=== PATIENT | male | born 1950 | race Caucasian/White ===

== ENCOUNTER → 2018-11-26 10:03 | Outpatient (CLI) | payer MEDICARE, SELFPAY ==
[2018-11-26 11:07] LABS: PSA,Total - Annual Screen 0.32 ng/mL (0.00-4.00)
== END ==
PROVIDERS: Family Provider Family Medicine; PCP Family Medicine; Referring Provider Nurse Practitioner Adult Health; Visit Provider Nurse Practitioner Adult Health
DX: Z12.5 Encounter for screening for malignant neoplasm of prostate (principal)
CPT/HCPCS: 36415; 84153; G0103

== ENCOUNTER → 2019-03-25 16:52 | Outpatient (CLI) | payer MEDICARE, SELFPAY ==
[2019-03-25 17:01] LABS: Bacteria 0 SEEN /hpf (None Seen); Mucous, Urine 0 SEEN /hpf (<or=2+); Red Blood Cells-Urine 0 SEEN /hpf (0-5); Squamous Epithelial Cells - UA 0 SEEN /hpf (0-5); White Blood Cells 0 SEEN /hpf (0-5)
[2019-03-25 17:16] LABS: Color, Urine Yellow (Yellow); Glucose, Dipstick Normal (Normal); Ketone-Dipstick Negative (Negative); Leukocyte Esterase-Dipstick Negative /ul (Negative); Nitrite-Dipstick Negative (Negative); Occult Blood-Urine 10 /ul (Negative); Protein-Dipstick Negative (Negative); Urine Bilirubin Dipstick Negative (Negative); Urine Clarity Clear (Clear); Urine Urobilinogen Normal (Normal)
== END ==
PROVIDERS: Family Provider Family Medicine; PCP Family Medicine; Referring Provider Urology; Visit Provider Urology
DX: R31.29 Other microscopic hematuria (principal)
CPT/HCPCS: 81001

== ENCOUNTER 2019-04-10 11:35 | Emergency (ER) | payer MEDICARE, OTHER, SELFPAY ==
[2019-04-10 11:36] VITALS: BP 147/67; PULSE 48; RESP 16; TEMP 36.7; O2SAT 93; BMI 31.4
[2019-04-10] MEDS: Ondansetron 4 MG/2 ML Vial IV (12:09)
[2019-04-10] MEDS: Morphine 4 MG/ML Syringe IM (12:09)
--- NOTE | 2019-04-10 12:11 | RAD_ITS ---
STUDY: X-RAY - LEFT HAND, ATTENTION FIRST FINGER REASON FOR EXAM: Male, 69 years old. Laceration with saw TECHNIQUE: 3 view(s) of the finger were obtained. COMPARISON: None. FINDINGS: Severe soft tissue injury of the distal left thumb with osseous involvement and what appears to be near amputation. Remainder is within normal limits RAD/Finger(s) Min 2 Views IMPRESSION: As above Electronically Signed: Arpan Sanchez DO at 12:43 EDT Tel , Service support ,
[2019-04-10] MEDS: Diphth,Pertuss(Acell),Tet Vac 0.5 ML Vial IM (12:13)
[2019-04-10] MEDS: Cefazolin 1 GM/50 ML BAG IV (12:36)
--- NOTE | 2019-04-10 12:36 | ED.DCSUM_ITS ---
History of Present Illness Chief Complaint: Laceration Detail of Chief Complaint: Partial amputation left thumb Informant: Patient Occurred: Today Mechanism/Context: Incised - Using commercial planar Current Severity: 5/10 Maximum Severity: 10/10 Worsened by: Any type of movement Relieved by: Better if left alone Associated Symptoms: Parasthesia, Weakness, Loss of Funtion Narrative: Patient is a 69-year-old [id number] male who presents with laceration to the left thumb not right as document by triage. This occurred less than 30 minutes prior to presentation. He has not had anything to eat or drink other than a sip water between 8 AM and 9 AM. He has history of hypertension and hypercholesterolemia. Immunization unknown. Patient has no other complaints. Tetanus Immunization: >10 years Prior similar symptoms: No Recent Illness/Hospitalization: No Past Medical History - Allergies and Home Meds Allergies/Adverse Reactions: Allergies codeine Adverse Reaction (Verified 04/10/19 11:36) Nausea/Vom/Diarrhea Primary Care Physician: Dunia Barnes MD [Primary Care Provider] - Prior records reviewed: Yes Lives: Spouse/ Significant Other Smoking Status: Never smoker Drugs: None Review of Systems General: Denies: Chills, Fever Cardiovascular: Denies: Chest pain Gastrointestinal: Denies: Nausea, Vomiting Musculoskeletal: Reports: Extremity Pain. Denies: Myalgias, Arthralgias, Neck pain, Back pain, Swelling Skin: Reports: Wounds - Left thumb ulnar side. Denies: Rash, Abrasions Neurological: Reports: Parasthesia, Numbness Hematologic: Denies: Easy bruising, Easy bleeding Allergy: Denies: Uticaria, Swelling of the mouth Physical Exam Vital Signs/Narrative: Vital Signs Temp Pulse Resp BP Pulse Ox 04/10/19 11:36 98.1 F 48 L 16 147/67 H 93 Left Humerus: Negative for: Abrasion, Contusion, Deformity, Edema, Hematoma, Limited ROM, - Left Elbow: Negative for: Abrasion, Contusion, Deformity, Edema, Hematoma, Limited ROM, - Left Forearm: Negative for: Abrasion, Contusion, Deformity, Edema, Hematoma, Limited ROM, - Left Wrist: Negative for: Abrasion, Contusion, Deformity, Edema, Hematoma, Limited ROM, - Left Hand: Negative for: Abrasion, Contusion, Deformity, Edema, Hematoma, Limited ROM, - Left Finger: Deformity, Limited ROM, - - With complex laceration deformity of the left thumb. The IP joint is dislocated. He has no sensation on the radial side and only touch with absent two-point discrimination on the ulnar side. He is unable to extend or flex at the IP joint. There is significant tissue loss noted. There is discoloration of the distal portion of the thumb on the radial side.. Negative for: Abrasion General: Well nourished, Well developed Head: Normocephalic, Atraumatic Eyes: Perrl, EOMI. Negative for: Pale conjunctiva, Scleral icterus, - ENT: No Trauma, Moist Mucous Membranes Neck: Nontender, Full ROM Cardiovascular: Regular rate, Regular rhythm, No murmurs, Normal S1, Normal S2 Respiratory: No distress, CTA bilaterally, Chest nontender Rectal: Deferred Skin: Normal color, No rash, Trauma - Described under hand portion of the chart Neurological: Alert, Oriented x3, Cranial nerves II-XII grossly intact, Normal Strength. Negative for: Normal Sensation Psychological: Normal affect Diagnostic/Tx/Re-eval Chest X-Ray - ED: Read by ED Physician 3 view x-ray of the left thumb was obtained. 50% of the articular surface of the distal phalanx on the radial side is absent. The condyles have been removed. - Medical Decision Making Patient was made n.p.o. Tetanus was updated. Patient received 1 g of Ancef. X-rays were obtained. Case discussed with Dr. Tamiko Eid, on-call for orthopedics. She recommended hand surgical referral. Page was placed to the physician litigation legal assistant for [place] [facility]. Case was discussed with Dr. Dyer at [facility]. She is accepted patient. Transfer will be ER to ER. Transfer line has been paged. ED Disposition - Plan for ED Patient: Disposition: [facility] Diagnosis: Laceration of thumb, left, complicated, Fracture of unspecified phalanx of left thumb, initial encounter for open fracture Referrals: Dunia Barnes MD [Primary Care Provider] -
[2019-04-10 12:54] VITALS: BP 218/80; PULSE 50; O2SAT 99
[2019-04-10 12:55] VITALS: BP 218/80; PULSE 52; RESP 16; O2SAT 99
--- NOTE | 2019-04-10 13:06 | ED.RN ---
called report to stevie anne in [facility].
[2019-04-10 13:07] VITALS: BP 205/102; PULSE 48; O2SAT 100
[2019-04-10] MEDS: Morphine 4 MG/ML Syringe IV (13:24)
== END 2019-04-10 13:28 | disposition short-term general hospital (02) ==
PROVIDERS: Emergency Provider Emergency Medicine; Family Provider Family Medicine; PCP Family Medicine
DX: S62.522B Displaced fracture of distal phalanx of left thumb, initial encounter for open fracture (principal); I10 Essential (primary) hypertension; Z23 Encounter for immunization; E78.00 Pure hypercholesterolemia, unspecified; Z79.899 Other long term (current) drug therapy; W26.8XXA Contact with other sharp object(s), not elsewhere classified, initial encounter; Y93.89 Activity, other specified; Y92.008 Other place in unspecified non-institutional (private) residence as the place of occurrence of the external cause; Y99.8 Other external cause status
CPT/HCPCS: 73140; 90715; 96365; 96372; 96375; 99284; A4216; J2405

== ENCOUNTER → 2019-05-07 | Outpatient (CLI) | payer MEDICARE, OTHER, SELFPAY ==
[2019-04-10 11:36] VITALS: BMI 31.4
[2019-05-07 15:56] LABS: Anion Gap 6 (5-15); BUN 17 mg/dL (7-18); BUN/Creat Ratio 15.2 RATIO (10-20); Calcium,Total 9.1 mg/dL (8.5-10.1); Chloride 107 mmol/L (98-107); Creatinine, Serum 1.12 mg/dL (0.70-1.30); EST Glomerular Filtration Rate 69 mL/min (>60); Est Glom Filt Rate - Afr Amer 84 mL/min (>60); Glucose 104 mg/dL (74-106); Potassium 4.1 mmol/L (3.5-5.1); Sodium Level 139 mmol/L (136-145)
== END | disposition home or self-care (01) ==
LOC: MFPLAB 13:52
PROVIDERS: Family Provider Family Medicine; PCP Family Medicine; Referring Provider Family Medicine; Visit Provider Family Medicine
DX: I10 Essential (primary) hypertension (principal)
CPT/HCPCS: 36415; 80048

== ENCOUNTER → 2019-06-11 | Outpatient (CLI) | payer MEDICARE, OTHER, SELFPAY ==
[2019-06-11 17:37] LABS: Anion Gap 5 (5-15); BUN 19 mg/dL (7-18); BUN/Creat Ratio 14.2 RATIO (10-20); Chloride 107 mmol/L (98-107); Creatinine, Serum 1.34 mg/dL (0.70-1.30); EST Glomerular Filtration Rate 56 mL/min (>60); Est Glom Filt Rate - Afr Amer 68 mL/min (>60); Glucose 100 mg/dL (74-106); Potassium 4.1 mmol/L (3.5-5.1); Sodium Level 139 mmol/L (136-145)
== END | disposition home or self-care (01) ==
LOC: MFPLAB 15:03
PROVIDERS: Family Provider Family Medicine; PCP Family Medicine; Referring Provider Family Medicine; Visit Provider Family Medicine
DX: I10 Essential (primary) hypertension (principal)
CPT/HCPCS: 36415; 80048

== ENCOUNTER → 2019-12-13 10:21 | Outpatient (CLI) | payer MEDICARE, OTHER, SELFPAY ==
[2019-12-13 12:45] LABS: AST(SGOT) 14 U/L (15-37); Alanine Aminotransfer ALT/SGPT 26 U/L (16-61); Anion Gap 4 (5-15); BUN 16 mg/dL (7-18); BUN/Creat Ratio 13.7 RATIO (10-20); Calcium,Total 9.1 mg/dL (8.5-10.1); Chloride 110 mmol/L (98-107); Cholesterol 187 mg/dL (200); Creatinine, Serum 1.17 mg/dL (0.70-1.30); EST Glomerular Filtration Rate 66 mL/min (>60); Est Glom Filt Rate - Afr Amer 80 mL/min (>60); Glucose 78 mg/dL (74-106); High Density Lipoprotein 69 mg/dL; Potassium 3.9 mmol/L (3.5-5.1); Sodium Level 140 mmol/L (136-145); Triglycerides 118 mg/dL; Very Low Density Lipoprotein 24 mg/dL (5-40)
== END ==
PROVIDERS: PCP Family Medicine; Referring Provider Family Medicine; Visit Provider Family Medicine
DX: I10 Essential (primary) hypertension (principal); E78.5 Hyperlipidemia, unspecified
CPT/HCPCS: 36415; 80048; 80061; 84450; 84460

== ENCOUNTER → 2020-06-07 10:35 | Outpatient (CLI) | payer MEDICARE, OTHER, SELFPAY ==
[2020-06-07 13:16] LABS: Anion Gap 3 (5-15); BUN 17 mg/dL (7-18); BUN/Creat Ratio 14.3 RATIO (10-20); Calcium,Total 8.7 mg/dL (8.5-10.1); Chloride 108 mmol/L (98-107); Creatinine, Serum 1.19 mg/dL (0.70-1.30); EST Glomerular Filtration Rate 64 mL/min (>60); Est Glom Filt Rate - Afr Amer 78 mL/min (>60); Glucose 88 mg/dL (74-106); PSA,Total - Annual Screen 1.21 ng/mL (0.00-4.00); Potassium 4.7 mmol/L (3.5-5.1); Sodium Level 140 mmol/L (136-145)
== END ==
PROVIDERS: PCP Family Medicine; Referring Provider Family Medicine; Visit Provider Family Medicine
DX: Z00.00 Encounter for general adult medical examination without abnormal findings (principal); I10 Essential (primary) hypertension; Z12.5 Encounter for screening for malignant neoplasm of prostate
CPT/HCPCS: 36415; 80048; 84153; G0103

== ENCOUNTER 2020-06-29 10:00 | Outpatient (RCR) | payer MEDICARE, OTHER, SELFPAY ==
--- NOTE | 2020-05-17 07:52 | HP.PTEVAL ---
Patient's Visit Information TESHA NULL is a 70 year old M referred to Physical Therapy by Dr. Sharad Vila MD with a diagnosis of R knee medial meniscal repair. Date of Evaluation: 05/17/20 Physical Therapist: Feroz Martinez PT, ATC - Visit Plan Frequency: 2x /Week Duration: 6 Weeks Plan: R LE strengthening, balance and proprioreception, core strengthening, bike, and HEP - Subjective DOS: 04/27/2020. Pt had arthroscopic surgery of R knee to repair torn medial meniscus. Pt reports pain is a litlle better at this time. Pt reports he is still having a very difficult time with ascending and descending stairs. Pt reports he has been performing HEP while waiting to get into for his eval. No tingling or numbness in R LE at this time. Pt reports sleep difficulty secondary to pain at this time. No PMHx of R knee surgeries prior to this eepisode. Pt is retired at this time. Pt reports he likes to golf and perform wood working activities at this time, but is unable to secondary to his surgery. Pt has stairs at home, but has to negotiate them one at a time. 5/10 pain at rest, 7/10 pain at worst (prolonged standing, walking, stair negotiation). - Pain R knee arthroscopy Pain Intensity (Out of 10): 5 Pain Intensity Range: 7 - Objective Neuro: B LE sensation is WNL to light touch. B achilles reflex= 2/3. Girth at joint line: R knee 38 cm, L knee 37 cm. Palpation: Incision still healing on lateral compartment. Mild swelling noted. No pitting edema present this date. No signs of infection present. ROM: L knee 0-123 degrees; R knee 0-107 degrees. MMT: L knee flex 5/5, ext 4-/5; R knee flex= 5/5, ext= 3+/5. Flexibility: Pt has a mild limitation with R HS muscle group - Goals Goal 1:: Decrease R knee pain x 50% to aid with sleep Goal Time Frame: 4-6 Weeks Goal 2:: Increase R knee ROM x 15 degrees to aid with restoring a more normalized gait pattern Goal Time Frame: 4-6 Weeks Goal 3:: Increase R knee strength x 1 grade to aid with stair negotiation Goal Time Frame: 4-6 Weeks Goal 4:: I with HEP Goal Time Frame: 4-6 Weeks - Rehabilitation Potential Physical Therapy Diagnosis: Pt has R knee pain, weakness, and limited ROM secondary to R medial meniscus repair Rehabilitation Potential: Good - Anticipated Interventions Patient/Client Instruction: Educate patient on: Condition, Plan of Care For the Purpose of:: To improve self management Therapeutic Exercise to Include: Strength training, Endurance training, Balance training, Flexibilty training, Active ROM, Dynamic Lumbar Stabilization For the Purpose of:: To decrease pain, To increase ROM, To improve muscle performance and motor function Cryotherapy (ice pack, ice massage): Yes For the Purpose of:: To decrease pain Thank you for the opportunity to evaluate your patient. For Medicare and Medicare HMO plans, please review the plan of care and approve it. It will need to be FAXED BACK to us at [phone] for Medicare purposes. For Medicare only, by signing this I certify the plan of care. Please let me know if there are questions or concerns regarding this plan of care. Physician Signature: Date:
--- NOTE | 2020-06-20 10:15 | HP.PTREVAL ---
Dr. Sharad Vila MD, It has been my pleasure to treat TESHA NULL over the last 10 visits for R knee medial meniscal repair. Please see the progress note below for an update on the physical therapy plan of care! Subjective: Pt reports that he is getting better. He still has pain when standing for a few hours. He has a little bit of pain on the stairs.... is getting better. More pain going down the stairs then up. He still has to hold onto the rail going down. When he gets down on the floor to get over onto his knees he is still sensitive. There are times that he still wakes up (2-3X/week) with pain and takes Tylenol. Objective/Function: Decreased eccenric control descending stairs on the right. Observed weakness ascending the stairs on the R as well. R knee AROM: 0-125 degrees. R knee flex 4+/5 and ext 4/5 and and R hip abd 4/5 and hip ext 4-/5. Pt struggled with strength and confidence with 8 step ups to balance. Plan Plan: Continue X 3 weeks for R eccentric strength, R LE strengthening, balance and proprioreception, core strengthening, bike, and HEP Goals Goal 1:: Decrease R knee pain x 50% to aid with sleep Goal Time Frame: 4-6 Weeks Goal Progress: Progressing Goal 2:: Increase R knee ROM x 15 degrees to aid with restoring a more normalized gait pattern Goal Time Frame: 4-6 Weeks Goal Progress: Progressing Goal 3:: Increase R knee strength x 1 grade to aid with stair negotiation Goal Time Frame: 4-6 Weeks Goal Progress: Progressing Goal 4:: I with HEP Goal Time Frame: 4-6 Weeks Goal Progress: Progressing Anticipated Interventions Patient/Client Instruction: Educate patient on: Condition, Plan of Care For the Purpose of:: To improve self management Therapeutic Exercise to Include: Strength training, Endurance training, Balance training, Flexibilty training, Active ROM, Dynamic Lumbar Stabilization For the Purpose of:: To decrease pain, To increase ROM, To improve muscle performance and motor function Cryotherapy (ice pack, ice massage): Yes For the Purpose of:: To decrease pain Please do not hesitate to contact me at [phone] by phone or if you have questions or concerns regarding this new plan of care! Sincerely, July Brooks, MPT
--- NOTE | 2020-06-29 10:22 | HP.PTDCSUM_ITS ---
It has been my pleasure to treat TESHA NULL referred by Dr. Sharad Vila MD, with the diagnosis of R knee medial meniscal repair for a total of 13 visit(s). Discharge Date: Please see the following information for a summary of their discharge status. Subjective: Patient reports that he is still challenged with standing for long periods of time, stairs or walking long distances. Feels that he can perform all the exercises at home without difficulty. Worst: 4/10 mostly at night when he is trying to get comfortable. Most of the time he is painfree. He has no difficulty with ADL's- about an hour or hour and half is when he starts to have discomfort in on the medial side of the joint. R knee arthroscopy Pain Intensity (Out of 10): 0 % Improvement: 90 Objective/Function: Posture: good throughout Gait: slightly antalgic with decreased heel strike, Stairs: Decreased eccenric control descending stairs on the right. SLS: 30 sec without LOB Tandem walking: x5 steps no LOB Palpation: tender along medial joint line. Strength: Ankle: 5/5, Knee: 5/5, Hip : 4+/5 throughout Core: fair plus Goal 1:: Decrease R knee pain x 50% to aid with sleep Goal Progress: Goal Met Goal 2:: Increase R knee ROM x 15 degrees to aid with restoring a more normalized gait pattern Goal Progress: Goal Met Goal 3:: Increase R knee strength x 1 grade to aid with stair negotiation Goal Progress: Goal Met Goal 4:: I with HEP Goal Progress: Goal Met Plan: Discharge to I HEP- gave pt Health and Wellness form for particpation after PT If there are questions or concerns regarding this patient's physical therapy, please feel free to call me at [phone]. Thank you for the referral of this patient. Sincerely, CAROLIN PinedaT
== END 2020-06-29 10:51 | disposition home or self-care (01) ==
LOC: PT 10:00
PROVIDERS: PCP Family Medicine; Referring Provider Orthopaedic Surgery; Visit Provider Orthopaedic Surgery
DX: S83.241D Other tear of medial meniscus, current injury, right knee, subsequent encounter (principal); Z98.890 Other specified postprocedural states
CPT/HCPCS: 97110; 97161; 97164; 97530

== ENCOUNTER → 2020-08-01 11:26 | Outpatient (CLI) | payer MEDICARE, OTHER, SELFPAY ==
--- NOTE | 2020-08-01 11:30 | RAD_ITS ---
HISTORY: low back pain, mainly left sided ADDITIONAL HISTORY: None provided. EXAMINATION/TECHNIQUE: XR Spine Lumbar Min 4 Views Number of images including paperwork: 5 COMPARISON: None FINDINGS: VERTEBRAE: No acute fracture. VERTEBRAL ALIGNMENT: No traumatic subluxation. DISKS AND JOINTS: Minimal discogenic degenerative changes with small osteophytes. Facet arthropathy, most pronounced at the lumbosacral junction. SOFT TISSUES: Vascular calcifications. RAD/L/S Spine Min 4 Views IMPRESSION: No acute findings. Degenerative changes. at 0624 Reported and signed by: Ora Crane MD Electronically Signed: Ora Crane MD at 6:24 EDT Tel , Service support ,
== END ==
PROVIDERS: PCP Family Medicine; Referring Provider Nurse Practitioner Adult Health; Visit Provider Nurse Practitioner Adult Health
DX: M54.9 Dorsalgia, unspecified (principal)
CPT/HCPCS: 72110

== ENCOUNTER 2021-04-08 08:21 | Emergency (ER) | payer MEDICARE, OTHER, SELFPAY ==
[2021-04-08 08:22] VITALS: BP 152/91; PULSE 52; RESP 14; TEMP 35.8; O2SAT 97; BMI 28.9
--- NOTE | 2021-04-08 08:44 | RAD_ITS ---
STUDY: X-RAY - LEFT KNEE REASON FOR EXAM: Male, 71 years old. effusion TECHNIQUE: 4 view(s) of the knee. COMPARISON: None. FINDINGS: Normal visualized distal femur. Normal visualized proximal tibia and fibula. Normal proximal tibiofibular articulation. Status post medial compartment arthroplasty. The prosthesis appears intact. No ostial lysis to suggest loosening. Normal lateral femorotibial compartment. Normal patellofemoral articulation. There is a moderate volume joint effusion. The soft tissue structures are unremarkable. RAD/Knee 4 or More Views IMPRESSION: Effusion, as described above. Electronically Signed: Wilbert Carreno MD at 9:20 EDT Tel , Service support ,
--- NOTE | 2021-04-08 08:55 | EDS_ITS ---
HPI History of Present Illness Chief Complaint: Lower Extremity Injury Informant: patient Narrative Narrative: Patient states that he has had a partial knee replacement by Dr. Peña of the left knee. Recently he has had episodes where it has been catching/locking up and was been painful. He did some extra work on Friday of this week and states his symptoms have gotten worse. He did call for an appointment at the first part of April with orthopedics. He states that now it is catching more in the knee is more swollen than normal. He notes that the left leg has been chronically more swollen than the right. That has been since his surgery. [facility] Medical History (Updated 04/08/21 @ 09:[address] Dave Diaz, DO) GERD (gastroesophageal reflux disease) Hyperlipidemia Hypertension Home Medications atenolol 25 mg PO DAILY 11/10/14 [History Last Taken Unknown] atorvastatin 20 mg PO QHS 11/10/14 [History Last Taken Unknown] esomeprazole magnesium [Nexium] 40 mg PO DAILY 11/10/14 [History Last Taken Unknown] naproxen 500 mg PO BID #20 tab 04/08/21 [Rx Last Taken Unknown] Allergy/AdvReac Type Severity Reaction Status Date / Time codeine AdvReac Nausea/Vom/ Verified 04/08/21 08:22 Diarrhea Surgical History (Updated 04/08/21 @ 09:01 by Maggi Baker) H/O lateral meniscus repair of left knee H/O lateral meniscus repair of right knee Social History Smoking Status: Never smoker ROS ROS ED Constitutional Constitutional ED: Denies chills or weight loss Eyes Eyes: Denies change in vision or diplopia ENT ENT ED: Denies ear pain, rhinorrhea or sore throat Cardiovascular Cardiovascular: Denies chest pain, orthopnea, palpitations or racing heartbeat Respiratory/Chest Respiratory/Chest: Denies cough, dyspnea or orthopnea Gastrointestinal Gastrointestinal: Denies abdominal pain, diarrhea, nausea or vomiting Genitourinary Genitourinary ED: Denies dysuria, hematuria or urinary frequency Musculoskeletal Musculoskeletal: Reports other Details: Left knee pain and swelling ; Denies arthralgias or myalgias Integumentary Denies abscess or rash Neurologic Neurologic: Denies headache(s) or weakness Psychiatric Psychiatric: Denies anxiety, depression, suicidal ideation or suicidal thoughts Endocrine Endocrinology: Denies polydipsia, polyphagia or polyuria Allergic/Immunologic Allergic/Immunologic ED: Denies mouth swelling, tongue swelling or urticaria EXAM Physical Exam Const Vital Signs: 04/08/21 08:22 Temperature 96.4 F L Temperature Source Temporal Pulse Rate 52 L Respiratory Rate 14 Blood Pressure 152/91 H Blood Pressure Mean 111 Pulse Ox 97 Oxygen Delivery Method Room Air Positive well nourished and well developed General Appearance ED: well developed HEENT Reports normocephalic, head/scalp atraumatic and moist mucous membranes Eyes PERRL and EOMs intact bilaterally Neck no lymphadenopathy, supple and no JVD Resp normal respiratory effort and clear to auscultation bilaterally Cardio regular rate, regular rhythm and no murmurs GI normal to inspection, nondistended, normoactive bowel sounds and non-tender Palpation: soft Back/Spine no CVA tenderness and normal ROM Extremity Extremity Narrative: Left knee shows well-healed surgical incision. There is a palpable joint effusion. Ligaments appear stable. The skin is not red or warm. General Extremety ED: Negative for edema General Extremity: Negative for edema Neuro oriented x3 and CN's II-XII intact bilaterally Sensorium / Orientation: alert Motor Exam: strength 5/5 throughout Psych mental status grossly normal Mood & Affect: Negative for depressed or tearful Skin no rashes or lesions noted and no wounds MDM MDM MDM Narrative Medical decision making narrative: My interpretation of the plain films of the left knee is status post partial knee replacement. There are degenerative changes noted. Joint effusion present. I suspect the patient has meniscal injury. Patient will use crutches to help offload the weight. Dylan wrap and ice. I have asked him to limit how much time he is spending on the knee and avoidance of bending. I also advised him to limit golf because of the torquing on the knee. He is to follow-up with orthopedics. I Radiography Diagnostic Testing: Radiology Impression Knee X-Ray 04/08/21 08:44 IMPRESSION: Effusion, as described above. Electronically Signed: Wilbert Carreno MD at 9:20 EDT Tel , Service support , Discharge Plan Triage Chief Complaint: Lower Extremity Injury ED Provider: Dave Diaz Dx/Rx/DC Orders Clinical Impression: Effusion of knee joint, left, Acute pain of left knee Instructions: ED Meniscal Injury Knee Poss, ED Knee Effusion Prescriptions: New naproxen 500 MG tablet 500 mg PO BID Qty: 20 RF: 0 No Action atorvastatin 20 MG tablet 20 mg PO QHS RF: 0 atenolol 25 MG tablet 25 mg PO DAILY RF: 0 esomeprazole magnesium [Nexium] 40 MG capsule 40 mg PO DAILY RF: 0 Primary Care Provider: Dunia Barnes Referrals: Dunia Barnes MD [Primary Care Provider] - Júnior Peña DO [STAFF PHYSICIAN] - [facility] appointment Disposition Disposition: Home, self care Discharge Date/Time: 04/08/21 09:39
== END 2021-04-08 09:39 | disposition home or self-care (01) ==
LOC: ED 09:25
PROVIDERS: Emergency Provider Emergency Medicine; PCP Family Medicine
DX: M25.462 Effusion, left knee (principal); I10 Essential (primary) hypertension; E78.5 Hyperlipidemia, unspecified; K21.9 Gastro-esophageal reflux disease without esophagitis; Z79.899 Other long term (current) drug therapy
CPT/HCPCS: 73564; 99282

== ENCOUNTER → 2021-04-17 10:49 | Outpatient (CLI) | payer MEDICARE, OTHER, SELFPAY ==
[2021-04-08 08:22] VITALS: BMI 28.9
--- NOTE | 2021-04-17 10:56 | NM_ITS ---
CLINICAL: 71-year-old male with reported history of painful left knee hemiarthroplasty. LIMITED 99m Tc MDP THREE PHASE BONE SCINTIGRAPHY COMPARISON: Plain film radiograph report 04/08/2021 FINDINGS: Following the intravenous administration of 24.3 mCi of 99m Tc MDP, three-phase bone acquisitions of the knee articulations reveal: 1. The flow and immediate static blood pool acquisitions demonstrate arterial and venous phase hyperemia manifest in the region of the lateral component of the left knee arthroplasty. Increased blood pool activity is defined in the medial component. Mild increased venous distribution of the radiotracer is noted in the medial compartment of the right knee. 2. Delayed images depict increased visualized in the tibial and lateral components of the left knee hemiarthroplasty correlating with the flow and blood pool changes. 3. Facilitated uptake is identified in the medial tibial compartment of the right knee which corresponds to the blood pool changes. 4. An increase in radiotracer distribution is noted in the patellofemoral compartment of the right knee on late projections only. 5. The remaining limited skeletal structures are scintigraphically unremarkable. NM/Bone Scan Three Phase IMPRESSION: 1. The increase in tracer uptake noted in both the medial and lateral components of the left knee hemiarthroplasty may represent the presence of loosening. The specificity of this finding is facilitated in the setting of operative intervention > 2 years prior to the current presentation. If an infectious etiology is a diagnostic consideration, correlation with labeled leukocyte imaging is recommended. 2. Degenerative arthritis appears expressed in the patellofemoral and medial tibial compartments of the right knee. A component of synovial inflammation involving the medial tibial compartment is a diagnostic consideration secondary to the blood pool changes. Electronically Signed: Wilbert Quinones DO at 21:53 EDT Tel , Service support ,
== END ==
PROVIDERS: PCP Family Medicine
DX: M25.562 Pain in left knee (principal); Z96.652 Presence of left artificial knee joint
CPT/HCPCS: 78315; A9503

== ENCOUNTER → 2021-07-31 10:22 | Outpatient (CLI) | payer MEDICARE, OTHER, SELFPAY ==
[2021-07-31 12:29] LABS: AST(SGOT) 14 U/L (15-37); Alanine Aminotransfer ALT/SGPT 24 U/L (16-61); Anion Gap 2 (5-15); BUN 15 mg/dL (7-18); BUN/Creat Ratio 15.2 RATIO (10-20); Calcium,Total 9.1 mg/dL (8.5-10.1); Chloride 107 mmol/L (98-107); Cholesterol 169 mg/dL (200); Creatinine, Serum 0.99 mg/dL (0.70-1.30); EST Glomerular Filtration Rate 79 mL/min (>60); Est Glom Filt Rate - Afr Amer 96 mL/min (>60); Glucose 96 mg/dL (74-106); High Density Lipoprotein 55 mg/dL; PSA,Total - Annual Screen 1.14 ng/mL (0.00-4.00); Potassium 4.4 mmol/L (3.5-5.1); Sodium Level 140 mmol/L (136-145); Triglycerides 115 mg/dL; Very Low Density Lipoprotein 23 mg/dL (5-40)
== END ==
PROVIDERS: PCP Family Medicine; Referring Provider Family Medicine; Visit Provider Family Medicine
DX: Z00.00 Encounter for general adult medical examination without abnormal findings (principal); E78.5 Hyperlipidemia, unspecified; I10 Essential (primary) hypertension; Z12.5 Encounter for screening for malignant neoplasm of prostate
CPT/HCPCS: 36415; 80048; 80061; 84153; 84450; 84460; G0103

== ENCOUNTER 2021-08-02 10:30 | Outpatient (RCR) | payer MEDICARE, OTHER, SELFPAY ==
--- NOTE | 2021-07-06 13:00 | HP.PTEVAL_ITS ---
Patient's Visit Information TESHA NULL is a 71 year old M referred to Physical Therapy by ALEX SOLORZANO with a diagnosis of S/P ATHROSCOPY OF LEFT KNEE. Date of Evaluation: 07/06/21 Physical Therapist: Collin Shabazz, PT, Cert MDT, OCS - Visit Plan Frequency: 2x /Week Duration: 6 Weeks Plan: PT INTERVTIONS AROM ,flexibility hamstring/calf ,PRE'S quads/hams/hip and functional strengthening,CP - Subjective This 71 y/o male presents to physical therapy s/p arthroscopic of left knee on 06/06/21 at [facility] outpatient done Dr Vila . Patient d/c DOS no crutches. Patient had meniscus lateral knee . Patient has h/o partial left knee ~ 10 years ago. Patient has minor swelling and pain. Symptoms are worse walking ~ 1mile ,stiffness with sitting and soreness with squatting and stairs. Denies paresthesia/tingling. Patient has some difficulty with sleeping. Patient goal is return to golf and wood working. Patient condition affects QOL and function and and return to hobbies. SOCIAL: - Pain Left Knee Pain Intensity (Out of 10): 3 Pain Intensity Range: 10 - Objective POSTURE: mild forward posture. GAIT: reciprocal pattern. STAIRS: alternating with rails more difficulty descending. EDEMA: joint line 40 cm2. AROM: supine knee flexion 0-130 degrees. FLEXABLITY: hams mild tight. MMT: quads/hams 4/5 , hip flexion, hip abduction 4-/5 ,ankl4 5/5. - Goals Goal 1:: I with HEP Goal Time Frame: 4-6 Weeks Goal 2:: Improve strength 5/5 hip knee to return to normal activity and golfing Goal 3:: Patient to have 75 % or> improvement with function and ADLS' Goal Time Frame: 4-6 Weeks Goal 4:: Patient to improve LFES score by 5 points or > to improve function and turn to golf Goal Time Frame: 4-6 Weeks - Rehabilitation Potential Physical Therapy Diagnosis: This 71 y/o male underwent arthroscopy left knee with decrease ROM ,strength and function and return to golfing thus benefit from skilled PT Rehabilitation Potential: Good - Anticipated Interventions Patient/Client Instruction: Educate patient on: Condition, Plan of Care For the Purpose of:: To decrease pain, To increase ROM, To improve muscle performance and motor function, To improve ability to perform ADL's, To increase tolerance to activity/condition/position, To improve performance and independence with ADL's, To improve ability of physical actions for home/community/work/leisure, To improve gait and locomotor functions, To improve health of tissue, To decrease soft tissue restriction, To increase flexibility/ROM, To reduce risk of recurrence, To improve ability to perform tasks related to life management Therapeutic Exercise to Include: Strength training, Power training, Balance training, Flexibilty training, Active ROM Comment: BLE For the Purpose of:: To decrease pain, To increase ROM, To improve nutrient delivery to tissue, To improve ability of physical actions for home/community/work/leisure, To increase flexibility/ROM, To improve endurance, To improve balance, To reduce risk of recurrence, To improve ability to perform tasks related to life management Thank you for the opportunity to evaluate your patient. For Medicare and Medicare HMO plans, please review the plan of care and approve it. It will need to be FAXED BACK to us at [phone] for Medicare purposes. For Medicare only, by signing this I certify the plan of care. Please let me know if there are questions or concerns regarding this plan of care. Physician Signature: Date:
--- NOTE | 2021-08-02 10:58 | HP.PTDCSUM ---
It has been my pleasure to treat TESHA NULL referred by ALEX SOLORZANO, with the diagnosis of S/P ATHROSCOPY OF LEFT KNEE for a total of 8 visit(s). Discharge Date: 08/02/21 Please see the following information for a summary of their discharge status. Subjective: Doing well doing great Left Knee Pain Intensity (Out of 10): 0 Objective/Function: GAIT: RECIPROCAL PATTERN. AROM: 0-130 SUPINE KNEE FLEXION. MMT: QUADS/HAMS 4/5,HIP FLEXION 4/5. STAIRS: ALTERNATING WITH NO RAILS Goal 1:: I with HEP Goal 2:: Improve strength 5/5 hip knee to return to normal activity and golfing Goal 3:: Patient to have 75 % or> improvement with function and ADLS' Goal 4:: Patient to improve LFES score by 5 points or > to improve function and turn to golf Plan: d/c Discharge Comments: HEP If there are questions or concerns regarding this patient's physical therapy, please feel free to call me at [phone]. Thank you for the referral of this patient. Sincerely, Collin Shabazz, PT, Cert MDT, OCS Balance/Gait/Functional tests - Balance/Special Test Scores Lower Extremity Functional Score: 66
== END 2021-08-02 19:00 | disposition home or self-care (01) ==
LOC: PT 10:30
PROVIDERS: PCP Family Medicine
DX: Z47.89 Encounter for other orthopedic aftercare (principal)
CPT/HCPCS: 97110; 97162

== ENCOUNTER → 2022-09-02 | Outpatient (CLI) | payer MEDICARE, OTHER, SELFPAY ==
[2022-09-02 13:23] LABS: PSA,Total- Diagnostic 1.25 ng/mL (0.0-4.0)
== END | disposition home or self-care (01) ==
LOC: MFPLAB 11:00
PROVIDERS: PCP Family Medicine; Visit Provider Urology
DX: Z12.5 Encounter for screening for malignant neoplasm of prostate (principal)
CPT/HCPCS: 36415; 84153

== ENCOUNTER → 2022-09-30 | Outpatient (CLI) | payer MEDICARE, OTHER, SELFPAY ==
--- NOTE | 2022-09-30 08:10 | MRI_ITS ---
STUDY: MRI LEFT KNEE REASON FOR EXAM: Male, 72 years old. History of partial knee replacement and meniscal repair. Knee pain. TECHNIQUE: Standardized fat and water weighted pulse sequences were obtained in all 3 orthogonal planes. Substantial artifact of the medial compartment from the medial femorotibial hemiarthroplasty. COMPARISON: X-rays of the left knee dated April 08, 2021 showing metallic medial hemiarthroplasty. FINDINGS: Medial hemiarthroplasty with no diagnostic information concerning the medial compartment. No evaluation of the medial collateral ligament or distal semimembranosus and semitendinosus tendons due to metallic artifact. Blunting of the body of the lateral meniscus with a complex tear of the posterior horn (sagittal series 3 images 31-37, coronal series 4 images 10-15). Moderate thinning of the articular cartilage of the lateral femorotibial compartment with osteophyte formation (coronal series 4 images 8-19). Normal proximal tibiofibular articulation. Normal lateral collateral (fibular) ligament. Normal popliteus tendon. Normal biceps femoris tendon. Normal anterior cruciate ligament (ACL). Normal posterior cruciate ligament (PCL). Mild thinning of the articular cartilage of the patellofemoral compartment (axial series 2 images 7-15). Normal medial and lateral patellar retinaculum. Normal quadriceps tendon. Normal patellar tendon. Normal Hoffa''s fat pad. Moderate-sized joint effusion (axial series 2 images 6-15). The soft tissues are unremarkable. The otherwise visualized osseous structures are unremarkable. MRI/Lower Ext Joint Only (Routine) IMPRESSION: Significant artifact from medial hemiarthroplasty with no diagnostic information concerning the medial femorotibial compartment or adjacent soft tissue structures. Blunting of the lateral meniscus with a complex tear of the posterior horn. Moderate thinning of the articular cartilage of the medial femorotibial compartment with osteophyte formation. Mild thinning of the articular cartilage of the patellofemoral compartment. Moderate-sized joint effusion. Electronically Signed: Fredrick Holden, at 9:35 EST ,
== END | disposition home or self-care (01) ==
LOC: MRI 07:51
PROVIDERS: PCP Family Medicine; Referring Provider Orthopaedic Surgery; Visit Provider Orthopaedic Surgery
DX: M17.12 Unilateral primary osteoarthritis, left knee (principal)
CPT/HCPCS: 73721

== ENCOUNTER → 2023-01-31 | Outpatient (CLI) | payer MEDICARE, OTHER, SELFPAY ==
[2023-01-31 12:21] LABS: Hematocrit 47.4 % (40-54); Hemoglobin 15.5 g/dL (13.0-16.5); Mean Corp Hgb Conc 32.7 g/dL (32-36); Mean Corpuscular Hgb 30.3 pg (27.0-32.0); Mean Corpuscular Volume 92.6 fL (80-94); Mean Platelet Vol. 9.9 fl (6.2-12.0); Platelet Count 224 K/mm3 (150-450); RBC Distribution Width CV 13.6 % (11.6-14.6); RBC Distribution Width SD 46.4 fl (35.1-43.9); Red Blood Count 5.12 M/mm3 (4.6-6.2); White Blood Count 7.6 K/mm3 (4.4-11.0)
[2023-01-31 12:48] LABS: AST(SGOT) 12 U/L (15-37); Alanine Aminotransfer ALT/SGPT 20 U/L (16-61); Albumin, Serum 3.4 g/dL (3.2-5.0); Alkaline Phosphatase 57 U/L (45-117); Anion Gap 5 (5-15); BUN 18 mg/dL (7-18); Calcium,Total 9.1 mg/dL (8.5-10.1); Chloride 111 mmol/L (98-107); Creatinine, Serum 1.06 mg/dL (0.70-1.30); EST Glomerular Filtration Rate 73 mL/min (>60); Est Glom Filt Rate - Afr Amer 88 mL/min (>60); Globulin 3.3 g/dL (2.2-4.2); Glucose 69 mg/dL (74-106); Potassium 4.2 mmol/L (3.5-5.1); Protein, Total 6.7 g/dL (6.4-8.2); Sodium Level 142 mmol/L (136-145)
[2023-01-31 12:49] LABS: Hemoglobin A1c 5.4 % (3.8-5.6)
[2023-01-31 12:50] LABS: Microalbumin,Random Urine 7.1 mg/L (NO RANGE EST.)
== END | disposition home or self-care (01) ==
LOC: MFPLAB 10:34
PROVIDERS: PCP Family Medicine; Visit Provider Nurse Practitioner Family
DX: I10 Essential (primary) hypertension (principal); R35.0 Frequency of micturition
CPT/HCPCS: 36415; 80053; 82043; 83036; 85027

== ENCOUNTER 2023-08-06 10:14 | Day surgery (SDC) | payer MEDICARE, OTHER, SELFPAY ==
[2023-08-06] VITALS (7 sets, daily range): BP systolic 105–176; BP diastolic 52–80; PULSE 47–55; RESP 16–18; TEMP 36.1–36.6; O2SAT 95–100; BMI 27.3
--- NOTE | 2023-08-06 10:31 | PCM.HP.BLA ---
History and Physical Date of Admission: 08/06/23 Intake Vital Signs 07/11/2313:35 07/22/2308:17 Height 5 ft 9.5 in 5 ft 9 in Weight: 187 lb 5 oz 187 lb 2 oz BMI 27.2 27.6 BP 173/84 H 189/99 H Blood Pressure Location Lt brachial Rt brachial Position Sitting Sitting Respiration 14 16 Pulse 64 56 L Pulse Source Monitor Monitor Temp 97.4 F L 96.8 F L Temp Source Temporal Tympanic Pulse Oximetry (%) 96 Oxygen Delivery Method room air Intake Visit Reasons: CONSULT FOR POSS EXCISION OF LEG ABSCESS Chief Complaint: leg abscess consult Allergies codeine Adverse Reaction (Verified 07/22/23 08:18) Nausea/Vom/Diarrhea Medications atenolol 25 mg tablet 25 mg PO DAILY 11/10/14 [History Confirmed 07/22/23] atorvastatin 20 mg tablet 20 mg PO QHS 11/10/14 [History Confirmed 07/22/23] esomeprazole magnesium 40 mg capsule,delayed release (Nexium) 40 mg PO DAILY 11/10/14 [History Confirmed 07/22/23] naproxen 500 mg tablet 500 mg PO BID #20 tabs 04/08/21 [Rx Confirmed 07/22/23] PFSH Medical History GERD (gastroesophageal reflux disease) Hyperlipidemia Hypertension Surgical History H/O lateral meniscus repair of left knee H/O lateral meniscus repair of right knee Social History (Updated 07/22/23 @ 08:17 by Renetta Teresa) Smoking Status: Never smoker how long ago did patient quit smokin years HPI HPI HPI: Patient is a 73-year-old male here with an infection of his posterior leg. Patient has an area of his left posterior thigh which she reports has been there for several months. He says that it has been red and he has had it drained and he has been on antibiotics and has been improving over the last week. He denies fevers or chills. ROS General General: No weight change, appetite, fatigue, colon cancer, breast cancer or weakness HEENT HEENT: Yes eye surgery; No difficulty swallowing, eye injury, swollen glands or hoarseness Endo Endocrine: No thyroid disease, diabetes mellitus, thyroid cancer, Hair loss, heat intolerance or cold intolerance Skin Skin: No rash or changing moles Breast Breast: No left breast lump, right breast lump, nipple discharge, breast pain, abnormal mammogram, abnormal US or breast enlargement Musc Musculoskeletal: Yes arthritis; No back problems, rheumatoid arthritis, gout or joint pain Cardio Cardiovascular: Yes high blood pressure; No murmur, pacemaker, heart disease, atrial fibrillation, heart attack, heart stent, palpitations, shortness of breat with exertion or chest pain Psych Psychiatric: No depression, anxiety or hearing voices Resp Respiratory: No shortness of breath, No sleep apnea, No cough, No COPD, No asthma, No emphysema and No wheezing Gastro Gastrointestinal: No abdominal pain, No nausea or vomiting, No diarrhea, No constipation, No blood in stool, Yes acid reflux, Yes hemorrhoids, No ulcers, No gallbladder problem and No black,tarry stools Francisco Hematologic: No blood thinners, No blood disorders, No bleeding, No anemia and No blood clots Neuro Neurologic: No system reviewed and no additional complaints, except as documented, No as per HPI, No abnormal gait, No abnormal hearing, No abnormal movements, No abnormal speech, No behavioral changes, No burning sensations, No confusion, No convulsions, No disequilibrium, No dizziness, No localized weakness, No frequent falls, No headache(s), No lack of coordination, No loss of vision, No memory loss, No numbness, No other visual disturbances, No radicular pain, No restless legs, No sensory deficit, No syncope, No tingling, No tremor(s), No weakness and No other Exam Const General: cooperative Orientation: alert and oriented x3 [facility] Head: normal to inspection Neck Neck: normal visual inspection and full ROM Chest Chest palpation & inspection: normal inspection of the chest Resp Effort & Inspection: normal respiratory effort Auscultation: clear to auscultation bilaterally Cardio Rate: regular rate Rhythm: regular rhythm GI Inspection: non-distended Palpation: soft and nontender Skin Other: There are 2 small bumps on the posterior thigh that have some surrounding erythema and they are firm. Neuro General: patient alert and patient oriented x3 Extrem General: full ROM Psych Appearance: grossly normal Mental Status: mental status grossly normal Assessment and Plan Assessment and Plan (1) Abscess of left thigh: Status: Acute Plan: There is an infected area of the posterior left thigh. It appears to be 2 sebaceous cysts that are infected. I discussed taking him to the operating room and incising this area and removing the 2 cyst. I discussed the risks of bleeding and infection and nerve injury. Patient understands the risks and will proceed. I will likely perform an ultrasound in the operating room to ensure that there is no vascular structure near the area. Jose Jacobo MD Pager: [facility] [address] [place] [address], [address] [place] [address] Office: I have examined the patient and the H&P has been reviewed. There are no clinical changes since date of exam.
[2023-08-06] MEDS: Lactated Ringers 1,000 ML 15 ML IV (10:57)
--- NOTE | 2023-08-06 11:55 | LES_PTH ---
PATIENT: TESHA NULL LOC: [facility] U#:[id number] AGE/SX: 73/M ROOM: RE08/06/[address]: Dr. Jose Jacobo MD : 1950 BED: DIS: 08/06/2023 SPEC #: [id number] RECD: 08/06/23 13:14 STATUS: VERO GANNON #: [id number] JEANETH: 08/06/23 11:[address]: Jose Jacobo DEPT: SURGICAL PATHOLOGY RECD BY: Hill Soria ENTERED: 08/07/23 08:02 SP TYPE: Lesion OTHR DR: Dr. Dunia Barnes MD Tissues: Skin of leg, NOS Procedures: Surgery Specimen Level IV HEADER OPERATION: Excision sebaceous cyst, leg x2 PRE-OP DIAGNOSIS: Abscess of left thigh TISSUE SUBMITTED: Left leg lesion MICROSCOPIC DIAGNOSIS Left leg lesion, excision: Invasive well-differentiated squamous cell carcinoma, keratoacanthomatous type. See comment. SJ:rg 08/08/2023 COMMENT The tumor is noted in the larger piece of skin ellipse and focally present at one lateral resection margin. Perineural invasion is not seen. Chronic inflammation and foreign body giant cell reaction are also noted adjacent to the tumor. The second piece of tissue predominantly shows chronic inflammation and foreign body giant cell reaction. Clinical correlation and appropriate follow up are necessary. Case has been reviewed in consultation with Dr. Briscoe who concurs with the above diagnosis. IDC:AM MICROSCOPIC DESCRIPTION Slides are reviewed. GROSS DESCRIPTION Received in fixative is one container labeled with the patient's name and designated left leg lesion. The specimen consists of an ellipse of light rodney excised skin measuring 2.3 x 0.9 cm and depth of excision measuring 0.8 cm. Also present free in the container are two irregular fragments of rodney-yellow soft tissue measuring in aggregate 1.0 x 0.5 x 0.5 cm. The ellipse is inked, serially sectioned and totally submitted along with the smaller fragments in two cassettes as follows: 1 - ellipse, 2 - fragments free in container. / AM:jian 08/07/2023 TC:0 CPT: 13510
[2023-08-06] MEDS: Cefazolin 2 GM in 0.9% Normal Saline (100mL Bag) 100 ML IV (12:11)
[2023-08-06] MEDS: Bupivacaine Mpf 0.5% 30 ML VIAL (12:23)
[2023-08-06] MEDS: Lidocaine 1% (30 ml sdv) 30 ML Vial (12:23)
--- NOTE | 2023-08-06 12:50 | PCM.OPRPT ---
Report of Operation Date of Procedure: 08/06/23 Pre-Operative Diagnosis: Infected sebaceous cyst of the left posterior thigh Post-Operative Diagnosis: Same Surgery/Procedure Performed:: Excision of sebaceous cyst of the left posterior thigh Type of Anesthesia: Local MAC Specimen's removed: Left thigh sebaceous cyst Estimated Blood Loss (mL): 5 Description of Procedure: Was brought back to the operating room and MAC anesthesia was induced. The left posterior thigh was prepped and draped in usual sterile fashion. An incision was marked around the sebaceous cyst and it was injected with local anesthetic. An elliptical incision was made around the sebaceous cyst and it was excised. The cavity was irrigated and hemostasis was obtained using electrocautery. Next the skin was closed with interrupted 3-0 nylon sutures. Bandage was placed. Patient tolerated the procedure well.
--- NOTE | 2023-08-06 12:57 | DCINST_ITS ---
Discharge Instructions Diet Discharge Diet: No restrictions Activity Discharge Activity: Return to Normal Activity (Tomorrow) Weight Bearing Status: Weight bearing as tolerated Dressing / Incision Call your doctor if your incision/area has: Continuous Slow Oozing, Sudden Increased Bleeding, Increased Pain/ Swelling, Increased Redness, Foul Smelling Discharge and Swelling at the incision site Call your doctor if you observe: Fever of 101 or Higher Change Dressing in: As needed Cleanse incision/area with: Soap & Water Follow Up Care Please Follow Up With: Jose Jacobo MD When: Please call to schedule 10-day follow up appointment. [phone] Test Results: Test results from this visit will be discussed in further detail at your follow- up appointment, if applicable. Discharge Plan Admission Attending Provider: Jose Jacobo Primary Care Provider: Dunia Barnes Instructions Additional Instructions / Restrictions: I Profen and Tylenol for pain. Discharge Orders/Prescriptions Prescriptions: No Action atorvastatin 20 MG tablet 20 mg PO QHS atenolol 25 MG tablet 25 mg PO DAILY esomeprazole magnesium [Nexium] 40 MG capsule 40 mg PO DAILY finasteride 5 mg tablet 5 mg PO QHS Patient Comments: take 1 tablet by mouth once daily lisinopril 10 mg tablet 20 mg PO QHS Patient Comments: take 1 tablet by mouth once daily iVizia (PF) 0.5 % drops 2 drp ophthalmic (eye) PRN Referrals / Follow Up: Dunia Barnes MD [Primary Care Provider] - Disposition Disposition (needs filled in before D/C Order can be placed): Home, Self Care
== END 2023-08-06 13:35 | disposition home or self-care (01) ==
LOC: SDC 10:14 → AC 10:17
PROVIDERS: PCP Family Medicine; Referring Provider Surgery; Visit Provider Surgery
PROC: (CPT 11403; principal; 2023-08-06 11:45)
DX: L02.416 Cutaneous abscess of left lower limb (principal); L72.3 Sebaceous cyst; E78.5 Hyperlipidemia, unspecified; I10 Essential (primary) hypertension; K21.9 Gastro-esophageal reflux disease without esophagitis; N32.9 Bladder disorder, unspecified; Z79.899 Other long term (current) drug therapy; Z87.891 Personal history of nicotine dependence
CPT/HCPCS: 11403; 00300; 88305; J7120; J2405

== ENCOUNTER → 2023-09-02 | Outpatient (CLI) | payer MEDICARE, OTHER, SELFPAY ==
[2023-09-02 15:32] LABS: PSA,Total - Annual Screen 0.74 ng/mL (0.00-4.00)
== END | disposition home or self-care (01) ==
LOC: LAB 14:39
PROVIDERS: PCP Family Medicine; Visit Provider Urology
DX: Z12.5 Encounter for screening for malignant neoplasm of prostate (principal)
CPT/HCPCS: 36415; 84153; G0103

== ENCOUNTER 2023-09-09 05:47 | Day surgery (SDC) | payer MEDICARE, OTHER, SELFPAY ==
[2023-09-09 06:14] VITALS: BP 156/83; PULSE 59; RESP 16; TEMP 36.8; O2SAT 97; BMI 27.6
[2023-09-09] MEDS: Lactated Ringers 1,000 ML 15 ML IV (06:16)
--- NOTE | 2023-09-09 06:52 | HP.PCM.SX_ITS ---
HPI - General HPI Narrative TESHA NULL, is a 73 M who presents for reexcision of margins of his cancer. The patient had a small mass on the back of the left lower extremity. This was thought to be a sebaceous cyst and it was removed but it came back as a basal cell carcinoma. There was a positive margin. He is here today for r eexcision of margins. He has had no issues since his last surgery. [facility] Medical History Abscess of left thigh Alcohol use Arthritis Back pain Bladder disease Former smoker Gastric reflux GERD (gastroesophageal reflux disease) History of edema History of pain when walking History of stress test History of ulceration Hyperlipidemia Hypertension Low iron Shortness of breath on exertion Testicular swelling Wears glasses Wears hearing aid Home Medications atenolol 25 mg tablet 25 mg PO QHS 11/10/14 [History Last Taken 08/06/23] atorvastatin 20 mg tablet 20 mg PO QHS 11/10/14 [History Last Taken Unknown] esomeprazole magnesium 40 mg capsule,delayed release (Nexium) 40 mg PO DAILY 11/10/14 [History Last Taken 09/09/23] finasteride 5 mg tablet 5 mg PO QHS 07/30/23 [History Last Taken Unknown] lisinopril 10 mg tablet 20 mg PO DAILY 07/30/23 [History Last Taken 09/09/23] povidone (PF) 0.5 % eye drops (iVizia (PF)) 2 drp ophthalmic (eye) PRN 07/30/23 [History Last Taken Unknown] Allergy/AdvReac Type Severity Reaction Status Date / Time codeine AdvReac Nausea/Vom/ Verified 09/09/23 06:14 Diarrhea Surgical History H/O lateral meniscus repair of left knee H/O lateral meniscus repair of right knee History of esophagogastroduodenoscopy (EGD) History of excision of mass Hx of colonoscopy Hx of inguinal hernia repair Hx of left cataract extraction Hx of lithotripsy Hx of right cataract extraction Hx of thumb surgery Hx of total knee arthroplasty Social History (Updated 07/22/23 @ 08:17 by Renetta Teresa) Smoking Status: Former smoker how long ago did patient quit smokin years Vital Signs Vital Signs Vital Signs: 09/09/23 06:14 10/24/23 06:14 Temperature 98.3 F Temperature Source Temporal Pulse Rate 59 L Respiratory Rate 16 Respiratory Pattern Normal Blood Pressure 156/83 H Blood Pressure Mean 107 Blood Pressure Source Monitor Blood Pressure Position Semi-Fowlers Blood Pressure Location Left Arm Pulse Ox 97 Oxygen Delivery Method Room Air Weight Weight: 187 lb 2.759 oz Body Mass Index (BMI) 27.6 Physical Exam Const oriented x3 and no apparent distress Resp normal respiratory effort Cardio regular rate and regular rhythm GI normal to inspection, nondistended, normoactive bowel sounds Assessment & Plan Assessment/Plan (1) 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in: PLAN: Patient is a squamous cell carcinoma on the back of his left lower extremity. This was excised with a margin was positive. He is back for reexcision of margins today. I discussed the risks such as bleeding and infection and need for wound revision. Patient understands and is willing to proceed. Jose Jacobo MD Pager: [facility] [address] [place] [address], [address] [place] [address] Office:
[2023-09-09] MEDS: Cefazolin 2 GM in 0.9% Normal Saline (100mL Bag) 100 ML IV (07:23)
[2023-09-09] MEDS: Bupivacaine Mpf 0.5% 30 ML VIAL (07:27)
[2023-09-09 07:45] VITALS: BP 156/83; BP 94/57; PULSE 57; RESP 18; TEMP 36.2; O2SAT 92
[2023-09-09 07:50] VITALS: BP 108/72; BP 156/83; PULSE 60; RESP 18; O2SAT 95
[2023-09-09 07:55] VITALS: BP 106/73; BP 156/83; PULSE 50; RESP 16; O2SAT 96
[2023-09-09 08:00] VITALS: BP 150/68; BP 156/83; PULSE 54; RESP 16; TEMP 36.1; O2SAT 95
--- NOTE | 2023-09-09 08:09 | PCM.OPRPT ---
Report of Operation Date of Procedure: 09/09/23 Pre-Operative Diagnosis: Basal cell carcinoma of the left lower extremity with positive margins Post-Operative Diagnosis: Same Surgery/Procedure Performed:: Reexcision of margins of left lower extremity basal cell carcinoma Type of Anesthesia: Local MAC Specimen's removed: Left lower extremity skin Estimated Blood Loss (mL): 5 Description of Procedure: Patient was brought back to the operating room and MAC anesthesia was induced. The left posterior thigh was prepped and draped in usual sterile fashion. An elliptical incision was marked around the previous incision and then it was injected with local anesthetic. Incision was made with a scalpel and the skin was excised sharply. 1 cm margin was taken circumferentially. The incision measured 3.6 cm in length with margins. The area was irrigated and suctioned dry and then hemostasis was obtained using electrocautery. The dermis was closed with interrupted 3-0 Vicryl sutures and the skin was closed with a running 4-0 Monocryl suture. Steri-Strips and bandage were applied. Patient tolerated the procedure well and was brought to PACU in stable condition. Admit VTE Documentation VTE Mechan Device Prophylaxis: SCD's
--- NOTE | 2023-09-09 08:10 | EX.PCM.DISCH ---
Discharge Instructions Diet Discharge Diet: No restrictions Activity Discharge Activity: Return to Normal Activity Lifting Restrictions: 20 pounds for 1 week Dressing / Incision Call your doctor if your incision/area has: Continuous Slow Oozing, Sudden Increased Bleeding, Increased Pain/ Swelling, Increased Redness, Foul Smelling Discharge and Swelling at the incision site Call your doctor if you observe: Fever of 101 or Higher Cleanse incision/area with: Soap & Water Follow Up Care Please Follow Up With: Jose Jacobo MD When: Please call to schedule 2 week follow up appointment. [phone] Test Results: Test results from this visit will be discussed in further detail at your follow-up appointment, if applicable. Discharge Plan Admission Attending Provider: Jose Jacobo Primary Care Provider: Dunia Barnes Discharge Orders/Prescriptions Prescriptions: New oxycodone 5 mg tablet 5 - 10 mg PO Q6H PRN (Reason: pain) 5 Days Qty: 10 0RF No Action atorvastatin 20 MG tablet 20 mg PO QHS atenolol 25 MG tablet 25 mg PO QHS esomeprazole magnesium [Nexium] 40 MG capsule 40 mg PO DAILY finasteride 5 mg tablet 5 mg PO QHS Patient Comments: take 1 tablet by mouth once daily lisinopril 10 mg tablet 20 mg PO DAILY Patient Comments: take 1 tablet by mouth once daily iVizia (PF) 0.5 % drops 2 drp ophthalmic (eye) PRN Referrals / Follow Up: Dunia Barnes MD [Primary Care Provider] - Disposition Disposition (needs filled in before D/C Order can be placed): Home, Self Care
[2023-09-09 08:30] VITALS: BP 156/83
--- NOTE | 2023-09-09 11:27 | LES_PTH ---
PATIENT: TESHA NULL [place] [facility] [place][id number] AGE/SX: 73/M ROOM: RE09/09/[address]: Dr. Jose Jacobo MD : 1950 BED: DIS: 09/09/2023 SPEC #: [id number] RECD: 09/09/23 13:11 STATUS: VERO REQ #: [id number] JEANETH: 09/09/23 11:[address]: Jose Jacobo DEPT: SURGICAL PATHOLOGY RECD BY: Arvind Jay ENTERED: 09/09/23 13:12 SP TYPE: Lesion OTHR DR: Dr. Dunia Barnes MD Tissues: Skin of leg, NOS Procedures: Surgery Specimen Level IV HEADER OPERATION: Re-excision left thigh skin cancer PRE-OP DIAGNOSIS: Squamous cell carcinoma TISSUE SUBMITTED: Basal cell carcinoma left posterior thigh tag long - lateral, short - superior MICROSCOPIC DIAGNOSIS Left posterior thigh lesion, re-excision: Negative for residual carcinoma. Focal ulceration and associated inflammation and foreign body giant cell reaction, previous biopsy site. TARIQ:jian 09/10/2023 COMMENT Please make reference to previous specimen ([id number]) left leg lesion, excision with diagnosis of invasive well-differentiated squamous cell carcinoma, keratoacanthomatous type. MICROSCOPIC DESCRIPTION Slides are reviewed. GROSS DESCRIPTION Received in fixative is one container labeled with the patient's name and designated basal cell carcinoma left posterior thigh. The specimen consists of a piece of rodney-white skin ellipse measuring 3.5 x 1.5 cm and up to 1.2 cm in thickness. The specimen is oriented as follows: long - lateral, short - superior. The specimen is inked as follows: superior margin - blue, inferior margin - black, lateral margin - yellow, lateral tip - yellow and medial tip - black. The skin surface shows brownish ulcerated area measuring 1.5 x 0.5 cm. The specimen is serially sectioned and submitted entirely in four cassettes. Cassette 1 contains the medial and lateral tip. / TARIQ:jian 09/09/2023 TC:5 CPT: 35885
== END 2023-09-09 09:06 | disposition home or self-care (01) ==
LOC: SDC 05:47 → AC 05:49
PROVIDERS: PCP Family Medicine; Referring Provider Surgery; Visit Provider Surgery
PROC: (CPT 11604; principal; 2023-09-09 07:20)
DX: C44.719 Basal cell carcinoma of skin of left lower limb, including hip (principal); I10 Essential (primary) hypertension; E78.5 Hyperlipidemia, unspecified; N32.9 Bladder disorder, unspecified; K21.9 Gastro-esophageal reflux disease without esophagitis; Z87.891 Personal history of nicotine dependence; Z79.899 Other long term (current) drug therapy
CPT/HCPCS: 11604; 00300; 88305; J7120

== ENCOUNTER → 2023-10-03 | Outpatient (CLI) | payer MEDICARE, OTHER, SELFPAY ==
[2023-10-03 16:02] LABS: Bacteria 0 SEEN /hpf (None Seen); Mucous, Urine 0 SEEN /hpf (<or=2+); Red Blood Cells-Urine 0 SEEN /hpf (0-5); Squamous Epithelial Cells - UA 0 SEEN /hpf (0-5); White Blood Cells 0 SEEN /hpf (0-5)
[2023-10-03 18:42] LABS: Absolute Lymphocyte Count 3.02 X10^3/uL (0.83-4.51); Absolute Neutrophil Count 5.1 X10^3/uL (2.0-7.7); Basophil# 0.08 X10^3/uL; Basophil% 0.9 % (0-1); Eosinophil# 0.07 X10^3/uL; Eosinophils% 0.8 % (0-5); Hematocrit 47.8 % (40-54); Lymphocyte # 3.02 X10^3/ul (0.83-4.51); Mean Corp Hgb Conc 31.4 g/dL (32-36); Mean Corpuscular Hgb 29.5 pg (27.0-32.0); Mean Corpuscular Volume 94.1 fL (80-94); Monocyte% 6.8 % (0-10); NRBC Flagged by Analyzer 0 % (0-5); Neutrophil # 5.06 X10^3/uL (2.7-7.7); Platelet Count 278 K/mm3 (150-450); RBC Distribution Width CV 13.3 % (11.6-14.6); RBC Distribution Width SD 46.3 fl (35.1-43.9); Red Blood Count 5.08 M/mm3 (4.6-6.2); White Blood Count 8.9 K/mm3 (4.4-11.0)
[2023-10-03 19:08] LABS: Color, Urine Yellow (Yellow); Glucose, Dipstick Normal (Normal); Ketone-Dipstick 5 mg/dl (Negative); Leukocyte Esterase-Dipstick Negative /ul (Negative); Nitrite-Dipstick Negative (Negative); Occult Blood-Urine Negative /ul (Negative); Protein-Dipstick Negative (Negative); Urine Bilirubin Dipstick Negative (Negative); Urine Clarity Clear (Clear); Urine Urobilinogen Normal (Normal)
[2023-10-03 19:11] LABS: AST(SGOT) 12 U/L (15-37); Alanine Aminotransfer ALT/SGPT 25 U/L (16-61); Albumin, Serum 3.6 g/dL (3.2-5.0); Alkaline Phosphatase 63 U/L (45-117); Anion Gap 8 (5-15); BUN 29 mg/dL (7-18); BUN/Creat Ratio 17.5 RATIO (10-20); Calcium,Total 8.7 mg/dL (8.5-10.1); Chloride 105 mmol/L (98-107); Cholesterol 190 mg/dL (200); Creatinine, Serum 1.66 mg/dL (0.70-1.30); EST Glomerular Filtration Rate 43 mL/min (>60); Est Glom Filt Rate - Afr Amer 53 mL/min (>60); Globulin 3.7 g/dL (2.2-4.2); Glucose 81 mg/dL (74-106); High Density Lipoprotein 47 mg/dL; Potassium 4.2 mmol/L (3.5-5.1); Protein, Total 7.3 g/dL (6.4-8.2); Sodium Level 137 mmol/L (136-145); Thyroid Stim Hormone (TSH) 1.08 uIU/mL (0.358-3.74); Triglycerides 276 mg/dL; Very Low Density Lipoprotein 55 mg/dL (5-40)
[2023-10-03 19:33] LABS: Hyaline Cast 5-10 SEEN /lpf (0-5)
== END | disposition home or self-care (01) ==
LOC: MFPLAB 15:54
PROVIDERS: PCP Family Medicine; Visit Provider Family Medicine
DX: I10 Essential (primary) hypertension (principal)
CPT/HCPCS: 36415; 80053; 80061; 81001; 84443; 85025

== ENCOUNTER → 2023-10-20 | Outpatient (CLI) | payer MEDICARE, OTHER, SELFPAY ==
--- NOTE | 2023-10-20 14:50 | CT_ITS ---
STUDY: LOW DOSE CT LUNG CANCER SCREENING REASON FOR EXAM: Male, 73 years old. 1 1/2 pack per day smoker x18 years, has quit for 15 years RADIATION DOSAGE (If Supplied By Facility): CTDIvol = ( 2.39 ) mGy, DLP = ( 80.41 ) mGycm TECHNIQUE: No contrast was administered. Low dose technique was utilized (average mAS-38 and kVp 120). 1.25 mm axial source images with a slice interval of 1.25-mm were reconstructed in lung windows. 2.5 mm axial source images with a slice interval of 2.5-mm were reconstructed in lung windows. 5.0 mm axial source images with a slice interval of 5.0-mm were reconstructed in soft tissue windows. COMPARISON: None. FINDINGS: Lung windows show normal expansion of the lungs. There is no organized infiltrate, effusion or suspicious noncalcified mass or nodule. Limited soft tissue windows show a normal-appearing thyroid gland. No suspicious axillary or mediastinal, or perihilar adenopathy. There are calcified coronary vessels. Limited cuts through the upper abdomen show multiple gallstones Bony structures show degenerative change CT/Low Dose CT Lung Screening IMPRESSION: Lung-RADS category 1 - Continue annual screening with LDCT in 12 months. IMPORTANT NOTES FOR USE: ACR Lung-RADS Version 1.1 Assessment Categories Release Date: 2018 Category: Coded 0-4 bases on nodule(s) with highest degree of suspicion. Negative screen is defined as categories 1 and 2; a positive screen is defined as categories 3 and 4. Category 3 and 4A nodules that are unchanged on interval CT should be coded as category 2, and individuals returned to screening in 12 months. Category 4X: Category 3 or 4 nodules with additional imaging findings that increase the suspicion of lung cancer, such as spiculation, GGN that doubles in size in 1 year, enlarged lymph notes, etc. Category Modifiers: S (significant finding unrelated to lung cancer) Electronically Signed: Kalen Montague MD at 15:24 EST ,
== END | disposition home or self-care (01) ==
LOC: CT 14:45
PROVIDERS: PCP Family Medicine; Referring Provider Family Medicine; Visit Provider Family Medicine
DX: Z12.2 Encounter for screening for malignant neoplasm of respiratory organs (principal); Z87.891 Personal history of nicotine dependence
CPT/HCPCS: 71271

== ENCOUNTER → 2023-10-23 | Outpatient (CLI) | payer MEDICARE, OTHER, SELFPAY ==
[2023-10-23 16:39] LABS: Anion Gap 4 (5-15); BUN 21 mg/dL (7-18); Calcium,Total 8.7 mg/dL (8.5-10.1); Chloride 105 mmol/L (98-107); Creatinine, Serum 1.31 mg/dL (0.70-1.30); EST Glomerular Filtration Rate 57 mL/min (>60); Est Glom Filt Rate - Afr Amer 69 mL/min (>60); Glucose 65 mg/dL (74-106); Potassium 4.5 mmol/L (3.5-5.1); Sodium Level 138 mmol/L (136-145); T4 Free Direct 1.17 ng/dL (0.76-1.46)
[2023-10-23 16:47] LABS: Vitamin B12 260 pg/mL (211-911)
== END | disposition home or self-care (01) ==
LOC: MFPLAB 12:15
PROVIDERS: Family Medicine; PCP Family Medicine; Visit Provider Family Medicine
DX: R53.83 Other fatigue (principal)
CPT/HCPCS: 36415; 80048; 82306; 82607; 84439

== ENCOUNTER 2023-11-27 10:00 | Outpatient (RCR) | payer MEDICARE, OTHER, SELFPAY ==
--- NOTE | 2023-11-21 09:47 | HP.PTEVAL_ITS ---
Patient's Visit Information Visit Information Visit Information: TESHA NULL is a 73 year old M referred to Physical Therapy by Dr. Lane Lowery MD with a diagnosis of BPPV. Date of Evaluation: 11/21/23 Physical Therapist: Jurgen Valladares, DPT, OCS, CSCS Visit Plan Frequency: 1x/Week Duration: 4-6 Weeks Plan: weekly as needed for 2-4 weeks for monitor of psoitional ex and treatments and vestibular system. No positive tests today but gave BD ex for subjective. Pt to call if dizzyness changes, MSQ if needed. Subjective Subjective: Got vertigo. last couple weeks bad. it started gently in the summer though. got dizzy every time he bent over. Now it lasts longer, bending and standing can cause it. Sometimes with rolling in bed. Symptoms is dizzyness and something is off more than spinning. it lasts 15 seconds and then goes away if he is still. In between episodes feels mostly Ok, sometimes a little nauseated and dizzy. This slows him down adn has to rest if he gets dizzy. Avoids working out in garage for as long. Reitred. sleeps well, normal for him. Hobbies include wood working, gol and grandchildren, limited when dizzy. Blood pressure is typically OK , on meds and changed recently 6 weeks Objective Objective: Walks into PT slow but steady. Trasnfers I, steps with rail reciprocally and I. Cervical AROM and UE AROM WFL and 4/5 strength without myotomal abnormalities. romberg easy without sway eo and ec. - B hallpike silvia - roll test, no dizzyness today but patient said was very dizzy when doctor did the same thing. Oculomotor: unremarkable, no nystagmus with gaze or head shake. - skew eye deviation - head thrust - ocular tilt normal pursuit and saccades without symptoms. VOR without symptoms. Bnding did not make dizzy today. No SOB today and normal unlabored breathing. Balance/Special Test Scores Functional Gait Assessment Score: 27 % Disability: 10.0000 Dizziness Score: 24 Goals Goal 1:: pt feel dizzyness gone for 4 days Goal Time Frame: 4-6 Weeks Goal 2:: Pt feel back to normal woodworking without nausea or difficulty Goal Time Frame: 4-6 Weeks Goal 3:: DHI score 4 or less Goal Time Frame: 4-6 Weeks Goal 4:: Pt feel 99% back to normal Goal Time Frame: 4-6 Weeks Rehabilitation Potential Physical Therapy Diagnosis: dizzyness subjectively BPPV limiting function Rehabilitation Potential: Questionable Anticipated Interventions Patient/Client Instruction: Educate patient on: Condition and Plan of Care For the Purpose of:: To increase tolerance to activity/condition/position and To improve ability of physical actions for home/community/work/leisure Comment: positional and vestibular as needed For the Purpose of:: To increase tolerance to activity/condition/position Text: Thank you for the opportunity to evaluate your patient. For Medicare and Medicare HMO plans, please review the plan of care and approve it. It will need to be FAXED BACK to us at [phone] for Medicare purposes. For Medicare only, by signing this I certify the plan of care. Please let me know if there are questions or concerns regarding this plan of care. Physician Si gnature: Date:
--- NOTE | 2023-11-27 10:23 | HP.PTDCSUM ---
Discharge Summary D/C summary: It has been my pleasure to treat TESHA NULL referred by Dr. Lane Lowery MD, with the diagnosis of BPPV for a total of 2 visit(s). Discharge Date: 11/27/23 Please see the following information for a summary of their discharge status. Subjective Subjective: Not having a lot of issues. Sometimes if working on floor and stands back up. Also gets it sitting up from recliner, Getting up from bed waits 1-2 seconds. Did exercises 8 reps daily and never any dizzyness except intermittently sitting up. This feeling lasts 5-10 seconds and he just stops. activities are normal but just has to be careful. Is on blood pressure meds and changed lately as blood pressure was high and put on different blood pill/water pill about a month ago. Objective Objective/Function: MSQ is no dizzyness, some lightheadedness recovering from gravity specific for 2 seconds consistently but no other spinning or dizzyness. - B Hallpike silvia - roll test Walking well with good balance today but consistently lightheaded 2 seconds arising from bending. Goals Goal 1:: pt feel dizzyness gone for 4 days Goal Progress: Progressing Goal 2:: Pt feel back to normal woodworking without nausea or difficulty Goal Progress: Goal Met Goal 3:: DHI score 4 or less Goal Progress: Not Progressing Goal 4:: Pt feel 99% back to normal Goal Progress: Progressing, ? orthostati Plan Plan: weekly as needed for 2-4 weeks for monitor of psoitional ex and treatments and vestibular system. No positive tests today but gave BD ex for subjective. Pt to call if dizzyness changes, MSQ if needed. D/C Information Discharge Comments: Pt only having orthostatic symptoms now and will consult doctor and take care with arising. d/c sentence: If there are questions or concerns regarding this patient's physical therapy, please feel free to call me at [phone]. Thank you for the referral of this patient. Sincerely, Jurgen Valladares, DPT, OCS, CSCS Balance/Gait/Functional tests Balance/Special Test Scores Functional Gait Assessment Score: 27 % Disability: 10.0000 Dizziness Score: 24
== END 2023-11-27 10:32 | disposition home or self-care (01) ==
LOC: PT 10:00
PROVIDERS: PCP Family Medicine; Referring Provider Family Medicine; Visit Provider Family Medicine
DX: H81.10 Benign paroxysmal vertigo, unspecified ear (principal)
CPT/HCPCS: 97161; 97530

== ENCOUNTER → 2024-01-12 | Outpatient (CLI) | payer MEDICARE, OTHER, SELFPAY ==
--- NOTE | 2024-01-12 08:27 | CT_ITS ---
CT RIGHT LOWER EXTREMITY WITH 3-D IMAGING CLINICAL INDICATION: PRE OP WASC TECHNIQUE: Axial CT images of the right lower extremity (including right hip, right knee, and right ankle) was performed without IV contrast material. Coronal and sagittal reformats were provided. RADIATION DOSAGE (If Supplied By Facility): CTDIvol = ( 18.76 ) mGy, DLP = ( 1324.29 ) mGycm COMPARISON: No relevant prior comparison study available. FINDINGS: Bones: Intact right hip joint. There is moderate to severe degenerative arthrosis of the medial femorotibial compartment of the right knee with joint space narrowing, small marginal osteophyte formation, and subchondral sclerosis. There is mild degenerative arthrosis of the patellofemoral and lateral femorotibial compartments of the right knee. Intact right ankle. Osseous structures are normal without evidence of fracture or dislocation. No lytic or blastic osseous masses. Soft Tissues: There is a small right knee joint effusion. The deep soft tissue structures are unremarkable. The superficial soft tissues are unremarkable without evidence of edema, hematoma, or foreign body. 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 Small right knee joint effusion. Electronically Signed: Malachi Cheung MD at 10:38 EST Reading Location ID and State: [facility] / [place] , Service support ,
--- OUTSIDE RECORDS SUMMARY | 2024-01-12 08:41 | XMS RPT_ITS | CCD ---
Author Name Unknown Address [address] [place] [address] Organization [facility] Care Team Providers Care Administrative Services Specialist Name Role Phone Dunia Barnes Primary Care Provider SATYA BRANNON Referring Unavailable DUNIA BARNESER Primary Care Unavailable DUNIA BARNES SARI Primary Care Unavailable DUNIA BARNES SARI Primary Care Unavailable DUNIA BARNES SARI Primary Care Unavailable Allergies Allergy Classification Reported Allergen(s) Allergy Type Date of Onset Reaction(s) Facility (6 sources) Codeine; Translations: [CODEINE] Drug Allergy 12-15-2011 Rash, GI Upset [facility] Work Phone: Medications Current Medications Medication Drug Class(es) Dates Sig (Normalized) Sig (Original) predniSONE 10 mg oral tablet (1 source) Start: 07-05-2022 End: 07-14-2022 predniSONE (DELTASONE) 10 mg tablet Indications: Rhus dermatitis Take 4 tabs daily for 3 days, then 2 tabs daily for 3 days, then 1 tab daily for 3 days with food. 21 tablet 0 07/05/2022 07/14/2022 Active Completed/Discontinued Medications Medication Drug Class(es) Dates Sig (Normalized) Sig (Original) 24 hr alfuzosin hydrochloride 10 mg extended release oral tablet (4 sources) alpha-Adrenergic Aminta Start: 06-25-2012 take 1 tablet by mouth once daily alfuzosin SR (UROXATRAL) 10 mg 24 hr tablet Take 1 tablet by mouth once daily. 0 06/25/2012 Active Problems Active Problems Problem Classification Problem Date Documented Da te Episodic/Chronic Other connective tissue disease (1 source) Pain in left lower limb; Translations: [Pain in left leg] Episodic Other connective tissue disease (1 source) Swollen calf; Translations: [Other specified soft tissue disorders] Episodic Other connective tissue disease (1 source) Pain in left leg; Translations: [Pain of left lower extremity] Onset: 09-04-2022 Episodic Other connective tissue disease (1 source) Other specified soft tissue disorders; Translations: [Other specified soft tissue disorders] Onset: 09-04-2022 Episodic Other upper respiratory disease (4 sources) Chronic rhinitis; Translations: [Chronic rhinitis] Onset: 09-12-2014 09-12-2014 Chronic Past or Other Problems Problem Classification Problem Date Documented Da te Episodic/Chronic Allergic reactions (5 sources) Contact dermatitis due to Genus Toxicodendron; Translations: [Unspecified contact dermatitis due to plants, except food] Onset: 09-12-2014 Episodic Results Test Name Value Interpretation Reference Range Facil ity Vital Signs Date Time Vital Sign Value Performing Clinician Bushra huitron 09-04-2022 09:06-0400 Body temperature 97.59 [degF] Satya Brannon APRN.CNP Work Phone: [facility] 09-04-2022 09:06-0400 Body weight 86.91 kg Satya Brannon APRN.PLANT QUALITY MANAGER Work Phone: [facility] 09-04-2022 09:06-0400 Diastolic blood pressure 84 mm[Hg] Satya Brannon APRN.PLANT QUALITY MANAGER Work Phone: [facility] 09-04-2022 09:06-0400 Heart rate 68 /min Satya Brannon APRN.CNP Work Phone: [facility] 09-04-2022 09:06-0400 Respiratory rate 16 /min Satya Brannon APRN.PLANT QUALITY MANAGER Work Phone: [facility] 09-04-2022 09:06-0400 SaO2% (BldA) [Mass fraction] 98 % Satya Brannon APRN.PLANT QUALITY MANAGER Work Phone: [facility] 09-04-2022 09:06-0400 Systolic blood pressure 142 mm[Hg] Satya Brannon APRN.CNP Work Phone: [facility] 07-05-2022 10:19-0400 Body temperature 96.21 [degF] Júnior Marshall APRN.PLANT QUALITY MANAGER Work Phone: [facility] 07-05-2022 10:19-0400 Body weight 86.64 kg Júnior Marshall LASER SYSTEMS ENGINEER.PLANT QUALITY MANAGER Work Phone: [facility] 07-05-2022 10:19-0400 Diastolic blood pressure 90 mm[Hg] Júnior Marshall LASER SYSTEMS ENGINEER.PLANT QUALITY MANAGER Work Phone: [facility] 07-05-2022 10:19-0400 Heart rate 55 /min Júnior Marshall LASER SYSTEMS ENGINEER.PLANT QUALITY MANAGER Work Phone: [facility] 07-05-2022 10:19-0400 Respiratory rate 21 /min Júnior Marshall LASER SYSTEMS ENGINEER.PLANT QUALITY MANAGER Work Phone: [facility] 07-05-2022 10:19-0400 SaO2% (BldA) [Mass fraction] 98 % Júnior Marshall LASER SYSTEMS ENGINEER.PLANT QUALITY MANAGER Work Phone: [facility] 07-05-2022 10:19-0400 Systolic blood pressure 182 mm[Hg] Júnior Marshall LASER SYSTEMS ENGINEER.PLANT QUALITY MANAGER Work Phone: [facility] Encounters Encounter Date Encounter Type Care Provider Facility Start: 09-04-2022 Telephone encounter Satya castañeda LASER SYSTEMS ENGINEER.PLANT QUALITY MANAGER Work Phone: [facility] Procedures Date Procedure Procedure Detail Performing Clinician Start: 09-04-2022 Dup-scan xtr veins unilateral/limited study Satya Brannon LASER SYSTEMS ENGINEER.PLANT QUALITY MANAGER Work Phone: Plan of Treatment Date Care Activity Detail Author Start: 07-18-2022 Influenza vaccination INFLUENZA (#1) [facility] Start: 11-17-2021 ADVANCE DIRECTIVE DISCUSSION ADVANCE DIRECTIVE DISCUSSION [facility] Start: 11-17-2021 DEPRESSION ASSESSMENT DEPRESSION ASSESSMENT [facility] Start: 02-12-2016 PNEUMOCOCCAL: 65+ (1 - PCV) PNEUMOCOCCAL: 65+ (1 - PCV) [facility] Start: 2001 SHINGRIX VACCINE (1 of 2) SHINGRIX VACCINE (1 of 2) [facility] Start: 02-12-1996 COLOGUARD (FIT-DNA) COLOGUARD (FIT-DNA) [facility] Start: 02-12-1996 Colonoscopy COLONOSCOPY [facility] Start: 02-12-1996 COLORECTAL CANCER SCREENING COLORECTAL CANCER SCREENING [facility] Start: 02-12-[address] COLONOGRAPHY [facility] Start: 02-12-1996 DIABETES SCREEN DIABETES SCREEN [facility] Start: 02-12-1996 FECAL OCCULT BLOOD FECAL OCCULT BLOOD [facility] Start: 02-12-1996 SIGMOIDOSCOPY SIGMOIDOSCOPY [facility] Start: 1986 LIPID SCREEN LIPID SCREEN [facility] Start: 1970 Urine microalbumin profile DTAP,TDAP,TD (1 - Tdap) [facility] Start: 1969 HEPATITIS C SCREENING HEPATITIS C SCREENING [facility] Start: 1963 Adult depression screening assessment DEPRESSION SCREENING [facility] Start: 1950 ABDOMINAL AORTIC ANEURYSM SCREENING ABDOMINAL AORTIC ANEURYSM SCREENING [facility] End: 09-04-2023 US LEG VEIN DVT [facility] US LEG VEIN DVT [facility] Vascular Lab STAT Calf swelling 1 Occurrences starting 09/04/2022 until 09/04/2023 [facility] Work Phone: Payers Date Payer Category Payer Private Health Insurance [facility] AARP SUPPLEMENT [id number] 2021-Present [phone] [address] [place] [address] Indemnity [id number] 2021 Unknown [id number] 2016 Medicare MEDICARE MEDICAR E A AND B [id number] 2016-Present [phone] [place] [address] Medicare [id number] 2016 Medicare [id number] Social History Date Type Detail Facility Start: [facility]05-2022 [facility] History of tobacco use Current smoker [facility] History of tobacco use Cigarette Smoker [facility] History of tobacco use Passive smoker [facility] Start: 07-05-2022 Tobacco use and exposure Smoke less tobacco non-user [facility] Start: 07-05-2022 End: 09-04-2022 Alcohol intake Not Asked [facility] Start: 07-05-2022 Tobacco Comment Smoked for 17 years, quit for 18, then smoked for about 7 years. 1 PPD. [facility] Start: 1950 Sex Assigned At Not on file [facility] Start: 06-25-2022 End: 09-04-2022 Exposure to SARS-CoV-2 (event) Not sure [facility] Clinical Notes 07-05-2022 to 09-05-2022 Telephone Encounter - Carolee Henao LPN - 09/05/2022 8:34 AM EDTTelephone Encounter - Adrian Jones MD - 09/05/2022 7:42 AM EDTTelephone Encounter - Satya Chan RN - 09/04/2022 4:53 PM EDT Note Date & Type Note Facility 09-05-2022 Miscellaneous Notes Formattin g of this note might be different from the original. Phone call placed patient advised (see prior provider encounter) Patient verbalized understanding, agreed with plan of care reported follow up scheduled with Mike Alvarez 09/12/22. Carolee Henao LPN US showed no blood clots. Pt called in for the results of his US. Let Pt know that the results were still in process. Let Pt know that we would call him once the results were in. documented in this encounter [facility] 09-04-2022 Note HNO ID: [id number] Author: Asiya Gonzalez RT(R) Service: ? Author Type: Technologist Type: Progress Notes Filed: 09/04/2022 1:43 PM Note Text: Radiology Service Progress Note PATIENT NAME: Hayden Sun DATE OF SERVICE: September 04, 2022 TIME: 1:43 PM PATIENT IDENTITY VERIFICATION COMPLETED USING TWO (2) IDENTIFIERS: Name and Date of confirmed by patient verbally. FALL SCREENING: Has the patient had 2 falls in the last year or 1 fall with injury or currently using an Ambulatory Assistive Device (Walker, Cane, Wheelchair, Crutches, etc.)? No PATIENT GENDER DATA: Male PATIENT RELEVANT IMPLANT DATA REVIEWED: Not Applicable RADIOLOGY DEPARTMENT: Ultrasound PERIPHERAL IV DATA: Not applicable SIGNED BY: RT Opal(R) September 04, 2022 1:43 PM [facility] 09-04-2022 History of Presen t illness Narrative Radiology Service Progress Note PATIENT NAME: Hayden Sun DATE OF SERVICE: September 04, 2022 TIME: 1:43 PM PATIENT IDENTITY VERIFICATION COMPLETED USING TWO (2) IDENTIFIERS: Name and Date of confirmed by patient verbally. FALL SCREENING: Has the patient had 2 falls in the last year or 1 fall with injury or currently using an Ambulatory Assistive Device (Walker, Cane, Wheelchair, Crutches, etc.)? No PATIENT GENDER DATA: Male PATIENT RELEVANT IMPLANT DATA REVIEWED: Not Applicable RADIOLOGY DEPARTMENT: Ultrasound PERIPHERAL IV DATA: Not applicable SIGNED BY: RT Opal(R) September 04, 2022 1:43 PM documented in this encounter [facility] 09-04-2022 Note HNO ID: [id number] Author: RT Awilda(Kuhshboo) Service: Nuclear Medicine Author Type: Technologist Type: Progress Notes Filed: 09/04/2022 9:48 AM Note Text: Radiology Service Progress Note PATIENT NAME: Hayden Sun DATE OF SERVICE: September 04, 2022 TIME: 9:37 AM PATIENT IDENTITY VERIFICATION COMPLETED USING TWO (2) IDENTIFIERS: Name and Date of confirmed by patient verbally. FALL SCREENING: Has the patient had 2 falls in the last year or 1 fall with injury or currently using an Ambulatory Assistive Device (Walker, Cane, Wheelchair, Crutches, etc.)? No PATIENT GENDER DATA: Male PATIENT RELEVANT IMPLANT DATA REVIEWED: Not Applicable RADIOLOGY DEPARTMENT: General X-ray: Exam(s) Completed: Lower Extremity X-Ray(s): Knee, AP / Lat / Tunne / Merchant Left and Wt. Bearing PERIPHERAL IV DATA: Not applicable SIGNED BY: RT Awilda(R) September 04, 2022 9:37 AM [facility] 09-04-2022 Note HNO ID: [id number] Author: Satya Brannon APRN.PLANT QUALITY MANAGER Service: ? Author Type: Nurse Practitioner Type: Progress Notes Filed: 09/04/2022 8:05 PM Note Text: SUBJECTIVE: Hayden Sun is a 72 year old male. Who presents today with Left knee pain for 1 month. It has been getting worse over the last week. He has a partial knee replacement for arthritis. He denies any injury or trauma. He states there is swelling to the knee and he is having difficulty bending it. He denies any redness or heat to the knee. He denies any cp and sob. He has taken tylenol for the pain. He has an appointment with ortho for the end of August. They directed him here for an xray. HPI PAST MEDICAL HISTORY Diagnosis Date GERD (gastroesophageal reflux disease) Hypercholesteremia Hypertension No family history on file. Social History Tobacco Use Smoking status: Former Types: Cigarettes Passive exposure: Past Smokeless tobacco: Never Tobacco comments: Smoked for 17 years, quit for 18, then smoked for about 7 years. 1 PPD. ALLERGIES Allergen Reactions Codeine Rash, GI Upset Current Outpatient Medications Medication Sig Dispense Refill atenolol (TENORMIN) 25 mg tablet Take 25 mg by mouth once daily. atorvastatin (LIPITOR) 20 mg tablet Take 1 tablet by mouth daily at bedtime. For cholesterol. 0 esomeprazole (NEXIUM) 40 mg capsule Take 1 capsule by mouth daily before breakfast. 1/2 hr before meal. montelukast (SINGULAIR) 10 mg tablet Take 10 mg by mouth daily at bedtime. (Patient not taking: Reported on 07/05/2022) Levocetirizine 5 mg tablet Take 5 mg by mouth. (Patient not taking: Reported on 07/05/2022) Benzonatate (TESSALON) 200 mg capsule Take 200 mg by mouth twice daily as needed for Cough. 20 capsule 0 Cetirizine 10 mg cap Take by mouth. COMPOUNDED PRESCRIPTION Please check CBC with diff and platelets, LFTs, Bun, Creatinine, lytes, ESR, TSH and latex RAST (Latex IgE) Dx: chronic urticaria, toxic effect latex. (Patient not taking: Reported on 07/05/2022) 1 Units 0 fluticasone (FLONASE) 50 mcg/actuation nasal spray Use 2 Sprays in each nostril once daily. 1 Bottle 11 raNITIdine (ZANTAC) 150 mg tablet Take 150 mg by mouth daily at bedtime. (Patient not taking: Reported on 07/05/2022) alfuzosin SR (UROXATRAL) 10 mg 24 hr tablet Take 1 tablet by mouth once daily. (Patient not taking: Reported on 07/05/2022) 0 No current facility-administered medications for this visit. OBJECTIVE: BP 142/84 Pulse 68 Temp 36.4 ?C (97.6 ?F) (Tympanic) Resp 16 Wt 86.9 kg (191 lb 9.6 oz) SpO2 98% BMI 28.29 kg/m? ROS all other systems reviewed and are negative Physical Exam Constitutional: Well developed, well nourished, NAD, AANDO X3. ENT: Head is atraumatic, airway patent, mucosal membranes moist. Eyes: EOMI, PERRL, no drainage, vision unchanged Neck: supple with no palpable lymph nodes Cardiac: Heart tone normal rate and rhythm Respiratory: Breath sounds clear : no CVA tenderness MS: no swelling, tenderness or deformity in upper or lower extremities, no midline tenderness in cervical, thoracic or lumbar spine. L knee swollen no redness or warmth noted. A sm fluid wave no ballotment neg Daniel and drawer he is most tender to palpation on the medial aspect of the knee. + swelling is noted to the calf. No palp cord noted. No swelling to the R calf. Pulses +3 cap refill brisk decreased ROM of the knee due to pain and guarding full ROM of the ankle and foot. Antalgic gait Neuro: strength sensation and coordination intact. CN II-XII grossly intact, Skin: warm and dry with out rash, lesion or ecchymosis on exposed skin Psych: alert appropriate, speech clear It was a pleasure to take care of Hayden R Hostettler today. An xray will be ordered of the knee. Due to swelling of the calf an ultra sound rule out dvt has been ordered. Xray results are negative. He is scheduled for an US of the leg at [facility]. He again is denying any cp or sob. He will be called with the results Patient will follow up with family physician. They may return to the Urgent Care or go to the ER for worsening symptoms or concerns. Patient verbalized understanding of plan of care and is in agreement. ASSESSMENT/PLAN: 1. Pain of left lower extremity - ICD9: 729.5, ICD10: M79.605 (primary diagnosis) - XR KNEE GENERAL 4V AP BOTH/PA BOTH/LAT/MERC LEFT 2. Calf swelling - ICD9: 729.81, ICD10: M79.89 - US DVT LOWER LT Satya Brannon APRN.PLANT QUALITY MANAGER [facility] 09-04-2022 History of Presen t illness Narrative SUBJECTIVE: Hayden Sun is a 72 year old male. Who presents today with Left knee pain for 1 month. It has been getting worse over the last week. He has a partial knee replacement for arthritis. He denies any injury or trauma. He states there is swelling to the knee and he is having difficulty bending it. He denies any redness or heat to the knee. He denies any cp and sob. He has taken tylenol for the pain. He has an appointment with ortho for the end of August. They directed him here for an xray. HPI PAST MEDICAL HISTORY Diagnosis Date GERD (gastroesophageal reflux disease) Hypercholesteremia Hypertension No family history on file. Social History Tobacco Use Smoking status: Former Types: Cigarettes Passive exposure: Past Smokeless tobacco: Never Tobacco comments: Smoked for 17 years, quit for 18, then smoked for about 7 years. 1 PPD. ALLERGIES Allergen Reactions Codeine Rash, GI Upset Current Outpatient Medications Medication Sig Dispense Refill atenolol (TENORMIN) 25 mg tablet Take 25 mg by mouth once daily. atorvastatin (LIPITOR) 20 mg tablet Take 1 tablet by mouth daily at bedtime. For cholesterol. 0 esomeprazole (NEXIUM) 40 mg capsule Take 1 capsule by mouth daily before breakfast. 1/2 hr before meal. montelukast (SINGULAIR) 10 mg tablet Take 10 mg by mouth daily at bedtime. (Patient not taking: Reported on 07/05/2022) Levocetirizine 5 mg tablet Take 5 mg by mouth. (Patient not taking: Reported on 07/05/2022) Benzonatate (TESSALON) 200 mg capsule Take 200 mg by mouth twice daily as needed for Cough. 20 capsule 0 Cetirizine 10 mg cap Take by mouth. COMPOUNDED PRESCRIPTION Please check CBC with diff and platelets, LFTs, Bun, Creatinine, lytes, ESR, TSH and latex RAST (Latex IgE) Dx: chronic urticaria, toxic effect latex. (Patient not taking: Reported on 07/05/2022) 1 Units 0 fluticasone (FLONASE) 50 mcg/actuation nasal spray Use 2 Sprays in each nostril once daily. 1 Bottle 11 raNITIdine (ZANTAC) 150 mg tablet Take 150 mg by mouth daily at bedtime. (Patient not taking: Reported on 07/05/2022) alfuzosin SR (UROXATRAL) 10 mg 24 hr tablet Take 1 tablet by mouth once daily. (Patient not taking: Reported on 07/05/2022) 0 No current facility-administered medications for this visit. OBJECTIVE: BP 142/84 Pulse 68 Temp 36.4 C (97.6 F) (Tympanic) Resp 16 Wt 86.9 kg (191 lb 9.6 oz) SpO2 98% BMI 28.29 kg/m ROS all other systems reviewed and are negative Physical Exam Constitutional: Well developed, well nourished, NAD, A&O X3. ENT: Head is atraumatic, airway patent, mucosal membranes moist. Eyes: EOMI, PERRL, no drainage, vision unchanged Neck: supple with no palpable lymph nodes Cardiac: Heart tone normal rate and rhythm Respiratory: Breath sounds clear : no CVA tenderness MS: no swelling, tenderness or deformity in upper or lower extremities, no midline tenderness in cervical, thoracic or lumbar spine. L knee swollen no redness or warmth noted. A sm fluid wave no ballotment neg Daniel and drawer he is most tender to palpation on the medial aspect of the knee. + swelling is noted to the calf. No palp cord noted. No swelling to the R calf. Pulses +3 cap refill brisk decreased ROM of the knee due to pain and guarding full ROM of the ankle and foot. Antalgic gait Neuro: strength sensation and coordination intact. CN II-XII grossly intact, Skin: warm and dry with out rash, lesion or ecchymosis on exposed skin Psych: alert appropriate, speech clear It was a pleasure to take care of Hayden Sun today. An xray will be ordered of the knee. Due to swelling of the calf an ultra sound rule out dvt has been ordered. Xray results are negative. He is scheduled for an US of the leg at [facility]. He again is denying any cp or sob. He will be called with the results Patient will follow up with family physician. They may return to the Urgent Care or go to the ER for worsening symptoms or concerns. Patient verbalized understanding of plan of care and is in agreement. ASSESSMENT/PLAN: 1. Pain of left lower extremity - ICD9: 729.5, ICD10: M79.605 (primary diagnosis) - XR KNEE GENERAL 4V AP BOTH/PA BOTH/LAT/MERC LEFT 2. Calf swelling - ICD9: 729.81, ICD10: M79.89 - US DVT LOWER LT Satya Brannon APRN.PLANT QUALITY MANAGER documented in this encounter [facility] 07-05-2022 Note HNO ID: [id number] Author: Júnior Marshall APRN.PLANT QUALITY MANAGER Service: ? Author Type: Nurse Practitioner Type: Progress Notes Filed: 07/05/2022 10:42 AM Note Text: Subjective HPI HPI Hayden Sun is a 72 year old male who presents today for CC of itchy rash. This started 2 weeks ago. Has tried otc medication without relief. Symptoms are worsened by nothing. Risk factors hx of PI rash, has been working with [employer]. .Patient presents with: Rash: Poison greg on hands, ankles, and private area x 2 weeks PAST MEDICAL HISTORY Diagnosis Date GERD (gastroesophageal reflux disease) Hypercholesteremia Hypertension PAST SURGICAL HISTORY Procedure Laterality Date HERNIA REPAIR HX 3 years old PAST SURGICAL HISTORY OF 2008 left knee partial replacement PAST SURGICAL HISTORY OF wisdom teeth removal TONSILLECTOMY HX ALLERGIES Codeine MEDICATIONS Cetirizine 10 mg cap Take by mouth. atenolol (TENORMIN) 25 mg tablet Take 25 mg by mouth once daily. atorvastatin (LIPITOR) 20 mg tablet Take 1 tablet by mouth daily at bedtime. For cholesterol. esomeprazole (NEXIUM) 40 mg capsule Take 1 capsule by mouth daily before breakfast. 1/2 hr before meal. predniSONE (DELTASONE) 10 mg tablet Take 4 tabs daily for 3 days, then 2 tabs daily for 3 days, then 1 tab daily for 3 days with food. triamcinolone acetonide (KENALOG) 0.1 % cream Apply 1 application to affected area three times daily for 10 days. Apply sparingly to area for rash/itching. montelukast (SINGULAIR) 10 mg tablet Take 10 mg by mouth daily at bedtime. (Patient not taking: Reported on 07/05/2022) Levocetirizine 5 mg tablet Take 5 mg by mouth. (Patient not taking: Reported on 07/05/2022) Benzonatate (TESSALON) 200 mg capsule Take 200 mg by mouth twice daily as needed for Cough. COMPOUNDED PRESCRIPTION Please check CBC with diff and platelets, LFTs, Bun, Creatinine, lytes, ESR, TSH and latex RAST (Latex IgE) Dx: chronic urticaria, toxic effect latex. (Patient not taking: Reported on 07/05/2022) fluticasone (FLONASE) 50 mcg/actuation nasal spray Use 2 Sprays in each nostril once daily. raNITIdine (ZANTAC) 150 mg tablet Take 150 mg by mouth daily at bedtime. (Patient not taking: Reported on 07/05/2022) alfuzosin SR (UROXATRAL) 10 mg 24 hr tablet Take 1 tablet by mouth once daily. (Patient not taking: Reported on 07/05/2022) No family history on file. Social History Tobacco Use Smoking status: Former Types: Cigarettes Passive exposure: Past Smokeless tobacco: Never Tobacco comments: Smoked for 17 years, quit for 18, then smoked for about 7 years. 1 PPD. ROS Objective Blood pressure 182/90, pulse (!) 55, temperature (!) 35.7 ?C (96.2 ?F), resp. rate 21, weight 86.6 kg (191 lb), SpO2 98 %. Bp rechecked manual by provider 136/80. Physical Exam Constitutional: General: He is not in acute distress. Appearance: He is not toxic-appearing or diaphoretic. HENT: Head: Normocephalic and atraumatic. Skin: General: Skin is warm and dry. Findings: Rash present. Rash is vesicular (distribution linear ). Neurological: Mental Status: He is alert and oriented to person, place, and time. ASSESSMENT/PLAN: 1. Rhus dermatitis - ICD9: 692.6, ICD10: L25.5 - Oral Steriod tx -Prednisone taper - Topical steriod tx with Rx for steriod cream/ointment- see orders - discussed skin care of rash - follow up if symptoms persist or worsen. - PREDNISONE 10 MG TABLET - TRIAMCINOLONE ACETONIDE 0.1 % TOPICAL CREAM Agrees to plan Júnior Marshall APRN.[facility] 07-05-2022 History of Presen t illness Narrative Images from the original note were not included. Subjective HPI HPI Hayden Sun is a 72 year old male who presents today for CC of itchy rash. This started 2 weeks ago. Has tried otc medication without relief. Symptoms are worsened by nothing. Risk factors hx of PI rash, has been working with [employer]. .Patient presents with: Rash: Poison greg on hands, ankles, and private area x 2 weeks PAST MEDICAL HISTORY Diagnosis Date GERD (gastroesophageal reflux disease) Hypercholesteremia Hypertension PAST SURGICAL HISTORY Procedure Laterality Date HERNIA REPAIR HX 3 years old PAST SURGICAL HISTORY OF 2007 left knee partial replacement PAST SURGICAL HISTORY OF wisdom teeth removal TONSILLECTOMY HX ALLERGIES Codeine MEDICATIONS Cetirizine 10 mg cap Take by mouth. atenolol (TENORMIN) 25 mg tablet Take 25 mg by mouth once daily. atorvastatin (LIPITOR) 20 mg tablet Take 1 tablet by mouth daily at bedtime. For cholesterol. esomeprazole (NEXIUM) 40 mg capsule Take 1 capsule by mouth daily before breakfast. 1/2 hr before meal. predniSONE (DELTASONE) 10 mg tablet Take 4 tabs daily for 3 days, then 2 tabs daily for 3 days, then 1 tab daily for 3 days with food. triamcinolone acetonide (KENALOG) 0.1 % cream Apply 1 application to affected area three times daily for 10 days. Apply sparingly to area for rash/itching. montelukast (SINGULAIR) 10 mg tablet Take 10 mg by mouth daily at bedtime. (Patient not taking: Reported on 07/05/2022) Levocetirizine 5 mg tablet Take 5 mg by mouth. (Patient not taking: Reported on 07/05/2022) Benzonatate (TESSALON) 200 mg capsule Take 200 mg by mouth twice daily as needed for Cough. COMPOUNDED PRESCRIPTION Please check CBC with diff and platelets, LFTs, Bun, Creatinine, lytes, ESR, TSH and latex RAST (Latex IgE) Dx: chronic urticaria, toxic effect latex. (Patient not taking: Reported on 07/05/2022) fluticasone (FLONASE) 50 mcg/actuation nasal spray Use 2 Sprays in each nostril once daily. raNITIdine (ZANTAC) 150 mg tablet Take 150 mg by mouth daily at bedtime. (Patient not taking: Reported on 07/05/2022) alfuzosin SR (UROXATRAL) 10 mg 24 hr tablet Take 1 tablet by mouth once daily. (Patient not taking: Reported on 07/05/2022) No family history on file. Social History Tobacco Use Smoking status: Former Types: Cigarettes Passive exposure: Past Smokeless tobacco: Never Tobacco comments: Smoked for 17 years, quit for 18, then smoked for about 7 years. 1 PPD. ROS Objective Blood pressure 182/90, pulse (!) 55, temperature (!) 35.7 C (96.2 F), resp. rate 21, weight 86.6 kg (191 lb), SpO2 98 %. Bp rechecked manual by provider 136/80. Physical Exam Constitutional: General: He is not in acute distress. Appearance: He is not toxic-appearing or diaphoretic. HENT: Head: Normocephalic and atraumatic. Skin: General: Skin is warm and dry. Findings: Rash present. Rash is vesicular (distribution linear ). Neurological: Mental Status: He is alert and oriented to person, place, and time. ASSESSMENT/PLAN: 1. Rhus dermatitis - ICD9: 692.6, ICD10: L25.5 - Oral Steriod tx -Prednisone taper - Topical steriod tx with Rx for steriod cream/ointment- see orders - discussed skin care of rash - follow up if symptoms persist or worsen. - PREDNISONE 10 MG TABLET - TRIAMCINOLONE ACETONIDE 0.1 % TOPICAL CREAM Agrees to plan Júnior Marshall APRN.PLANT QUALITY MANAGER documented in [facility] encounter [facility] Pain of left lower extremity- Primary Calf swelling Swelling of limb documented in this encounter [facility] for referral (narrative)* Diagnostic Procedure Only (Urgent) - Closed Specialty Diagnoses / Procedures Referred By Contac t Referred To Contact US IMAGING Diagnoses Calf swelling Procedures US DVT LOWER LT DUP-SCAN XTR VEINS UNILATERAL/LIMITED STUDY Satya Brannon APRN.PLANT QUALITY MANAGER [address] [place] [address] Us Imaging Referral ID Status Reason Start Date Expiration Date V isits Requested Visits Authorized [id number] Closed Auto-Generate d Referral 09/04/2022 11/16/2022 1 1 * Outpatient Procedure (Urgent) - Authorized Specialty Diagnoses / Procedures Referred By Contac t Referred [facility] Diagnoses Calf swelling Procedures US LEG VEIN DVT UNL VAS LAB DUP-SCAN XTR VEINS UNILATERAL/LIMITED STUDY Satya Brannon APRN.PLANT QUALITY MANAGER [address] [place] [address] [facility] [address] [place] [address] Referral ID Status Reason Start Date Expiration Date Visits Requested Visits Authorized [id number] Authorized Auto-Generat ed Referral 09/04/2023 1 1 * Diagnostic Procedure Only (Urgent) - Closed Specialty Diagnoses / Procedures Referred By Contac t Referred To Contact XR IMAGING Diagnoses Pain of left lower extremity Procedures XR KNEE GENERAL 4V AP BOTH/PA BOTH/LAT/MERC LEFT RADIOLOGIC EXAM KNEE COMPLETE 4/MORE VIEWS Satya Brannon APRN.PLANT QUALITY MANAGER [address] [place] [address] Xr Imaging Referral ID Status Reason Start Date Expiration Date V isits Requested Visits Authorized [id number] Closed Auto-Generate d Referral 09/04/2022 10/04/2023 1 1 [facility] for visit Narrative* Diagnostic Procedure Only (Urgent) - Closed Specialty Diagnoses / Procedures Referred By Contac t Referred To Contact US IMAGING Diagnoses Calf swelling Procedures US DVT LOWER LT DUP-SCAN XTR VEINS UNILATERAL/LIMITED STUDY Satya Brannon, MELIZA.PLANT QUALITY MANAGER [address] [place] [address] Us Imaging Referral ID Status Reason Start Date Expiration Date V isits Requested Visits Authorized [id number] Closed Auto-Generate d Referral 09/04/2022 11/16/2022 1 1 [facility] Summary Purpose Family History No Family History Records FoundNo Family History Records FoundNo Family History Records Found Advance Directives No Advanced Directives Records FoundNo Advanced Directives Records FoundNo Advanced Directives Records Found Additional Source Comments (unrecognized sect ion and content) No Status Records FoundNo Status Records FoundNo Status Records Found INFORMATION SOURCE (unrecogn ized section and content) DATE CREATED AUTHOR AUTHOR'S ORGANIZ ATION 09/09/2022 [facility] DATE CREATED AUTHOR AUTHOR'S ORGANIZ ATION 09/09/2022 [facility] Source Comments (unrecognize d section and content) In the event this informatio n is protected by the Federal Confidentiality of Alcohol and Drug Abuse Patient Records regulations: The Federal rules restrict any use of the information to criminally investigate or prosecute any alcohol or drug abuse patient.[facility] the event this information is protected by the Federal Confidentiality of Alcohol and Drug Abuse Patient Records regulations: The Federal rules restrict any use of the information to criminally investigate or prosecute any alcohol or drug abuse patient.[facility] the event this information is protected by the Federal Confidentiality of Alcohol and Drug Abuse Patient Records regulations: The Federal rules restrict any use of the information to criminally investigate or prosecute any alcohol or drug abuse patient.[facility] the event this information is protected by the Federal Confidentiality of Alcohol and Drug Abuse Patient Records regulations: The Federal rules restrict any use of the information to criminally investigate or prosecute any alcohol or drug abuse patient.[facility] Reason for Visit (unrecogniz ed section and content) Reason Comments Left Knee Pain X 1 month-cannot rec all an injury but has had some work done on knees in the past Reason Comments Results Care Teams (unrecognized sec tion and content) Administrative Services Specialist Relationship Specialty Start Date End Date Dunia Barnes [address] [facility] [address] [place] [address] PCP - General Family Medicine 07/05/22 Administrative Services Specialist Relationship Specialty Start Date End Date Dunia Barnes [address] [place] [address] PCP - General Family Medicine 07/05/22 Administrative Services Specialist Relationship Specialty Start Date End Date Dunia Barnes [address] [place], [place] [address] PCP - General Family Medicine 07/05/22 FOR RECORDS PERTAINING TO PATIENTS WHO ARE OR HAVE BEEN ENROLLED IN A CHEMICAL DEPENDENCY/SUBSTANCEABUSE PROGRAM, SOME INFORMATION MAY BE OMITTED. This clinical summary was aggregated from multiple sources. Caution should be exercised in using it in the provision of clinical care. This summary normalizes information from multiple sources, and as a consequence, information in this document may materially change the coding, format and clinical context of patient data. In addition, data may be omitted in some cases. CLINICAL DECISIONS SHOULD BE BASED ON THE PRIMARY CLINICAL RECORDS. [facility] [employer] [facility]. provides no warranty or guarantee of the accuracy or completeness of information in this document.
== END | disposition home or self-care (01) ==
LOC: CT 08:18
PROVIDERS: PCP Family Medicine; Referring Provider Specialist; Visit Provider Specialist
DX: Z01.810 Encounter for preprocedural cardiovascular examination (principal); M17.11 Unilateral primary osteoarthritis, right knee; M21.161 Varus deformity, not elsewhere classified, right knee
CPT/HCPCS: 73700; 93005

== ENCOUNTER → 2024-01-22 | Outpatient (CLI) | payer MEDICARE, OTHER, SELFPAY ==
[2024-01-22 14:36] LABS: Bacteria 0 SEEN /hpf (None Seen); Red Blood Cells-Urine 0 SEEN /hpf (0-5); Squamous Epithelial Cells - UA 0 SEEN /hpf (0-5); White Blood Cells 0 SEEN /hpf (0-5)
[2024-01-22 17:48] LABS: Absolute Lymphocyte Count 2.13 X10^3/uL (0.83-4.51); Absolute Neutrophil Count 5.1 X10^3/uL (2.0-7.7); Basophil# 0.07 X10^3/uL; Basophil% 0.9 % (0-1); Eosinophils% 1.2 % (0-5); Hematocrit 44.4 % (40-54); Hemoglobin 14.4 g/dL (13.0-16.5); Lymphocyte # 2.13 X10^3/ul (0.83-4.51); Lymphocyte % 26.2 % (19-41); Mean Corp Hgb Conc 32.4 g/dL (32-36); Mean Corpuscular Hgb 30.9 pg (27.0-32.0); Mean Corpuscular Volume 95.3 fL (80-94); Monocyte# 0.69 X10^3/uL; Monocyte% 8.5 % (0-10); NRBC Flagged by Analyzer 0 % (0-5); Neutrophil # 5.11 X10^3/uL (2.7-7.7); Neutrophil % 62.8 % (47-70); Platelet Count 275 K/mm3 (150-450); RBC Distribution Width CV 12.8 % (11.6-14.6); RBC Distribution Width SD 45.3 fl (35.1-43.9); Red Blood Count 4.66 M/mm3 (4.6-6.2); White Blood Count 8.1 K/mm3 (4.4-11.0)
[2024-01-22 18:04] LABS: Color, Urine Yellow (Yellow); Glucose, Dipstick Normal (Normal); Ketone-Dipstick Negative (Negative); Leukocyte Esterase-Dipstick Negative /ul (Negative); Nitrite-Dipstick Negative (Negative); Occult Blood-Urine Negative /ul (Negative); Protein-Dipstick Negative (Negative); Specific Gravity, Urine 1.015 (1.002-1.030); Urine Bilirubin Dipstick Negative (Negative); Urine Clarity Clear (Clear); Urine Urobilinogen Normal (Normal)
[2024-01-22 18:15] LABS: Mucous, Urine 1+ /hpf (<or=2+)
[2024-01-22 18:28] LABS: ALB/GLOB Ratio 1.1 RATIO (0.9-2.4); AST(SGOT) 17 U/L (15-37); Alanine Aminotransfer ALT/SGPT 25 U/L (16-61); Albumin, Serum 3.7 g/dL (3.2-5.0); Alkaline Phosphatase 63 U/L (45-117); Anion Gap 8 (5-15); BUN 27 mg/dL (7-18); BUN/Creat Ratio 13.8 RATIO (10-20); Calcium,Total 9.2 mg/dL (8.5-10.1); Chloride 102 mmol/L (98-107); Cholesterol 175 mg/dL (200); Creatinine, Serum 1.96 mg/dL (0.70-1.30); EST Glomerular Filtration Rate 36 mL/min (>60); Est Glom Filt Rate - Afr Amer 43 mL/min (>60); Globulin 3.5 g/dL (2.2-4.2); Glucose 76 mg/dL (74-106); High Density Lipoprotein 52 mg/dL; Magnesium 2.1 mg/dL (1.6-2.6); Potassium 4.2 mmol/L (3.5-5.1); Protein, Total 7.2 g/dL (6.4-8.2); Sodium Level 138 mmol/L (136-145); Thyroid Stim Hormone (TSH) 1.45 uIU/mL (0.358-3.74); Triglycerides 190 mg/dL; Very Low Density Lipoprotein 38 mg/dL (5-40)
== END | disposition home or self-care (01) ==
LOC: MFPLAB 14:35
PROVIDERS: Family Medicine; PCP Family Medicine; Visit Provider Family Medicine
DX: I10 Essential (primary) hypertension (principal)
CPT/HCPCS: 36415; 80053; 80061; 81001; 83735; 84443; 85025

== ENCOUNTER → 2024-01-29 | Outpatient (CLI) | payer MEDICARE, OTHER, SELFPAY ==
--- OUTSIDE RECORDS SUMMARY | 2024-01-29 07:55 | XMS RPT_ITS | CCD ---
Author Name Unknown Address [address] [place] [address] Organization [facility] Care Team Providers Care House Manager Name Role Phone Dunia Barnes Primary Care Provider SATYA BRANNON Referring Unavailable DUNIA BARNESER Primary Care Unavailable DUNIA BARNES SARI Primary Care Unavailable DUNIA BARNES SARI Primary Care Unavailable DUNIA BARNES SARI Primary Care Unavailable Allergies Allergy Classification Reported Allergen(s) Allergy Type Date of Onset Reaction(s) Facility (6 sources) Codeine; Translations: [CODEINE] Drug Allergy 12-15-2011 Rash, GI Upset [facility] Work Phone: Medications Current Medications Medication [...] 97.59 [degF] Satya Brannon APRN.CNP Work Phone: [facility] 09-04-2022 09:06-0400 Body weight 86.91 kg Satya Brannon APRN.DRAWING CHECKER Work Phone: [facility] 09-04-2022 09:06-0400 Diastolic blood pressure 84 mm[Hg] Satya Brannon APRN.DRAWING CHECKER Work Phone: [facility] 09-04-2022 09:06-0400 Heart rate 68 /min Satya Brannon APRN.CNP Work Phone: [facility] 09-04-2022 09:06-0400 Respiratory rate 16 /min Satya Brannon APRN.DRAWING CHECKER Work Phone: [facility] 09-04-2022 09:06-0400 SaO2% (BldA) [Mass fraction] 98 % Satya Brannon APRN.DRAWING CHECKER Work Phone: [facility] 09-04-2022 09:06-0400 Systolic blood pressure 142 mm[Hg] Satya Brannon APRN.CNP Work Phone: [facility] 07-05-2022 10:19-0400 Body temperature 96.21 [degF] Júnior Marshall APRN.DRAWING CHECKER Work Phone: [facility] 07-05-2022 10:19-0400 Body weight 86.64 kg Júnior Marshall USER INTERFACE DEVELOPER.DRAWING CHECKER Work Phone: [facility] 07-05-2022 10:19-0400 Diastolic blood pressure 90 mm[Hg] Júnior Marshall USER INTERFACE DEVELOPER.DRAWING CHECKER Work Phone: [facility] 07-05-2022 10:19-0400 Heart rate 55 /min Júnior Marshall USER INTERFACE DEVELOPER.DRAWING CHECKER Work Phone: [facility] 07-05-2022 10:19-0400 Respiratory rate 21 /min Júnior Marshall USER INTERFACE DEVELOPER.DRAWING CHECKER Work Phone: [facility] 07-05-2022 10:19-0400 SaO2% (BldA) [Mass fraction] 98 % Júnior Marshall USER INTERFACE DEVELOPER.DRAWING CHECKER Work Phone: [facility] 07-05-2022 10:19-0400 Systolic blood pressure 182 mm[Hg] Júnior Marshall USER INTERFACE DEVELOPER.DRAWING CHECKER Work Phone: [facility] Encounters Encounter Date Encounter Type Care Provider Facility Start: 09-04-2022 Telephone encounter Satya castañeda USER INTERFACE DEVELOPER.DRAWING CHECKER Work Phone: [facility] Procedures Date Procedure Procedure Detail Performing Clinician Start: 09-04-2022 Dup-scan xtr veins unilateral/limited study Satya Brannon USER INTERFACE DEVELOPER.DRAWING CHECKER Work Phone: Plan of Treatment Date Care Activity Detail Author Start: 07-18-2022 Influenza vaccination INFLUENZA (#1) [facility] Start: 11-17-2021 ADVANCE DIRECTIVE DISCUSSION ADVANCE DIRECTIVE DISCUSSION [facility] Start: 11-17-2021 DEPRESSION ASSESSMENT DEPRESSION ASSESSMENT [facility] Start: 02-12-2016 PNEUMOCOCCAL: 65+ (1 - PCV) PNEUMOCOCCAL: 65+ (1 - PCV) [facility] Start: 2001 SHINGRIX VACCINE (1 of 2) SHINGRIX VACCINE (1 of 2) [facility] Start: 02-12-1996 COLOGUARD (FIT-DNA) COLOGUARD (FIT-DNA) [facility] Start: 02-12-1996 Colonoscopy COLONOSCOPY [facility] Start: 02-12-1996 COLORECTAL CANCER SCREENING COLORECTAL CANCER SCREENING [facility] Start: 02-12-[address] COLONOGRAPHY [facility] Start: 02-12-1996 DIABETES SCREEN DIABETES SCREEN [facility] Start: 02-12-1996 FECAL OCCULT BLOOD FECAL OCCULT BLOOD [facility] Start: 02-12-1996 SIGMOIDOSCOPY SIGMOIDOSCOPY [facility] Start: 1986 LIPID SCREEN LIPID SCREEN [facility] Start: 1970 Urine microalbumin profile DTAP,TDAP,TD (1 - Tdap) [facility] Start: 1969 HEPATITIS C SCREENING HEPATITIS C SCREENING [facility] Start: 1963 Adult depression screening assessment DEPRESSION SCREENING [facility] Start: 1950 ABDOMINAL AORTIC ANEURYSM SCREENING ABDOMINAL AORTIC ANEURYSM SCREENING [facility] End: 09-04-2023 US LEG VEIN DVT UNL VAS LAB US LEG VEIN DVT UNL VAS LAB Vascular Lab STAT Calf swelling 1 Occurrences starting 09/04/2022 until 09/04/2023 [facility] Work Phone: Payers Date Payer Category Payer Private Health Insurance [facility] AARP SUPPLEMENT [id number] 2021-Present [phone] [address] [place] [address] Indemnity [id number] 2021 Unknown [id number] 2016 Medicare MEDICARE MEDICAR E A AND B [id number] 2016-Present [phone] [place] [address] Medicare [id number] 2016 Medicare [id number] Social History Date Type Detail Facility Start: [facility]-05-2022 [facility] History of tobacco use Current smoker [facility] History of tobacco use Cigarette Smoker [facility] History of tobacco use Passive smoker [facility] Start: 07-05-2022 Tobacco use and exposure Smoke less tobacco non-user [facility] Start: 07-05-2022 End: 09-04-2022 Alcohol intake Not Asked [facility] Start: 07-05-2022 Tobacco Comment Smoked for 17 years, quit for 18, then smoked for about 7 years. 1 PPD. [facility] Start: 1950 Sex Assigned At Not on file C [facility] Start: 06-25-2022 End: 09-04-2022 Exposure to SARS-CoV-2 (event) Not sure [facility] Clinical Notes 07-05-2022 to 09-05-2022 Telephone Encounter - Carloee Henao LPN - 09/05/2022 8:34 AM EDTTelephone [...] results were in. documented in this encounter [facility] 09-04-2022 Note HNO ID: [id number] Author: Asiya Gonzalez RT(R) Service: ? Author [...] RT Opal(R) September 04, 2022 1:43 PM [facility] 09-04-2022 History of Presen t illness [...] 2022 1:43 PM documented in this encounter [facility] 09-04-2022 Note HNO ID: [id number] Author: RT Awilda(Khushboo) Service: Nuclear Medicine Author Type: Technologist Type: [...] RT Awilda(R) September 04, 2022 9:[address] [facility] 09-04-2022 Note HNO ID: [id number] Author: Satya Brannon APRN.DRAWING CHECKER Service: ? Author Type: Nurse Practitioner Type: [...] [place]. He again is denying any cp or [...] - US DVT LOWER LT Satya Brannon APRN.DRAWING CHECKER [facility] 09-04-2022 History of Presen t illness Narrative [...] for an US of the leg at [place]. He again is denying any cp or [...] - US DVT LOWER LT Satya Brannon APRN.DRAWING CHECKER documented in this encounter [facility] 07-05-2022 Note HNO ID: [id number] Author: Júnior Marshall APRN.DRAWING CHECKER Service: ? Author Type: Nurse Practitioner Type: [...] TOPICAL CREAM Agrees to plan Júnior Marshall APRN.[facility] 07-05-2022 History of Presen t illness Narrative Images from the original note were not included. Subjective HPI HPI Hayden Sun is a 72 year old male who presents today for CC of itchy rash. This started 2 weeks ago. Has tried otc medication without relief. Symptoms are worsened by nothing. Risk factors hx of PI rash, has been working with TE[employer]. .Patient presents with: Rash: Poison greg on [...] TOPICAL CREAM Agrees to plan Júnior Marshall APRN.DRAWING CHECKER documented in this encounter [facility] Diagnosis Pain of left lower extremity- Primary Calf swelling Swelling of limb documented in this encounter [facility] for referral (narrative)* Diagnostic Procedure Only (Urgent) - Closed Specialty Diagnoses / Procedures Referred By Contac t Referred To Contact US IMAGING Diagnoses Calf swelling Procedures US DVT LOWER LT DUP-SCAN XTR VEINS UNILATERAL/LIMITED STUDY Satya Brannon APRN.DRAWING CHECKER [address] [place] [address] Us Imaging Referral ID Status Reason Start Date Expiration Date V isits Requested Visits Authorized [id number] Closed Auto-Generate d Referral 09/04/2022 11/16/2022 1 1 * Outpatient Procedure (Urgent) - Authorized Specialty Diagnoses / Procedures Referred By Contac t Referred To Contact [facility] Diagnoses Calf swelling Procedures US LEG VEIN DVT UNL VAS LAB DUP-SCAN XTR VEINS UNILATERAL/LIMITED STUDY Satya Brannon APRN.DRAWING CHECKER [address] [place] [address] [facility] [place] [place] [address] [place] [address] Referral ID Status Reason Start Date Expiration Date Visits Requested Visits Authorized [id number] Authorized Auto-Generat ed Referral 09/04/2023 1 1 * Diagnostic Procedure Only (Urgent) - Closed Specialty Diagnoses / Procedures Referred By Contac t Referred To Contact XR IMAGING Diagnoses Pain of left lower extremity Procedures XR KNEE GENERAL 4V AP BOTH/PA BOTH/LAT/MERC LEFT RADIOLOGIC EXAM KNEE COMPLETE 4/MORE VIEWS Satya Brannon APRN.DRAWING CHECKER [address] [place] [address] Xr Imaging Referral ID Status Reason Start Date Expiration Date V isits Requested Visits Authorized [id number] Closed Auto-Generate d Referral 09/04/2022 10/04/2023 1 1 [facility] for visit Narrative* Diagnostic Procedure Only (Urgent) - Closed Specialty Diagnoses / Procedures Referred By Contac t Referred To Contact US IMAGING Diagnoses Calf swelling Procedures US DVT LOWER LT DUP-SCAN XTR VEINS UNILATERAL/LIMITED STUDY Satya Brannon, MELIZA.DRAWING CHECKER [address] [place] [address] Us Imaging Referral ID Status Reason Start Date Expiration Date V isits Requested Visits Authorized [id number] Closed Auto-Generate d Referral 09/04/2022 11/16/2022 1 1 [facility] Summary Purpose Family History No Family [...] DATE CREATED AUTHOR AUTHOR'S ORGANIZ ATION 09/09/[address] [facility] DATE CREATED AUTHOR AUTHOR'S ORGANIZ ATION 09/09/2022 [facility] Source Comments (unrecognize d section and content) In the event this informatio n is protected by the Federal Confidentiality of Alcohol and Drug Abuse Patient Records regulations: The Federal rules restrict any use of the information to criminally investigate or prosecute any alcohol or drug abuse patient.[facility] the event this information is protected by the Federal Confidentiality of Alcohol and Drug Abuse Patient Records regulations: The Federal rules restrict any use of the information to criminally investigate or prosecute any alcohol or drug abuse patient.[facility] the event this information is protected by the Federal Confidentiality of Alcohol and Drug Abuse Patient Records regulations: The Federal rules restrict any use of the information to criminally investigate or prosecute any alcohol or drug abuse patient.[facility] the event this information is protected by the Federal Confidentiality of Alcohol and Drug Abuse Patient Records regulations: The Federal rules restrict any use of the information to criminally investigate or prosecute any alcohol or drug abuse patient.[facility] Reason for Visit (unrecogniz ed section and content) Reason Comments Left Knee Pain X 1 month-cannot rec all an injury but has had some work done on knees in the past Reason Comments Results Care Teams (unrecognized sec tion and content) House Manager Relationship Specialty Start Date End Date Dunia Barnes [address] [facility] [address] [place] [address] PCP - General Family Medicine 07/05/22 House Manager Relationship Specialty Start Date End Date Dunia Barnes [address] [place] [address] PCP - General Family Medicine 07/05/22 House Manager Relationship Specialty Start Date End Date Dunia Barnes [address] [place], [place] [address] PCP - General Family Medicine 07/05/22 FOR [...] BE BASED ON THE PRIMARY CLINICAL RECORDS. [facility] [employer] [facility]. provides no warranty or guarantee of the accuracy or completeness of information in this document.
[2024-01-29 11:35] LABS: Anion Gap 6 (5-15); BUN 16 mg/dL (7-18); BUN/Creat Ratio 11.6 RATIO (10-20); Calcium,Total 9.5 mg/dL (8.5-10.1); Chloride 106 mmol/L (98-107); Creatinine, Serum 1.38 mg/dL (0.70-1.30); EST Glomerular Filtration Rate 54 mL/min (>60); Est Glom Filt Rate - Afr Amer 65 mL/min (>60); Glucose 89 mg/dL (74-106); Potassium 4.2 mmol/L (3.5-5.1); Sodium Level 140 mmol/L (136-145)
== END | disposition home or self-care (01) ==
LOC: MTLAB 07:48
PROVIDERS: PCP Family Medicine; Referring Provider Family Medicine; Visit Provider Family Medicine
DX: N18.30 Chronic kidney disease, stage 3 unspecified (principal)
CPT/HCPCS: 36415; 80048

== ENCOUNTER → 2024-04-27 | Outpatient (CLI) | payer MEDICARE, OTHER, SELFPAY ==
[2024-04-27 11:23] LABS: Bacteria 0 SEEN /hpf (None Seen); Mucous, Urine 0 SEEN /hpf (<or=2+); Red Blood Cells-Urine 0 SEEN /hpf (0-5); Squamous Epithelial Cells - UA 0 SEEN /hpf (0-5); White Blood Cells 0 SEEN /hpf (0-5)
[2024-04-27 15:57] LABS: Color, Urine Yellow (Yellow); Glucose, Dipstick Normal (Normal); Ketone-Dipstick Negative (Negative); Leukocyte Esterase-Dipstick Negative /ul (Negative); Nitrite-Dipstick Negative (Negative); Occult Blood-Urine 25 /ul (Negative); Protein-Dipstick Negative (Negative); Urine Bilirubin Dipstick Negative (Negative); Urine Clarity Clear (Clear); Urine Urobilinogen Normal (Normal)
[2024-04-27 15:57] LABS: Absolute Neutrophil Count 3.7 X10^3/uL (2.0-7.7); Basophil# 0.06 X10^3/uL; Basophil% 0.8 % (0-1); Eosinophil# 0.08 X10^3/uL; Eosinophils% 1.1 % (0-5); Hematocrit 44.7 % (40-54); Hemoglobin 14.3 g/dL (13.0-16.5); Lymphocyte % 39.6 % (19-41); Mean Corpuscular Hgb 29.2 pg (27.0-32.0); Mean Corpuscular Volume 91.2 fL (80-94); Monocyte# 0.56 X10^3/uL; Monocyte% 7.7 % (0-10); NRBC Flagged by Analyzer 0 % (0-5); Neutrophil % 50.5 % (47-70); Platelet Count 263 K/mm3 (150-450); RBC Distribution Width CV 13.3 % (11.6-14.6); RBC Distribution Width SD 45.1 fl (35.1-43.9); White Blood Count 7.3 K/mm3 (4.4-11.0)
[2024-04-27 16:09] LABS: Vitamin D,25 Hydroxy 37.4 ng/mL
[2024-04-27 16:11] LABS: PTHIN 54.1 pg/mL (18.4-80.1)
[2024-04-27 16:25] LABS: ALB/GLOB Ratio 1.1 RATIO (0.9-2.4); AST(SGOT) 26 U/L (15-37); Alanine Aminotransfer ALT/SGPT 39 U/L (16-61); Albumin, Serum 3.9 g/dL (3.2-5.0); Alkaline Phosphatase 56 U/L (45-117); Anion Gap 7 (5-15); BUN 18 mg/dL (7-18); BUN/Creat Ratio 13.4 RATIO (10-20); Calcium,Total 9.8 mg/dL (8.5-10.1); Chloride 104 mmol/L (98-107); Cholesterol 184 mg/dL (200); Creatinine, Serum 1.34 mg/dL (0.70-1.30); EST Glomerular Filtration Rate 56 mL/min (>60); Est Glom Filt Rate - Afr Amer 67 mL/min (>60); Globulin 3.6 g/dL (2.2-4.2); Glucose 81 mg/dL (74-106); High Density Lipoprotein 52 mg/dL; Phosphorus 2.9 mg/dL (2.5-4.9); Potassium 3.7 mmol/L (3.5-5.1); Protein, Total 7.5 g/dL (6.4-8.2); Sodium Level 137 mmol/L (136-145); Thyroid Stim Hormone (TSH) 1.21 uIU/mL (0.358-3.74); Triglycerides 158 mg/dL; Very Low Density Lipoprotein 32 mg/dL (5-40)
[2024-04-27 16:39] LABS: Protein, Urine (Random) 7.4 mg/dL (<11.9); Protein:Creat Ratio 84 mg/g CRE (0-200)
== END | disposition home or self-care (01) ==
LOC: MTLAB 11:20
PROVIDERS: PCP Family Medicine; Referring Provider Family Medicine; Visit Provider Family Medicine
DX: I12.9 Hypertensive chronic kidney disease with stage 1 through stage 4 chronic kidney disease, or unspecified chronic kidney disease (principal); N18.30 Chronic kidney disease, stage 3 unspecified
CPT/HCPCS: 36415; 80053; 80061; 81001; 82306; 82570; 83970; 84100; 84156; 84443; 85025

== ENCOUNTER → 2024-08-24 | Outpatient (CLI) | payer MEDICARE, OTHER, SELFPAY ==
[2024-08-24 11:27] LABS: Bacteria 0 SEEN /hpf (None Seen); Mucous, Urine 0 SEEN /hpf (<or=2+); White Blood Cells 0 SEEN /hpf (0-5)
[2024-08-24 12:25] LABS: Absolute Lymphocyte Count 2.29 X10^3/uL (0.83-4.51); Basophil# 0.05 X10^3/uL; Basophil% 0.9 % (0-1); Eosinophil# 0.07 X10^3/uL; Eosinophils% 1.2 % (0-5); Hematocrit 43.6 % (40-54); Lymphocyte # 2.29 X10^3/ul (0.83-4.51); Mean Corp Hgb Conc 32.1 g/dL (32-36); Mean Corpuscular Hgb 29.5 pg (27.0-32.0); Mean Corpuscular Volume 91.8 fL (80-94); Mean Platelet Vol. 10.1 fl (6.2-12.0); Monocyte# 0.41 X10^3/uL; NRBC Flagged by Analyzer 0 % (0-5); Neutrophil # 3.03 X10^3/uL (2.7-7.7); Neutrophil % 51.6 % (47-70); Platelet Count 215 K/mm3 (150-450); RBC Distribution Width CV 13.3 % (11.6-14.6); RBC Distribution Width SD 45.1 fl (35.1-43.9); Red Blood Count 4.75 M/mm3 (4.6-6.2); White Blood Count 5.9 K/mm3 (4.4-11.0)
[2024-08-24 12:55] LABS: PTHIN 54.9 pg/mL (18.4-80.1)
[2024-08-24 13:16] LABS: Color, Urine Yellow (Yellow); Glucose, Dipstick Normal (Normal); Ketone-Dipstick Negative (Negative); Leukocyte Esterase-Dipstick Negative /ul (Negative); Nitrite-Dipstick Negative (Negative); Occult Blood-Urine 10 /ul (Negative); Protein-Dipstick Negative (Negative); Specific Gravity, Urine 1.005 (1.002-1.030); Urine Bilirubin Dipstick Negative (Negative); Urine Clarity Clear (Clear); Urine Urobilinogen Normal (Normal); Urine pH 6.5 (5.0 - 8.0)
[2024-08-24 13:28] LABS: Squamous Epithelial Cells - UA 0-5 SEEN /hpf (0-5)
[2024-08-24 13:29] LABS: Red Blood Cells-Urine 0-5 SEEN /hpf (0-5)
[2024-08-24 13:39] LABS: Protein, Urine (Random) 6.8 mg/dL (<11.9); Protein:Creat Ratio 146 mg/g CRE (0-200)
[2024-08-24 15:49] LABS: ALB/GLOB Ratio 1.1 RATIO (0.9-2.4); AST(SGOT) 16 U/L (15-37); Alanine Aminotransfer ALT/SGPT 20 U/L (16-61); Albumin, Serum 3.7 g/dL (3.2-5.0); Alkaline Phosphatase 54 U/L (45-117); Anion Gap 6 (5-15); BUN 17 mg/dL (7-18); BUN/Creat Ratio 12.1 RATIO (10-20); Calcium,Total 9.5 mg/dL (8.5-10.1); Chloride 105 mmol/L (98-107); Cholesterol 168 mg/dL (200); Creatinine, Serum 1.41 mg/dL (0.70-1.30); EST Glomerular Filtration Rate 52 mL/min (>60); Est Glom Filt Rate - Afr Amer 63 mL/min (>60); Globulin 3.3 g/dL (2.2-4.2); Glucose 85 mg/dL (74-106); High Density Lipoprotein 58 mg/dL; Magnesium 2.3 mg/dL (1.6-2.6); Phosphorus 2.9 mg/dL (2.5-4.9); Potassium 4.3 mmol/L (3.5-5.1); Sodium Level 138 mmol/L (136-145); Triglycerides 126 mg/dL; Very Low Density Lipoprotein 25 mg/dL (5-40)
== END | disposition home or self-care (01) ==
LOC: MFPLAB 11:23
PROVIDERS: PCP Family Medicine; Visit Provider Family Medicine
DX: I12.9 Hypertensive chronic kidney disease with stage 1 through stage 4 chronic kidney disease, or unspecified chronic kidney disease (principal); N18.30 Chronic kidney disease, stage 3 unspecified; E78.5 Hyperlipidemia, unspecified
CPT/HCPCS: 80053; 80061; 81001; 82306; 82570; 83735; 83970; 84100; 84156; 85025

== ENCOUNTER → 2024-09-14 | Outpatient (CLI) | payer MEDICARE, OTHER, SELFPAY ==
[2024-09-14 11:45] LABS: PSA,Total - Annual Screen 0.75 ng/mL (0.00-4.00)
== END | disposition home or self-care (01) ==
LOC: LAB 10:56
PROVIDERS: PCP Family Medicine; Referring Provider Urology; Visit Provider Urology
DX: Z12.5 Encounter for screening for malignant neoplasm of prostate (principal)
CPT/HCPCS: 36415; 84153; G0103

== ENCOUNTER → 2024-12-28 | Outpatient (CLI) | payer MEDICARE, OTHER, SELFPAY ==
[2024-12-28 16:40] LABS: AST(SGOT) 16 U/L (15-37); Alanine Aminotransfer ALT/SGPT 18 U/L (16-61); Albumin, Serum 3.6 g/dL (3.2-5.0); Alkaline Phosphatase 58 U/L (45-117); Anion Gap 7 (5-15); BUN 21 mg/dL (7-18); BUN/Creat Ratio 14.2 RATIO (10-20); Calcium,Total 9.6 mg/dL (8.5-10.1); Chloride 105 mmol/L (98-107); Creatinine, Serum 1.48 mg/dL (0.70-1.30); EST Glomerular Filtration Rate 49 mL/min (>60); Est Glom Filt Rate - Afr Amer 60 mL/min (>60); Globulin 3.6 g/dL (2.2-4.2); Glucose 57 mg/dL (74-106); Potassium 4.2 mmol/L (3.5-5.1); Protein, Total 7.2 g/dL (6.4-8.2); Sodium Level 139 mmol/L (136-145)
== END | disposition home or self-care (01) ==
LOC: MFPLAB 10:59
PROVIDERS: PCP Family Medicine; Referring Provider Family Medicine; Visit Provider Family Medicine
DX: N18.30 Chronic kidney disease, stage 3 unspecified (principal)
CPT/HCPCS: 36415; 80053

== ENCOUNTER → 2025-01-05 | Outpatient (CLI) | payer MEDICARE, OTHER, SELFPAY ==
[2025-01-05 16:06] LABS: Anion Gap 6 (5-15); BUN 16 mg/dL (7-18); BUN/Creat Ratio 11.3 RATIO (10-20); Calcium,Total 9.2 mg/dL (8.5-10.1); Chloride 104 mmol/L (98-107); Creatinine, Serum 1.42 mg/dL (0.70-1.30); EST Glomerular Filtration Rate 52 mL/min (>60); Est Glom Filt Rate - Afr Amer 63 mL/min (>60); Glucose 89 mg/dL (74-106); Sodium Level 138 mmol/L (136-145)
== END | disposition home or self-care (01) ==
LOC: MFPLAB 09:29
PROVIDERS: PCP Family Medicine; Referring Provider Family Medicine; Visit Provider Family Medicine
DX: N18.30 Chronic kidney disease, stage 3 unspecified (principal)
CPT/HCPCS: 36415; 80048

== ENCOUNTER → 2025-04-26 | Outpatient (CLI) | payer MEDICARE, OTHER, SELFPAY ==
[2025-04-26 12:27] LABS: Absolute Lymphocyte Count 2.45 X10^3/uL (0.83-4.51); Absolute Neutrophil Count 2.6 X10^3/uL (2.0-7.7); Basophil# 0.05 X10^3/uL; Basophil% 0.9 % (0-1); Eosinophil# 0.11 X10^3/uL; Eosinophils% 1.9 % (0-5); Hematocrit 44.9 % (40-54); Hemoglobin 14.8 g/dL (13.0-16.5); Lymphocyte # 2.45 X10^3/ul (0.83-4.51); Lymphocyte % 43.4 % (19-41); Mean Corpuscular Volume 90.9 fL (80-94); Mean Platelet Vol. 10.1 fl (6.2-12.0); Monocyte# 0.42 X10^3/uL; Monocyte% 7.4 % (0-10); NRBC Flagged by Analyzer 0 % (0-5); Neutrophil # 2.61 X10^3/uL (2.7-7.7); Neutrophil % 46.2 % (47-70); Platelet Count 217 K/mm3 (150-450); RBC Distribution Width CV 13.6 % (11.6-14.6); RBC Distribution Width SD 45.4 fl (35.1-43.9); Red Blood Count 4.94 M/mm3 (4.6-6.2); White Blood Count 5.7 K/mm3 (4.4-11.0)
[2025-04-26 12:43] LABS: PTHIN 18 pg/mL (11-61)
[2025-04-26 13:05] LABS: ALB/GLOB Ratio 1.4 RATIO (0.9-2.4); AST(SGOT) 24 U/L (<=37); Alanine Aminotransfer ALT/SGPT 17 U/L (<=46); Albumin, Serum 4.2 g/dL (3.4-4.8); Alkaline Phosphatase 57 U/L (40-129); Anion Gap 10 (5-15); BUN 18 mg/dL (4-19); BUN/Creat Ratio 12.7 RATIO (10-20); Calcium,Total 9.7 mg/dL (7.6-11.0); Carbon Dioxide 23.6 mmol/L (21.0-32.0); Chloride 106 mmol/L (98-108); Cholesterol 174 mg/dL (<=200); Creatinine, Serum 1.42 mg/dL (0.70-1.20); EST Glomerular Filtration Rate 52 (>60); Glucose 105 mg/dL (70-99); High Density Lipoprotein 47 mg/dL; Low Density Lipoprotein Calc. 97 mg/dL; Potassium 4.2 mmol/L (3.3-5.1); Protein, Total 7.2 g/dL (5.9-8.4); Sodium Level 140 mmol/L (133-145); Total Bilirubin 0.91 mg/dL (0.00-1.30); Triglycerides 151 mg/dL; Very Low Density Lipoprotein 30 mg/dL (5-40); Vitamin D,25 Hydroxy 39.2 ng/mL (30-100); cholesterol:hdl ratio screen 3.71
== END | disposition home or self-care (01) ==
LOC: MFPLAB 10:39
PROVIDERS: PCP Family Medicine; Referring Provider Family Medicine; Visit Provider Family Medicine
DX: N18.30 Chronic kidney disease, stage 3 unspecified (principal); E78.5 Hyperlipidemia, unspecified
CPT/HCPCS: 36415; 80053; 80061; 82306; 83970; 85025

== ENCOUNTER → 2025-05-12 | Outpatient (CLI) | payer MEDICARE, OTHER, SELFPAY ==
--- OUTSIDE RECORDS SUMMARY | 2025-05-12 20:35 | XMS RPT_ITS | CCD ---
Author Organization [facility] Care Team Providers Care Head Mechanic Name Role Phone Dunia Barnes Primary Care Provider MACHELLE BRANNON Referring Unavailable DUNIA BARNES Primary Care Unavailable DUNIA BARNES Primary Care Unavailable DUNIA BARNES Primary Care Unavailable DUNIA BARNES Primary Care Unavailable Dr. Dunia Barnes Primary Care Provider Dr. Dunia Barnes Referring Provider [phone] LINDA Farrar Attending Provider Dr. Jose Jacobo Attending Provider Dr. Jose Jacobo Referring Provider Dr. Jose Jacobo Other Provider LINDA Farrar Attending Provider LINDA Louis Attending Provider KIERSTEN Mcbride Attending Provider Dr. Dunia Barnes Primary Care Provider Dr. Dunia Barnes Referring Provider [phone] LINDA Farrar Attending Provider Dr. Jose Jacobo Attending Provider [phone] Dr. Jose Jacobo Referring Provider Dr. Jose Jacoob Other Provider LINDA Louis Attending Provider KIERSTEN Mcbride Attending Provider Dr. Dunia Barnes Primary Care Provider Dr. Jose Jacobo Attending Provider Dr. Dunia Barnes Referring Provider Dr. Dunia Barnes Primary Care Provider Dr. Dunia Barnes Referring Provider Dr. Jose Jacobo Attending Provider Dr. Dunia Barnes Primary Care Provider Dr. Kim Montano Attending Provider Dr. Saqib Aguero Referring Provider Dunia Barnes Primary Care Provider Dr. Lane Lowery MD Primary Care Provider Beverley CARRERA, Dr. Lane Boswell Attending Provider Dr. Lane Lowery MD Referring Provider Lane Lowery Primary Care Unavailable Lane Lowery Attending Unavailable Lane Lowery Referring Unavailable Lane Lowery Primary Care Unavailable Lane Lowery Attending Unavailable Lane Lowery Referring Unavailable Lane Lowery Primary Care Unavailable Lane Lowery Attending Unavailable Lane Lowery Referring Unavailable Lane Lowery Primary Care Unavailable Lane Lowery Attending Unavailable Lane Lowery Primary Care Unavailable Lane Lowery Attending Unavailable Lane Lowery Referring Unavailable Lane Lowery Primary Care Unavailable Clark Stewart Attending Unavailable Clark Stewart Referring Unavailable Allergies Allergy Classification Reported Allergen(s) Allergy Type Date of Onset Reaction(s) Facility (20 sources) Codeine; Translations: [CODEINE] Drug Allergy 2 Rash, GI Upset [facility] Work Phone: (1 source) Codeine Drug Allergy 3 [facility] Repository Medications Current Medications Medication Drug Class(es) Dates Sig (Normalized) Sig (Original) 24 hr alfuzosin hydrochloride 10 mg extended release oral tablet (5 sources) alpha-Adrenergic Aminta Start: 06-25-2012 take 1 tablet by mouth once daily alfuzosin SR (UROXATRAL) 10 mg 24 hr tablet Take 1 tablet by mouth once daily. 0 06/25/2012 Active Comment on above: Take 1 tablet by bowen th once daily. atenolol 25 mg oral tablet (19 sources) beta-Adrenergic Aminta Start: 06-25-2012 take 1 tablet by mouth at bedtime Atenolol 25 MG tablet Active 25 mg PO AT BEDTIME November 10, 2014 1:00am Comment on above: Take 25 mg by mouth once daily. atorvastatin 20 mg oral tablet (19 sources) HMG-CoA Reductase Inhibitor Start: 06-25-2012 take 1 tablet by mouth at bedtime Atorvastatin 20 MG tablet Active 20 mg PO AT BEDTIME November 10, 2014 1:00am Comment on above: Take 1 tablet by bowen th daily at bedtime. For cholesterol. benzonatate 200 mg oral capsule (5 sources) Non-narcotic Antitussive Start: 12-13-2014 take 1 capsule by mouth every twelve hours as needed Benzonatate (TESSALON) 200 mg capsule Take 200 mg by mouth twice daily as needed for Cough. 20 capsule 0 12/13/2014 Active Comment on above: Take 200 mg by mouth twice daily as needed for Cough. cetirizine hydrochloride 10 mg oral capsule (5 sources) Histamine-1 Receptor Antagonist Cetirizine 10 mg cap Take by mouth. Active Comment on above: Take by mouth. COMPOUNDED PRESCRIPTION (5 sources) Start: 08-24-2014 COMPOUNDED PRESCRIPTION Please check CBC with diff and platelets, LFTs, Bun, Creatinine, lytes, ESR, TSH and latex RAST (Latex IgE) Dx: chronic urticaria, toxic effect latex. 1 Units 0 08/24/2014 Active Comment on above: Please check CBC wit h diff and platelets, LFTs, Bun, Creatinine, lytes, ESR, TSH and latex RAST (Latex IgE) Dx: chronic urticaria, toxic effect latex. esomeprazole 40 mg delayed release oral capsule (19 sources) Proton Pump Inhibitor Start: 06-25-2012 take 1 capsule by mouth once daily Esomeprazole Magnesium (Nexium) 40 MG capsule Active 40 mg PO DAILY November 10, 2014 1:00am Comment on above: Take 1 capsule by mo uth daily before breakfast. 1/2 hr before meal. finasteride 5 mg oral tablet (11 sources) 5-alpha Reductase Inhibitor Start: 07-30-2023 take 1 tablet by mouth at bedtime Finasteride 5 mg tablet Active 5 mg PO AT BEDTIME July 30, 2023 12:00am fluticasone propionate 0.05 mg/actuat metered dose nasal spray (5 sources) Corticosteroid Start: 08-24-2014 take 2 spray(s) nasal route once daily fluticasone (FLONASE) 50 mcg/actuation nasal spray Use 2 Sprays in each nostril once daily. 1 Bottle 11 08/24/2014 Active Comment on above: Use 2 Sprays in each nostril once daily. levocetirizine dihydrochloride 5 mg oral tablet (5 sources) Histamine-1 Receptor Antagonist Levocetirizine 5 mg tablet Take 5 mg by mouth. Active Comment on above: Take 5 mg by mouth. lisinopril 10 mg oral tablet (11 sources) Angiotensin Converting Enzyme Inhibitor Start: 07-30-2023 take 2 tablets by mouth once daily Lisinopril 10 mg tablet Active 20 mg PO DAILY July 30, 2023 12:00am Start: 07-30-2023 take 20 mg by mouth once daily Lisinopril Active 20 MG PO DAILY July 30, 2023 12:00am montelukast 10 mg oral tablet (5 sources) Leukotriene Receptor Antagonist take 1 tablet by mouth once daily at bedtime montelukast (SINGULAIR) 10 mg tablet Take 10 mg by mouth daily at bedtime. Active Comment on above: Take 10 mg by mouth daily at bedtime. naproxen 500 mg oral tablet (3 sources) Nonsteroidal Anti-inflammatory Drug Start: 04-08-20 take 500 mg by mouth twice daily Naproxen Active 500 MG PO TWICE A DAY April 08, 2021 12:00am oxyCODONE hydrochloride 5 mg oral tablet (9 sources) Opioid Agonist Start: 09-09-20 take 5-10 mg by mouth every six hours as needed for pain Oxycodone 5 mg tablet Active 5 - 10 mg PO EVERY 6 HOURS as needed for pain 08 21September 09, 2023 Povidone (Pf) (Ivizia (Pf)) 0.5 % drops (11 sources) Start: 09-13-20 23 Povidone (Pf) (Ivizia (Pf)) 0.5 % drops Active 2 NMA OPHTHALMIC NEEDED July 30, 2023 12:00am Start: 07-30-2023 Povidone (Pf) (Ivizia (Pf)) 0.5 % drops Active 2 DRP OPHTHALMIC NEEDED July 29, 2023 11:00pm Start: 07-30-2023 Povidone (Pf) (Ivizia (Pf)) 0.5 % drops Active 2 DRP OPHTHALMIC NEEDED July 30, 2023 12:00am predniSONE 10 mg oral tablet (1 source) Start: 07-05-2022 End: 07-14-2022 predniSONE (DELTASONE) 10 mg tablet Indications: Rhus dermatitis Take 4 tabs daily for 3 days, then 2 tabs daily for 3 days, then 1 tab daily for 3 days with food. 21 tablet 0 07/05/2022 07/14/2022 Active Comment on above: Take 4 tabs daily fo r 3 days, then 2 tabs daily for 3 days, then 1 tab daily for 3 days with food. raNITIdine 150 mg oral tablet (5 sources) Histamine-2 Receptor Antagonist take 1 tablet by mouth once daily at bedtime raNITIdine (ZANTAC) 150 mg tablet Take 150 mg by mouth daily at bedtime. Active Comment on above: Take 150 mg by mouth daily at bedtime. triamcinolone acetonide 1 mg/ml topical cream (1 source) Corticosteroid Start: 07-05-2022 End: 07-15-2022 triamcinolone acetonide (KENALOG) 0.1 % cream Indications: Rhus dermatitis Apply 1 application to affected area three times daily for 10 days. Apply sparingly to area for rash/itching. 80 g 0 07/05/2022 07/15/2022 Active Comment on above: Apply 1 application to affected area three times daily for 10 days. Apply sparingly to area for rash/itching. Completed/Discontinued Medications Medication Drug Class(es) Dates Sig (Normalized) Sig (Original) doxycycline hyclate 100 mg oral capsule (11 sources) Tetracycline-cla ss Drug Start: 07-11-2023 End: 07-21-2023 take 1 capsule by mouth twice daily Doxycycline Hyclate 100 mg capsule Discontinued 100 mg PO TWICE A DAY 05 09July 11, 2023 12:00am July 20, 2023 12:00am July 21, 2023 12:04am Problems Active Problems Problem Classification Problem Date Documented Da te Episodic/Chronic Chronic kidney disease (1 source) Chronic kidney disease; Translations: [Chronic kidney disease, stage 3 unspecified] Onset: 05-02-2025 Fracture of upper limb (20 sources) Open fracture of phalanx of thumb; Translations: [Fracture of unspecified phalanx of left thumb, initial encounter for open fracture] 04-11-2019 Episodic Hypertension with complications and secondary hypertension (1 source) Hypertensive chronic kidney disease with stage 1 through stage 4 chronic kidney disease, or unspecified chronic kidney disease; Translations: [Hypertensive chronic kidney disease with stage 1 through stage 4 chronic kidney disease, or unspecified chronic kidney disease] Onset: 09-17-2024 Chronic Open wounds of extremities (20 sources) Laceration of index finger; Translations: [Laceration without foreign body of other finger without damage to nail, initial encounter] 10-14-2015 Episodic Other connective tissue disease (2 sources) Pain in left lower limb; Translations: [Pain [...] soft tissue disorders] Onset: 09-04-2022 Episodic Other lower respiratory disease (1 source) Shortness of breath; Translations: [Shortness of breath] Onset: 05-04-2025 Episodic Other male genital disorders (10 sources) Swelling of testicle; Translations: [Other specified disorders of the male genital organs] 08-11-2023 Episodic Other male genital disorders (6 sources) Other specified disorders of the male genital organs; Translations: [Edema of male genital organs] 08-11-2023 Episodic Other non-epithelial cancer of skin (20 sources) Squamous cell carcinoma of skin; Translations: [Squamous cell carcinoma of skin, unspecified] 08-13-2023 Episodic Other non-traumatic joint disorders (14 sources) Effusion of joint of left knee; Translations: [Effusion, left knee] 04-08-2021 Episodic Other non-traumatic joint disorders (14 sources) Pain in left knee; Translations: [Acute pain of left knee] 04-08-2021 Episodic Other upper respiratory disease (5 sources) Chronic rhinitis; Translations: [Chronic rhinitis] Onset: 09-12-2014 09-12-2014 Chronic Skin and subcutaneous tissue infections (13 sources) Abscess of left thigh; Translations: [Cutaneous abscess of left lower limb] 07-11-2023 Episodic Past or Other Problems Problem Classification Problem Date Documented Da te Episodic/Chronic Allergic reactions (6 sources) Contact dermatitis due to Genus Toxicodendron; Translations: [Unspecified contact dermatitis due to plants, except food] Onset: 09-12-2014 Episodic Other screening for suspected conditions (not mental disorders or infectious disease) (1 source) Encounter for screening for malignant neoplasm of prostate; Translations: [Encounter for screening for malignant neoplasm of prostate] Onset: 10-02-2024 Episodic Results Test Name Value Interpretation Reference Range Facility Absolute lymphocyte countOrd ered By: Lane Lowery on 04-26-2025 Lymphocytes Auto (Unsp spec) [#/Vol] 2.45 10*3/uL 0.83-4.51 [facility] Absolute neutrophil countOrd ered By: Lane Lowery on 04-26-2025 Neutrophils (Bld) [#/Vol] 2.6 10*3/uL 2.0-7.7 [facility] Anion gap in Serum or Plasma Ordered By: Lane Lowery on 04-26-2025 Anion gap [Moles/Vol] 10 mmol/L 5-15 [facility] Automated lymphocyte count a s percentage of total leukocytesOrdered By: Lane Lowery on 04-26-2025 Lymphocytes/100 WBC Auto (Unsp spec) 43.4 % High 19-41 [facility] BUN/creatinine ratioOrdered By: Lane oLwery on 04-26-2025 Urea nitrogen/Creatinine [Mass ratio] 12.7 mg/mg 10-20 [facility] Basophil percentageOrdered B y: Lane Lowery on 04-26-2025 Basophils/100 WBC (Bld) 0.9 % 0-1 [facility] Bilirubin, totalOrdered By: Lane Lowery on 04-26-2025 Bilirubin [Mass/Vol] 0.91 mg/dL 0.00-1.30 [facility] CBC W/Diff, Automatedon 06-1 0-5 Absolute Lymph 2.45 X10 3/uL Normal 0.83-4.51 [facility] Comment on above: Order Comment: CLEAN CATCH Performed By: #### [id number], [id number] #### [facility] [address] [place], [address] Absolute Neut 2.6 X10 3/uL Normal 2.0-7.7 [facility] Comment on above: Order Comment: CLEAN CATCH Performed By: #### [id number], [id number] #### [facility] [address] [place], [address] Basophils/100 WBC (Bld) 0.9 % Normal 0-1 [facility] Comment on above: Order Comment: CLEAN CATCH Performed By: #### [id number], [id number] #### [facility] [address] [place], [address] Eosinophils/100 WBC (Bld) 1.9 % Normal 0-5 [facility] Comment on above: Order Comment: CLEAN CATCH Performed By: #### [id number], [id number] #### [facility] [address] [place], [address] Erythrocyte distribution width (RBC) [Ratio] 13.6 % Normal 11.6-14.6 [facility] Comment on above: Order Comment: CLEAN CATCH Performed By: #### [id number], [id number] #### [facility] [address] [place], [address] Hematocrit (Bld) [Volume fraction] 44.9 % Normal 40-54 [facility] Comment on above: Order Comment: CLEAN CATCH Performed By: #### [id number], [id number] #### [facility] [address] [place], [address] Hemoglobin (Bld) [Mass/Vol] 14.8 g/dL Normal 13.0-16.5 [facility] Comment on above: Order Comment: CLEAN CATCH Performed By: #### [id number], [id number] #### [facility] [address] [place], [address] IG% 0.200 Normal 0.0-0.9 [facility] Comment on above: Order Comment: CLEAN CATCH Result Comment: IG% - Immature Granulocytes (promyelocytes, myelocytes and metamyelocytes) > 1% indicates that a LEFT SHIFT is Present. Performed By: #### [id number], [id number] #### [facility] [address] [place], [address] Lymphocytes/100 WBC (Bld) 43.4 % High 19-41 [facility] Comment on above: Order Comment: CLEAN CATCH Performed By: #### [id number], [id number] #### [facility] [address] [place], [address] MCH (RBC) [Entitic mass] 30.0 pg Normal 27.0-32.0 [facility] Comment on above: Order Comment: CLEAN CATCH Performed By: #### [id number], [id number] #### [facility] [address] [place], [address] MCHC (RBC) [Mass/Vol] 33.0 g/dL Normal 32-36 [facility] Comment on above: Order Comment: CLEAN CATCH Performed By: #### [id number], [id number] #### [facility] [address] [place], [address] MCV (RBC) [Entitic vol] 90.9 fL Normal 80-94 [facility] Comment on above: Order Comment: CLEAN CATCH Performed By: #### [id number], [id number] #### [facility] [address] [place], [address] Monocytes/100 WBC (Bld) 7.4 % Normal 0-10 [facility] Comment on above: Order Comment: CLEAN CATCH Performed By: #### L [id number], [id number] #### [facility] [address] [place], [address] Neutrophils/100 WBC (Bld) 46.2 % Low 47-70 [facility] Comment on above: Order Comment: CLEAN CATCH Performed By: #### [id number], [id number] #### [facility] [address] [place], [address] Nucleated RBC (Bld) [#/Vol] 0 10*3/uL Normal 0-5 [facility] Comment on above: Order Comment: CLEAN CATCH Performed By: #### [id number], [id number] #### [facility] [address] [place], [address] Platelet mean volume (Bld) [Entitic vol] 10.1 fL Normal 6.2-12.0 [facility] Comment on above: Order Comment: CLEAN CATCH Performed By: #### [id number], [id number] #### [facility] [address] [place], [address] Platelets (Bld) [#/Vol] 217 10*3/uL Normal 150-450 [facility] Comment on above: Order Comment: CLEAN CATCH Performed By: #### [id number], [id number] #### [facility] [address] [place], [address] RBC (Bld) [#/Vol] 4.94 10*6/uL Normal 4.6-6.2 [facility] Comment on above: Order Comment: CLEAN CATCH Performed By: #### L [id number], [id number] #### [facility] [address] [place], [address] RDW SD 45.4 fl High 35.1-43.9 [facility] Comment on above: Order Comment: CLEAN CATCH Performed By: #### L [id number], [id number] #### [facility] [address] [place], [address] WBC (Bld) [#/Vol] 5.7 10*3/uL Normal 4.4-11.0 [facility] Comment on above: Order Comment: CLEAN CATCH Performed By: #### L [id number], [id number] #### [facility] [address] [place], [address] Calculated very low density lipoprotein (VLDL) cholesterol measurementOrdered By: Lane Lowery on 04-26-2025 Calculated very low density lipoprotein (VLDL) cholesterol measurement 30 mg/dL 5-40 [facility] Carbon dioxide, total [Moles /volume] in Central venous bloodOrdered By: Lane Lowery on 04-26-2025 CO2 [Moles/Vol] 23.6 mmol/L 21.0-32.0 [facility] Chloride assayOrdered By: Claudia Lowery on 04-26-2025 Chloride [Moles/Vol] 106 mmol/L 98-108 [facility] Comprehensive Metabolic Prof ilon 04-26-2025 Albumin [Mass/Vol] 4.2 g/dL Normal 3.4-4.8 [facility] Comment on above: Order Comment: CLEAN CATCH Performed By: #### [id number], [id number] #### [facility] [address] [place], [address] Albumin/Globulin [Mass ratio] 1.4 {ratio} Normal 0.9-2.4 [facility] Comment on above: Order Comment: CLEAN CATCH Performed By: #### L [id number], [id number] #### [facility] [address] [place], [address] ALK PHOS 57 U/L Normal 40-129 [facility] Comment on above: Order Comment: CLEAN CATCH Performed By: #### L [id number], [id number] #### [facility] [address] [place], [address] ALT [Catalytic activity/Vol] 17 U/L Normal <=46 [facility] Comment on above: Order Comment: CLEAN CATCH Performed By: #### L [id number], [id number] #### [facility] [address] [place], [address] AST [Catalytic activity/Vol] 24 U/L Normal <=37 [facility] Comment on above: Order Comment: CLEAN CATCH Performed By: #### L [id number], [id number] #### [facility] [address] [place], [address] Bilirubin [Mass/Vol] 0.91 mg/dL Normal 0.00-1.30 [facility] Comment on above: Order Comment: CLEAN CATCH Performed By: #### L [id number], [id number] #### [facility] [address] [place], [address] BUN/CRE 12.7 RATIO Normal 10-20 [facility] Comment on above: Order Comment: CLEAN CATCH Performed By: #### L [id number], [id number] #### [facility] [address] [place], [address] Calcium [Mass/Vol] 9.7 mg/dL Normal 7.6-11.0 [facility] Comment on above: Order Comment: CLEAN CATCH Performed By: #### L [id number], [id number] #### [facility] [address] [place], [address] Chloride [Moles/Vol] 106 mmol/L Normal 98-108 [facility] Comment on above: Order Comment: CLEAN CATCH Performed By: #### L [id number], [id number] #### [facility] [address] [place], [address] CO2 [Moles/Vol] 23.6 mmol/L Normal 21.0-32.0 [facility] Comment on above: Order Comment: CLEAN CATCH Performed By: #### L [id number], [id number] #### [facility] [address] [place], [address] Creatinine [Mass/Vol] 1.42 mg/dL High 0.70-1.20 [facility] Comment on above: Order Comment: CLEAN CATCH Performed By: #### L [id number], [id number] #### [facility] [address] [place], [address] GAP 10 Normal 5-15 [facility] Comment on above: Order Comment: CLEAN CATCH Performed By: #### [id number], [id number] #### [facility] [address] [place], [address] GFR/1.73 sq M.predicted among non-blacks MDRD (S/P/Bld) [Vol rate/Area] 52 mL/min/{1.73_m2} Low >60 [facility] Comment on above: Order Comment: CLEAN CATCH Result Comment: mL/m in/1.73m2 CKD-EPI Creatinine Equation (2020) Performed By: #### L [id number], [id number] #### [facility] [address] [place], [address] Globulin (S) [Mass/Vol] 3.0 g/dL Normal 2.2-4.2 [facility] Comment on above: Order Comment: CLEAN CATCH Performed By: #### [id number], [id number] #### [facility] [address] [place], [address] Glucose [Mass/Vol] 105 mg/dL High 70-99 [facility] Comment on above: Order Comment: CLEAN CATCH Performed By: #### L [id number], [id number] #### [facility] [address] [place], [address] Potassium [Moles/Vol] 4.2 mmol/L Normal 3.3-5.1 [facility] Comment on above: Order Comment: CLEAN CATCH Performed By: #### L [id number], [id number] #### [facility] [address] [place], [address] Sodium [Moles/Vol] 140 mmol/L Normal 133-145 [facility] Comment on above: Order Comment: CLEAN CATCH Performed By: #### L [id number], [id number] #### [facility] [address] [place], [address] T PROT 7.2 g/dL Normal 5.9-8.4 [facility] Comment on above: Order Comment: CLEAN CATCH Performed By: #### L [id number], [id number] #### [facility] [address] [place], [address] Urea nitrogen [Mass/Vol] 18 mg/dL Normal 4-19 [facility] Comment on above: Order Comment: CLEAN CATCH Performed By: #### L [id number], [id number] #### [facility] [address] [place], [address] Eosinophil percentageOrdered By: Lane Lowery on 04-26-2025 Eosinophils/100 WBC (Bld) 1.9 % 0-5 [facility] Erythrocyte distribution wid th ratioOrdered By: Lane Lowery on 04-26-2025 Erythrocyte distribution width (RBC) [Ratio] 13.6 % 11.6-14.6 [facility] Erythrocyte distribution wid th standard deviationOrdered By: Lane Lowery on 04-26-2025 Erythrocyte distribution width (RBC) [Ratio] 45.4 fl High 35.1-43.9 [facility] Glomerular filtration rate ( GFR) estimation/1.73 sq m using serum, plasma, or whole bOrdered By: Lane Lowery on 04-26-2025 GFR/1.73 sq M.predicted among non-blacks MDRD (S/P/Bld) [Vol rate/Area] 52 mL/min/{1.73_m2} Low >60 [facility] Comment on above: mL/min/1.73m2 CKD-EP I Creatinine Equation (2020) Hematocrit Auto (Bld) [Volum e fraction]Ordered By: Lane Lowery on 04-26-2025 Hematocrit (Bld) [Volume fraction] 44.9 % 40-54 [facility] Hemoglobin measurementOrdere d By: Lane Lowery on 04-26-2025 Hemoglobin (Bld) [Mass/Vol] 14.8 g/dL 13.0-16.5 [facility] Immature granulocytes/100 WB C Auto (Bld)Ordered By: Lane Lowery on 04-26-2025 Immature granulocytes/100 WBC (Bld) 0.200 % 0.0-0.9 [facility] Comment on above: IG% - Immature Granu locytes (promyelocytes, myelocytes and metamyelocytes) > 1% indicates that a LEFT SHIFT is Present. LDL calc ser/plasOrdered By: Lane Lowery on 04-26-2025 Cholesterol in LDL [Mass/Vol] 97 mg/dL [facility] Comment on above: Vkwpfoiziw=[id number] m g/dL & Higher Asvt=222 mg/dL or greater Laboratory - Chemistry and C hemistry - challengeOrdered By: Lane Lowery on 04-26-2025 AST [Catalytic activity/Vol] 24 U/L <38 [facility] Lipid Profileon 04-26-2025 CHOL:HDL 3.71 Normal [facility] Comment on above: Order Comment: CLEAN CATCH Performed By: #### [id number], [id number] #### [facility] [address] [place], [address] Cholesterol [Mass/Vol] 174 mg/dL Normal <=200 [facility] Comment on above: Order Comment: CLEAN CATCH Result Comment: Chol esterol level, Desirable <200 mg/dL Borderline high cholesterol 200-239 mg/dL High cholesterol >=240 mg/dL Recommendations of the NCEP Adult Treatment Panel for the following risk-cutoff thresholds for the [place] population. Performed By: #### L 501.0900, [id number] #### [facility] [address] [place], [address] Cholesterol in HDL [Mass/Vol] 47 mg/dL Normal [facility] Comment on above: Order Comment: CLEAN CATCH Result Comment: Maria C onal Cholesterol Education Program (NCEP) guidelines: <40 mg/dL: Low HDL-cholesterol (major risk factor for CHD) >= 60 mg/dL: High HDL-cholesterol (negative risk factor for CHD) HDL-cholesterol is affected by a number of factors, e.g. smoking, exercise, hormones, sex and age. Performed By: #### L 501.0900, [id number] #### [facility] [address] [place], [address] Cholesterol in LDL [Mass/Vol] 97 mg/dL Normal [facility] Comment on above: Order Comment: CLEAN CATCH Result Comment: Bord gyocec=595-431 mg/dL Higher Eueu=164 mg/dL or greater Performed By: #### L 501.0900, [id number] #### [facility] [address] [place], [address] Cholesterol in VLDL [Mass/Vol] 30 mg/dL Normal 5-40 [facility] Comment on above: Order Comment: CLEAN CATCH Performed By: #### L [id number], [id number] #### [facility] [address] [place], [address] Triglyceride [Mass/Vol] 151 mg/dL Normal [facility] Comment on above: Order Comment: CLEAN CATCH Result Comment: The drugs N-Acetylcysteine and Metamizole may falsely depress this assay. Normal range: <150 mg/dL Borderline High: 150-199 mg/dL High: 200-499 mg/dL Very High: >500 mg/dL Performed By: #### L [id number], [id number] #### [facility] [address] [place], [address] MCV (mean corpuscular volume ) determinationOrdered By: Lane Lowery on 04-26-2025 MCV (RBC) [Entitic vol] 90.9 fL 80-94 [facility] Mean corpuscular hemoglobin (MCH) determinationOrdered By: Lane Lowery on 04-26-2025 MCH (RBC) [Entitic mass] 30.0 pg 27.0-32.0 [facility] Mean corpuscular hemoglobin concentration (MCHC) determinationOrdered By: Lane Lowery on 04-26-2025 MCHC (RBC) [Mass/Vol] 33.0 g/dL 32-36 [facility] Mean platelet volume determi nationOrdered By: Lane Lowery on 04-26-2025 Platelet mean volume (Bld) [Entitic vol] 10.1 fL 6.2-12.0 [facility] Monocyte percentageOrdered B y: Lane Lowery on 04-26-2025 Monocytes/100 WBC (Bld) 7.4 % 0-10 [facility] Neutrophil percentageOrdered By: Lane Lowery on 04-26-2025 Neutrophils/100 WBC (Bld) 46.2 % Low 47-70 [facility] Nucleated red blood cell per centageOrdered By: Lane Lowery on 04-26-2025 Nucleated RBC/100 WBC (Bld) [Ratio] 0 % 0-5 [facility] PTHINon 04-26-2025 PTH 18 pg/mL Normal 11-61 [facility] Comment on above: Order Comment: CLEAN CATCH Performed By: #### L [id number], [id number] #### [facility] [address] [place] [address]. [place], [address] Platelet countOrdered By: Claudia Lowery on 04-26-2025 Platelets (Bld) [#/Vol] 217 10*3/uL 150-450 [facility] Potassium measurement (mass/ volume)Ordered By: Lane Lowery on 04-26-2025 Potassium (Unsp spec) [Mass/Vol] 4.2 mmol/L 3.3-5.1 [facility] RBC Auto (Bld) [#/Vol]Ordere d By: Lane Lowery on 04-26-2025 RBC (Bld) [#/Vol] 4.94 10*6/uL 4.6-6.2 [facility] Screening total cholesterol/ high density lipoprotein (HDL) cholesterol ratioOrdered By: Lane Lowery on 04-26-2025 Cholesterol.total/Choles terol in HDL [Mass ratio] 3.71 {ratio} [facility] Serum creatinine measurement (mass/volume)Ordered By: Lane Lowery on 04-26-2025 Creatinine [Mass/Vol] 1.42 mg/dL High 0.70-1.20 [facility] Serum globulin measurementOr dered By: Lane Lowery on 04-26-2025 Globulin (S) [Mass/Vol] 3.0 g/dL 2.2-4.2 [facility] Serum glucose measurement (m ass/volume)Ordered By: Lane Lowery on 04-26-2025 Glucose [Mass/Vol] 105 mg/dL High 70-99 [facility] Serum or plasma alanine mi otransferase (ALT) measurementOrdered By: Lane Lowery on 04-26-2025 ALT [Catalytic activity/Vol] 17 U/L <47 [facility] Serum or plasma albumin deepa urement (mass/volume)Ordered By: Lane Lowery on 04-26-2025 Albumin [Mass/Vol] 4.2 g/dL 3.4-4.8 [facility] Serum or plasma albumin/glob ulin mass ratioOrdered By: Lane Lowery on 04-26-2025 Albumin/Globulin [Mass ratio] 1.4 {ratio} 0.9-2.4 [facility] Serum or plasma alkaline kip sphatase measurementOrdered By: Lane Lowery on 04-26-2025 ALP [Catalytic activity/Vol] 57 U/L 40-129 [facility] Serum or plasma calcium deepa urement (mass/volume)Ordered By: Lane Lowery on 04-26-2025 Calcium [Mass/Vol] 9.7 mg/dL 7.6-11.0 [facility] Serum or plasma cholesterol in HDL measurement (mass/volume)Ordered By: Lane Lowery on 04-26-2025 Cholesterol in HDL [Mass/Vol] 47 mg/dL >40 [facility] Comment on above: National Cholesterol Education Program (NCEP) guidelines:<40 mg/dL: Low HDL-cholesterol (major risk factor for CHD)>= 60 mg/dL: High HDL-cholesterol (negative risk factor for CHD)HDL-cholesterol is affected by a number of factors, e.g. smoking, exercise, hormones, sex and age. Serum or plasma cholesterol measurement (mass/volume)Ordered By: Lane Lowery on 04-26-2025 Cholesterol [Mass/Vol] 174 mg/dL <201 [facility] Comment on above: Cholesterol level, D esirable <200 mg/dLBorderline high cholesterol 200-239 mg/dLHigh cholesterol >=240 mg/dLRecommendations of the NCEP Adult Treatment Panel for the following risk-cutoff thresholds for the [place] population. Serum or plasma urea nitroge n measurement (mass/volume)Ordered By: Lane Lowery on 04-26-2025 Urea nitrogen [Mass/Vol] 18 mg/dL 4-19 [facility] Sodium levelOrdered By: Lane Lowery on 04-26-2025 Sodium [Moles/Vol] 140 mmol/L 133-145 [facility] Total proteinOrdered By: Alexx Lowery on 04-26-2025 Protein [Mass/Vol] 7.2 g/dL 5.9-8.4 [facility] Triglycerides measurementOrd ered By: Lane Lowery on 04-26-2025 Triglyceride [Mass/Vol] 151 mg/dL <199 [facility] Comment on above: The drugs N-Acetylcy steine and Metamizole may falsely depress this assay. Normal range: <150 mg/dLBorderline High: 150-199 mg/dLHigh: 200-499 mg/dLVery High: >500 mg/dL Vitamin D,25 Hydroxyon 04-26 Vitamin D 25-OH 39.2 ng/mL Normal 30-100 [facility] Comment on above: Order Comment: Order Date: 04/26/25 Order Info: [id number] - CMP Order Info: [id number] - LIPID Result Comment: Linda min D Status Deficiency: <20 ng/mL (50nmol/L) Insufficiency: 20-30 ng/mL (50-75 nmol/L) Sufficiency: 30-100 ng/mL (75-250 nmol/L) Toxicity: >100 ng/mL (>250 nmol/L) Performed By: #### L 506.1001 #### [facility] [address] [place], [address] White blood cell (WBC) count Ordered By: Lane Lowery on 04-26-2025 WBC (Bld) [#/Vol] 5.7 10*3/uL 4.4-11.0 [facility] Basic Metabolic Profile (BMP )on 01-05-2025 BUN/CRE 11.3 RATIO Normal 10-20 [facility] Comment on above: Order Comment: CLEAN CATCH Performed By: #### L [id number], [id number] #### [facility] [address] [place], [address] CA,Total 9.2 mg/dL Normal 8.5-10.1 [facility] Comment on above: Order Comment: CLEAN CATCH Performed By: #### L [id number], [id number] #### [facility] [address] [place], [address] Chloride [Moles/Vol] 104 mmol/L Normal 98-107 [facility] Comment on above: Order Comment: CLEAN CATCH Performed By: #### L [id number], [id number] #### [facility] [address] [place], [address] CO2 [Moles/Vol] 28.0 mmol/L Normal 21.0-32.0 [facility] Comment on above: Order Comment: CLEAN CATCH Performed By: #### L 501.0900, [id number] #### [facility] [address] [place], [address] Creatinine [Mass/Vol] 1.42 mg/dL High 0.70-1.30 [facility] Comment on above: Order Comment: CLEAN CATCH Result Comment: The validity of the calculated GFR GFRAA in patients over 70 years has not been determined. Clinical correlation is essential. Performed By: #### L [id number], [id number] #### [facility] [address] [place], [address] EST GFR - AA 63 mL/min Normal >60 [facility] Comment on above: Order Comment: CLEAN CATCH Result Comment: Afri can [place] GFR Calc Performed By: #### L [id number], [id number] #### [facility] [address] [place], [address] GAP 6 Normal 5-15 [facility] Comment on above: Order Comment: CLEAN CATCH Performed By: #### L [id number], [id number] #### [facility] [address] [place], [address] GFR/1.73 sq M.predicted among non-blacks MDRD (S/P/Bld) [Vol rate/Area] 52 mL/min/{1.73_m2} Low >60 [facility] Comment on above: Order Comment: CLEAN CATCH Result Comment: Non- GFR Calc Performed By: #### L [id number], [id number] #### [facility] [address] [place], [address] Glucose [Mass/Vol] 89 mg/dL Normal 74-106 [facility] Comment on above: Order Comment: CLEAN CATCH Performed By: #### L [id number], [id number] #### [facility] [address] [place], [address] Potassium [Moles/Vol] 4.0 mmol/L Normal 3.5-5.1 [facility] Comment on above: Order Comment: CLEAN CATCH Performed By: #### L [id number], [id number] #### [facility] [address] [place], [address] Sodium [Moles/Vol] 138 mmol/L Normal 136-145 [facility] Comment on above: Order Comment: CLEAN CATCH Performed By: #### L [id number], [id number] #### [facility] [address] [place], [place], [address] Urea nitrogen [Mass/Vol] 16 mg/dL Normal 7-18 [facility] Comment on above: Order Comment: CLEAN CATCH Performed By: #### L [id number], [id number] #### [facility] [address] [place], [address] Blood urea nitrogen (BUN)/cr eatinine ratioOrdered By: Lane Lowery on 01-05-2025 Urea nitrogen/Creatinine [Mass ratio] 11.3 mg/mg 10-20 [facility] Carbon dioxide measurementOr dered By: Lane Lowery on 01-05-2025 CO2 [Moles/Vol] 28.0 mmol/L 21.0-32.0 [facility] Chloride measurementOrdered By: Lane Lowery on 01-05-2025 Chloride [Moles/Vol] 104 mmol/L 98-107 [facility] Glomerular filtration rate ( GFR) estimationOrdered By: Lane Lowery on 01-05-2025 GFR/1.73 sq M.predicted among non-blacks MDRD (S/P/Bld) [Vol rate/Area] 52 mL/min/{1.73_m2} Low >60 [facility] Comment on above: Non- GFR Calc Glucose measurementOrdered B y: Lane Lowery on 01-05-2025 Glucose [Mass/Vol] 89 mg/dL 74-106 [facility] Potassium measurementOrdered By: Lane Lowery on 01-05-2025 Potassium [Moles/Vol] 4.0 mmol/L 3.5-5.1 [facility] Serum anion gap measurementO rdered By: Lane Lowery on 01-05-2025 Anion gap [Moles/Vol] 6 mmol/L 5-15 [facility] Serum or plasma calcium deepa urement (mass/volume)Ordered By: Lane Lowery on 01-05-2025 Calcium [Mass/Vol] 9.2 mg/dL 8.5-10.1 [facility] Serum or plasma creatinine m easurement (mass/volume)Ordered By: Lane Lowery on 01-05-2025 Creatinine [Mass/Vol] 1.42 mg/dL High 0.70-1.30 [facility] Comment on above: The validity of the calculated GFR & GFRAA in patients over 70 years has not been determined. Clinical correlation is essential. Serum or plasma urea nitroge n measurement (mass/volume)Ordered By: Lane Lowery on 01-05-2025 Urea nitrogen [Mass/Vol] 16 mg/dL 7-18 [facility] Sodium levelOrdered By: Lane Lowery on 01-05-2025 Sodium [Moles/Vol] 138 mmol/L 136-145 [facility] Comprehensive Metabolic Prof ilon 12-28-2024 Albumin [Mass/Vol] 3.6 g/dL Normal 3.2-5.0 [facility] Comment on above: Order Comment: CLEAN CATCH Performed By: #### L [id number], [id number] #### [facility] [address] [place], [address] Albumin/Globulin [Mass ratio] 1.0 {ratio} Normal 0.9-2.4 [facility] Comment on above: Order Comment: CLEAN CATCH Performed By: #### L [id number], [id number] #### [facility] [address] [place], [address] ALK P 58 U/L Normal 45-117 [facility] Comment on above: Order Comment: CLEAN CATCH Performed By: #### L [id number], [id number] #### [facility] [address] [place], [address] ALT [Catalytic activity/Vol] 18 U/L Normal 16-61 [facility] Comment on above: Order Comment: CLEAN CATCH Performed By: #### L 501.0900, [id number] #### [facility] [address] [place], [address] AST [Catalytic activity/Vol] 16 U/L Normal 15-37 [facility] Comment on above: Order Comment: CLEAN CATCH Performed By: #### L 501.0900, [id number] #### [facility] [address] [place], [address] Bilirubin [Mass/Vol] 0.90 mg/dL Normal 0.20-1.00 [facility] Comment on above: Order Comment: CLEAN CATCH Result Comment: For patients on eltrombopag therapy, use of Dimension [place] TBIL is not recommended. Performed By: #### L 501.0900, [id number] #### [facility] [address] [place], [address] BUN/CRE 14.2 RATIO Normal 10-20 [facility] Comment on above: Order Comment: CLEAN CATCH Performed By: #### L 501.0900, [id number] #### [facility] [address] [place], [address] CA,Total 9.6 mg/dL Normal 8.5-10.1 [facility] Comment on above: Order Comment: CLEAN CATCH Performed By: #### L 501.0900, [id number] #### [facility] [address] [place], [address] Chloride [Moles/Vol] 105 mmol/L Normal 98-107 [facility] Comment on above: Order Comment: CLEAN CATCH Performed By: #### L 501.0900, [id number] #### [facility] [address] [place], [address] CO2 [Moles/Vol] 27.0 mmol/L Normal 21.0-32.0 [facility] Comment on above: Order Comment: CLEAN CATCH Performed By: #### L 501.0900, [id number] #### [facility] [address] [place], [address] Creatinine [Mass/Vol] 1.48 mg/dL High 0.70-1.30 [facility] Comment on above: Order Comment: CLEAN CATCH Result Comment: The validity of the calculated GFR GFRAA in patients over 70 years has not been determined. Clinical correlation is essential. Performed By: #### L 501.0900, [id number] #### [facility] [address] [place], [address] EST GFR - AA 60 mL/min Normal >60 [facility] Comment on above: Order Comment: CLEAN CATCH Result Comment: Afri can [place] GFR Calc Performed By: #### L [id number], [id number] #### [facility] [address] [place], [address] GAP 7 Normal 5-15 [facility] Comment on above: Order Comment: CLEAN CATCH Performed By: #### L 501.0900, [id number] #### [facility] [address] [place], [address] GFR/1.73 sq M.predicted among non-blacks MDRD (S/P/Bld) [Vol rate/Area] 49 mL/min/{1.73_m2} Low >60 [facility] Comment on above: Order Comment: CLEAN CATCH Result Comment: Non- GFR Calc Performed By: #### L 501.0900, [id number] #### [facility] [address] [place], [address] Globulin (S) [Mass/Vol] 3.6 g/dL Normal 2.2-4.2 [facility] Comment on above: Order Comment: CLEAN CATCH Performed By: #### L 501.0900, [id number] #### [facility] [address] [place], [address] Glucose [Mass/Vol] 57 mg/dL Low 74-106 [facility] Comment on above: Order Comment: CLEAN CATCH Performed By: #### L 501.0900, [id number] #### [facility] [address] [place], [address] Potassium [Moles/Vol] 4.2 mmol/L Normal 3.5-5.1 [facility] Comment on above: Order Comment: CLEAN CATCH Performed By: #### L 501.0900, [id number] #### [facility] [address] [place], [address] Sodium [Moles/Vol] 139 mmol/L Normal 136-145 [facility] Comment on above: Order Comment: CLEAN CATCH Performed By: #### L 501.0900, [id number] #### [facility] [address] [place], [address] T PROT 7.2 g/dL Normal 6.4-8.2 [facility] Comment on above: Order Comment: CLEAN CATCH Performed By: #### L 501.0900, [id number] #### [facility] [address] [place], [address] Urea nitrogen [Mass/Vol] 21 mg/dL High 7-18 [facility] Comment on above: Order Comment: CLEAN CATCH Performed By: #### L 501.0900, [id number] #### [facility] [address] [place], [address] PSA,Total - Annual Screenon 09-14-2024 PSA,TOT SCREEN 0.75 ng/mL Normal 0.00-4.00 [facility] Comment on above: Result Comment: This test was performed using the TPSA assay method for the [employer] chemistry system. Values obtained with different assay methods cannot be used interchangably. When changing PSA assays in the course of monitoring a patient, additional sequential testing should be carried out to confirm baseline values. Performed By: #### L 501.0900, [id number] #### [facility] [address] [place], [address] CBC W/Diff, Automatedon 10-0 Absolute Lymph 2.29 X10 3/uL Normal 0.83-4.51 [facility] Comment on above: Order Comment: Order Date: 08/24/24 Order Info: [id number] - CBCD Performed By: #### L 501.5200, L501.2300, L500.4100, L500.4050, L509.1000, L506.1000, L100.0100 #### [facility] [address] [place], [address] Absolute Neut 3.0 X10 3/uL Normal 2.0-7.7 [facility] Comment on above: Order Comment: Order Date: 08/24/24 Order Info: [id number] - CBCD Performed By: #### L 501.5200, L501.2300, L500.4100, L500.4050, L509.1000, L506.1000, L100.0100 #### [facility] [address] [place], [address] Basophils/100 WBC (Bld) 0.9 % Normal 0-1 [facility] Comment on above: Order Comment: Order Date: 08/24/24 Order Info: [id number] - CBCD Performed By: #### L 501.5200, L501.2300, L500.4100, L500.4050, L509.1000, L506.1000, L100.0100 #### [facility] [address] [place], [address] Eosinophils/100 WBC (Bld) 1.2 % Normal 0-5 [facility] Comment on above: Order Comment: Order Date: 08/24/24 Order Info: [id number] - CBCD Performed By: #### L 501.5200, L501.2300, L500.4100, L500.4050, L509.1000, L506.1000, L100.0100 #### [facility] [address] [place], [address] Erythrocyte distribution width (RBC) [Ratio] 13.3 % Normal 11.6-14.6 [facility] Comment on above: Order Comment: Order Date: 08/24/24 Order Info: [id number] - CBCD Performed By: #### L 501.5200, L501.2300, L500.4100, L500.4050, L509.1000, L506.1000, L100.0100 #### [facility] [address] [place], [address] Hematocrit (Bld) [Volume fraction] 43.6 % Normal 40-54 [facility] Comment on above: Order Comment: Order Date: 08/24/24 Order Info: [id number] - CBCD Performed By: #### L 501.5200, L501.2300, L500.4100, L500.4050, L509.1000, L506.1000, L100.0100 #### [facility] [address] [place], [address] Hemoglobin (Bld) [Mass/Vol] 14.0 g/dL Normal 13.0-16.5 [facility] Comment on above: Order Comment: Order Date: 08/24/24 Order Info: [id number] - CBCD Performed By: #### L 501.5200, L501.2300, L500.4100, L500.4050, L509.1000, L506.1000, L100.0100 #### [facility] [address] [place], [address] IG% 0.300 Normal 0.0-0.9 [facility] Comment on above: Order Comment: Order Date: 08/24/24 Order Info: [id number] - CBCD Result Comment: IG% - Immature Granulocytes (promyelocytes, myelocytes and metamyelocytes) > 1% indicates that a LEFT SHIFT is Present. Performed By: #### L 501.5200, L501.2300, L500.4100, L500.4050, L509.1000, L506.1000, L100.0100 #### [facility] [address] [place], [address] Lymphocytes/100 WBC (Bld) 39.0 % Normal 19-41 [facility] Comment on above: Order Comment: Order Date: 08/24/24 Order Info: [id number] - CBCD Performed By: #### L 501.5200, L501.2300, L500.4100, L500.4050, L509.1000, L506.1000, L100.0100 #### [facility] [address] [place], [address] MCH (RBC) [Entitic mass] 29.5 pg Normal 27.0-32.0 [facility] Comment on above: Order Comment: Order Date: 08/24/24 Order Info: [id number]- - CBCD Performed By: #### L 501.5200, L501.2300, L500.4100, L500.4050, L509.1000, L506.1000, L100.0100 #### [facility] [address] [place], [address] MCHC (RBC) [Mass/Vol] 32.1 g/dL Normal 32-36 [facility] Comment on above: Order Comment: Order Date: 08/24/24 Order Info: [id number]- - CBCD Performed By: #### L 501.5200, L501.2300, L500.4100, L500.4050, L509.1000, L506.1000, L100.0100 #### [facility] [address] [place], [address] MCV (RBC) [Entitic vol] 91.8 fL Normal 80-94 [facility] Comment on above: Order Comment: Order Date: 08/24/24 Order Info: [id number] - CBCD Performed By: #### L 501.5200, L501.2300, L500.4100, L500.4050, L509.1000, L506.1000, L100.0100 #### [facility] [address] [place], [address] Monocytes/100 WBC (Bld) 7.0 % Normal 0-10 [facility] Comment on above: Order Comment: Order Date: 08/24/24 Order Info: [id number] - CBCD Performed By: #### L 501.5200, L501.2300, L500.4100, L500.4050, L509.1000, L506.1000, L100.0100 #### [facility] [address] [place], [address] Neutrophils/100 WBC (Bld) 51.6 % Normal 47-70 [facility] Comment on above: Order Comment: Order Date: 08/24/24 Order Info: [id number]- - CBCD Performed By: #### L 501.5200, L501.2300, L500.4100, L500.4050, L509.1000, L506.1000, L100.0100 #### [facility] [address] [place], [place], [id number] (499) Nucleated RBC (Bld) [#/Vol] 0 10*3/uL Normal 0-5 [facility] Comment on above: Order Comment: Order Date: 08/24/24 Order Info: [id number]- - CBCD Performed By: #### L 501.5200, L501.2300, L500.4100, L500.4050, L509.1000, L506.1000, L100.0100 #### [facility] [address] [place], [address] Platelet mean volume (Bld) [Entitic vol] 10.1 fL Normal 6.2-12.0 [facility] Comment on above: Order Comment: Order Date: 08/24/24 Order Info: [id number] - CBCD Performed By: #### L 501.5200, L501.2300, L500.4100, L500.4050, L509.1000, L506.1000, L100.0100 #### [facility] [address] [place], [address] Platelets (Bld) [#/Vol] 215 10*3/uL Normal 150-450 [facility] Comment on above: Order Comment: Order Date: 08/24/24 Order Info: [id number] - CBCD Performed By: #### L 501.5200, L501.2300, L500.4100, L500.4050, L509.1000, L506.1000, L100.0100 #### [facility] [address] [place], [address] RBC (Bld) [#/Vol] 4.75 10*6/uL Normal 4.6-6.2 [facility] Comment on above: Order Comment: Order Date: 08/24/24 Order Info: [id number] - CBCD Performed By: #### L 501.5200, L501.2300, L500.4100, L500.4050, L509.1000, L506.1000, L100.0100 #### [facility] [address] [place], [place], [id number] (207) RDW SD 45.1 fl High 35.1-43.9 [facility] Comment on above: Order Comment: Order Date: 08/24/24 Order Info: [id number] - CBCD Performed By: #### L 501.5200, L501.2300, L500.4100, L500.4050, L509.1000, L506.1000, L100.0100 #### [facility] [address] [place], [address] WBC (Bld) [#/Vol] 5.9 10*3/uL Normal 4.4-11.0 [facility] Comment on above: Order Comment: Order Date: 08/24/24 Order Info: [id number] - CBCD Performed By: #### L 501.5200, L501.2300, L500.4100, L500.4050, L509.1000, L506.1000, L100.0100 #### [facility] [address] [place], [address] Comprehensive Metabolic Prof ilon 08-24-2024 Albumin [Mass/Vol] 3.7 g/dL Normal 3.2-5.0 [facility] Comment on above: Order Comment: Order Date: 08/24/24 Order Info: [id number] - CMP Order Info: [id number] - LIPID Order Info: [id number] - PHOS Order Info: [id number] - MG Performed By: #### L 501.5200, L501.2300, L500.4100, L500.4050, L509.1000, L506.1000, L100.0100 #### [facility] [address] [place], [address] Albumin/Globulin [Mass ratio] 1.1 {ratio} Normal 0.9-2.4 [facility] Comment on above: Order Comment: Order Date: 08/24/24 Order Info: 07-1 - CMP Order Info: [id number] - LIPID Order Info: [id number]- - PHOS Order Info: [id number] - MG Performed By: #### L 501.5200, L501.2300, L500.4100, L500.4050, L509.1000, L506.1000, L100.0100 #### [facility] [address] [place], [address] ALK P 54 U/L Normal 45-117 [facility] Comment on above: Order Comment: Order Date: 08/24/24 Order Info: [id number] - CMP Order Info: [id number] - LIPID Order Info: [id number] - PHOS Order Info: [id number] - MG Performed By: #### L 501.5200, L501.2300, L500.4100, L500.4050, L509.1000, L506.1000, L100.0100 #### [facility] [address] [place], [address] ALT [Catalytic activity/Vol] 20 U/L Normal 16-61 [facility] Comment on above: Order Comment: Order Date: 08/24/24 Order Info: 785-1 - CMP Order Info: [id number] - LIPID Order Info: [id number] - PHOS Order Info: [id number] - MG Performed By: #### L 501.5200, L501.2300, L500.4100, L500.4050, L509.1000, L506.1000, L100.0100 #### [facility] [address] [place], [place], [phone] (113) AST [Catalytic activity/Vol] 16 U/L Normal 15-37 [facility] Comment on above: Order Comment: Order Date: 08/24/24 Order Info: 785- - CMP Order Info: - LIPID Order Info: [id number]- - PHOS Order Info: [id number] - MG Performed By: #### L 501.5200, L501.2300, L500.4100, L500.4050, L509.1000, L506.1000, L100.0100 #### [facility] [address] [place], [place], [phone] (160) Bilirubin [Mass/Vol] 1.20 mg/dL High 0.20-1.00 [facility] Comment on above: Order Comment: Order Date: 08/24/24 Order Info: [id number] - CMP Order Info: [id number] - LIPID Order Info: [id number]- - PHOS Order Info: [id number] - MG Result Comment: For patients on eltrombopag therapy, use of Dimension [place] TBIL is not recommended. Performed By: #### L 501.5200, L501.2300, L500.4100, L500.4050, L509.1000, L506.1000, L100.0100 #### [facility] [address] [place], [place], [phone] (189) BUN/CRE 12.1 RATIO Normal 10-20 [facility] Comment on above: Order Comment: Order Date: 08/24/24 Order Info: [id number] - CMP Order Info: [id number] - LIPID Order Info: [id number] - PHOS Order Info: [id number] - MG Performed By: #### L 501.5200, L501.2300, L500.4100, L500.4050, L509.1000, L506.1000, L100.0100 #### [facility] [address] [place], [address] CA,Total 9.5 mg/dL Normal 8.5-10.1 [facility] Comment on above: Order Comment: Order Date: 08/24/24 Order Info: 785- - CMP Order Info: - LIPID Order Info: [id number] - PHOS Order Info: [id number] - MG Performed By: #### L 501.5200, L501.2300, L500.4100, L500.4050, L509.1000, L506.1000, L100.0100 #### [facility] [address] [place], [address] Chloride [Moles/Vol] 105 mmol/L Normal 98-107 [facility] Comment on above: Order Comment: Order Date: 08/24/24 Order Info: [id number] - CMP Order Info: - LIPID Order Info: [id number] - PHOS Order Info: [id number] - MG Performed By: #### L 501.5200, L501.2300, L500.4100, L500.4050, L509.1000, L506.1000, L100.0100 #### [facility] [address] [place], [address] CO2 [Moles/Vol] 27.0 mmol/L Normal 21.0-32.0 [facility] Comment on above: Order Comment: Order Date: 08/24/24 Order Info: 07 - CMP Order Info: [id number] - LIPID Order Info: [id number] - PHOS Order Info: [id number] - MG Performed By: #### L 501.5200, L501.2300, L500.4100, L500.4050, L509.1000, L506.1000, L100.0100 #### [facility] [address] [place], [address] Creatinine [Mass/Vol] 1.41 mg/dL High 0.70-1.30 [facility] Comment on above: Order Comment: Order Date: 08/24/24 Order Info: 86-1 - CMP Order Info: [id number] - LIPID Order Info: [id number]- - PHOS Order Info: [id number] - MG Result Comment: The validity of the calculated GFR GFRAA in patients over 70 years has not been determined. Clinical correlation is essential. Performed By: #### L 501.5200, L501.2300, L500.4100, L500.4050, L509.1000, L506.1000, L100.0100 #### [facility] [address] [place], [place], [id number] EST GFR - AA 63 mL/min Normal >60 [facility] Comment on above: Order Comment: Order Date: 08/24/24 Order Info: 785- - CMP Order Info: - LIPID Order Info: 277- - PHOS Order Info: [id number] - MG Result Comment: Afri can [place] GFR Calc Performed By: #### L 501.5200, L501.2300, L500.4100, L500.4050, L509.1000, L506.1000, L100.0100 #### [facility] [address] [place], [address] GAP 6 Normal 5-15 [facility] Comment on above: Order Comment: Order Date: 08/24/24 Order Info: 785- - CMP Order Info: [id number] - LIPID Order Info: [id number]- - PHOS Order Info: [id number] - MG Performed By: #### L 501.5200, L501.2300, L500.4100, L500.4050, L509.1000, L506.1000, L100.0100 #### [facility] [address] [place], [address] GFR/1.73 sq M.predicted among non-blacks MDRD (S/P/Bld) [Vol rate/Area] 52 mL/min/{1.73_m2} Low >60 [facility] Comment on above: Order Comment: Order Date: 08/24/24 Order Info: [id number] - CMP Order Info: [id number] - LIPID Order Info: [id number]- - PHOS Order Info: [id number] - MG Result Comment: Non- GFR Calc Performed By: #### L 501.5200, L501.2300, L500.4100, L500.4050, L509.1000, L506.1000, L100.0100 #### [facility] [address] [place], [address] Globulin (S) [Mass/Vol] 3.3 g/dL Normal 2.2-4.2 [facility] Comment on above: Order Comment: Order Date: 08/24/24 Order Info: 07 - CMP Order Info: [id number] - LIPID Order Info: 277- - PHOS Order Info: [id number] - MG Performed By: #### L 501.5200, L501.2300, L500.4100, L500.4050, L509.1000, L506.1000, L100.0100 #### [facility] [address] [place], [address] Glucose [Mass/Vol] 85 mg/dL Normal 74-106 [facility] Comment on above: Order Comment: Order Date: 08/24/24 Order Info: 07- - CMP Order Info: [id number] - LIPID Order Info: [id number]- - PHOS Order Info: [id number] - MG Performed By: #### L 501.5200, L501.2300, L500.4100, L500.4050, L509.1000, L506.1000, L100.0100 #### [facility] [address] [place], [address] Potassium [Moles/Vol] 4.3 mmol/L Normal 3.5-5.1 [facility] Comment on above: Order Comment: Order Date: 08/24/24 Order Info: 785-1 - CMP Order Info: [id number] - LIPID Order Info: 277- - PHOS Order Info: [id number] - MG Performed By: #### L 501.5200, L501.2300, L500.4100, L500.4050, L509.1000, L506.1000, L100.0100 #### [facility] [address] [place], [address] Sodium [Moles/Vol] 138 mmol/L Normal 136-145 [facility] Comment on above: Order Comment: Order Date: 08/24/24 Order Info: 785- - CMP Order Info: - LIPID Order Info: [id number] - PHOS Order Info: [id number] - MG Performed By: #### L 501.5200, L501.2300, L500.4100, L500.4050, L509.1000, L506.1000, L100.0100 #### [facility] [address] [place], [address] T PROT 7.0 g/dL Normal 6.4-8.2 [facility] Comment on above: Order Comment: Order Date: 08/24/24 Order Info: 785- - CMP Order Info: [id number] - LIPID Order Info: [id number] - PHOS Order Info: [id number] - MG Performed By: #### L 501.5200, L501.2300, L500.4100, L500.4050, L509.1000, L506.1000, L100.0100 #### [facility] [address] [place], [address] Urea nitrogen [Mass/Vol] 17 mg/dL Normal 7-18 [facility] Comment on above: Order Comment: Order Date: 08/24/24 Order Info: 07-1 - CMP Order Info: [id number] - LIPID Order Info: 7 - PHOS Order Info: [id number] - MG Performed By: #### L 501.5200, L501.2300, L500.4100, L500.4050, L509.1000, L506.1000, L100.0100 #### [facility] [address] [place], [address] Lipid Profileon 08-24-2024 Cholesterol [Mass/Vol] 168 mg/dL Normal 200 [facility] Comment on above: Order Comment: Order Date: 08/24/24 Order Info: [id number] - CMP Order Info: - LIPID Order Info: [id number] - PHOS Order Info: [id number] - MG Result Comment: <200 mg/dL Desirable 200-240 mg/dL Borderline >240 mg/dL High Risk Performed By: #### L 501.5200, L501.2300, L500.4100, L500.4050, L509.1000, L506.1000, L100.0100 #### [facility] [address] [place], [address] Cholesterol in HDL [Mass/Vol] 58 mg/dL Normal [facility] Comment on above: Order Comment: Order Date: 08/24/24 Order Info: 0786 - CMP Order Info: - LIPID Order Info: [id number] - PHOS Order Info: [id number] - MG Result Comment: The drugs N-Acetylcysteine and Metamizole may falsely depress this assay. Reference Range HDL <40 mg/dL Low HDL Cholesterol HDL >or= 60 mg/dL High HDL Cholesterol Performed By: #### L 501.5200, L501.2300, L500.4100, L500.4050, L509.1000, L506.1000, L100.0100 #### [facility] [address] [place], [address] Cholesterol in LDL [Mass/Vol] 85 mg/dL Normal 0-130 [facility] Comment on above: Order Comment: Order Date: 08/24/24 Order Info: [id number] - CMP Order Info: [id number] - LIPID Order Info: [id number] - PHOS Order Info: [id number] - MG Performed By: #### L 501.5200, L501.2300, L500.4100, L500.4050, L509.1000, L506.1000, L100.0100 #### [facility] [address] [place], [address] Cholesterol in VLDL [Mass/Vol] 25 mg/dL Normal 5-40 [facility] Comment on above: Order Comment: Order Date: 08/24/24 Order Info: 0786 - CMP Order Info: [id number] - LIPID Order Info: [id number] - PHOS Order Info: [id number] - MG Performed By: #### L 501.5200, L501.2300, L500.4100, L500.4050, L509.1000, L506.1000, L100.0100 #### [facility] [address] [place], [place], [phone] Triglyceride [Mass/Vol] 126 mg/dL Normal [facility] Comment on above: Order Comment: Order Date: 08/24/24 Order Info: 0786- - CMP Order Info: [id number] - LIPID Order Info: [id number] - PHOS Order Info: [id number] - MG Result Comment: The drugs N-Acetylcysteine and Metamizole may falsely depress this assay. Serum Triglycerides Reference Interval Normal <150 mg/dL Borderline high 150 - 199 mg/dL High 200 - 499 mg/dL Very High > or = 500 mg/dL Performed By: #### L 501.5200, L501.2300, L500.4100, L500.4050, L509.1000, L506.1000, L100.0100 #### [facility] [address] [place], [address] Magnesiumon 08-24-2024 Magnesium [Mass/Vol] 2.3 mg/dL Normal 1.6-2.6 [facility] Comment on above: Order Comment: Order Date: 08/24/24 Order Info: [id number] - CMP Order Info: [id number] - LIPID Order Info: 277- - PHOS Order Info: [id number] - MG Performed By: #### L 501.5200, L501.2300, L500.4100, L500.4050, L509.1000, L506.1000, L100.0100 #### [facility] [address] [place], [address] PTHINon 08-24-2024 PTH 54.9 pg/mL Normal 18.4-80.1 [facility] Comment on above: Order Comment: Order Date: 08/24/24 Order Info: [id number] - PTHIN Performed By: #### L 501.5200, L501.2300, L500.4100, L500.4050, L509.1000, L506.1000, L100.0100 #### [facility] [address] [place], [address] Phosphoruson 08-24-2024 Phosphate [Mass/Vol] 2.9 mg/dL Normal 2.5-4.9 [facility] Comment on above: Order Comment: Order Date: 08/24/24 Order Info: [id number] - CMP Order Info: [id number] - LIPID Order Info: 277-1 - PHOS Order Info: [id number] - MG Performed By: #### L 501.5200, L501.2300, L500.4100, L500.4050, L509.1000, L506.1000, L100.0100 #### [facility] [address] [place], [address] Protein+Creatinine Ratio,Uri neon 08-24-2024 PROT:CRE RATIO 146 mg/g CRE Normal 0-200 [facility] Comment on above: Performed By: #### L 501.0900, L400.0001 #### [facility] [address] [place], [address] Protein (U) [Mass/Vol] 6.8 mg/dL Normal <11.9 [facility] Comment on above: Performed By: #### L 501.0900, L400.0001 #### [facility] [address] [place], [address] UR CREAT 46.70 mg/dL Normal NO RANGE EST. [facility] Comment on above: Performed By: #### L 501.0900, L400.0001 #### [facility] [address] [place], [address] Urinalysis, Completeon 08-24 RBC 0-5 SEEN Normal 0-5 [facility] Comment on above: Order Comment: CLEAN CATCH Performed By: #### L 501.0900, L400.0001 #### [facility] [address] [place], [address] EPI,SQUAMOUS 0-5 SEEN Normal 0-5 [facility] Comment on above: Order Comment: CLEAN CATCH Performed By: #### L 501.0900, L400.0001 #### [facility] [address] [place], [address] BACTERIA 0 SEEN Normal None Seen [facility] Comment on above: Order Comment: CLEAN CATCH Performed By: #### L 501.0900, L400.0001 #### [facility] [address] [place], [address] Mucus Ql (Urine sed) 0 SEEN Normal [facility] Comment on above: Order Comment: CLEAN CATCH Performed By: #### L 501.0900, L400.0001 #### [facility] [address] [place], [address] WBC 0 SEEN Normal 0-5 [facility] Comment on above: Order Comment: CLEAN CATCH Performed By: #### L 501.0900, L400.0001 #### [facility] [address] [place], [address] Vitamin D,25 Hydroxyon 08-24 Vitamin D 25-OH 52.0 ng/mL Normal [facility] Comment on above: Order Comment: Order Date: 08/24/24 Order Info: [id number] - VITD25 Result Comment: Linda min D 25(OH) Status Range Deficiency <20 ng/mL (50nmol/L) Insufficiency 20 - 30 ng/mL (50 - 75 nmol/L) Sufficiency 30 - 100 ng/mL (75 - 250 nmol/L) Toxicity >100 ng/mL (>250 nmol/L) Performed By: #### L 501.5200, L501.2300, L500.4100, L500.4050, L509.1000, L506.1000, L100.0100 #### [facility] [address] [place], [address] Basophil percentageOrdered B y: Lane Lowery on 01-29-2024 Chloride [Moles/Vol] 106 mmol/L 98-107 [facility] Glucose [Mass/Vol] 89 mg/dL 74-106 [facility] Potassium [Moles/Vol] 4.2 mmol/L 3.5-5.1 [facility] Sodium [Moles/Vol] 140 mmol/L 136-145 [facility] - Chemistry and C hemistry - challengeOrdered By: Lane Lowery on 01-29-2024 CO2 [Moles/Vol] 28.0 mmol/L 21.0-32.0 [facility] Urea nitrogen/Creatinine [Mass ratio] 11.6 mg/mg 10- [facility] No Panel InformationOrdered By: Lane Lowery on 01-29-2024 Estimated GFR (MDRD) Amer 65 mL/min >60 [facility] Comment on above: GFR Calc Estimated GFR (MDRD) Non-Af Amer 54 mL/min >60 [facility] Comment on above: Non- GFR Calc Serum or plasma calcium deepa urement (mass/volume)Ordered By: Lane Lowery on 01-29-2024 Calcium [Mass/Vol] 9.5 mg/dL 8.5-10.1 [facility] Serum or plasma creatinine m easurement (mass/volume)Ordered By: Lane Lowery on 01-29-2024 Creatinine [Mass/Vol] 1.38 mg/dL 0.70-1.30 [facility] Comment on above: The validity of the calculated GFR & GFRAA in patients over 70 years has not been determined. Clinical correlation is essential. Serum or plasma urea nitroge n measurement (mass/volume)Ordered By: Lane Lowery on 01-29-2024 Urea nitrogen [Mass/Vol] 16 mg/dL 7-18 [facility] Thin prep Papanicolaou smear with manual screeningOrdered By: Laen Lowery on 01-29-2024 Thin prep Papanicolaou smear with manual screening 6 5-15 [facility] Absolute lymphocyte countOrd ered By: Lane Lowery on 01-22-2024 Lymphocytes Auto (Unsp spec) [#/Vol] 2.13 10*3/uL 0.83-4.51 [facility] Automated lymphocyte count a s percentage of total leukocytesOrdered By: Lane Lowery on 01-22-2024 Lymphocytes/100 WBC Auto (Unsp spec) 26.2 % 19-41 [facility] Basophil percentageOrdered B y: Lane Lowery on 01-22-2024 Basophil percentage 0 SEEN /hpf 0-5 [facility] Basophils/100 WBC (Bld) 0.9 % 0-1 [facility] Bilirubin [Mass/Vol] 0.70 mg/dL 0.20-1.00 [facility] Comment on above: For patients on eltr ombopag therapy, use of Dimension [place] TBIL is not recommended. Chloride [Moles/Vol] 102 mmol/L 98-107 [facility] Cholesterol [Mass/Vol] 175 mg/dL <200 [facility] Comment on above: <200 mg/dL Desirable 200-240 mg/dL Borderline >240 mg/dL High Risk Eosinophils/100 WBC (Bld) 1.2 % 0-5 [facility] Glucose [Mass/Vol] 76 mg/dL 74-106 [facility] Hemoglobin (Bld) [Mass/Vol] 14.4 g/dL 13.0-16.5 [facility] Monocytes/100 WBC (Bld) 8.5 % 0-10 [facility] Neutrophils (Bld) [#/Vol] 5.1 10*3/uL 2.0-7.7 [facility] Neutrophils/100 WBC (Bld) 62.8 % 47-70 [facility] Potassium [Moles/Vol] 4.2 mmol/L 3.5-5.1 [facility] Protein [Mass/Vol] 7.2 g/dL 6.4-8.2 [facility] Sodium [Moles/Vol] 138 mmol/L 136-145 [facility] Triglyceride [Mass/Vol] 190 mg/dL <199 [facility] Comment on above: The drugs N-Acetylcy steine and Metamizole may falsely depress this assay.Serum Triglycerides Reference Interval Normal <150 mg/dL Borderline high 150 - 199 mg/dL High 200 - 499 mg/dL Very High > or = 500 mg/dL WBC (Bld) [#/Vol] 8.1 10*3/uL 4.4-11.0 [facility] Bilirubin Test strip Ql (U)O rdered By: Lane Lowery on 01-22-2024 Bilirubin Ql (U) Negative Negative [facility] Determination of erythrocyte mean corpuscular volume (MCV)Ordered By: Lane Lowery on 01-22-2024 MCV (RBC) [Entitic vol] 95.3 fL 80-94 [facility] Erythrocyte distribution wid th ratioOrdered By: Lane Lowery on 01-22-2024 Erythrocyte distribution width (RBC) [Ratio] 12.8 % 11.6-14.6 [facility] Erythrocyte distribution wid th standard deviationOrdered By: Lane Lowery on 01-22-2024 Erythrocyte distribution width (RBC) [Entitic vol] 45.3 fL 35.1-43.9 [facility] Hematocrit Auto (Bld) [Volum e fraction]Ordered By: Lane Lowery on 01-22-2024 Hematocrit (Bld) [Volume fraction] 44.4 % 40-54 [facility] Immature granulocytes/100 WB C Auto (Bld)Ordered By: Lane Lowery on 01-22-2024 Immature granulocytes/100 WBC (Bld) 0.400 % 0.0-0.9 [facility] Comment on above: IG% - Immature Granu locytes (promyelocytes, myelocytes and metamyelocytes) > 1% indicates that a LEFT SHIFT is Present. Ketones Test strip Ql (U)Ord ered By: Lane Lowery on 01-22-2024 Ketones Ql (U) Negative Negative [facility] - Chemistry and C hemistry - challengeOrdered By: Lane Lowery on 01-22-2024 Albumin/Globulin [Mass ratio] 1.1 {ratio} 0.9-2.4 [facility] ALP [Catalytic activity/Vol] 63 U/L 45-117 [facility] ALT [Catalytic activity/Vol] 25 U/L 16-61 [facility] Cholesterol in HDL [Mass/Vol] 52 mg/dL >40 [facility] Comment on above: The drugs N-Acetylcy steine and Metamizole may falsely depress this assay. Reference Range HDL <40 mg/dL Low HDL Cholesterol HDL >or= 60 mg/dL High HDL Cholesterol Cholesterol in LDL [Mass/Vol] 85 mg/dL 0-130 [facility] CO2 [Moles/Vol] 28.0 mmol/L 21.0-32.0 [facility] Globulin (S) [Mass/Vol] 3.5 g/dL 2.2-4.2 [facility] Magnesium [Mass/Vol] 2.1 mg/dL 1.6-2.6 [facility] Urea nitrogen/Creatinine [Mass ratio] 13.8 mg/mg 10-20 [facility] - Hematology and Cell countsOrdered By: Lane Lowery on 01-22-2024 MCH (RBC) [Entitic mass] 30.9 pg 27.0-32.0 [facility] MCHC (RBC) [Mass/Vol] 32.4 g/dL 32-36 [facility] Nucleated RBC/100 WBC (Bld) [Ratio] 0 % 0-5 [facility] Platelet mean volume (Bld) [Entitic vol] 10.0 fL 6.2-12.0 [facility] Platelets (Bld) [#/Vol] 275 10*3/uL 150-450 [facility] Mucus LM Ql (Urine sed)Order ed By: Lane Lowery on 01-22-2024 Mucus Ql (Urine sed) 1+ /hpf [facility] Nitrite Test strip Ql (U)Ord ered By: Lane Lowery on 01-22-2024 Nitrite Ql (U) Negative Negative [facility] No Panel InformationOrdered By: Lane Lowery on 01-22-2024 Urine RBC 0 SEEN /hpf 0-5 [facility] Estimated GFR (MDRD) Amer 43 mL/min >60 [facility] Comment on above: GFR Calc Estimated GFR (MDRD) Non-Af Amer 36 mL/min >60 [facility] Comment on above: Non- GFR Calc VLDL Cholesterol 38 mg/dL 5-40 [facility] Protein Test strip Ql (U)Ord ered By: Lane Lowery on 01-22-2024 Protein Ql (U) Negative Negative [facility] RBC Auto (Bld) [#/Vol]Ordere d By: Lane Lowery on 01-22-2024 RBC (Bld) [#/Vol] 4.66 10*6/uL 4.6-6.2 [facility] Serum or plasma calcium deepa urement (mass/volume)Ordered By: Lane Lowery on 01-22-2024 Calcium [Mass/Vol] 9.2 mg/dL 8.5-10.1 [facility] Serum or plasma creatinine m easurement (mass/volume)Ordered By: Lane Lowery on 01-22-2024 Creatinine [Mass/Vol] 1.96 mg/dL 0.70-1.30 [facility] Comment on above: The validity of the calculated GFR & GFRAA in patients over 70 years has not been determined. Clinical correlation is essential. Serum or plasma thyroid stim ulating hormone (TSH) measurement (units/volume)Ordered By: Lane Lowery on 01-22-2024 TSH Qn 1.45 uIU/mL 0.358-3.74 [facility] Serum or plasma urea nitroge n measurement (mass/volume)Ordered By: Lane Lowery on 01-22-2024 Urea nitrogen [Mass/Vol] 27 mg/dL 7-18 [facility] Squamous epithelial cells de tection in urine sediment by light microscopyOrdered By: Lane Lowery on 01-22-2024 Epithelial cells.squamous LM Ql (Urine sed) 0 SEEN /hpf 0-5 [facility] Thin prep Papanicolaou smear with manual screeningOrdered By: Lane Lowery on 01-22-2024 Thin prep Papanicolaou smear with manual screening 3.7 g/dL 3.2-5.0 [facility] Thin prep Papanicolaou smear with manual screening 17 U/L 15-37 [facility] Thin prep Papanicolaou smear with manual screening 8 5-15 [facility] Urine blood detectionOrdered By: Lane Lowery on 01-22-2024 RBC Ql (U) Negative Negative [facility] Urine clarityOrdered By: Alexx Lowery on 01-22-2024 Clarity (U) Clear Clear [facility] Urine color determinationOrd ered By: Lane Lowery on 01-22-2024 Color (U) Yellow Yellow [facility] Urine glucose detectionOrder ed By: Lane Lowery on 01-22-2024 Glucose Ql (U) Normal mg/dl Normal [facility] Urine leukocyte esterase det ection by dipstickOrdered By: Lane Lowery on 01-22-2024 Leukocyte esterase Test strip Ql (U) Negative Negative [facility] Urine pHOrdered By: Lane grimm on 01-22-2024 pH (U) 6.0 [pH] 5.0 - 8.0 [facility] Urine sediment bacteria coun t by microscopy (number/high power field)Ordered By: Lane Lowery on 01-22-2024 Bacteria LM.HPF (Urine sed) [#/Area] 0 /[HPF] None Seen [facility] Urine specific gravity measu rementOrdered By: Lane Lowery on 01-22-2024 Specific gravity (U) [Rel density] 1.015 1.002-1.030 [facility] Urine urobilinogen measureme ntOrdered By: Lane Lowery on 01-22-2024 Urobilinogen Ql (U) Normal mg/dl Normal [facility] Basophil percentageOrdered B y: Lnae Lowery on 10-23-2023 Chloride [Moles/Vol] 105 mmol/L 98-107 [facility] Glucose [Mass/Vol] 65 mg/dL 74-106 [facility] Potassium [Moles/Vol] 4.5 mmol/L 3.5-5.1 [facility] Sodium [Moles/Vol] 138 mmol/L 136-145 [facility] - Chemistry and C hemistry - challengeOrdered By: Lane Lowery on 10-23-2023 CO2 [Moles/Vol] 29.0 mmol/L 21.0-32.0 [facility] Cobalamin (Vitamin B12) [Mass/Vol] 260 pg/mL 211-911 [facility] Free T4 [Mass/Vol] 1.17 ng/dL 0.76-1.46 [facility] Urea nitrogen/Creatinine [Mass ratio] 16.0 mg/mg 10-20 [facility] No Panel InformationOrdered By: Lane Lowery on 10-23-2023 Estimated GFR (MDRD) Amer 69 mL/min >60 [facility] Comment on above: GFR Calc Estimated GFR (MDRD) Non-Af Amer 57 mL/min >60 [facility] Comment on above: Non- GFR Calc Vitamin D 25-Hydroxy 36.0 ng/mL [facility] Comment on above: Vitamin D 25(OH) Sta tus Range Deficiency <20 ng/mL (50nmol/L) Insufficiency 20 - 30 ng/mL (50 - 75 nmol/L) Sufficiency 30 - 100 ng/mL (75 - 250 nmol/L) Toxicity >100 ng/mL (>250 nmol/L) Serum or plasma calcium deepa urement (mass/volume)Ordered By: Lane Lowery on 10-23-2023 Calcium [Mass/Vol] 8.7 mg/dL 8.5-10.1 [facility] Serum or plasma creatinine m easurement (mass/volume)Ordered By: Lane Lowery on 10-23-2023 Creatinine [Mass/Vol] 1.31 mg/dL 0.70-1.30 [facility] Comment on above: The validity of the calculated GFR & GFRAA in patients over 70 years has not been determined. Clinical correlation is essential. Serum or plasma urea nitroge n measurement (mass/volume)Ordered By: Lane Lowery on 10-23-2023 Urea nitrogen [Mass/Vol] 21 mg/dL 7-18 [facility] Thin prep Papanicolaou smear with manual screeningOrdered By: Lane Arzolaalfa on 10-23-2023 Thin prep Papanicolaou smear with manual screening 4 5-15 [facility] Absolute lymphocyte countOrd ered By: Lane Condonmilla on 10-03-2023 Lymphocytes Auto (Unsp spec) [#/Vol] 3.02 10*3/uL 0.83-4.51 [facility] Basophil percentageOrdered B y: Lane Lowery on 10-03-2023 Basophil percentage 0 SEEN /hpf 0-5 [facility] Basophils/100 WBC (Bld) 0.9 % 0-1 [facility] Bilirubin [Mass/Vol] 0.90 mg/dL 0.20-1.00 [facility] Comment on above: For patients on eltr ombopag therapy, use of Dimension [place] TBIL is not recommended. Chloride [Moles/Vol] 105 mmol/L 98-107 [facility] Cholesterol [Mass/Vol] 190 mg/dL <200 [facility] Comment on above: <200 mg/dL Desirable 200-240 mg/dL Borderline >240 mg/dL High Risk Eosinophils/100 WBC (Bld) 0.8 % 0-5 [facility] Glucose [Mass/Vol] 81 mg/dL 74-106 [facility] Neutrophils (Bld) [#/Vol] 5.1 10*3/uL 2.0-7.7 [facility] Neutrophils/100 WBC (Bld) 57.0 % 47-70 [facility] Potassium [Moles/Vol] 4.2 mmol/L 3.5-5.1 [facility] Protein [Mass/Vol] 7.3 g/dL 6.4-8.2 [facility] Sodium [Moles/Vol] 137 mmol/L 136-145 [facility] Triglyceride [Mass/Vol] 276 mg/dL <199 [facility] Comment on above: The drugs N-Acetylcy steine and Metamizole may falsely depress this assay.Serum Triglycerides Reference Interval Normal <150 mg/dL Borderline high 150 - 199 mg/dL High 200 - 499 mg/dL Very High > or = 500 mg/dL WBC (Bld) [#/Vol] 8.9 10*3/uL 4.4-11.0 [facility] Bilirubin Test strip Ql (U)O rdered By: Lane Lowery on 10-03-2023 Bilirubin Ql (U) Negative Negative [facility] Blood erythrocytes count (nu mber/volume)Ordered By: Lane Lowery on 10-03-2023 RBC (Bld) [#/Vol] 5.08 10*6/uL 4.6-6.2 [facility] Blood hemoglobin measurement (mass/volume)Ordered By: Lane Lowery on 10-03-2023 Hemoglobin (Bld) [Mass/Vol] 15.0 g/dL 13.0-16.5 [facility] Blood lymphocytes/100 leukoc ytesOrdered By: Lane Lowery on 10-03-2023 Lymphocytes/100 WBC (Bld) 34.0 % 19-41 [facility] Blood monocytes/100 leukocyt esOrdered By: Lane Lowery on 10-03-2023 Monocytes/100 WBC (Bld) 6.8 % 0-10 [facility] Blood platelet mean volumeOr dered By: Lane Lowery on 10-03-2023 Platelet mean volume (Bld) [Entitic vol] 10.0 fL 6.2-12.0 [facility] Determination of erythrocyte mean corpuscular volume (MCV)Ordered By: Lane Lowery on 10-03-2023 MCV (RBC) [Entitic vol] 94.1 fL 80-94 [facility] Hematocrit Auto (Bld) [Volum e fraction]Ordered By: Lane Lowery on 10-03-2023 Hematocrit (Bld) [Volume fraction] 47.8 % 40-54 [facility] Hyaline casts LM.LPF (Urine sed) [#/Area]Ordered By: Lane Lowery on 10-03-2023 Hyaline casts (Urine sed) [#/Area] 5 /[LPF] 0-5 [facility] Ketones Test strip Ql (U)Ord ered By: Lane Lowery on 10-03-2023 Ketones Ql (U) 5 mg/dl Negative [facility] Laboratory - Chemistry and C hemistry - challengeOrdered By: Lane Lowery on 10-03-2023 ALP [Catalytic activity/Vol] 63 U/L 45-117 [facility] ALT [Catalytic activity/Vol] 25 U/L 16-61 [facility] CO2 [Moles/Vol] 24.0 mmol/L 21.0-32.0 [facility] Globulin (S) [Mass/Vol] 3.7 g/dL 2.2-4.2 [facility] Urea nitrogen/Creatinine [Mass ratio] 17.5 mg/mg 10-20 [facility] Laboratory - Hematology and Cell countsOrdered By: Lane Lowery on 10-03-2023 Erythrocyte distribution width (RBC) [Entitic vol] 46.3 fL 35.1-43.9 [facility] Erythrocyte distribution width (RBC) [Ratio] 13.3 % 11.6-14.6 [facility] Immature granulocytes/100 WBC (Bld) 0.500 % 0.0-0.9 [facility] Comment on above: IG% - Immature Granu locytes (promyelocytes, myelocytes and metamyelocytes) > 1% indicates that a LEFT SHIFT is Present. MCH (RBC) [Entitic mass] 29.5 pg 27.0-32.0 [facility] Nucleated RBC/100 WBC (Bld) [Ratio] 0 % 0-5 [facility] MCHC Auto (RBC) [Mass/Vol]Or dered By: Lane Lowery on 10-03-2023 MCHC (RBC) [Mass/Vol] 31.4 g/dL 32-36 [facility] Mucus LM Ql (Urine sed)Order ed By: Lane Lowery on 10-03-2023 Mucus Ql (Urine sed) 0 SEEN /hpf [facility] Nitrite Test strip Ql (U)Ord ered By: Lane Lowery on 10-03-2023 Nitrite Ql (U) Negative Negative [facility] No Panel InformationOrdered By: Lane Lowery on 10-03-2023 Estimated GFR (MDRD) Amer 53 mL/min >60 [facility] Comment on above: GFR Calc Estimated GFR (MDRD) Non-Af Amer 43 mL/min >60 [facility] Comment on above: Non- GFR Calc Thyroid Stimulating Hormone (TSH) 1.08 uIU/mL 0.358-3.74 [facility] Platelets bldOrdered By: Alexx Lowery on 10-03-2023 Platelets (Bld) [#/Vol] 278 10*3/uL 150-450 [facility] Protein Test strip Ql (U)Ord ered By: Lane Lowery on 10-03-2023 Protein Ql (U) Negative Negative [facility] Serum or plasma albumin deepa urement (mass/volume)Ordered By: Lane Lowery on 10-03-2023 Albumin [Mass/Vol] 3.6 g/dL 3.2-5.0 [facility] Serum or plasma albumin/glob ulin mass ratioOrdered By: Lane Lowery on 10-03-2023 Albumin/Globulin [Mass ratio] 1.0 {ratio} 0.9-2.4 [facility] Serum or plasma calcium deepa urement (mass/volume)Ordered By: Lane Lowery on 10-03-2023 Calcium [Mass/Vol] 8.7 mg/dL 8.5-10.1 [facility] Serum or plasma cholesterol in HDL measurement (mass/volume)Ordered By: Lane Lowery on 10-03-2023 Cholesterol in HDL [Mass/Vol] 47 mg/dL >40 [facility] Comment on above: The drugs N-Acetylcy steine and Metamizole may falsely depress this assay. Reference Range HDL <40 mg/dL Low HDL Cholesterol HDL >or= 60 mg/dL High HDL Cholesterol Serum or plasma cholesterol in VLDL measurement (mass/volume)Ordered By: Lane Lowery on 10-03-2023 Cholesterol in VLDL [Mass/Vol] 55 mg/dL 5-40 [facility] Serum or plasma creatinine m easurement (mass/volume)Ordered By: Lane Lowery on 10-03-2023 Creatinine [Mass/Vol] 1.66 mg/dL 0.70-1.30 [facility] Comment on above: The validity of the calculated GFR & GFRAA in patients over 70 years has not been determined. Clinical correlation is essential. Serum or plasma low density lipoprotein (LDL) cholesterol measurement (mass/volume)Ordered By: Lane Lowery on 10-03-2023 Cholesterol in LDL [Mass/Vol] 88 mg/dL 0-130 [facility] Serum or plasma urea nitroge n measurement (mass/volume)Ordered By: Lane Lowery on 10-03-2023 Urea nitrogen [Mass/Vol] 29 mg/dL 7-18 [facility] Squamous epithelial cells de tection in urine sediment by light microscopyOrdered By: Lane Lowery on 10-03-2023 Epithelial cells.squamous LM Ql (Urine sed) 0 SEEN /hpf 0-5 [facility] Thin prep Papanicolaou smear with manual screeningOrdered By: Lane Lowery on 10-03-2023 Thin prep Papanicolaou smear with manual screening 12 U/L 15-37 [facility] Thin prep Papanicolaou smear with manual screening 8 5-15 [facility] Urine blood detectionOrdered By: Lane Lowery on 10-03-2023 RBC Ql (U) Negative Negative [facility] RBC Ql (U) 0 SEEN /hpf 0-5 [facility] Urine clarityOrdered By: Alexx Lowery on 10-03-2023 Clarity (U) Clear Clear [facility] Urine color determinationOrd ered By: Lane Lowery on 10-03-2023 Color (U) Yellow Yellow [facility] Urine glucose detectionOrder ed By: Lane Lowery on 10-03-2023 Glucose Ql (U) Normal mg/dl Normal [facility] Urine leukocyte esterase det ection by dipstickOrdered By: Lane Lowery on 10-03-2023 Leukocyte esterase Test strip Ql (U) Negative Negative [facility] Urine pHOrdered By: Lane grimm on 10-03-2023 pH (U) 5.0 [pH] 5.0 - 8.0 [facility] Urine sediment bacteria coun t by microscopy (number/high power field)Ordered By: Lane Lowery on 10-03-2023 Bacteria LM.HPF (Urine sed) [#/Area] 0 /[HPF] None Seen [facility] Urine specific gravity measu rementOrdered By: Lane Lowery on 10-03-2023 Specific gravity (U) [Rel density] 1.020 1.002-1.030 [facility] Urobilinogen Auto test strip Ql (U)Ordered By: Lane Lowery on 10-03-2023 Urobilinogen Ql (U) Normal mg/dl Normal [facility] No Panel InformationOrdered By: Clark Stewart on 09-02-2023 Prostate Specific Antigen Screen 0.74 ng/mL 0.00-4.00 [facility] Comment on above: This test was perfor med using the TPSA assay method for the[employer] chemistry system. Values obtained with differentassay methods cannot be used interchangably.When changing PSA assays in the course of monitoring apatient, additional sequential testing should be carriedout to confirm baseline values. Basophil percentageOrdered B y: Lynsey Monroy on 01-31-2023 Bilirubin [Mass/Vol] 0.70 mg/dL 0.20-1.00 [facility] Comment on above: For patients on eltr ombopag therapy, use of Dimension [place] TBIL is not recommended. Chloride [Moles/Vol] 111 mmol/L 98-107 [facility] Glucose [Mass/Vol] 69 mg/dL 74-106 [facility] Potassium [Moles/Vol] 4.2 mmol/L 3.5-5.1 [facility] Protein [Mass/Vol] 6.7 g/dL 6.4-8.2 [facility] Sodium [Moles/Vol] 142 mmol/L 136-145 [facility] WBC (Bld) [#/Vol] 7.6 10*3/uL 4.4-11.0 [facility] Blood erythrocytes count (nu mber/volume)Ordered By: Lynsey Monroy on 01-31-2023 RBC (Bld) [#/Vol] 5.12 10*6/uL 4.6-6.2 [facility] Blood hemoglobin measurement (mass/volume)Ordered By: Lynsey Monroy on 01-31-2023 Hemoglobin (Bld) [Mass/Vol] 15.5 g/dL 13.0-16.5 [facility] Blood platelet mean volumeOr dered By: Lynsey [facility] on 01-31-2023 Platelet mean volume (Bld) [Entitic vol] 9.9 fL 6.2-12.0 [facility] Determination of erythrocyte mean corpuscular volume (MCV)Ordered By: Lynsey Monroy on 01-31-2023 MCV (RBC) [Entitic vol] 92.6 fL 80-94 [facility] Hematocrit Auto (Bld) [Volum e fraction]Ordered By: Lynsey Monroy on 01-31-2023 Hematocrit (Bld) [Volume fraction] 47.4 % 40-54 [facility] Laboratory - Chemistry and C hemistry - challengeOrdered By: Lynsey Monroy on 01-31-2023 ALP [Catalytic activity/Vol] 57 U/L 45-117 [facility] ALT [Catalytic activity/Vol] 20 U/L 16-61 [facility] CO2 [Moles/Vol] 26.0 mmol/L 21.0-32.0 [facility] Globulin (S) [Mass/Vol] 3.3 g/dL 2.2-4.2 [facility] Urea nitrogen/Creatinine [Mass ratio] 17.0 mg/mg 10-20 [facility] Laboratory - Hematology and Cell countsOrdered By: Lynsey Monroy on 01-31-2023 Erythrocyte distribution width (RBC) [Entitic vol] 46.4 fL 35.1-43.9 [facility] Erythrocyte distribution width (RBC) [Ratio] 13.6 % 11.6-14.6 [facility] MCH (RBC) [Entitic mass] 30.3 pg 27.0-32.0 [facility] MCHC Auto (RBC) [Mass/Vol]Or dered By: Lynsey Monroy on 01-31-2023 MCHC (RBC) [Mass/Vol] 32.7 g/dL 32-36 [facility] No Panel InformationOrdered By: Lynsey Monroy on 01-31-2023 Estimated GFR (MDRD) Amer 88 mL/min >60 [facility] Comment on above: GFR Calc Estimated GFR (MDRD) Non-Af Amer 73 mL/min >60 [facility] Comment on above: Non- GFR Calc Platelets bldOrdered By: Emanuel Monroy on 01-31-2023 Platelets (Bld) [#/Vol] 224 10*3/uL 150-450 [facility] Serum or plasma albumin deepa urement (mass/volume)Ordered By: Lynsey Monroy on 01-31-2023 Albumin [Mass/Vol] 3.4 g/dL 3.2-5.0 [facility] Serum or plasma albumin/glob ulin mass ratioOrdered By: Lynsey Monroy on 01-31-2023 Albumin/Globulin [Mass ratio] 1.0 {ratio} 0.9-2.4 [facility] Serum or plasma calcium deepa urement (mass/volume)Ordered By: Lynsey Monroy on 01-31-2023 Calcium [Mass/Vol] 9.1 mg/dL 8.5-10.1 [facility] Serum or plasma creatinine m easurement (mass/volume)Ordered By: [facility] Eliana on 01-31-2023 Creatinine [Mass/Vol] 1.06 mg/dL 0.70-1.30 [facility] Comment on above: The validity of the calculated GFR & GFRAA in patients over 70 years has not been determined. Clinical correlation is essential. Serum or plasma urea nitroge n measurement (mass/volume)Ordered By: Lynsey Eliana on 01-31-2023 Urea nitrogen [Mass/Vol] 18 mg/dL 7-18 [facility] Thin prep Papanicolaou smear with manual screeningOrdered By: [facility] 01-31[facility]2023 Thin prep Papanicolaou smear with manual screening 12 U/L 15-37 [facility] Thin prep Papanicolaou smear with manual screening 5 5-15 [facility] Thin prep Papanicolaou smear with manual screening 7.1 mg/L NO RANGE EST. [facility] Whole blood hemoglobin A1c/t otal hemoglobin ratio (mass fraction)Ordered By: Lynsey Monroy on 01-31-2023 HbA1c (Bld) [Mass fraction] 5.4 % 3.8-5.6 [facility] Comment on above: Normal < 5.7 % Predi abetic 5.7 - 6.4 % Diabetic >or= 6.5 % Please note range changes. JOAQUINAOVon 09-04-2022 CNOV Office Visit ([facility]) EMI SUN ([id number]) 1950 M Date Time Provider Department 09/04/22 9:00 AM MACHELLE BRANNON [facility] During your visit today, we recorded the following information about you: Temperature Pulse Respiration Blood pressure 97.6 degrees 68/minute 16/minute 142/84 Weight 86.9 kg Machelle Brannon APRN.CNP 09/04/2022 8:05 PM Signed SUBJECTIVE: Emi Sun is a 72 year old male. [...] taking: Reported on 07/05/2022) 0 No current facility-administere d medications for this visit. OBJECTIVE: BP 142/84 [...] was a pleasure to take care of Emi R Hostettler today. An xray will be ordered of the knee. Due to swelling of the calf an ultra sound rule out dvt has been ordered. Xray results are negative. He is scheduled for an US of the leg at [facility]. He again is denying any cp or [...] ICD10: M79.89 - US DVT LOWER LT Machelle Brannon APRN.SAS PROGRAMMER Referring Provider: SELF [[id number]] Allergies As of Date: 09/04/2022 Noted Allergy Reaction CODEINE 12/15/2011 2 - Rash 8 - GI Upset Date Reviewed: 09/04/2022 Reviewed by: Deann Lui (more content not included)... Normal [facility] ([id number]) 1950 M Date Time Provider Department 09/04/22 MACHELLE BRANNON [facility] During your visit today, we recorded the following information about you: Machelle Chan RN 09/04/2022 4:55 PM Signed Pt called in for the results of his US. Let Pt know that the results were still in process. Let Pt know that we would call him once the results were in. Adrian Jones MD 09/05/2022 7:47 AM Signed US showed no blood clots. Lavern Henao LPN 09/05/2022 8:39 AM Signed Phone call placed patient advised (see prior provider encounter) Patient verbalized understanding, agreed with plan of care reported follow up scheduled with Mike Alvarez 09/12/22. Lavern Henao LPN Allergies As of Date: 09/04/2022 Noted Allergy Reaction CODEINE 12/15/2011 2 - Rash 8 - GI Upset Date Reviewed: 09/04/2022 Reviewed by: Deann Lui LPN - Fully Assessed Reason for Visit: Results [95] Prescriptions as of 09/05/2022 - montelukast (SINGULAIR) 10 mg tablet Take 10 mg by mouth daily at bedtime. - Levocetirizine 5 mg tablet Take 5 mg by mouth. - Benzonatate (TESSALON) 200 mg capsule Take 200 mg by mouth twice daily as needed for Cough. - Cetirizine 10 mg cap Take by mouth. - COMPOUNDED PRESCRIPTION Please check CBC with diff and platelets, LFTs, Bun, Creatinine, lytes, ESR, TSH and latex RAST (Latex IgE) Dx: chronic urticaria, toxic effect latex. - fluticasone (FLONASE) 50 mcg/actuation nasal spray Use 2 Sprays in each nostril once daily. - atenolol (TENORMIN) 25 mg tablet Take 25 mg by mouth once daily. - raNITIdine (ZANTAC) 150 mg tablet Take 150 mg by mouth daily at bedtime. - atorvastatin (LIPITOR) 20 mg tablet Take 1 tablet by mouth daily at bedtime. For cholesterol. - alfuzosin SR (UROXATRAL) 10 mg 24 hr tablet Take 1 tablet by mouth once daily. - esomeprazole (NEXIUM) 40 mg capsule Take 1 capsule by mouth daily before breakfast. 1/2 hr before meal. Problem List As Of Date 09/04/2022 Noted Resolved Chronic urticaria [L50.8] 09/12/2014 Chronic rhinitis [J31.0] 09/12/2014 Encounter Status:Closed by LAVERN HENAO LPN on 09/05/22 Normal [facility] No Panel Informationon 09-04 [facility] US DVT LOWER LTon 09-04-2022 US DVT LOWER LT * * *Final Report* * * DATE OF EXAM: Sep 04 2022 1:40PM LDU 1006 - US DVT LOWER LT / PROCEDURE REASON: Calf swelling * * * * Physician Interpretation * * * * EXAMINATION: LEFT LOWER EXTREMITY DEEP VENOUS ULTRASOUND WITH DOPPLER IMAGING CLINICAL HISTORY: Left lower extremity soft tissue swelling, exclude DVT. TECHNIQUE: Grayscale with compression maneuvers, color Doppler and spectral Doppler imaging of the left proximal deep veins was performed. Grayscale with compression maneuvers of the peroneal and posterior tibial veins was performed. The left great and small saphenous veins were evaluated at their insertion to the deep system. The contralateral common femoral vein was imaged for comparison. Images were obtained and stored in a permanent archive. MQ: [id number] COMPARISON: None RESULT: LEFT LOWER EXTREMITY PROXIMAL DEEP VEINS Distal External Iliac, Common Femoral and proximal Profunda Veins: Compression: Normal Doppler: Normal, spontaneous respirophasic flow. Normal response to augmentation. Femoral vein: Compression: Normal Doppler: Normal, spontaneous flow. Normal response to augmentation. Popliteal vein: Compression: Normal Doppler: Normal, spontaneous flow. Normal response to augmentation. CALF DEEP VEINS Peroneal veins: Normal compression. Posterior tibial veins: Normal compression. Gastrocnemius and Soleal veins: Not imaged. SUPERFICIAL VEINS Great saphenous: Patent and compressible at insertion into common femoral vein; not otherwise assessed. Small Saphenous: Patent and compressible in the proximal calf, not otherwise assessed. RIGHT LOWER EXTREMITY (FOR COMPARISON) Common Femoral Vein: Compression: Normal Doppler: Normal, spontaneous respirophasic flow. Normal response to augmentation. IMPRESSION: Negative study for proximal DVT in the left lower extremity. Negative study for calf DVT in the left lower extremity. Negative study for superficial thrombophlebitis in the imaged segments of the left lower extremity. Base Filler Operator: CELESTINE Transcribe Date/Time: Sep 04 2022 9:11P Dictated by : MELANIA MERCADO MD This examination was interpreted and the report reviewed and electronically signed by: MELANIA MERCADO MD on Sep 04 2022 9:13PM EST [id number] CN Normal [facility] XR KNEE 4V AP/PA BOTH+LAT/ME R LTon 09-04-2022 XR KNEE 4V AP/PA BOTH+LAT/ABNER LT * * *Final Report* * * DATE OF EXAM: Sep 04 2022 9:48AM WOX 5202 - XR KNEE 4V AP/PA BOTH+LAT/ABNER LT / PROCEDURE REASON: Pain of left lower extremity * * * * Physician Interpretation * * * * EXAM TITLE: XR KNEE 4V AP/PA BOTH+LAT/ABNER LT EXAM DATE/TIME: 09/04/2022 9:48 AM COMPARISON: None. CLINICAL INDICATION/HISTORY: Knee pain TECHNIQUE: AP/PA, lateral and sunrise views of the left knee are presented. FINDINGS: Status post left knee hemiarthroplasty. The surgical hardware appears intact. Lateral and patellofemoral compartmental osteophyte formation is present. The joint spaces are grossly preserved. There is no evidence of joint effusion. The mineralization of the bones is normal. There is no significant soft tissue swelling. IMPRESSION: Status post left knee hemiarthroplasty. Degenerative changes as described above. Base Filler Operator: [facility] Transcribe Date/Time: Sep 04 2022 9:57A Dictated by : ALIREZA FLORES MD This examination was interpreted and the report reviewed and electronically signed by: ALIREZA FLORES MD on Sep 04 2022 10:00AM EST [id number] CN Normal [facility] XR KNEE GENERAL 4V AP BOTH/P A BOTH/LAT/MERC LEFTon 09-04-2022 [facility] XR Knee - left 4 Viewson IMPRESSION: Status post left knee hemiarthroplasty. Degenerative changes as described above. Base Filler Operator: [facility] Transcribe Date/Time: Sep 04 2022 9:57A Dictated by : ALIREZA FLORES MD This examination was interpreted and the report reviewed and electronically signed by: ALIREZA FLORES MD on Sep 04 2022 10:00AM EST DIVISION OF RADIOLOGY * * *Final Report* * * DATE OF EXAM: Sep 04 2022 9:48AM WOX 5202 - XR KNEE 4V AP/PA BOTH+LAT/ABNER LT / PROCEDURE REASON: Pain of left lower extremity * * * * Physician Interpretation * * * * EXAM TITLE: XR KNEE 4V AP/PA BOTH+LAT/ABNER LT EXAM DATE/TIME: 09/04/2022 9:48 AM COMPARISON: None. CLINICAL INDICATION/HISTORY: Knee pain TECHNIQUE: AP/PA, lateral and sunrise views of the left knee are presented. FINDINGS: Status post left knee hemiarthroplasty. The surgical hardware appears intact. Lateral and patellofemoral compartmental osteophyte formation is present. The joint spaces are grossly preserved. There is no evidence of joint effusion. The mineralization of the bones is normal. There is no significant soft tissue swelling. DIVISION OF RADIOLOGY Provider, [facility] [place] - 09/04/2022 * * *Final Report* * * DATE OF EXAM: Sep 04 2022 9:48AM WOX 5202 - XR KNEE 4V AP/PA BOTH+LAT/ABNER LT / PROCEDURE REASON: Pain of left lower extremity * * * * Physician Interpretation * * * * EXAM TITLE: XR KNEE 4V AP/PA BOTH+LAT/ABNER LT EXAM DATE/TIME: 09/04/2022 9:48 AM COMPARISON: None. CLINICAL INDICATION/HISTORY: Knee pain TECHNIQUE: AP/PA, lateral and sunrise views of the left knee are presented. FINDINGS: Status post left knee hemiarthroplasty. The surgical hardware appears intact. Lateral and patellofemoral compartmental osteophyte formation is present. The joint spaces are grossly preserved. There is no evidence of joint effusion. The mineralization of the bones is normal. There is no significant soft tissue swelling. IMPRESSION IMPRESSION: Status post left knee hemiarthroplasty. Degenerative changes as described above. Base Filler Operator: [facility] Transcribe Date/Time: Sep 04 2022 9:57A Dictated by : ALIREZA FLORES MD This examination was interpreted and the report reviewed and electronically signed by: ALIREZA FLORES MD on Sep 04 2022 10:00AM EST [facility] Radiology Study observation (narrative) [facility] XR Knee - left 4 ViewsOrdere d By: [facility] Provider on 09-04-2022 [facility] No Panel Informationon 09-02 Prostate Specific Antigen Total 1.25 ng/mL 0.0-4.0 [facility] Work Phone: Comment on above: This test was perfor med using the TPSA assay method for the[employer] chemistry system. Values obtained with differentassay methods cannot be used interchangably.When changing PSA assays in the course of monitoring apatient, additional sequential testing should be carriedout to confirm baseline values. CNOVon 07-05-2022 CNOV Office Visit ([facility]) EMI SUN ([id number]) 1950 M Date Time Provider Department 07/05/22 10:30 AM CHLOE MARSHALL During your visit today, we recorded the following information about you: Temperature Pulse Respiration Blood pressure 96.2 degrees 55/minute 21/minute 182/90 Weight 86.6 kg Chloe Marshall APRN.CNP 07/05/2022 10:42 AM Signed Subjective HPI HPI Emi Sun is a 72 year old male who presents today for CC of itchy rash. This started 2 weeks ago. Has tried otc medication without relief. Symptoms are worsened by nothing. Risk factors hx of PI rash, has been working with [facility]. .Patient presents with: Rash: Poison greg on [...] 0.1 % TOPICAL CREAM Agrees to plan Chloe Marshall APRN.SAS PROGRAMMER Referring Provider: SELF [200] Allergies As of Date: 07/05/2022 Noted Allergy Reaction CODEINE 12/15/2011 2 - Rash 8 - GI Upset Date Reviewed: 07/05/2022 Reviewed by: Chloe Marshall APRN.SAS PROGRAMMER - Fully Assessed Reason for Visit: Rash [1087] Cmt: Poison greg on hands, ankles, and private area x 2 weeks Primary Visit Diagnosis:Rhus dermatitis [L25.5] Order(s):predniSONE (DELTASONE) 10 mg tabletTake 4 tabs daily for 3 days, then 2 tabs daily for 3 days, then 1 tab daily for 3 days with food.Disp: 21 tabletRfl: 0 triamcinolone acetonide (KENALOG) 0.1 % creamApply 1 application to affected area three times daily for 10 days. Apply sparingly to area for rash/itching.Disp: 80 gRfl: 0 Prescriptions as of 07/05/2022 - predniSONE (DELTASONE) 10 mg tablet Take 4 tabs daily for 3 days, then 2 tabs daily for 3 days, then 1 tab daily for 3 days with food. - triamcinolone acetonide (KENALOG) 0.1 % cream Apply 1 application to affected area three times daily for 10 days. Apply sparingly to area for rash/itching. - montelukast (SINGULAIR) 10 mg tablet Take 10 mg by mouth daily at bedtime. - Lev (more content not included)... Normal [facility] CR Hand Complete 3+ Views fton 04-10-2019 CR Hand Complete 3+ Views Left Patient Name: TESHA SUN Diagnostic Radiology Exam Date/Time 04/10/2019 17:14:07 EDT Exam CR Hand Complete 3+ Views Left Ordering Physician [id number] ZULY BRYANT Accession Number [id number] CPT4 Codes 67617 () Reason For Exam fracture Report LEFT HAND, 3 VIEWS: INDICATION: Trauma to left thumb. Left hand pain. COMPARISON: No previous studies are available for comparison. PA, lateral and oblique views the left hand. There is distortion of the soft tissues of the thumb. Acute appearing bony defects involving the proximal aspect of the distal phalanx and the distal aspect of the proximal phalanx. Alignment of the osseous structures appears anatomical. IMPRESSION: Soft tissue distortion and lacerations of the thumb. Bony defects/trauma to the proximal and distal phalanges of the thumb. Report Dictated on Final Dictated: 04/10/2019 6:44 pm Dictating Physician: MD CUNNINGHAM LAURA Signed Date and Time: 04/10/2019 6:47 pm Signed by: MD CUNNINGHAM LAURA Transcribed Date and Time: 04/10/2019 6:44 Normal [facility] Vital Signs Date Time Vital Sign Value Performing Clinician Facility 09-09-2023 08:00-0400 Body temperature 97 [degF] Dr. Dunia Barnes Work Phone: 5(435)109-300708 [place] [address] 09-09-2023 08:00-0400 Diastolic blood pressure 68 mm[Hg] Dr. Dunia Barnes Work Phone: 7(022)371-056335 [place] [address] 09-09-2023 08:00-0400 Heart rate 54 /min Dr. Dunia Barnes Work Phone: 6(858)209-911535 [place] [address] 09-09-2023 08:00-0400 Respiratory rate 16 /min Dr. Dunia Barnes Work Phone: 9(600)489-741535 [place] [address] 09-09-2023 08:00-0400 SaO2% (BldA) [Mass fraction] 95 % Dr. Dunia Barnes Work Phone: 1(545)506-079235 [place] [address] 09-09-2023 08:00-0400 Systolic blood pressure 150 mm[Hg] Dr. Dunia Barnes Work Phone: 1(776)942-361635 [place] [address] 09-09-2023 06:14-0400 Body height 175.[address] Dunia Barnes Work Phone: 3(371)174-001135 [place] [address] 09-09-2023 06:14-0400 Body mass index (BMI) [Ratio] 27.6 kg/m2 Dr. Dunia Barnes Work Phone: 5(828)244-025435 [place] [address] 09-09-2023 06:14-0400 Body weight 84.[address] Dunia Barnes Work Phone: 3(380)129-956835 [place] [address] 08-13-2023 08:54-0400 Body temperature 97.3 [degF] Dr. Dunia Barnes Work Phone: [facility] 08-13-2023 08:54-0400 Diastolic blood pressure 85 mm[Hg] Dr. Dunia Barnes Work Phone: [facility] 08-13-2023 08:54-0400 Heart rate 58 /min Dr. Dunia Barnes Work Phone: [facility] 08-13-2023 08:54-0400 Respiratory rate 17 /min Dr. Dunia Barnes Work Phone: [facility] 08-13-2023 08:54-0400 SaO2% (BldA) [Mass fraction] 97 % Dr. Dunia Barnes Work Phone: [facility] 08-13-2023 08:54-0400 Systolic blood pressure 209 mm[Hg] Dr. Dunia Barnes Work Phone: [facility] 08-11-2023 14:22-0400 Body temperature 98 [degF] Dr. Dunia Barnes Work Phone: [facility] 08-11-2023 14:22-0400 Diastolic blood pressure 76 mm[Hg] Dr. Dunia Barnes Work Phone: [facility] 08-11-2023 14:22-0400 Heart rate 60 /min Dr. Dunia Barnes Work Phone: [facility] 08-11-2023 14:22-0400 Respiratory rate 17 /min Dr. Dunia Barnes Work Phone: [facility] 08-11-2023 14:22-0400 SaO2% (BldA) [Mass fraction] 97 % Dr. Dunia Barnes Work Phone: [facility] 08-11-2023 14:22-0400 Systolic blood pressure 187 mm[Hg] Dr. Dunia Barnes Work Phone: [facility] 08-06-2023 13:00-0400 Body temperature 97.5 [degF] Dr. Dunia Barnes Work Phone: [facility] 08-06-2023 13:00-0400 Diastolic blood pressure 80 mm[Hg] Dr. Dunia Barnes Work Phone: [facility] 08-06-2023 13:00-0400 Heart rate 47 /min Dr. Dunia Barnes Work Phone: 7(848)415-943308 [place] [address] 08-06-2023 13:00-0400 Respiratory rate 18 /min Dr. Dunia Barnes Work Phone: 7(641)010-395401 [address] 08-06-2023 13:00-0400 SaO2% (BldA) [Mass fraction] 100 % Dr. Dunia Barnes Work Phone: 2(735)813-853735 [place] [address] 08-06-2023 13:00-0400 Systolic blood pressure 172 mm[Hg] Dr. Dunia Barnes Work Phone: 8(436)616-506901 [address] 08-06-2023 10:47-0400 Body height 175.[address] Dunia Barnes Work Phone: 2(864)013-051801 [address] 08-06-2023 10:47-0400 Body mass index (BMI) [Ratio] 27.3 kg/m2 Dr. Dunia Barnes Work Phone: 4(821)435-982735 [place] [address] 08-06-2023 10:47-0400 Body weight [address] Dunia Barnes Work Phone: 5(439)037-913835 [place] [address] 07-22-2023 08:17-0400 Body mass index (BMI) [Ratio] 27.6 kg/m2 Dr. Dunia Barnes Work Phone: 4(443)525-763901 [address] 07-22-2023 08:17-0400 Body temperature 96.8 [degF] Dr. Dunia Barnes Work Phone: 1(963)339-102335 [place] [address] 07-22-2023 08:17-0400 Body weight 84.[address] Dunia Barnes Work Phone: 3(247)158-660108 [place] [address] 07-22-2023 08:17-0400 Diastolic blood pressure 99 mm[Hg] Dr. Dunia Barnes Work Phone: 5(587)989-947701 [address] 07-22-2023 08:17-0400 Heart rate 56 /min Dr. Dunia Barnes Work Phone: [facility] 07-22-2023 08:17-0400 Respiratory rate 16 /min Dr. Dunia Barnes Work Phone: [facility] 07-22-2023 08:17-0400 Systolic blood pressure 189 mm[Hg] Dr. Dunia Barnes Work Phone: [facility] 07-11-2023 13:35-0400 Body mass index (BMI) [Ratio] 27.2 kg/m2 Dr. Dunia Barnes Work Phone: [facility] 07-11-2023 13:35-0400 Body temperature 97.4 [degF] Dr. Dunia Barnes Work Phone: [facility] 07-11-2023 13:35-0400 Body weight 84.[address] Dunia Barnes Work Phone: [facility] 07-11-2023 13:35-0400 Diastolic blood pressure 84 mm[Hg] Dr. Dunia Barnes Work Phone: [facility] 07-11-2023 13:35-0400 Heart rate 64 /min Dr. Dunia Barnes Work Phone: [facility] 07-11-2023 13:35-0400 Respiratory rate 14 /min Dr. Dunia Barnes Work Phone: [facility] 07-11-2023 13:35-0400 SaO2% (BldA) [Mass fraction] 96 % Dr. Dunia Barnes Work Phone: [facility] 07-11-2023 13:35-0400 Systolic blood pressure 173 mm[Hg] Dr. Dunia Barnes Work Phone: [facility] 09-04-2022 09:06-0400 Body temperature 97.59 [degF] Machelle Brannon APRN.CNP Work Phone: [facility] 09-04-2022 09:06-0400 Body weight 86.91 kg Machelle Brannon AGRONOMIST.SAS PROGRAMMER Work Phone: [facility] 09-04-2022 09:06-0400 Diastolic blood pressure 84 mm[Hg] Machelle Brannon AGRONOMIST.SAS PROGRAMMER Work Phone: [facility] 09-04-2022 09:06-0400 Heart rate 68 /min Machelle Brannon AGRONOMIST.SAS PROGRAMMER Work Phone: [facility] 09-04-2022 09:06-0400 Respiratory rate 16 /min Machelle Brannon AGRONOMIST.SAS PROGRAMMER Work Phone: [facility] 09-04-2022 09:06-0400 SaO2% (BldA) [Mass fraction] 98 % Machelle Brannon AGRONOMIST.SAS PROGRAMMER Work Phone: [facility] 09-04-2022 09:06-0400 Systolic blood pressure 142 mm[Hg] Machelle Brannon AGRONOMIST.SAS PROGRAMMER Work Phone: [facility] 07-05-2022 10:19-0400 Body temperature 96.21 [degF] Chloe Rolando AGRONOMIST.SAS PROGRAMMER Work Phone: [facility] 07-05-2022 10:19-0400 Body weight 86.64 kg Chloe Rolando AGRONOMIST.SAS PROGRAMMER Work Phone: [facility] 07-05-2022 10:19-0400 Diastolic blood pressure 90 mm[Hg] Chloe Rolando AGRONOMIST.SAS PROGRAMMER Work Phone: [facility] 07-05-2022 10:19-0400 Heart rate 55 /min Chloe Rolando AGRONOMIST.SAS PROGRAMMER Work Phone: [facility] 07-05-2022 10:19-0400 Respiratory rate 21 /min Chloe Rolando AGRONOMIST.SAS PROGRAMMER Work Phone: [facility] 07-05-2022 10:19-0400 SaO2% (BldA) [Mass fraction] 98 % Chloe Rolando AGRONOMIST.SAS PROGRAMMER Work Phone: [facility] 07-05-2022 10:19-0400 Systolic blood pressure 182 mm[Hg] Chloe Marshall KHOA Work Phone: [facility] Encounters Encounter Date Encounter Type Care Provider Facility Start: 05-12-[address] Lowery Facilit y:[facility] Start: 04-26-2025 End: 04-26-[address] Lowery MD Work Phone: [facility] Work Phone: Start: 04-26-2025 End: 04-26-[address] Lowery MD -Laboratory [facility] Start: 04-26-2025 End: 04-26-[address] Lowery Facility:[facility] Start: 01-05-2025 End: 01-05-[address] Lowery MD -Laboratory [facility] Start: 01-05-2025 End: 01-05-[address] Lowery Facility:[facility] Start: 12-28-2024 End: 12-28-[address] Lowery Facility:[facility] Start: 09-14-2024 End: 09-14-[address] Lowery Facility:[facility] Start: 08-24-2024 End: 08-24-[address] Lowery Facility:[facility] Start: 01-29-2024 End: 01-29-[address] Dunia Barnes Work Phone: [facility] Work Phone: Start: 01-29-2024 End: 01-29-[address] Dunia Barnes Work Phone: [facility] Work Phone: Start: 01-22-2024 End: 01-22-[address] Dunia Barnes Work Phone: [facility] Work Phone: Start: 01-22-2024 End: 01-22-[address] Dunia Barnes Work Phone: [facility] Start: 01-12-2024 End: 01-12-2024 Non-patient / Non-visit Dr. Dunia Barnes Work Phone: [facility] Work Phone: Start: 01-12-2024 End: 01-12-[address] Dunia Barnes Work Phone: [facility] Work Phone: Start: 01-12-2024 End: 01-12-[address] Dunia Barnes Work Phone: [facility] Work Phone: Start: 11-27-2023 End: 11-27-[address] Dunia Barnes Work Phone: [facility] Work Phone: Start: 11-27-2023 End: 11-27-[address] Dunia Barnes Work Phone: [facility] Work Phone: Start: 10-23-2023 End: 10-23-[address] Dunia Barnes Work Phone: [facility] Work Phone: Start: 10-23-2023 End: 10-23-[address] Dunia Barnes Work Phone: [facility] Start: 10-20-2023 End: 10-20-[address] Dunia Barnes Work Phone: [facility] Work Phone: Start: 10-20-2023 End: 10-20-[address] Dunia Barnes Work Phone: [facility] Work Phone: Start: 10-03-2023 End: 10-03-[address] Dunia Barnes Work Phone: [facility] Work Phone: Start: 10-03-2023 End: 10-03-[address] Dunia Barnes Work Phone: [facility]-Laboratory, [facility] Start: 09-23-2023 End: 09-23-[address] Dunia Barnes Work Phone: [facility] Work Phone: Start: 09-09-2023 Non-patient / Non-visit Dr. Yvan Barnes Work Phone: [facility] Start: 09-09-2023 End: 09-09-2023 Admission to same day surgery center Dr. Dunia Barnes Work Phone: [facility] Start: 09-09-2023 End: 09-09-[address] Dunia Barnes Work Phone: [facility] Work Phone: Start: 09-02-2023 End: 09-02-[address] Dunia Barnes Work Phone: [facility] Work Phone: Start: 09-02-2023 End: 09-02-[address] Dunia Barnes Work Phone: [facility] Work Phone: Start: 08-13-2023 End: 08-13-[address] Dunia Barnes Work Phone: [facility] Work Phone: Start: 08-11-2023 End: 08-11-[address] Dunia Barnes Work Phone: [facility] Work Phone: Start: 08-06-2023 Non-patient / Non-visit Dr. Yvan Barnes Work Phone: [facility] Start: 08-06-2023 End: 08-06-2023 Admission to same day surgery center Dr. Dunia Barnes Work Phone: [facility] Start: 08-06-2023 End: 08-06-[address] Dunia Barnes Work Phone: [facility] Work Phone: Start: 07-22-2023 End: 07-22-[address] Dunia Barnes Work Phone: [facility] Work Phone: Start: 07-11-2023 End: 07-11-[address] Dunia Barnes Work Phone: [facility] Work Phone: Start: 01-31-2023 End: 01-31-2023 ambulatory [facility] Work Phone: Start: 01-31-2023 End: 01-31-2023 Patient encounter procedure [facility] Start: 09-30-2022 End: 09-30-2022 ambulatory [facility] Work Phone: Start: 09-30-2022 End: 09-30-2022 Patient encounter procedure [facility] Start: 09-04-2022 Telephone encounter Machelle Ramirez maddy HAIDER.SAS PROGRAMMER Work Phone: [facility] Comment on above: Results Start: 09-04-2022 End: 09-04-2022 ambulatory DUNIA BARNES Facility:[facility] Start: 09-04-2022 End: 09-04-2022 Subsequent hospital visit by physician [facility] Comment on above: Calf swelling [M79.8 9] Pain of left lower e xtremity [M79.605] Start: 09-04-2022 End: 09-04-2022 Patient encounter procedure Machelle Brannon APRN.SAS PROGRAMMER Work Phone: [facility] Comment on above: Pain of left lower e xtremity (Primary Dx); Calf swelling Start: 09-02-2022 End: 09-02-2022 ambulatory [facility] Work Phone: Start: 09-02-2022 End: 09-02-2022 Patient encounter procedure [facility] Start: 07-05-2022 End: 07-05-2022 ambulatory DUNIA BARNES Facility:[facility] Start: 07-05-2022 End: 07-05-2022 Patient encounter procedure Chloe Marshall MELIZA.SAS PROGRAMMER Work Phone: [facility] Comment on above: Rhus dermatitis (Latrice aury Dx) Procedures Date Procedure Procedure Detail Performing Clinician Start: 04-26-[address] Lane Lowery MD Work Phone: Start: 04-26-2025 Vitamin D, 25-hydrox y measurement Dr. Lane Lowery MD Work Phone: Comment on above: Vitamin D StatusDefi ciency: <20 ng/mL (50nmol/L)Insufficiency: 20-30 ng/mL (50-75 nmol/L)Sufficiency: 30-100 ng/mL (75-250 nmol/L)Toxicity: >100 ng/mL (>250 nmol/L) Start: 01-05-2025 Measurement of renal function Dr. Lane Lowery MD Work Phone: Comment on above: GFR Calc Start: 01-12-2024 MRI of lower extremity Dr. Dunia Barnes Work Phone: Start: 10-20-[address] Dunia stevens Work Phone: Start: 09-09-[address] Dunia stevens Work Phone: Start: 08-06-[address] Yvan Barnes Work Phone: Start: 09-30-2022 MRI of joint of lowe r extremity Start: 09-04-2022 Dup-scan xtr veins unilateral/limited study Machelle Brannon APRN.CNP Work Phone: Start: 09-04-2022 Radiologic exam knee complete 4/more views Machelle Brannon APRN.CNP Work Phone: H/O: surgery History of excis ion of mass Dr. Dunia Barnes Work Phone: H/O: surgery S/P excision of skin lesion, follow-up exam Dr. Dunia Barnes Work Phone: Plan of Treatment Date Care Activity Detail Author Start: 04-10-2029 Urine microalbumin profile DTaP,Tdap,Td Vaccine (2 - Td or Tdap) [facility] Start: 2026 RSV Vaccine (1 - 1-d ose 75+ series) RSV Vaccine (1 - 1-dose 75+ series) [facility] Start: 07-18-2024 Covid-19 Vaccine ( season) Covid-19 Vaccine ( season) [facility] Start: 07-18-2024 Influenza vaccination Influenza Vacc ine (#1) [facility] Start: 11-17-2023 Advance Directive Discussion Advance Directive Discussion [facility] Start: 09-09-2023 Anes integ musc & nr v head neck&posterior trunk ANESTH HEAD/NECK/PTRUNK [facility] Start: 09-09-2023 Excision mal lesion trunk/arm/leg 3.1-4.0 cm EXC TR-EXT MAL+JOSH 3.1-4 CM [facility] Start: 09-09-2023 Patient discharge [facility] Start: 08-06-2023 Anes integ musc & nr v head neck&posterior trunk ANESTH HEAD/NECK/PTRUNK [facility] Start: 08-06-2023 Exc b9 lesion mrgn x cp sk tg t/a/l 2.1-3.0 cm EXC TR-EXT B9+JOSH 2.1-3CM [facility] Start: 08-06-2023 Patient discharge [facility] Start: 07-18-2022 Influenza vaccination INFLUENZA (#1) [facility] Start: 11-17-2021 ADVANCE DIRECTIVE DISCUSSION ADVANCE DIRECTIVE DISCUSSION [facility] Start: 11-17-2021 DEPRESSION ASSESSMENT DEPRESSION ASS ESSMENT [facility] Start: 02-12-2016 PNEUMOCOCCAL: 65+ (1 - PCV) PNEUMOCOCCAL: 65+ (1 - PCV) [facility] Start: 2001 SHINGRIX VACCINE (1 of 2) SHINGRIX VACCINE (1 of 2) [facility] Start: 02-12-1996 COLOGUARD (FIT-DNA) COLOGUARD (FIT-D NA) [facility] Start: 02-12-1996 Colonoscopy COLONOSCOPY [facility] Start: 02-12-1996 COLORECTAL CANCER SCREENING COLORECTAL CANCER SCREENING [facility] Start: 02-12-[address] COLONOGRAPHY [facility] Start: 02-12-1996 DIABETES SCREEN DIABETES SCREEN [facility] Start: 02-12-1996 Diabetes Screening Diabetes Screenin g [facility] Start: 02-12-1996 FECAL OCCULT BLOOD FECAL OCCULT BLOO D [facility] Start: 02-12-1996 Screening for malign ant neoplasm of colon [facility] Start: 02-12-1996 SIGMOIDOSCOPY SIGMOIDOSCOPY [facility] Start: 1986 Lipid panel Lipid Screening [facility] Start: 1986 LIPID SCREEN LIPID SCREEN [facility] Start: 1970 Urine microalbumin profile DTAP,TDAP,TD (1 - Tdap) [facility] Start: 1969 Anxiety Screening Anxiety Screening [facility] Start: 1969 Depression Screening Depression Scre ening [facility] Start: 1969 HEPATITIS C SCREENING HEPATITIS C [facility] Start: 1969 Hepatitis C screening Hepatitis C [facility] Start: 1963 Adult depression screening assessment DEPRESSION SCREENING [facility] Start: 1950 ABDOMINAL AORTIC ANEURYSM SCREENING ABDOMINAL AORTIC ANEURYSM SCREENING [facility] Start: 1950 Abdominal aortic aneurysm screening Abdominal Aortic Aneurysm Screening [facility] Anion gap measurement [facility] BUN/Creatinine ratio [facility] Calcium [Mass/volume ] in Serum or Plasma [facility] Carbon dioxide, tota l [Moles/volume] in Serum or Plasma [facility] Chloride [Moles/volu me] in Serum or Plasma [facility] Creatinine [Moles/volume] in Serum or Plasma [facility] Glucose [Mass/volume ] in Serum or Plasma [facility] Measurement of renal function [facility] Patient referral [facility] Work Phone: Potassium [Moles/vol ume] in Serum or Plasma [facility] Sodium [Moles/volume ] in Serum or Plasma [facility] T4 free measurement [facility] Urea nitrogen [Mass/volume] in Serum or Plasma [facility] End: 09-04-2023 US LEG VEIN DVT [facility] US LEG VEIN DVT [facility] STAT Calf swelling 1 Occurrences starting 09/04/2022 until 09/04/2023 [facility] Work Phone: Comment on above: 1 Occurrences starti ng 09/04/2022 until 09/04/2023 Vitamin B12 measurement [facility] Vitamin D, 25-hydrox y measurement [facility] Immunizations Immunization Date Immunization Notes Care Provider Cece weinstein 08-09-2020 influenza virus vaccine, unspecified formulation [facility] [place] Work Phone: [facility] 04-10-2019 tetanus toxoid, redu chaz diphtheria toxoid, and acellular pertussis vaccine, adsorbed [facility] Payers Date Payer Category Payer Self-pay [id number] 2021 Private Health Insurance [facility] AARP SUPPLEMENT [id number] 2021-Present [phone] [address] [place] [address] Indemnity [id number] 2021 Unknown [id number] 2016 Medicare MEDICARE MEDICAR E A AND B [id number] 2016-Present [phone] [place] [address] Medicare [id number] 2016 Medicare [id number] 2015 Private Health Insurance [place] [id number] Unknown [id number] Unknown [id number] Unknown [id number] Unknown [id number] Unknown [id number] Unknown [id number] Social History Date Type Detail Facility Start: 07-05-2022 End: 08-27-2023 Tobacco smoking status NHIS Ex-smoker [facility] History of tobacco use Current smoker [facility] History of tobacco use Cigarette Smoker [facility] History of tobacco use Passive smoker [facility] Start: 07-05-2022 Tobacco use and exposure Smokeless tobacco non-user [facility] Start: 07-05-2022 End: 09-04-2022 Alcohol intake Not Asked [facility] Start: 07-05-2022 Tobacco Comment Smoked for 17 years, quit for 18, then smoked for about 7 years. 1 PPD. [facility] Start: 1950 Sex Assigned At Not on file C [facility] Start: 06-25-2022 End: 09-04-2022 Exposure to SARS-CoV-2 (event) Not sure [facility] Start: 04-08-2021 End: 08-27-2023 Tobacco smoking status SCIS Unknown if ever smoked [facility] Start: 04-10-2019 None [facility] Start: 04-10-2019 Spouse/ Signif icant Other [facility] Start: 04-08-2021 Non-smoker [facility] Start: 1950 Sex Assigned At Male [facility] Start: 09-04-2022 History of Social function [facility] Start: 09-04-2022 Tobacco use panel [facility] Goals Date Patient Goal Desired Activity /State Mental Status Date Assessment Result Facility 09-09-2023 Cognitive function Voice/Name [facility] Work Phone: 08-06-2023 Cognitive function Voice/Name [facility] Work Phone: Clinical Notes 07-05-2022 to 11-27-2023 Note Date & Type Note Facility 11-27-2023 Discharge summary Note Date/Time November 27, 2023 10:23am [facility] [address] [place] [address] / REHABILITATION SERVICES DISCHARGE SUMMARY MR#: [id number] Acct: [id number] Name: TESHA SUN Rep #: [id number] : 1950 73 From: Jurgen Valladares DPT, OCS, CSCS Referring Dr.: Dr. Lane Lowery MD Status: REG RCR Insurance: MEDICARE PART A B [facility] Discharge Summary D/C summary: It has been my pleasure to treat TESHA SUN referred by Dr. Lane Lowery MD, with the diagnosis of BPPV for a total of 2 visit(s). Discharge Date: 11/27/23 Please see the following information for a summary of their discharge status. Subjective Subjective: Not having a lot of issues. Sometimes if working on floor and stands back up. Also gets it sitting up from recliner, Getting up from bed waits 1-2seconds. Did exercises 8 reps daily and never any dizzyness except intermittently sitting up. This feeling lasts 5-10 seconds and he just stops. activities are normal but just has to be careful. Is on blood pressure meds and changed lately as blood pressure was high and puton different blood pill/water pill about a month ago. Objective Objective/Function: MSQ is no dizzyness, some lightheadedness recovering from gravity specific for 2 seconds consistently but no other spinning or dizzyness. - B Hallpike silvia - roll test Walking well with good balance today but consistently lightheaded 2 seconds arising from bending. Goals Goal 1:: pt feel dizzyness gone for 4 days Goal Progress: Progressing Goal 2:: Pt feel back to normal woodworking without nausea or difficulty Goal Progress: Goal Met Goal 3:: DHI score 4 or less Goal Progress: Not Progressing Goal 4:: Pt feel 99% back to normal Goal Progress: Progressing, ? orthostati Plan Plan: weekly as needed for 2-4 weeks for monitor of psoitional ex and treatmentsand vestibular system. No positive tests today but gave BD ex for subjective. Ptto call if dizzyness changes, MSQ if needed. D/C Information Discharge Comments: Pt only having orthostatic symptoms now and will consult doctor and take care with arising. d/c sentence: If there are questions or concerns regarding this patient's physical therapy, please feel free to call me at [phone]. Thank you for the referral of thispatient. Sincerely, Jurgen Valladares, DPT, OCS, CSCS Balance/Gait/Functional tests Balance/Special Test Scores Functional Gait Assessment Score: 27 % Disability: 10.0000 Dizziness Score: 24 <Electronically signed by Jurgen Valladares DPT, OCS, CSCS> 11/27/23 1023 CC: Dr. Dunia Barnes MD; Dr. Lane Lowery MD ~ EBG Signed [facility] Work Phone: 1([phone] 193-894910-24-2023 History and physical note Author Jose Jacobo [facility] September 09, 2023 6:54am Note Date/Time September 09, 2023 6 :53am [facility] Medical Records Department [address] [place] [address] H&P Exam - Surgical 09/09/23 0652 MR#: [id number] Acct: [id number] Name: TESHA SUN Rep #:[id number] : 1950 73 From: Jose hernandez MD PCP: Dr. Dunia Barnes MD Status:[facility] Location: [facility]02-1 HPI - General HPI Narrative TESHA HOSTETTLER, is a 73 M who presents for reexcision of margins of his cancer. The patient had a small mass on the back of the left lower extremity. 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 There was a positive margin. He is here today for reexcision of margins. He has had no issues since his last surgery. PENDING SALE TO [facility] Medical History Abscess of left thigh Alcohol use Arthritis Back pain Bladder disease Former smoker Gastric reflux GERD (gastroesophageal reflux disease) History of edema History of pain when walking History of stress test History of ulceration Hyperlipidemia Hypertension Low iron Shortness of breath on exertion Testicular swelling Wears glasses Wears hearing aid Home Medications atenolol 25 mg tablet 25 mg PO QHS 11/10/14 [History Last Taken 08/06/23] atorvastatin 20 mg tablet 20 mg PO QHS 11/10/14 [History Last Taken Unknown] esomeprazole magnesium 40 mg capsule,delayed release (Nexium) 40 mg PO DAILY 11/10/14 [History Last Taken 09/09/23] finasteride 5 mg tablet 5 mg PO QHS 07/30/23 [History Last Taken Unknown] lisinopril 10 mg tablet 20 mg PO DAILY 07/30/23 [History Last Taken 09/09/23] povidone (PF) 0.5 % eye drops (iVizia (PF)) 2 drp ophthalmic (eye) PRN 07/30/23 [History Last Taken Unknown] Allergy/AdvReac Type Severity Reaction Status Date / Time codeine AdvReac Nausea/Vom/ Verified 09/09/23 06:14 Diarrhea Surgical History H/O lateral meniscus repair of left knee H/O lateral meniscus repair of right knee History of esophagogastroduodenoscopy (EGD) History of excision of mass Hx of colonoscopy Hx of inguinal hernia repair Hx of left cataract extraction Hx of lithotripsy Hx of right cataract extraction Hx of thumb surgery Hx of total knee arthroplasty Social History (Updated 07/22/23 @ 08:17 by Renetta Teresa) Smoking Status: Former smoker how long ago did patient quit smokin years Vital Signs Vital Signs Vital Signs: 09/09/23 06:14 09/09/23 06:14 Temperature 98.3 F Temperature Source Temporal Pulse Rate 59 L Respiratory Rate 16 Respiratory Pattern Normal Blood Pressure 156/83 H Blood Pressure Mean 107 Blood Pressure Source Monitor Blood Pressure Position Semi-Fowlers Blood Pressure Location Left Arm Pulse Ox 97 Oxygen Delivery Method Room Air Weight Weight: 187 lb 2.759 oz Body Mass Index (BMI) 27.6 Physical Exam Const oriented x3 and no apparent distress Resp normal respiratory effort Cardio regular rate and regular rhythm GI normal to inspection, nondistended, normoactive bowel sounds Assessment & Plan Assessment/Plan (1) 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in: PLAN: Patient is a squamous cell carcinoma on the back of his left lower extremity. This was excised with a margin was positive. He is back for reexcision of margins today. I discussed the risks such as bleeding and infection and need for wound revision. Patient understands and is willing to proceed. Jose Jacobo MD Pager: [facility] [address] [place] [address], [address] [place] [address] Office: 09/09/23 0654 <Electronically signed by Jose Jacobo MD> Cosigner Signature (if applicable): CC: Dr. Dunia Barnes MD; Dr. Jose Jacobo MD~ Signed [facility] Work Phone: 1([phone]) 940-208510-24-2023 Procedure [facility] 08-06-2023 Procedure [facility]09-20-2023 History and physical note Author Jose Jacobo [facility] August 06, 2023 10:31am Note Date/Time August 06, 2023 10:31am [facility] Medical Records Department [address] [place] [id number] History & Physical Exam 08/06/23 1031 MR#: [id number] Acct: [id number] Name: TESHA SUN Rep #:[id number] : 1950 73 From: Jose hernandez MD PCP: Dr. Dunia Barnes MD Status:[facility] Location: [place] [address]- History and Physical Date of Admission: 08/06/23 Intake Vital Signs 07/11/2313:35 07/22/2308:17 Height 5 ft 9.5 in 5 ft 9 in Weight: 187 lb 5 oz 187 lb 2 oz BMI 27.2 27.6 BP 173/84 H 189/99 H Blood Pressure Location Lt brachial Rt brachial Position Sitting Sitting Respiration 14 16 Pulse 64 56 L Pulse Source Monitor Monitor Temp 97.4 F L 96.8 F L Temp Source Temporal Tympanic Pulse Oximetry (%) 96 Oxygen Delivery Method room air Intake Visit Reasons: CONSULT FOR POSS EXCISION OF LEG ABSCESS Chief Complaint: leg abscess consult Allergies codeine Adverse Reaction (Verified 07/22/23 08:18) Nausea/Vom/Diarrhea Medications atenolol 25 mg tablet 25 mg PO DAILY 11/10/14 [History Confirmed 07/22/23] atorvastatin 20 mg tablet 20 mg PO QHS 11/10/14 [History Confirmed 07/22/23] esomeprazole magnesium 40 mg capsule,delayed release (Nexium) 40 mg PO DAILY 11/10/14 [History Confirmed 07/22/23] naproxen 500 mg tablet 500 mg PO BID #20 tabs 04/08/21 [Rx Confirmed 07/22/23] PFSH Medical History GERD (gastroesophageal reflux disease) Hyperlipidemia Hypertension Surgical History H/O lateral meniscus repair of left knee H/O lateral meniscus repair of right knee Social History (Updated 07/22/23 @ 08:17 by Renetta Teresa) Smoking Status: Never smoker how long ago did patient quit smokin years HPI HPI HPI: Patient is a 73-year-old male here with an infection of his posterior leg. Patient has an area of his left posterior thigh which she reports has been therefor several months. He says that it has been red and he has had it drained and he has been on antibiotics and has been improving over the last week. He deniesfevers or chills. ROS General General: No weight change, appetite, fatigue, colon cancer, breast cancer or weakness HEENT HEENT: Yes eye surgery; No difficulty swallowing, eye injury, swollen glands or hoarseness Endo Endocrine: No thyroid disease, diabetes mellitus, thyroid cancer, Hair loss, heat intolerance or cold intolerance Skin Skin: No rash or changing moles Breast Breast: No left breast lump, right breast lump, nipple discharge, breast pain, abnormal mammogram, abnormal US or breast enlargement Musc Musculoskeletal: Yes arthritis; No back problems, rheumatoid arthritis, gout or joint pain Cardio Cardiovascular: Yes high blood pressure; No murmur, pacemaker, heart disease, atrial fibrillation, heart attack, heart stent, palpitations, shortness of breat with exertion or chest pain Psych Psychiatric: No depression, anxiety or hearing voices Resp Respiratory: No shortness of breath, No sleep apnea, No cough, No COPD, No asthma, No emphysema and No wheezing Gastro Gastrointestinal: No abdominal pain, No nausea or vomiting, No diarrhea, No constipation, No blood in stool, Yes acid reflux, Yes hemorrhoids, No ulcers, Nogallbladder problem and No black,tarry stools Francisco Hematologic: No blood thinners, No blood disorders, No bleeding, No anemia and No blood clots Neuro Neurologic: No system reviewed and no additional complaints, except as documented, No as per HPI, No abnormal gait, No abnormal hearing, No abnormal movements, No abnormal speech, No behavioral changes, No burning sensations, No confusion, No convulsions, No disequilibrium, No dizziness, No localized weakness, No frequent falls, No headache(s), No lack of coordination, No loss ofvision, No memory loss, No numbness, No other visual disturbances, No radicular pain, No restless legs, No sensory deficit, No syncope, No tingling, No tremor(s), No weakness and No other Exam Const General: cooperative Orientation: alert and oriented x3 HENIL Head: normal to inspection Neck Neck: normal visual inspection and full ROM Chest Chest palpation & inspection: normal inspection of the chest Resp Effort & Inspection: normal respiratory effort Auscultation: clear to auscultation bilaterally Cardio Rate: regular rate Rhythm: regular rhythm GI Inspection: non-distended Palpation: soft and nontender Skin Other: There are 2 small bumps on the posterior thigh that have some surrounding erythema and they are firm. Neuro General: patient alert and patient oriented x3 Extrem General: full ROM Psych Appearance: grossly normal Mental Status: mental status grossly normal Assessment and Plan Assessment and Plan (1) Abscess of left thigh: Status: Acute Plan: There is an infected area of the posterior left thigh. It appears to be 2 sebaceous cysts that are infected. I discussed taking him to the operating roomand incising this area and removing the 2 cyst. I discussed the risks of bleeding and infection and nerve injury. Patient understands the risks and willproceed. I will likely perform an ultrasound in the operating room to ensure that there is no vascular structure near the area. Jose Jacobo MD Pager: [facility] [address] [place] [address], [address] [place] [address] Office: I have examined the patient and the H&P has been reviewed. There are no clinicalchanges since date of exam. 08/06/23 1031 <Electronically signed by Jose Jacobo MD> Cosigner Signature (if applicable): CC: Dr. Dunia Barnes MD; Dr. Jose Jacobo MD~ Signed [facility] Work Phone: 1(763) 939-918810-20-2022 Miscellaneous Notes* Telephone Encounter - Lavern Henao LPN - 09/05/2022 8:34 AM EDT Phone call placed patient advised (see prior provider encounter) Patient verbalized understanding, agreed with plan of care reported follow up scheduled with Mike Alvarez 09/12/22. Lavern Henao LPN * Telephone Encounter - Adrian Jones MD - 09/05/2022 7:42 AM EDT US showed no blood clots. * Telephone Encounter - Machelle Chan RN - 09/04/2022 4:53 PM EDT Pt called in for the results of his US. Let Pt know that the results were still in process. Let Pt know that we would call him once the results were in. [facility] NoteHNO ID: [id number] Author: LIDA Joseph) Service: ? Author Type: Technologist Type: Progress Notes Filed: 09/04/2022 1:43 PM Note Text: Radiology Service Progress Note PATIENT NAME: Emi Sun DATE OF SERVICE: September 04, 2022 [...] IV DATA: Not applicable SIGNED BY: RT Opal(Khushboo) September 04, 2022 1:43 [facility]10-19-2022 History of Present illness Narrative* LIDA Joseph) - 09/04/2022 1:00 PM EDT Radiology Service Progress Note PATIENT NAME: Emi Sun DATE OF SERVICE: September 04, 2022 TIME: 1:43 PM PATIENT IDENTITY VERIFICATION COMPLETED USING TWO (2) IDENTIFIERS: Name and Date of confirmedby patient verbally. FALL SCREENING: Has the patient had 2 falls in the last year or 1 fall with injury or currently using an Ambulatory Assistive Device (Walker, Cane, Wheelchair, Crutches, etc.)? No PATIENT GENDER DATA: Male PATIENT RELEVANT IMPLANT DATA REVIEWED: Not Applicable RADIOLOGY DEPARTMENT: Ultrasound PERIPHERAL IV DATA: Not applicable SIGNED BY: LIDA Joseph) September 04, 2022 1:43 PM documented in [facility]Pe[facility]10-[facility]-2022 NoteHNO ID: [id number] Author: LIDA Kaiser) Service: Nuclear Medicine Author Type: Technologist Type: Progress Notes Filed: 09/04/2022 9:48 AM Note Text: Radiology Service Progress Note PATIENT NAME: Emi Sun DATE OF SERVICE: September 04, 2022 [...] BY: RT Awilda(R) September 04, 2022 9:37 [facility]10-19-2022 NoteHNO ID: [id number] Author: Machelle Brannon APRN.SAS PROGRAMMER Service: ? Author Type: Nurse Practitioner Type: Progress Notes Filed: 09/04/2022 8:05 PM Note Text: SUBJECTIVE: Emi Sun is a 72 year old male. [...] was a pleasure to take care of Emi Sun today. An xray will be ordered of the knee. Due to swelling of the calf an ultra sound rule out dvt has been ordered. Xray results are negative. He is scheduled for an US of the leg at [facility]. He again is denying any cp or [...] ICD10: M79.89 - US DVT LOWER LT Machelle Brannon APRN.[facility]10-19-2022 History of Present illness Narrative* Laquita Fernandez RT(R) - 09/04/2022 9:30 AM EDT Radiology Service Progress Note PATIENT NAME: Emi Sun DATE OF SERVICE: September 04, 2022 TIME: 9:37 AM PATIENT IDENTITY VERIFICATION COMPLETED USING TWO (2) IDENTIFIERS: Name and Date of confirmedby patient verbally. FALL SCREENING: Has the patient had 2 falls in the last year or 1 fall with injury or currently using an Ambulatory Assistive Device (Walker, Cane, Wheelchair, Crutches, etc.)? No PATIENT GENDER DATA: Male PATIENT RELEVANT IMPLANT DATA REVIEWED: Not Applicable RADIOLOGY DEPARTMENT: General X-ray: Exam(s) Completed: Lower Extremity X- Ray(s): Knee, AP / Lat / Tunne / Merchant Left and Wt. Bearing PERIPHERAL IV DATA: Not applicable SIGNED BY: RT Awilda(R) September 04, 2022 9:37 AM documented in this encounterPeoples [facility]10-19-2022 History of Present illness Narrative* Machelle Brannon APRN.SAS PROGRAMMER - 09/04/2022 9:11 AM EDT SUBJECTIVE: Emi Sun is a 72 year old male. [...] tablet by mouth once daily. (Patient not taking:Reported on 07/05/2022) 0 No current facility-administered medications [...] was a pleasure to take care of Emi Taylorettler today. An xray will be ordered of the knee. Due to swelling of the calf an ultra sound rule out dvt has been ordered. Xray results are negative. He is scheduled for an US of the leg at [facility]. He again is denying any cp or sob. He will be called withthe results Patient will follow up with family [...] ICD10: M79.89 - US DVT LOWER LT Machelle Brannon APRN.SAS PROGRAMMER documented in this encounterPeoples Hospital08-19-2022 NoteHNO ID: [id number] Author: Chloe Marshall APRN.PETER Service: ? Author Type: Nurse Practitioner Type: Progress Notes Filed: 07/05/2022 10:42 AM Note Text: Subjective HPI HPI Emi Sun is a 72 year old male [...] 0.1 % TOPICAL CREAM Agrees to plan Chloe Marshall APRN.[facility]08-19-2022 History of Present illness Narrative* Chloe Marshall APRN.PETER - 07/05/2022 10:40 AM EDT Images from the original note were not included. Subjective HPI HPI Emi Sun is a 72 year old male who presents today for CC of itchy rash. This started 2 weeks ago. Has tried otc medication without relief. Symptoms are worsened by nothing. Risk factors hx of PI rash, has been working with [facility]. .Patient presents with: Rash: Poison greg on [...] tablet by mouth once daily. (Patient not taking:Reported on 07/05/2022) No family history on file. Social History Tobacco Use Smoking status: Former Types: Cigarettes Passive exposure: Past Smokeless tobacco: Never Tobacco comments: Smoked for 17 years, quit for 18, then smoked for about 7 years. 1 PPD. ROS Objective Blood pressure 182/90, pulse (!) 55, temperature (!) 35.7 C (96.2 F), resp. rate 21, weight 86.6 kg(191 lb), SpO2 98 %. Bp rechecked manual [...] 0.1 % TOPICAL CREAM Agrees to plan Chloe Marshall APRN.PETER documented in this encounterPe[facility] HospitalDis[facility] summary Author Jose Jacobo [facility] August 06, 2023 12:59pm Note Date/Time August 06, 2023 12:58pm [facility] Medical Records Department [address] [place] [address] Instructions for Home/Discharge Instructions 08/06/23 1257 MR#: [id number] Acct: [id number] Name: TESHA SUN Rep #:[id number] : 1950 73 From: Jose hernandez MD PCP: Dr. Dunia Barnes MD Status:REG [facility] Discharge Instructions Diet Discharge Diet: No restrictions Activity Discharge Activity: Return to Normal Activity (Tomorrow) Weight Bearing Status: Weight bearing as tolerated Dressing / Incision Call your doctor if your incision/area has: Continuous Slow Oozing, Sudden Increased Bleeding, Increased Pain/ Swelling, Increased Redness, Foul Smelling Discharge and Swelling at the incision site Call your doctor if you observe: Fever of 101 or Higher Change Dressing in: As needed Cleanse incision/area with: Soap & Water Follow Up Care Please Follow Up With: Jose Jacobo MD When: Please call to schedule 10-day follow up appointment. [phone] Test Results: Test results from this visit will be discussed in further detail at your follow- up appointment, if applicable. Discharge Plan Admission Attending Provider: Jose Jacobo Primary Care Provider: Dunia Barnes Instructions Additional Instructions / Restrictions: I Profen and Tylenol for pain. Discharge Orders/Prescriptions Prescriptions: No Action atorvastatin 20 MG tablet 20 mg PO QHS atenolol 25 MG tablet 25 mg PO DAILY esomeprazole magnesium [Nexium] 40 MG capsule 40 mg PO DAILY finasteride 5 mg tablet 5 mg PO QHS Patient Comments: take 1 tablet by mouth once daily lisinopril 10 mg tablet 20 mg PO QHS Patient Comments: take 1 tablet by mouth once daily iVizia (PF) 0.5 % drops 2 drp ophthalmic (eye) PRN Referrals / Follow Up: Dunia Barnes MD [Primary Care Provider] - Disposition Disposition (needs filled in before D/C Order can be placed): Home, Self Care 08/06/23 7023<Electronically signed by Jose Jacobo MD>Jose Jacobo MD CC: Dr. Dunia Barnes MD ~ Signed [facility] Work Phone: Discharge summary Author Jose Jacobo [facility] September 09, 2023 8:17am Note Date/Time September 09, 2023 8 :12am [facility] Medical Records Department [address] [place] [address] Instructions for Home/Discharge Instructions 09/09/23809 MR#: [id number] Acct: [id number] Name: TESHA SUN Rep #:[id number] : 1950 73 From: Jose hernandez MD PCP: Dr. Dunia Barnes MD Status:REG [facility] Discharge Instructions Diet Discharge Diet: No restrictions Activity Discharge Activity: Return to Normal Activity Lifting Restrictions: 20 pounds for 1 week Dressing / Incision Call your doctor if your incision/area has: Continuous Slow Oozing, Sudden Increased Bleeding, Increased Pain/ Swelling, Increased Redness, Foul Smelling Discharge and Swelling at the incision site Call your doctor if you observe: Fever of 101 or Higher Cleanse incision/area with: Soap & Water Follow Up Care Please Follow Up With: Jose Jacobo MD When: Please call to schedule 2 week follow up appointment. [phone] Test Results: Test results from this visit will be discussed in further detail at your follow- up appointment, if applicable. Discharge Plan Admission Attending Provider: Jose Jacobo Primary Care Provider: Dunia Barnes Discharge Orders/Prescriptions Prescriptions: New oxycodone 5 mg tablet 5 - 10 mg PO Q6H PRN (Reason: pain) 5 Days Qty: 10 0RF No Action atorvastatin 20 MG tablet 20 mg PO QHS atenolol 25 MG tablet 25 mg PO QHS esomeprazole magnesium [Nexium] 40 MG capsule 40 mg PO DAILY finasteride 5 mg tablet 5 mg PO QHS Patient Comments: take 1 tablet by mouth once daily lisinopril 10 mg tablet 20 mg PO DAILY Patient Comments: take 1 tablet by mouth once daily iVizia (PF) 0.5 % drops 2 drp ophthalmic (eye) PRN Referrals / Follow Up: Dunia Barnes MD [Primary Care Provider] - Disposition Disposition (needs filled in before D/C Order can be placed): Home, Self Care 10/24/23 0817<Electronically signed by Jose Jacobo MD>Jose Jacobo MD CC: Dr. Dunia Barnes MD ~ Signed [facility] Work Phone: Evaluation note* Diagnosis Rhus dermatitis- Primary Contact dermatitis and other eczema due to plants (except food) documented in this encounter [facility] note* Diagnosis Pain of left lower extremity- Primary Calf swelling Swelling of limb documented in this encounter [facility] noteNo assessment information availableWMadison Health Work Phone: Evaluation note* Diagnosis Onset Date Resolution Status Abscess of left thigh acute Abscess of left thigh acute [facility] Work Phone: Evaluation note* Diagnosis Onset Date Resolution Status Testicular swelling acute 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 [facility] Work Phone: Evaluation note* Diagnosis Onset Date Resolution Status Testicular swelling acute 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 [facility] Work Phone: Evaluation note* Diagnosis Onset Date Resolution Status Testicular swelling acute 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 [facility] Work Phone: Evaluation note* Diagnosis Onset Date Resolution Status 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 [facility] Work Phone: Evaluation note* Diagnosis Pain of left lower extremity documented in this encounter [facility] for referral (narrative)* Diagnostic Procedure Only (Urgent) - Closed Specialty Diagnoses / Procedures Referred By Contac t Referred To Contact US IMAGING Diagnoses Calf swelling Procedures US DVT LOWER LT DUP-SCAN XTR VEINS UNILATERAL/LIMITED STUDY Machelle Brannon APRN.CNP [id number] [place] [address] Us Imaging Referral ID Status Reason Start Date Expiration Date V isits Requested Visits Authorized [id number] Closed Auto-Generate d Referral 09/04/2022 11/16/2022 1 1 * Outpatient Procedure (Urgent) - Authorized Specialty Diagnoses / Procedures Referred By Contac t Referred To [facility] Diagnoses Calf swelling Procedures US LEG VEIN DVT UNL VAS LAB DUP-SCAN XTR VEINS UNILATERAL/LIMITED STUDY Machelle Brannon APRN.CNP [address] [place] [address] [facility] [address] [place] [address] Referral ID Status Reason Start Date Expiration Date Visits Requested Visits Authorized [id number] Authorized Auto-Generat ed Referral 09/04/2023 1 1 * Diagnostic Procedure Only (Urgent) - Closed Specialty Diagnoses / Procedures Referred By Contac t Referred To Contact XR IMAGING Diagnoses Pain of left lower extremity Procedures XR KNEE GENERAL 4V AP BOTH/PA BOTH/LAT/MERC LEFT RADIOLOGIC EXAM KNEE COMPLETE 4/MORE VIEWS Machelle Brannon APRN.SAS PROGRAMMER [address] [place] [address] Xr Imaging Referral ID Status Reason Start Date Expiration Date V isits Requested Visits Authorized [id number] Closed Auto-Generate d Referral 09/04/2022 10/04/2023 1 1 [facility] for referral (narrative)* Diagnostic Procedure Only (Urgent) - Closed Specialty Diagnoses / Procedures Referred By Contac t Referred To Contact XR IMAGING Diagnoses Pain of left lower extremity Procedures XR KNEE GENERAL 4V AP BOTH/PA BOTH/LAT/MERC LEFT RADIOLOGIC EXAM KNEE COMPLETE 4/MORE VIEWS Machelle Brannon APRN.SAS PROGRAMMER [address] [place] [address] [place] [id number] Referral ID Status Reason Start Date Expiration Date V isits Requested Visits Authorized [id number] Closed Auto-Generate d Referral 09/04/2022 10/04/2023 1 1 [facility] for referral (narrative)No reason for referral information [facility] N[facility]* Diagnostic Procedure Only (Urgent) - Closed Specialty Diagnoses / Procedures Referred By Contac t Referred To Contact US IMAGING Diagnoses Calf swelling Procedures US DVT LOWER LT DUP-SCAN XTR VEINS UNILATERAL/LIMITED STUDY Machelle Brannon APRN.SAS PROGRAMMER [address] [place] [address] Us Imaging Referral ID Status Reason Start Date Expiration Date V isits Requested Visits Authorized [id number] Closed Auto-Generate d Referral 09/04/2022 11/16/2022 1 1 [facility] for visit Narrative* Diagnostic Procedure Only (Urgent) - Closed Specialty Diagnoses / Procedures Referred By Contac t Referred To Contact XR IMAGING Diagnoses Pain of left lower extremity Procedures XR KNEE GENERAL 4V AP BOTH/PA BOTH/LAT/MERC LEFT RADIOLOGIC EXAM KNEE COMPLETE 4/MORE VIEWS Machelle Brannon, MELIZA.SAS PROGRAMMER [address] [place] [address] [place] [address] Referral ID Status Reason Start Date Expiration Date V isits Requested Visits Authorized [id number] Closed Auto-Generate d Referral 09/04/2022 10/04/2023 1 1 [facility] Summary Purpose Family History No Family History Records FoundNo Family History Records FoundNo Family History Records FoundNo Family History Records Found Advance Directives No Advanced Directives Records Found Advance Directive Response Recorded Date/ Time Living Will Yes April 08, 2021 9 :00am Power of [employer] Installer Yes April 08, 2021 9:00am Advance Directive Response Recorded Date/ Time Living Will Yes April 08, 2021 8 :00am Power of [employer] Installer Yes April 08, 2021 8:00am Advance Directive Response Recorded Date/ Time Name of Medical Power of [employer] Installer July 30, 2023 9:09am Living Will Yes July 30, 2023 9:09am Power of [employer] Installer Yes July 9:09am Advance Directive Response Recorded Date/ Time Name of Medical Power of [employer] Installer July 30, 2023 9:09am Living Will Yes August 27 12:33pm Power of [employer] Installer Yes August 27, 2023 12:33pm Advance Directive Response Recorded Date/ Time Name of Medical Power of [employer] Installer July 30, 2023 9:09am Name of Medical Power of [employer] Installer ON FILE August 27, 2023 12:33pm Living Will Yes August 27 12:33pm Power of [employer] Installer Yes August 27, 2023 12:33pm Advance Directive Response Recorded Date/ Time Name of Medical Power of [employer] Installer July 30, 2023 8:09am Name of Medical Power of [employer] Installer ON FILE August 27, 2023 11:33am Living Will Yes August 27 11:33am Power of [employer] Installer Yes August 27, 2023 11:33am Advance Directive Response Recorded Date/ Time Living Will Yes August 27 11:33am Power of [employer] Installer Yes August 27, 2023 11:33am Advance Directive Response Recorded Date/ Time Living Will Yes August 27 12:33pm Power of [employer] Installer Yes August 27, 2023 12:33pm Chief Complaint and Reason for Visit Chief Complaint LEFT KNEE OSTEOARTHR ITIS Chief Complaint BACK LEFT LEG BUMP CONSULT FOR POSS EXCISION OF LEG ABSCESS Excision,2 Sebaceous Cyst on left l Excision,2 Sebaceous Cyst on left l Reason for Visit Abscess of left thig h Abscess of left thigh Chief Complaint BACK LEFT LEG BUMP CONSULT FOR POSS EXCISION OF LEG ABSCESS Excision,2 Sebaceous Cyst on left l Excision,2 Sebaceous Cyst on left l ENLARGED TESTICAL SUTURE REMOVAL Reason for Visit Testicular swelling 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in Chief Complaint BACK LEFT LEG BUMP CONSULT FOR POSS EXCISION OF LEG ABSCESS Excision,2 Sebaceous Cyst on left l Excision,2 Sebaceous Cyst on left l ENLARGED TESTICAL SUTURE REMOVAL Re-Excision, left thigh skin cancer Re-Excision, left thigh skin cancer Reason for Visit Testicular swelling 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in 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in Chief Complaint BACK LEFT LEG BUMP CONSULT FOR POSS EXCISION OF LEG ABSCESS Excision,2 Sebaceous Cyst on left l Excision,2 Sebaceous Cyst on left l ENLARGED TESTICAL SUTURE REMOVAL Re-Excision, left thigh skin cancer Re-Excision, left thigh skin cancer SKIN CANCER 09-09 Reason for Visit Testicular swelling 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in 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in 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in Chief Complaint BACK LEFT LEG BUMP CONSULT FOR POSS EXCISION OF LEG ABSCESS Excision,2 Sebaceous Cyst on left l Excision,2 Sebaceous Cyst on left l ENLARGED TESTICAL SUTURE REMOVAL Re-Excision, left thigh skin cancer Re-Excision, left thigh skin cancer SKIN CANCER 09-09 Personal history of nicotine dependence Reason for Visit Testicular swelling 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in 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in 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in Chief Complaint Excision,2 Sebaceous Cyst on left l Excision,2 Sebaceous Cyst on left l ENLARGED TESTICAL SUTURE REMOVAL Re-Excision, left thigh skin cancer Re-Excision, left thigh skin cancer SKIN CANCER 09-09 Personal history of nicotine dependence BPPV RX HERE Reason for Visit Testicular swelling 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in 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in 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in Chief Complaint SKIN CANCER 09-09 Personal history of nicotine dependence BPPV RX HERE RT KNEE, PREOP *SHANNON PROTOCOL* Reason for Visit Squamous cell carcin claire of other specified sites of skin Chief Complaint Personal history of nicotine dependence BPPV RX HERE RT KNEE, PREOP *SHANNON PROTOCOL* PREOP Chief Complaint Personal history of nicotine dependence BPPV RX HERE RT KNEE, PREOP *SHANNON PROTOCOL* PREOP EORDER Additional Source Comments (unrecognized sect ion and content) No Status Records FoundNo Status Records FoundNo Status Records FoundNo Status Records Found INFORMATION SOURCE (unrecogn ized section and content) DATE CREATED AUTHOR 04/25/2019 [facility] DATE CREATED AUTHOR AUTHOR'S ORGANIZ ATION 09/09/2022 [facility] DATE CREATED AUTHOR AUTHOR'S ORGANIZ ATION 09/09/2022 [facility] DATE CREATED AUTHOR AUTHOR'S ORGANIZ ATION 05/08/2025 [facility] Source Comments (unrecognize d section and content) In the event this informatio n is protected by the Federal Confidentiality of Alcohol and Drug Abuse Patient Records regulations: The Federal rules restrict any use of the information to criminally investigate or prosecute any alcohol or drug abuse patient.[facility] the event this information is protected by the Federal Confidentiality of Alcohol and Drug Abuse Patient Records regulations: The Federal rules restrict any use of the information to criminally investigate or prosecute any alcohol or drug abuse patient.[facility] the event this information is protected by the Federal Confidentiality of Alcohol and Drug Abuse Patient Records regulations: The Federal rules restrict any use of the information to criminally investigate or prosecute any alcohol or drug abuse patient.[facility] the event this information is protected by the Federal Confidentiality of Alcohol and Drug Abuse Patient Records regulations: The Federal rules restrict any use of the information to criminally investigate or prosecute any alcohol or drug abuse patient.[facility] the event this information is protected by the Federal Confidentiality of Alcohol and Drug Abuse Patient Records regulations: The Federal rules restrict any use of the information to criminally investigate or prosecute any alcohol or drug abuse patient.[facility] Reason for Visit (unrecogniz ed section and content) Reason Comments Rash Poison greg on hands, ankles, and private area x 2 weeks Reason Comments Left Knee Pain X 1 month-cannot rec all an injury but has had some work done on knees in the past Reason Comments Results Care Teams (unrecognized sec tion and content) Head Mechanic Relationship Specialty Start Date End Date Dunia Barnes [address] [place], [place] [id number] PCP - General Family Practice 07/05/22 Head Mechanic Relationship Specialty Start Date End Date Dunia Barnes [address] [place] [address] PCP - General Family Medicine 07/05/22 Head Mechanic Relationship Specialty Start Date End Date Dunia Barnes [address] [place] [address] PCP - General Family Medicine 07/05/22 Head Mechanic Relationship Specialty Start Date End Date Dunia Barnes [address] [place] [address] PCP - General Family Medicine 07/05/22 Team Status: Active Member Role Status Dates Dr. Dunia Barnes MD Family Provider Active Dr. Dunia Barnes MD Primary Care Provider Active Team Status: Inactive Member Role Status Dates Dr. Dunia Barnes MD Primary Care Provider Active MANUEL Mcnally Attending Provider Active Team Status: Inactive Member Role Status Dates Dr. Dunia Barnes MD Primary Care Provider, Susan Provider Active Vladimir MCKEON, PA Attending Provider Active Team Status: Inactive Member Role Status Dates Dr. Dunia Barnes MD Primary Care Provider, Referrin g Provider Active Dr. Jose Jacobo MD Attending Provider Active Team Status: Active Member Role Status Dates Dr. Dunia Barnes MD Primary Care Provider Active Dr. Jose Jacobo MD Attending Pr ovider, Referring Provider, Other Provider Active Team Status: Inactive Member Role Status Dates Dr. Dunia Barnes MD Primary Care Provider Active Dr. Jose Jacobo MD Attending Provider, Referr ing Provider Active Team Status: Inactive Member Role Status Dates Dr. Dunia Barnes MD Primary Care Provider, Referrin g Provider Active Saqib Longoria PA PA Attending Provider Active Team Status: Inactive Member Role Status Dates Dr. Dunia Barnes MD Primary Care Provider, Referrin g Provider Active Machelle MCKEON PA-C Attending Provider Active Team Status: Inactive Member Role Status Dates Dr. Dunia Barnes MD Primary Care Provider Active Dr. Clark Stewart MD Attending Provider Active Team Status: Inactive Member Role Status Dates Dr. Dunia Barnes MD Primary Care Provider Active Dr. Lane Lowery MD Attending Provider Active Team Status: Inactive Member Role Status Dates Dr. Dunia Barnes MD Primary Care Provider Active Dr. Lane Lowery MD Attending Provider, Referring Provider Active Team Status: Active Member Role Status Dates Dr. Dunia Barnes MD Primary Care Provider, Attendin g Provider Active Team Status: Inactive Member Role Status Dates Dr. Dunia Barnes MD Primary Care Provider, Attendin g Provider Active Team Status: Inactive Member Role Status Dates Dr. Dunia Barnes MD Primary Care Provider Active Dr. Saqib Aguero MD Attending Provider, Referring P alanis Active Team Status: Active Member Role Status Dates Dr. Dunia Barnes MD Primary Care Provider Active Dr. Kim Montano MD Attending Provider Activ e Dr. Saqib Aguero MD Referring Provider Active Head Mechanic Relationship Specialty Start Date End Date Dunia Barnes [address] [facility] [address] [place] [address] PCP - General Family Medicine 07/05/22 Team Status: Active Member Role Status Dates Dr. Lane Lowery MD Primary Care Provider Active Team Status: Inactive Member Role Status Dates Dr. Lane Lowery MD Primary Care Provider Active Start: January 05, 2025 End: January 05, 20[address] Lowery MD Attending Provider Active Start: January 05, 2025 End: January 05, 20[address]. [address] Lowery MD Referring Provider Active Start: January 05, 2025 End: January 05, 2025 Team Status: Inactive Member Role Status Dates Dr. Lane Lowery MD Primary Care Provider Active Start: April 26, 2025 End: April 26, 20[address]. [address] Lowery MD Attending Provider Active Start: April 26, 2025 End: April 26, 20[address]. [address] Lowery MD Referring Provider Active Start: April 26, 2025 End: April 26, 2025 Goals (unrecognized section and content) Goals may be documented in a n alternate sectionGoals may be documented in an alternate sectionGoals may be documented in an alternate sectionGoals may be documented in an alternate sectionGoals may be documented in an alternate sectionGoals may be documented in an alternate sectionGoals may be documented in an alternate section FOR RECORDS PERTAINING TO PATIENTS WHO ARE [...] BE BASED ON THE PRIMARY CLINICAL RECORDS. [employer] [facility]. provides no warranty or guarantee of the accuracy or completeness of information in this document.
== END | disposition home or self-care (01) ==
LOC: PSN 09:47
PROVIDERS: PCP Family Medicine; Referring Provider Family Medicine; Visit Provider Family Medicine
DX: R06.02 Shortness of breath (principal)
CPT/HCPCS: 94060; 94726; 94729

== ENCOUNTER → 2025-06-06 | Outpatient (CLI) | payer MEDICARE, OTHER, SELFPAY ==
[2025-06-06 09:55] LABS: Mucous, Urine 0 SEEN /hpf (<or=2+); Red Blood Cells-Urine 0 SEEN /hpf (0-5)
--- NOTE | 2025-06-06 10:17 | ECHOD_ITS ---
Reason For Study Reason For Study: SHORTNESS OF BREATH Procedure This was a 2D Doppler, Color Flow transthoracic echocardiogram. Exam performed in department. Left Ventricle Normal LV size. The left ventricular ejection fraction is 65 %. No regional wall motion abnormalities noted. Right Ventricle Normal RV size. Normal systolic function. Atria Normal left atrium. Normal right atrium. Mitral Valve Normal mitral valve. Tricuspid Valve Normal tricuspid valve. Mild tricuspid valve insufficiency. Pulmonary artery systolic pressure is 24 mmHg. Aortic Valve Trisinus/trileaflet aortic valve. Pulmonic Valve Normal pulmonic valve. Great Vessels Normal aortic root. The pulmonary artery is normal size. Inferior vena cava collapse with respiration. Pericardium/Pleural No pericardial effusion. MMode/2D Measurements & Calculations LVIDd: 5.2 cm IVSd: 1.1 cm LVOT diam: 2.1 cm LVIDs: 3.3 cm LVPWd: 0.95 cm LVOT area: 3.6 cm2 RVDd: 4.0 cm FS: 35.2 % asc Aorta Diam: 3.4 cm LAV(MOD-bp): 36.5 ml LVAd ap4: 21.4 cm2 LAV(MOD-bp) Indexed: 18.1 ml/m2 LVLd ap4: 6.8 cm LAV(MOD-sp2): 37.7 ml EDV(MOD-sp4): 57.1 ml LAV(MOD-sp4): 33.9 ml EDV(sp4-el): 57.5 ml LVAs ap4: 11.2 cm2 LVLs ap4: 5.7 cm ESV(MOD-sp4): 18.9 ml ESV(sp4-el): 18.7 ml EF(MOD-sp4): 66.8 % EF(sp4-el): 67.6 % LVAd ap2: 17.6 cm2 SV(MOD-sp4): 38.1 ml SV(MOD-sp2): 22.3 ml LVLd ap2: 6.8 cm SI(MOD-sp4): 18.9 ml/m2 SI(MOD-sp2): 11.0 ml/m2 EDV(MOD-sp2): 38.7 ml EDV(sp2-el): 38.5 ml LVAs ap2: 10.7 cm2 LVLs ap2: 5.8 cm ESV(MOD-sp2): 16.4 ml ESV(sp2-el): 16.9 ml EF(MOD-sp2): 57.6 % SV(sp4-el): 38.8 ml Ao sinus diam: 3.[address] Junction: 2.7 cm LA dimension(2D): 4.0 cm LA A4 area: 14.6 cm2 RA A4 area: 11.3 cm2 TAPSE: 2.1 cm Time Measurements MV dec time: 0.20 sec Doppler Measurements & Calculations MV E max edgar: 61.1 cm/sec Lat Peak E' Edgar: 11.1 cm/sec Med Peak E' Edgar: 8.6 cm/sec MV A max edgar: 53.8 cm/sec E/E' lat: 5.5 E/E' med: 7.1 MV E/A: 1.1 MV dec slope: 301.0 cm/sec2 Ao V2 max: 102.9 cm/sec LV V1 max: 90.3 cm/sec Ao max P.2 mmHg LV V1 max P.3 mmHg Ao V2 mean: 74.3 cm/sec LV V1 mean P.8 mmHg Ao mean P.4 mmHg LV V1 mean: 63.2 cm/sec Ao V2 VTI: 24.0 cm LV V1 VTI: 20.6 cm AV (velocity ratio): 0.86 UZAIR(I,D): 3.1 cm2 UZAIR(V,D): 3.2 cm2 SV(LVOT): 74.3 ml PA V2 max: 88.2 cm/sec TR max edgar: 227.2 cm/sec TR max P.6 mmHg ECHO/Echo Complete Interpretation Summary Normal LV size. The left ventricular ejection fraction is 65 %. Pulmonary artery systolic pressure is 24 mmHg. Mild tricuspid valve insufficiency. Ordering Physician: Lane Lowery Referring Physician: Lane Lowery Performed By: Carie Mcnulty RDCS
[2025-06-06 11:09] LABS: Hematocrit 40.5 % (40-54); Hemoglobin 13.5 g/dL (13.0-16.5); Immature Granulocytes Count 0.020 X10^3/uL (0.0-0.0); Mean Corp Hgb Conc 33.3 g/dL (32-36); Mean Corpuscular Volume 90.0 fL (80-94); Mean Platelet Vol. 10.1 fl (6.2-12.0); NRBC Flagged by Analyzer 0 % (0-5); Platelet Count 202 K/mm3 (150-450); RBC Distribution Width CV 13.3 % (11.6-14.6); RBC Distribution Width SD 43.8 fl (35.1-43.9); Red Blood Count 4.50 M/mm3 (4.6-6.2); White Blood Count 6.4 K/mm3 (4.4-11.0)
[2025-06-06 11:13] LABS: Color, Urine Yellow (Yellow); Glucose, Dipstick Normal (Normal); Ketone-Dipstick Negative (Negative); Leukocyte Esterase-Dipstick Negative /ul (Negative); Nitrite-Dipstick Negative (Negative); Occult Blood-Urine 25 /ul (Negative); Protein-Dipstick Negative (Negative); Specific Gravity, Urine 1.010 (1.002-1.030); Urine Bilirubin Dipstick Negative (Negative)
[2025-06-06 11:20] LABS: Squamous Epithelial Cells - UA 0-5 SEEN /hpf (0-5)
[2025-06-06 11:27] LABS: Creatinine, Urine (random) 57.40 mg/dL (39.00-259.00); Protein, Urine (Random) < 6.0 mg/dL (0.0-12.0); Protein:Creat Ratio UNABLE TO CALCULATE mg/g CRE (0-200)
[2025-06-06 12:04] LABS: AST(SGOT) 19 U/L (<=37); Alanine Aminotransfer ALT/SGPT 14 U/L (<=46); Albumin, Serum 4.0 g/dL (3.4-4.8); Alkaline Phosphatase 59 U/L (40-129); Anion Gap 11 (5-15); BUN 24 mg/dL (4-19); BUN/Creat Ratio 17.6 RATIO (10-20); Calcium,Total 9.4 mg/dL (7.6-11.0); Carbon Dioxide 22.4 mmol/L (21.0-32.0); Chloride 105 mmol/L (98-108); Cholesterol 164 mg/dL (<=200); Globulin 2.6 g/dL (2.2-4.2); Glucose 94 mg/dL (70-99); Low Density Lipoprotein Calc. 85 mg/dL; Magnesium 2.1 mg/dL (1.5-2.2); Potassium 4.2 mmol/L (3.3-5.1); Triglycerides 99 mg/dL; Very Low Density Lipoprotein 20 mg/dL (5-40); cholesterol:hdl ratio screen 2.79
--- OUTSIDE RECORDS SUMMARY | 2025-06-06 19:40 | XMS RPT_ITS | CCD ---
Author Organization [facility] Care Team Providers Care [place] Counselor Name Role Phone Dunia Barnes Primary Care Provider [phone] MACHELLE BRANNON Referring Unavailable YOKO, DUNIA GUO Primary Care Unavailable YOKO, DUNIA GUO Primary Care Unavailable YOKO, DUNIA GUO Primary Care Unavailable YOKO, DUNIA GUO Primary Care Unavailable Dr. Dunia Barnes Primary Care Provider Dr. Dunia Barnes Referring Provider [phone] LINDA Farrar Attending Provider Dr. Jose Jacobo Attending Provider Dr. Jose Jacobo Referring Provider Dr. Jose Jacobo Other Provider LINDA Farrar Attending Provider LINDA Louis Attending Provider KIERSTEN Mcbride Attending Provider Dr. Dunia Barnes Primary Care Provider Dr. Dunia Barnes Referring Provider LINDA Farrar Attending Provider Dr. Jose Jacobo Attending Provider Dr. Jose Jacobo Referring Provider Dr. Jose Jacobo Other Provider LINDA Louis Attending Provider KIERSTEN Mcbride Attending Provider Dr. Dunia Barnes Primary Care Provider Dr. Jose Jacobo Attending Provider Dr. Dunia Barnes Referring Provider [phone] Dr. Dunia Barnes Primary Care Provider Dr. Dunia Barnes Referring Provider Dr. Jose Jacobo Attending Provider Dr. Dunia Barnes Primary Care Provider Dr. Kim Montano Attending Provider Dr. Saqib Aguero Referring Provider Dunia Barnes Primary Care Provider [phone] Beverley CARRERA, Dr. Lane Boswell Primary Care Provider Beverley CARRERA, Dr. Lane Boswell Attending Provider [phone] Beverley CARRERA, Dr. Lane Boswell Referring Provider Beverley CARRERA, Dr. Lane Boswell Primary Care Provider Beverley CARRERA, Dr. Lane Boswell Attending Provider Beverley CARRERA, Dr. Lane Boswell Referring Provider [phone] Lane Lowery Primary Care Unavailable Lane Lowery Attending Unavailable Lane Lowery Referring Unavailable Lane Lowery Primary Care Unavailable Lane Lowery Attending Unavailable Lane Lowery Referring Unavailable Lane Lowery Primary Care Unavailable Lane Lowery Attending Unavailable Lane Lowery Referring Unavailable Lane Lowery Primary Care Unavailable Clark Stewart Attending Unavailable Clark Stewart Referring Unavailable Lane Lowery Primary Care Unavailable Lane Lowery Attending Unavailable Lane Lowery Primary Care Unavailable Lane Lowery Attending Unavailable Lane Lowery Referring Unavailable Allergies Allergy Classification Reported Allergen(s) Allergy Type Date of Onset Reaction(s) Facility (20 sources) Codeine; Translations: [CODEINE] Drug Allergy 2 Rash, GI Upset [facility] Work Phone: (1 source) Codeine Drug Allergy 11-07-202 3 [facility] Repository Medications Current Medications Medication Drug [...] once daily. atenolol 25 mg oral tablet (20 sources) beta-Adrenergic Aminta Start: 06-25-2012 take 1 tablet by mouth at bedtime Atenolol 25 MG tablet Active 25 mg PO AT BEDTIME November 10, 2014 1:00am Comment on above: Take 25 mg by mouth once daily. atorvastatin 20 mg oral tablet (20 sources) HMG-CoA Reductase Inhibitor Start: 06-25-2012 take [...] esomeprazole 40 mg delayed release oral capsule (20 sources) Proton Pump Inhibitor Start: 06-25-2012 take 1 capsule by mouth once daily Esomeprazole Magnesium (Nexium) 40 MG capsule Active 40 mg PO DAILY November 10, 2014 1:00am Comment on above: Take 1 capsule by [facility] daily before breakfast. 1/2 hr before meal. finasteride 5 mg oral tablet (12 sources) 5-alpha Reductase Inhibitor Start: 07-30-2023 take [...] by mouth. lisinopril 10 mg oral tablet (12 sources) Angiotensin Converting Enzyme Inhibitor Start: 07-30-2023 [...] 12:00am oxyCODONE hydrochloride 5 mg oral tablet (10 sources) Opioid Agonist Start: 09-09-20 take 5-10 mg by mouth every six hours as needed for pain Oxycodone 5 mg tablet Active 5 - 10 mg PO EVERY 6 HOURS as needed for pain 10 5 0 September 09, 2023 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in Squamous cell carcinoma of skin, unspecified Povidone (Pf) (Ivizia (Pf)) 0.5 % drops (12 sources) Start: 07-30-20 Povidone (Pf) (Ivizia (Pf)) 0.5 % drops [...] (Original) doxycycline hyclate 100 mg oral capsule (12 sources) Tetracycline-cla ss Drug Start: 07-11-2023 End: 07-21-2023 take 1 capsule by mouth twice daily Doxycycline Hyclate 100 mg capsule Discontinued 100 mg PO TWICE A DAY 20 10 0 July 11, 2023 12:00am July 20, 2023 12:00am July 21, 2023 12:04am Acute sinusitis, unspecified Problems Active Problems Problem Classification Problem Date [...] of breath; Translations: [Shortness of breath] Onset: 05-16-2025 Episodic Other male genital disorders (11 sources) Swelling of testicle; Translations: [Other specified disorders of the male genital organs] 08-11-2023 Episodic Other male genital disorders (6 sources) Other specified disorders of the male genital organs; Translations: [Edema of male genital organs] 08-11-2023 Episodic Other non-epithelial cancer of skin (20 sources) Squamous cell carcinoma of skin; Translations: [Squamous cell carcinoma of skin, unspecified] 08-13-2023 Episodic Other non-traumatic joint disorders (15 sources) Effusion of joint of left knee; Translations: [Effusion, left knee] 04-08-2021 Episodic Other non-traumatic joint disorders (15 sources) Pain in left knee; Translations: [Acute pain of left knee] 04-08-2021 Episodic Other upper respiratory disease (5 sources) Chronic rhinitis; Translations: [Chronic rhinitis] Onset: 09-12-2014 09-12-2014 Chronic Skin and subcutaneous tissue infections (14 sources) Abscess of left thigh; Translations: [Cutaneous [...] Auto (Unsp spec) [#/Vol] 2.45 10*3/uL 0.83-4.51 [facility] Absolute neutrophil countOrd ered By: Lane Lowery on 04-26-2025 Neutrophils (Bld) [#/Vol] 2.6 10*3/uL 2.0-7.7 [facility] Anion gap in Serum or Plasma Ordered By: Lane Lowery on 04-26-2025 Anion gap [Moles/Vol] 10 mmol/L 5-15 [facility] Automated lymphocyte count a s percentage of total leukocytesOrdered By: Lane Lowery on 04-26-2025 Lymphocytes/100 WBC Auto (Unsp spec) 43.4 % High 19-41 [facility] BUN/creatinine ratioOrdered By: Lane Lowery on 04-26-2025 Urea nitrogen/Creatinine [Mass ratio] 12.7 mg/mg 10-20 [facility] Basophil percentageOrdered B y: Lane Lowery on 04-26-2025 Basophils/100 WBC (Bld) 0.9 % 0-1 [facility] Bilirubin, totalOrdered By: Lane Lowery on 04-26-2025 Bilirubin [Mass/Vol] 0.91 mg/dL 0.00-1.30 [facility] CBC W/Diff, Automatedon 04-17 0-2024 Absolute Lymph 2.45 X10 3/uL Normal 0.83-4.51 [facility] Comment on above: Order Comment: CLEAN CATCH Performed By: #### L [id number], [id number] #### [facility] [address] [place], [address] Absolute Neut 2.6 X10 3/uL Normal 2.0-7.7 [facility] Comment on above: Order Comment: CLEAN CATCH Performed By: #### L [id number], [id number] #### [facility] [address] [place], [address] Basophils/100 WBC (Bld) 0.9 % Normal 0-1 [facility] Comment on above: Order Comment: CLEAN CATCH Performed By: #### L [id number], [id number] #### [facility] [address] [place], [address] Eosinophils/100 WBC (Bld) 1.9 % Normal 0-5 [facility] Comment on above: Order Comment: CLEAN CATCH Performed By: #### L [id number], [id number] #### [facility] [address] [place], [address] Erythrocyte distribution width (RBC) [Ratio] 13.6 % Normal 11.6-14.6 [facility] Comment on above: Order Comment: CLEAN CATCH Performed By: #### L [id number], [id number] #### [facility] [address] [place], [address] Hematocrit (Bld) [Volume fraction] 44.9 % Normal 40-54 [facility] Comment on above: Order Comment: CLEAN CATCH Performed By: #### L [id number], [id number] #### [facility] [address] [place], [address] Hemoglobin (Bld) [Mass/Vol] 14.8 g/dL Normal 13.0-16.5 [facility] Comment on above: Order Comment: CLEAN CATCH Performed By: #### L [id number], [id number] #### [facility] [address] [place], [address] IG% 0.200 Normal 0.0-0.9 [facility] Comment on above: Order Comment: CLEAN CATCH Result Comment: IG% - Immature Granulocytes (promyelocytes, myelocytes and metamyelocytes) > 1% indicates that a LEFT SHIFT is Present. Performed By: #### L [id number], [id number] #### [facility] [address] [place], [address] Lymphocytes/100 WBC (Bld) 43.4 % High 19-41 [facility] Comment on above: Order Comment: CLEAN CATCH Performed By: #### L [id number], [id number] #### [facility] [address] [place], [address] MCH (RBC) [Entitic mass] 30.0 pg Normal 27.0-32.0 [facility] Comment on above: Order Comment: CLEAN CATCH Performed By: #### L [id number], [id number] #### [facility] [address] [place], [address] MCHC (RBC) [Mass/Vol] 33.0 g/dL Normal 32-36 [facility] Comment on above: Order Comment: CLEAN CATCH Performed By: #### L [id number], [id number] #### [facility] [address] [place], [address] MCV (RBC) [Entitic vol] 90.9 fL Normal 80-94 [facility] Comment on above: Order Comment: CLEAN CATCH Performed By: #### L [id number], [id number] #### [facility] [address] [place], [address] Monocytes/100 WBC (Bld) 7.4 % Normal 0-10 [facility] Comment on above: Order Comment: CLEAN CATCH Performed By: #### L [id number], [id number] #### [facility] [address] [place], [address] Neutrophils/100 WBC (Bld) 46.2 % Low 47-70 [facility] Comment on above: Order Comment: CLEAN CATCH Performed By: #### L 501.0900, [id number] #### [facility] [address] [place], [address] Nucleated RBC (Bld) [#/Vol] 0 10*3/uL Normal 0-5 [facility] Comment on above: Order Comment: CLEAN CATCH Performed By: #### L [id number], [id number] #### [facility] [address] [place], [address] Platelet mean volume (Bld) [Entitic vol] 10.1 fL Normal 6.2-12.0 [facility] Comment on above: Order Comment: CLEAN CATCH Performed By: #### L 501.0900, [id number] #### [facility] [address] [place], [address] Platelets (Bld) [#/Vol] 217 10*3/uL Normal 150-450 [facility] Comment on above: Order Comment: CLEAN CATCH Performed By: #### L 501.0900, [id number] #### [facility] [address] [place], [address] RBC (Bld) [#/Vol] 4.94 10*6/uL Normal 4.6-6.2 [facility] Comment on above: Order Comment: CLEAN CATCH Performed By: #### L [id number], [id number] #### [facility] [address] [place], [address] RDW SD 45.4 fl High 35.1-43.9 [facility] Comment on above: Order Comment: CLEAN CATCH Performed By: #### L [id number], [id number] #### [facility] [address] [place], [address] WBC (Bld) [#/Vol] 5.7 10*3/uL Normal 4.4-11.0 [facility] Comment on above: Order Comment: CLEAN CATCH Performed By: #### L 501.0900, [id number] #### [facility] [address] [place], [address] Calculated very low density lipoprotein (VLDL) cholesterol measurementOrdered By: Lane Lowery on 04-26-2025 Calculated very low density lipoprotein (VLDL) cholesterol measurement 30 mg/dL 5-40 [facility] Carbon dioxide, total [Moles /volume] in Central venous bloodOrdered By: Lane Lowery on 04-26-2025 CO2 [Moles/Vol] 23.6 mmol/L 21.0-32.0 [facility] Chloride assayOrdered By: Claudia Lowery on 04-26-2025 Chloride [Moles/Vol] 106 mmol/L 98-108 [facility] Comprehensive Metabolic Prof ilon 04-26-2025 Albumin [Mass/Vol] 4.2 g/dL Normal 3.4-4.8 [facility] Comment on above: Order Comment: CLEAN CATCH Performed By: #### L [id number], [id number] #### [facility] [address] [place], [address] Albumin/Globulin [Mass ratio] 1.4 {ratio} Normal 0.9-2.4 [facility] Comment on above: Order Comment: CLEAN CATCH Performed By: #### L 501.0900, [id number] #### [facility] [address] [place], [address] ALK PHOS 57 U/L Normal 40-129 [facility] Comment on above: Order Comment: CLEAN CATCH Performed By: #### L 501.0900, [id number] #### [facility] [address] [place], [address] ALT [Catalytic activity/Vol] 17 U/L Normal <=46 [facility] Comment on above: Order Comment: CLEAN CATCH Performed By: #### L 501.0900, [id number] #### [facility] [address] [place], [address] AST [Catalytic activity/Vol] 24 U/L Normal <=37 [facility] Comment on above: Order Comment: CLEAN CATCH Performed By: #### L 501.0900, [id number] #### [facility] [address] [place], [address] Bilirubin [Mass/Vol] 0.91 mg/dL Normal 0.00-1.30 [facility] Comment on above: Order Comment: CLEAN CATCH Performed By: #### L 501.0900, [id number] #### [facility] [address] [place], [address] BUN/CRE 12.7 RATIO Normal 10-20 [facility] Comment on above: Order Comment: CLEAN CATCH Performed By: #### L [id number], [id number] #### [facility] [address] [place], [address] Calcium [Mass/Vol] 9.7 mg/dL Normal 7.6-11.0 [facility] Comment on above: Order Comment: CLEAN CATCH Performed By: #### L [id number], [id number] #### [facility] [address] [place], [address] Chloride [Moles/Vol] 106 mmol/L Normal 98-108 [facility] Comment on above: Order Comment: CLEAN CATCH Performed By: #### L [id number], [id number] #### [facility] [address] [place], [address] CO2 [Moles/Vol] 23.6 mmol/L Normal 21.0-32.0 [facility] Comment on above: Order Comment: CLEAN CATCH Performed By: #### L 501.0900, [id number] #### [facility] [address] [place], [address] Creatinine [Mass/Vol] 1.42 mg/dL High 0.70-1.20 [facility] Comment on above: Order Comment: CLEAN CATCH Performed By: #### L 501.0900, [id number] #### [facility] [address] [place], [address] GAP 10 Normal 5-15 [facility] Comment on above: Order Comment: CLEAN CATCH Performed By: #### L [id number], [id number] #### [facility] [address] [place], [address] GFR/1.73 sq M.predicted among non-blacks MDRD (S/P/Bld) [Vol rate/Area] 52 mL/min/{1.73_m2} Low >60 [facility] Comment on above: Order Comment: CLEAN CATCH Result Comment: mL/m in/1.73m2 CKD-EPI Creatinine Equation (2020) Performed By: #### L 501.0900, [id number] #### [facility] [address] [place], [address] Globulin (S) [Mass/Vol] 3.0 g/dL Normal 2.2-4.2 [facility] Comment on above: Order Comment: CLEAN CATCH Performed By: #### L [id number], [id number] #### [facility] [address] [place], [address] Glucose [Mass/Vol] 105 mg/dL High 70-99 [facility] Comment on above: Order Comment: CLEAN CATCH Performed By: #### L [id number], [id number] #### [facility] [address] [place], [address] Potassium [Moles/Vol] 4.2 mmol/L Normal 3.3-5.1 [facility] Comment on above: Order Comment: CLEAN CATCH Performed By: #### L [id number], [id number] #### [facility] [address] [place], [address] Sodium [Moles/Vol] 140 mmol/L Normal 133-145 [facility] Comment on above: Order Comment: CLEAN CATCH Performed By: #### L 501.0900, [id number] #### [facility] [address] [place], [address] T PROT 7.2 g/dL Normal 5.9-8.4 [facility] Comment on above: Order Comment: CLEAN CATCH Performed By: #### L 501.0900, [id number] #### [facility] [address] [place], [address] Urea nitrogen [Mass/Vol] 18 mg/dL Normal 4-19 [facility] Comment on above: Order Comment: CLEAN CATCH Performed By: #### L [id number], [id number] #### [facility] [address] [place], [address] Eosinophil percentageOrdered By: Lane Lowery on 04-26-2025 Eosinophils/100 WBC (Bld) 1.9 % 0-5 [facility] Erythrocyte distribution wid th ratioOrdered By: Lane Lowery on 04-26-2025 Erythrocyte distribution width (RBC) [Ratio] 13.6 % 11.6-14.6 [facility] Erythrocyte distribution wid th standard deviationOrdered By: Lane Lowery on 04-26-2025 Erythrocyte distribution width (RBC) [Ratio] 45.4 fl High 35.1-43.9 [facility] Glomerular filtration rate ( GFR) estimation/1.73 sq m using serum, plasma, or whole bOrdered By: Lane Lowery on 04-26-2025 GFR/1.73 sq M.predicted among non-blacks MDRD (S/P/Bld) [Vol rate/Area] 52 mL/min/{1.73_m2} Low >60 [facility] Comment on above: mL/min/1.73m2 CKD-EP I Creatinine Equation (2020) Hematocrit Auto (Bld) [Volum e fraction]Ordered By: Lane Lowery on 04-26-2025 Hematocrit (Bld) [Volume fraction] 44.9 % 40-54 [facility] Hemoglobin measurementOrdere d By: Lane Lowery on 04-26-2025 Hemoglobin (Bld) [Mass/Vol] 14.8 g/dL 13.0-16.5 [facility] Immature granulocytes/100 WB C Auto (Bld)Ordered By: Lane Lowery on 04-26-2025 Immature granulocytes/100 WBC (Bld) 0.200 % 0.0-0.9 [facility] Comment on above: IG% - Immature Granu locytes (promyelocytes, myelocytes and metamyelocytes) > 1% indicates that a LEFT SHIFT is Present. LDL calc ser/plasOrdered By: Lane Lowery on 04-26-2025 Cholesterol in LDL [Mass/Vol] 97 mg/dL [facility] Comment on above: Mdenjxzauu=182-117 m g/dL & Higher Wjft=019 mg/dL or greater Laboratory - Chemistry and C hemistry - challengeOrdered By: Lane Lowery on 04-26-2025 AST [Catalytic activity/Vol] 24 U/L <38 [facility] Lipid Profileon 04-26-2025 CHOL:HDL 3.71 Normal [facility] Comment on above: Order Comment: CLEAN CATCH Performed By: #### L 501.0900, [id number] #### [facility] [address] [place], [place], [address] Cholesterol [Mass/Vol] 174 mg/dL Normal <=200 [facility] Comment on above: Order Comment: CLEAN CATCH Result Comment: Chol esterol level, Desirable <200 mg/dL Borderline high cholesterol 200-239 mg/dL High cholesterol >=240 mg/dL Recommendations of the NCEP Adult Treatment Panel for the following risk-cutoff thresholds for the [place] population. Performed By: #### L 501.0900, [id number] #### [facility] [address] [place], [address] Cholesterol in HDL [Mass/Vol] 47 mg/dL Normal [facility] Comment on above: Order Comment: CLEAN CATCH Result Comment: Maria C onal Cholesterol Education Program (NCEP) guidelines: <40 mg/dL: Low HDL-cholesterol (major risk factor for CHD) >= 60 mg/dL: High HDL-cholesterol (negative risk factor for CHD) HDL-cholesterol is affected by a number of factors, e.g. smoking, exercise, hormones, sex and age. Performed By: #### L [id number], [id number] #### [facility] [address] [facility] [address] Cholesterol in LDL [Mass/Vol] 97 mg/dL Normal [facility] Comment on above: Order Comment: CLEAN CATCH Result Comment: Bord qreapn=915-690 mg/dL Higher Pzbe=447 mg/dL or greater Performed By: #### L 501.0900, [id number] #### [facility] [address] [place], [address] Cholesterol in VLDL [Mass/Vol] 30 mg/dL Normal 5-40 [facility] Comment on above: Order Comment: CLEAN CATCH Performed By: #### L 501.0900, [id number] #### [facility] [address] [place], [address] Triglyceride [Mass/Vol] 151 mg/dL Normal [facility] Comment on above: Order Comment: CLEAN CATCH Result Comment: The drugs N-Acetylcysteine and Metamizole may falsely depress this assay. Normal range: <150 mg/dL Borderline High: 150-199 mg/dL High: 200-499 mg/dL Very High: >500 mg/dL Performed By: #### L 501.0900, [id number] #### [facility] [address] [place], [address] MCV (mean corpuscular volume ) determinationOrdered By: Lane Lowery on 04-26-2025 MCV (RBC) [Entitic vol] 90.9 fL 80-94 [facility] Mean corpuscular hemoglobin (MCH) determinationOrdered By: Lane Lowery on 04-26-2025 MCH (RBC) [Entitic mass] 30.0 pg 27.0-32.0 [facility] Mean corpuscular hemoglobin concentration (MCHC) determinationOrdered By: Lane Lowery on 04-26-2025 MCHC (RBC) [Mass/Vol] 33.0 g/dL 32-36 [facility] Mean platelet volume determi nationOrdered By: Lane Lowery on 04-26-2025 Platelet mean volume (Bld) [Entitic vol] 10.1 fL 6.2-12.0 [facility] Monocyte percentageOrdered B y: Lane Lowery on 04-26-2025 Monocytes/100 WBC (Bld) 7.4 % 0-10 [facility] Neutrophil percentageOrdered By: Lane Lowery on 04-26-2025 Neutrophils/100 WBC (Bld) 46.2 % Low 47-70 [facility] Nucleated red blood cell per centageOrdered By: Lane Lowery on 04-26-2025 Nucleated RBC/100 WBC (Bld) [Ratio] 0 % 0-5 [facility] PTHINon 04-26-2025 PTH 18 pg/mL Normal 11-61 [facility] Comment on above: Order Comment: CLEAN CATCH Performed By: #### L 501.0900, [id number] #### [facility] [address] [place], [address] Platelet countOrdered By: Claudia Lowery on 04-26-2025 Platelets (Bld) [#/Vol] 217 10*3/uL 150-450 [facility] Potassium measurement (mass/ volume)Ordered By: Lane Lowery on 04-26-2025 Potassium (Unsp spec) [Mass/Vol] 4.2 mmol/L 3.3-5.1 [facility] RBC Auto (Bld) [#/Vol]Ordere d By: Lane Lowery on 04-26-2025 RBC (Bld) [#/Vol] 4.94 10*6/uL 4.6-6.2 [facility] Screening total cholesterol/ high density lipoprotein (HDL) cholesterol ratioOrdered By: Lane Lowery on 04-26-2025 Cholesterol.total/Choles terol in HDL [Mass ratio] 3.71 {ratio} [facility] Serum creatinine measurement (mass/volume)Ordered By: Lane Lowery on 04-26-2025 Creatinine [Mass/Vol] 1.42 mg/dL High 0.70-1.20 [facility] Serum globulin measurementOr dered By: Lane Lowery on 04-26-2025 Globulin (S) [Mass/Vol] 3.0 g/dL 2.2-4.2 [facility] Serum glucose measurement (m ass/volume)Ordered By: Lane Lowery on 04-26-2025 Glucose [Mass/Vol] 105 mg/dL High 70-99 [facility] Serum or plasma alanine mi otransferase (ALT) measurementOrdered By: Lane Lowery on 04-26-2025 ALT [Catalytic activity/Vol] 17 U/L <47 [facility] Serum or plasma albumin deepa urement (mass/volume)Ordered By: Lane Lowery on 04-26-2025 Albumin [Mass/Vol] 4.2 g/dL 3.4-4.8 [facility] Serum or plasma albumin/glob ulin mass ratioOrdered By: Lane Lowery on 04-26-2025 Albumin/Globulin [Mass ratio] 1.4 {ratio} 0.9-2.4 [facility] Serum or plasma alkaline kip sphatase measurementOrdered By: Lane Lowery on 04-26-2025 ALP [Catalytic activity/Vol] 57 U/L 40-129 [facility] Serum or plasma calcium deepa urement (mass/volume)Ordered By: Lane Lowery on 04-26-2025 Calcium [Mass/Vol] 9.7 mg/dL 7.6-11.0 [facility] Serum or plasma cholesterol in HDL measurement (mass/volume)Ordered By: Lane Lowery on 04-26-2025 Cholesterol in HDL [Mass/Vol] 47 mg/dL >40 [facility] Comment on above: National Cholesterol Education Program (NCEP) guidelines:<40 mg/dL: Low HDL-cholesterol (major risk factor for CHD)>= 60 mg/dL: High HDL-cholesterol (negative risk factor for CHD)HDL-cholesterol is affected by a number of factors, e.g. smoking, exercise, hormones, sex and age. Serum or plasma cholesterol measurement (mass/volume)Ordered By: Lane Lowery on 04-26-2025 Cholesterol [Mass/Vol] 174 mg/dL <201 [facility] Comment on above: Cholesterol level, D esirable <200 mg/dLBorderline high cholesterol 200-239 mg/dLHigh cholesterol >=240 mg/dLRecommendations of the NCEP Adult Treatment Panel for the following risk-cutoff thresholds for the [place] population. Serum or plasma urea nitroge n measurement (mass/volume)Ordered By: Lane Lowery on 04-26-2025 Urea nitrogen [Mass/Vol] 18 mg/dL 4-19 [facility] Sodium levelOrdered By: Lane Lowery on 04-26-2025 Sodium [Moles/Vol] 140 mmol/L 133-145 [facility] Total proteinOrdered By: Alexx Lowery on 04-26-2025 Protein [Mass/Vol] 7.2 g/dL 5.9-8.4 [facility] Triglycerides measurementOrd ered By: Lane Lowery on 04-26-2025 Triglyceride [Mass/Vol] 151 mg/dL <199 [facility] Comment on above: The drugs N-Acetylcy steine and Metamizole may falsely depress this assay. Normal range: <150 mg/dLBorderline High: 150-199 mg/dLHigh: 200-499 mg/dLVery High: >500 mg/dL Vitamin D,25 Hydroxyon 04-26 Vitamin D 25-OH 39.2 ng/mL Normal 30-100 [facility] Comment on above: Order Comment: Order Date: 04/26/25 Order Info: [id number] - CMP Order Info: [id number] - LIPID Result Comment: Linda min D Status Deficiency: <20 ng/mL (50nmol/L) Insufficiency: 20-30 ng/mL (50-75 nmol/L) Sufficiency: 30-100 ng/mL (75-250 nmol/L) Toxicity: >100 ng/mL (>250 nmol/L) Performed By: #### L 506.1001 #### [facility] [address] [place], [address] White blood cell (WBC) count Ordered By: Lane Lowery on 04-26-2025 WBC (Bld) [#/Vol] 5.7 10*3/uL 4.4-11.0 [facility] Basic Metabolic Profile (BMP )on 01-05-2025 BUN/CRE 11.3 RATIO Normal 10-20 [facility] Comment on above: Order Comment: CLEAN CATCH Performed By: #### L 501.0900, L400.0001 #### [facility] [address] [place], [address] CA,Total 9.2 mg/dL Normal 8.5-10.1 [facility] Comment on above: Order Comment: CLEAN CATCH Performed By: #### L 501.0900, L400.0001 #### [facility] [address] [place], [address] Chloride [Moles/Vol] 104 mmol/L Normal 98-107 [facility] Comment on above: Order Comment: CLEAN CATCH Performed By: #### L 501.0900, L400.0001 #### [facility] [address] [place], [address] CO2 [Moles/Vol] 28.0 mmol/L Normal 21.0-32.0 [facility] Comment on above: Order Comment: CLEAN CATCH Performed By: #### L 501.0900, L400.0001 #### [facility] [address] [place], [address] Creatinine [Mass/Vol] 1.42 mg/dL High 0.70-1.30 [facility] Comment on above: Order Comment: CLEAN CATCH Result Comment: The validity of the calculated GFR GFRAA in patients over 70 years has not been determined. Clinical correlation is essential. Performed By: #### L 501.0900, L400.0001 #### [facility] [address] [place], [address] EST GFR - AA 63 mL/min Normal >60 [facility] Comment on above: Order Comment: CLEAN CATCH Result Comment: Afri can Citizen [place] GFR Calc Performed By: #### L 501.0900, L400.0001 #### [facility] [address] [place], [address] GAP 6 Normal 5-15 [facility] Comment on above: Order Comment: CLEAN CATCH Performed By: #### L 501.0900, L400.0001 #### [facility] [address] [place], [address] GFR/1.73 sq M.predicted among non-blacks MDRD (S/P/Bld) [Vol rate/Area] 52 mL/min/{1.73_m2} Low >60 [facility] Comment on above: Order Comment: CLEAN CATCH Result Comment: Non- GFR Calc Performed By: #### L 501.0900, L400.0001 #### [facility] [address] [place], [address] Glucose [Mass/Vol] 89 mg/dL Normal 74-106 [facility] Comment on above: Order Comment: CLEAN CATCH Performed By: #### L 501.0900, [id number] #### [facility] [address] [place], [address] Potassium [Moles/Vol] 4.0 mmol/L Normal 3.5-5.1 [facility] Comment on above: Order Comment: CLEAN CATCH Performed By: #### L 501.0900, [id number] #### [facility] [address] [place], [address] Sodium [Moles/Vol] 138 mmol/L Normal 136-145 [facility] Comment on above: Order Comment: CLEAN CATCH Performed By: #### L 501.0900, L400.0001 #### [facility] [address] [place], [address] Urea nitrogen [Mass/Vol] 16 mg/dL Normal 7-18 [facility] Comment on above: Order Comment: CLEAN CATCH Performed By: #### L 501.0900, [id number] #### [facility] [address] [place], [address] Blood urea nitrogen (BUN)/cr eatinine ratioOrdered By: Lane Lowery on 01-05-2025 Urea nitrogen/Creatinine [Mass ratio] 11.3 mg/mg 10-20 [facility] Carbon dioxide measurementOr dered By: Lane Lowery on 01-05-2025 CO2 [Moles/Vol] 28.0 mmol/L 21.0-32.0 [facility] Chloride measurementOrdered By: Lane Lowery on 01-05-2025 Chloride [Moles/Vol] 104 mmol/L 98-107 [facility] Glomerular filtration rate ( GFR) estimationOrdered By: Lane Lowery on 01-05-2025 GFR/1.73 sq M.predicted among non-blacks MDRD (S/P/Bld) [Vol rate/Area] 52 mL/min/{1.73_m2} Low >60 [facility] Comment on above: Non- GFR Calc Glucose measurementOrdered B y: Lane Lowery on 01-05-2025 Glucose [Mass/Vol] 89 mg/dL 74-106 [facility] Potassium measurementOrdered By: Lane Lowery on 01-05-2025 Potassium [Moles/Vol] 4.0 mmol/L 3.5-5.1 [facility] Serum anion gap measurementO rdered By: Lane Lowery on 01-05-2025 Anion gap [Moles/Vol] 6 mmol/L 03-31 [facility] Serum or plasma calcium deepa urement (mass/volume)Ordered By: Lane Lowery on 01-05-2025 Calcium [Mass/Vol] 9.2 mg/dL 8.5-10.1 [facility] Serum or plasma creatinine m easurement (mass/volume)Ordered By: Lane Lowery on 01-05-2025 Creatinine [Mass/Vol] 1.42 mg/dL High 0.70-1.30 [facility] Comment on above: The validity of the calculated GFR & GFRAA in patients over 70 years has not been determined. Clinical correlation is essential. Serum or plasma urea nitroge n measurement (mass/volume)Ordered By: Lane Lowery on 01-05-2025 Urea nitrogen [Mass/Vol] 16 mg/dL 06-03 [facility] Sodium levelOrdered By: Lane Lowery on 01-05-2025 Sodium [Moles/Vol] 138 mmol/L 136-145 [facility] Comprehensive Metabolic Prof ilon 12-28-2024 Albumin [Mass/Vol] 3.6 g/dL Normal 3.2-5.0 [facility] Comment on above: Order Comment: CLEAN CATCH Performed By: #### L 501.0900, [id number] #### [facility] [address] [facility] [facility] [address] Albumin/Globulin [Mass ratio] 1.0 {ratio} Normal 0.9-2.4 [facility] Comment on above: Order Comment: CLEAN CATCH Performed By: #### L 501.0900, [id number] #### [facility] [address] [place], [address] ALK P 58 U/L Normal 45-117 [facility] Comment on above: Order Comment: CLEAN CATCH Performed By: #### L 501.0900, [id number] #### [facility] [address] [place], [address] ALT [Catalytic activity/Vol] 18 U/L Normal 16-61 [facility] Comment on above: Order Comment: CLEAN CATCH Performed By: #### L 501.0900, [id number] #### [facility] [address] [place], [address] AST [Catalytic activity/Vol] 16 U/L Normal 15-37 [facility] Comment on above: Order Comment: CLEAN CATCH Performed By: #### L 501.0900, [id number] #### [facility] [address] [place], [address] Bilirubin [Mass/Vol] 0.90 mg/dL Normal 0.20-1.00 [facility] Comment on above: Order Comment: CLEAN CATCH Result Comment: For patients on eltrombopag therapy, use of Dimension [place] TBIL is not recommended. Performed By: #### L 501.0900, [id number] #### [facility] [address] [place], [address] BUN/CRE 14.2 RATIO Normal 10-20 [facility] Comment on above: Order Comment: CLEAN CATCH Performed By: #### L 501.0900, L400.0001 #### [facility] [address] [place], [address] CA,Total 9.6 mg/dL Normal 8.5-10.1 [facility] Comment on above: Order Comment: CLEAN CATCH Performed By: #### L 501.0900, [id number] #### [facility] [address] [place], [address] Chloride [Moles/Vol] 105 mmol/L Normal 98-107 [facility] Comment on above: Order Comment: CLEAN CATCH Performed By: #### L 501.0900, [id number] #### [facility] [address] [place], [address] CO2 [Moles/Vol] 27.0 mmol/L Normal 21.0-32.0 [facility] Comment on above: Order Comment: CLEAN CATCH Performed By: #### L 501.0900, L400.0001 #### [facility] [address] [place], [address] Creatinine [Mass/Vol] 1.48 mg/dL High 0.70-1.30 [facility] Comment on above: Order Comment: CLEAN CATCH Result Comment: The validity of the calculated GFR GFRAA in patients over 70 years has not been determined. Clinical correlation is essential. Performed By: #### L 501.0900, [id number] #### [facility] [address] [place], [address] EST GFR - AA 60 mL/min Normal >60 [facility] Comment on above: Order Comment: CLEAN CATCH Result Comment: Afri can Citizen [place] GFR Calc Performed By: #### L 501.0900, [id number] #### [facility] [address] [place], [address] GAP 7 Normal 5-15 [facility] Comment on above: Order Comment: CLEAN CATCH Performed By: #### L 501.0900, [id number] #### [facility] [address] [place], [address] GFR/1.73 sq M.predicted among non-blacks MDRD (S/P/Bld) [Vol rate/Area] 49 mL/min/{1.73_m2} Low >60 [facility] Comment on above: Order Comment: CLEAN CATCH Result Comment: Non- GFR Calc Performed By: #### L 501.0900, [id number] #### [facility] [address] [place], [address] Globulin (S) [Mass/Vol] 3.6 g/dL Normal 2.2-4.2 [facility] Comment on above: Order Comment: CLEAN CATCH Performed By: #### L 501.0900, L400.0001 #### [facility] [address] [place], [address] Glucose [Mass/Vol] 57 mg/dL Low 74-106 [facility] Comment on above: Order Comment: CLEAN CATCH Performed By: #### L 501.0900, L400.0001 #### [facility] [address] [place], [address] Potassium [Moles/Vol] 4.2 mmol/L Normal 3.5-5.1 [facility] Comment on above: Order Comment: CLEAN CATCH Performed By: #### L 501.0900, [id number] #### [facility] [address] [place], [address] Sodium [Moles/Vol] 139 mmol/L Normal 136-145 [facility] Comment on above: Order Comment: CLEAN CATCH Performed By: #### L 501.0900, L400.0001 #### [facility] [address] [place], [address] T PROT 7.2 g/dL Normal 6.4-8.2 [facility] Comment on above: Order Comment: CLEAN CATCH Performed By: #### L 501.0900, L400.0001 #### [facility] [address] [place], [address] Urea nitrogen [Mass/Vol] 21 mg/dL High 7-18 [facility] Comment on above: Order Comment: CLEAN CATCH Performed By: #### L 501.0900, L400.0001 #### [facility] [address] [place], [address] PSA,Total - Annual Screenon 09-14-2024 PSA,TOT SCREEN 0.75 ng/mL Normal 0.00-4.00 [facility] Comment on above: Result Comment: This test was performed using the TPSA assay method for the [employer] chemistry system. Values obtained with different assay methods cannot be used interchangably. When changing PSA assays in the course of monitoring a patient, additional sequential testing should be carried out to confirm baseline values. Performed By: #### L 501.0900, [id number] #### [facility] [address] [place], [address] CBC W/Diff, Automatedon 10-0 8-2024 Absolute Lymph 2.29 X10 3/uL Normal 0.83-4.51 [facility] Comment on above: Order Comment: Order Date: 08/24/24 Order Info: [id number]- - CBCD Performed By: #### L 501.5200, L501.2300, L500.4100, L500.4050, L509.1000, L506.1000, L100.0100 #### [facility] [address] [place], [place], [address] [phone] Absolute Neut 3.0 X10 3/uL Normal 2.0-7.7 [facility] Comment on above: Order Comment: Order Date: 08/24/24 Order Info: [id number]- - CBCD Performed By: #### L 501.5200, L501.2300, L500.4100, L500.4050, L509.1000, L506.1000, L100.0100 #### [facility] [address] [place], [place], [id number] (210) Basophils/100 WBC (Bld) 0.9 % Normal 0-1 [facility] Comment on above: Order Comment: Order Date: 08/24/24 Order Info: [id number]- - CBCD Performed By: #### L 501.5200, L501.2300, L500.4100, L500.4050, L509.1000, L506.1000, L100.0100 #### [facility] [address] [place], [address] Eosinophils/100 WBC (Bld) 1.2 % Normal 0-5 [facility] Comment on above: Order Comment: Order Date: 08/24/24 Order Info: [id number]- - CBCD Performed By: #### L 501.5200, L501.2300, L500.4100, L500.4050, L509.1000, L506.1000, L100.0100 #### [facility] [address] [place], [address] Erythrocyte distribution width (RBC) [Ratio] 13.3 % Normal 11.6-14.6 [facility] Comment on above: Order Comment: Order Date: 08/24/24 Order Info: 018- - CBCD Performed By: #### L 501.5200, L501.2300, L500.4100, L500.4050, L509.1000, L506.1000, L100.0100 #### [facility] [address] [place], [address] Hematocrit (Bld) [Volume fraction] 43.6 % Normal 40-54 [facility] Comment on above: Order Comment: Order Date: 08/24/24 Order Info: [id number] - CBCD Performed By: #### L 501.5200, L501.2300, L500.4100, L500.4050, L509.1000, L506.1000, L100.0100 #### [facility] [address] [place], [address] Hemoglobin (Bld) [Mass/Vol] 14.0 g/dL Normal 13.0-16.5 [facility] Comment on above: Order Comment: Order Date: 08/24/24 Order Info: 0184- - CBCD Performed By: #### L 501.5200, L501.2300, L500.4100, L500.4050, L509.1000, L506.1000, L100.0100 #### [facility] [address] [facility] [place] [place], [address] IG% 0.300 Normal 0.0-0.9 [facility] Comment on above: Order Comment: Order Date: 08/24/24 Order Info: [id number]- - CBCD Result Comment: IG% - Immature Granulocytes (promyelocytes, myelocytes and metamyelocytes) > 1% indicates that a LEFT SHIFT is Present. Performed By: #### L 501.5200, L501.2300, L500.4100, L500.4050, L509.1000, L506.1000, L100.0100 #### [facility] [address] [place], [address] Lymphocytes/100 WBC (Bld) 39.0 % Normal 19-41 [facility] Comment on above: Order Comment: Order Date: 08/24/24 Order Info: 0184- - CBCD Performed By: #### L 501.5200, L501.2300, L500.4100, L500.4050, L509.1000, L506.1000, L100.0100 #### [facility] [address] [place], [address] MCH (RBC) [Entitic mass] 29.5 pg Normal 27.0-32.0 [facility] Comment on above: Order Comment: Order Date: 08/24/24 Order Info: 0184- - CBCD Performed By: #### L 501.5200, L501.2300, L500.4100, L500.4050, L509.1000, L506.1000, L100.0100 #### [facility] [address] [place], [address] MCHC (RBC) [Mass/Vol] 32.1 g/dL Normal 32-36 [facility] Comment on above: Order Comment: Order Date: 08/24/24 Order Info: 0184- - CBCD Performed By: #### L 501.5200, L501.2300, L500.4100, L500.4050, L509.1000, L506.1000, L100.0100 #### [facility] [address] [place], [address] MCV (RBC) [Entitic vol] 91.8 fL Normal 80-94 [facility] Comment on above: Order Comment: Order Date: 08/24/24 Order Info: [id number] - CBCD Performed By: #### L 501.5200, L501.2300, L500.4100, L500.4050, L509.1000, L506.1000, L100.0100 #### [facility] [address] [place], [address] Monocytes/100 WBC (Bld) 7.0 % Normal 0-10 [facility] Comment on above: Order Comment: Order Date: 08/24/24 Order Info: [id number] - CBCD Performed By: #### L 501.5200, L501.2300, L500.4100, L500.4050, L509.1000, L506.1000, L100.0100 #### [facility] [address] [place], [address] Neutrophils/100 WBC (Bld) 51.6 % Normal 47-70 [facility] Comment on above: Order Comment: Order Date: 08/24/24 Order Info: [id number] - CBCD Performed By: #### L 501.5200, L501.2300, L500.4100, L500.4050, L509.1000, L506.1000, L100.0100 #### [facility] [address] [place], [address] Nucleated RBC (Bld) [#/Vol] 0 10*3/uL Normal 0-5 [facility] Comment on above: Order Comment: Order Date: 08/24/24 Order Info: [id number] - CBCD Performed By: #### L 501.5200, L501.2300, L500.4100, L500.4050, L509.1000, L506.1000, L100.0100 #### [facility] [address] [place], [address] Platelet mean volume (Bld) [Entitic vol] 10.1 fL Normal 6.2-12.0 [facility] Comment on above: Order Comment: Order Date: 08/24/24 Order Info: [id number] - CBCD Performed By: #### L 501.5200, L501.2300, L500.4100, L500.4050, L509.1000, L506.1000, L100.0100 #### [facility] [address] [place], [address] Platelets (Bld) [#/Vol] 215 10*3/uL Normal 150-450 [facility] Comment on above: Order Comment: Order Date: 08/24/24 Order Info: [id number] - CBCD Performed By: #### L 501.5200, L501.2300, L500.4100, L500.4050, L509.1000, L506.1000, L100.0100 #### [facility] [address] [place], [address] RBC (Bld) [#/Vol] 4.75 10*6/uL Normal 4.6-6.2 [facility] Comment on above: Order Comment: Order Date: 08/24/24 Order Info: [id number] - CBCD Performed By: #### L 501.5200, L501.2300, L500.4100, L500.4050, L509.1000, L506.1000, L100.0100 #### [facility] [address] [place], [address] RDW SD 45.1 fl High 35.1-43.9 [facility] Comment on above: Order Comment: Order Date: 08/24/24 Order Info: [id number] - CBCD Performed By: #### L 501.5200, L501.2300, L500.4100, L500.4050, L509.1000, L506.1000, L100.0100 #### [facility] [address] [place], [address] WBC (Bld) [#/Vol] 5.9 10*3/uL Normal 4.4-11.0 [facility] Comment on above: Order Comment: Order Date: 08/24/24 Order Info: [id number] - CBCD Performed By: #### L 501.5200, L501.2300, L500.4100, L500.4050, L509.1000, L506.1000, L100.0100 #### [facility] [address] [place], [address] Comprehensive Metabolic Prof ilon 08-24-2024 Albumin [Mass/Vol] 3.7 g/dL Normal 3.2-5.0 [facility] Comment on above: Order Comment: Order Date: 08/24/24 Order Info: 785- - CMP Order Info: [id number] - LIPID Order Info: [id number] - PHOS Order Info: [id number] - MG Performed By: #### L 501.5200, L501.2300, L500.4100, L500.4050, L509.1000, L506.1000, L100.0100 #### [facility] [address] [place], [address] Albumin/Globulin [Mass ratio] 1.1 {ratio} Normal 0.9-2.4 [facility] Comment on above: Order Comment: Order Date: 08/24/24 Order Info: [id number] - CMP Order Info: [id number] - LIPID Order Info: 277- - PHOS Order Info: [id number] - MG Performed By: #### L 501.5200, L501.2300, L500.4100, L500.4050, L509.1000, L506.1000, L100.0100 #### [facility] [address] [place], [address] ALK P 54 U/L Normal 45-117 [facility] Comment on above: Order Comment: Order Date: 08/24/24 Order Info: 785- - CMP Order Info: [id number] - LIPID Order Info: [id number] - PHOS Order Info: [id number] - MG Performed By: #### L 501.5200, L501.2300, L500.4100, L500.4050, L509.1000, L506.1000, L100.0100 #### [facility] [address] [place], [address] ALT [Catalytic activity/Vol] 20 U/L Normal 16-61 [facility] Comment on above: Order Comment: Order Date: 08/24/24 Order Info: [id number] - CMP Order Info: [id number] - LIPID Order Info: [id number] - PHOS Order Info: [id number] - MG Performed By: #### L 501.5200, L501.2300, L500.4100, L500.4050, L509.1000, L506.1000, L100.0100 #### [facility] [address] [place], [address] AST [Catalytic activity/Vol] 16 U/L Normal 15-37 [facility] Comment on above: Order Comment: Order Date: 08/24/24 Order Info: 785- - CMP Order Info: - LIPID Order Info: [id number] - PHOS Order Info: [id number] - MG Performed By: #### L 501.5200, L501.2300, L500.4100, L500.4050, L509.1000, L506.1000, L100.0100 #### [facility] [address] [place], [address] Bilirubin [Mass/Vol] 1.20 mg/dL High 0.20-1.00 [facility] Comment on above: Order Comment: Order Date: 08/24/24 Order Info: [id number] - CMP Order Info: [id number] - LIPID Order Info: [id number] - PHOS Order Info: [id number] - MG Result Comment: For patients on eltrombopag therapy, use of Dimension [place] TBIL is not recommended. Performed By: #### L 501.5200, L501.2300, L500.4100, L500.4050, L509.1000, L506.1000, L100.0100 #### [facility] [address] [place], [address] BUN/CRE 12.1 RATIO Normal 10-20 [facility] Comment on above: Order Comment: Order Date: 08/24/24 Order Info: [id number] - CMP Order Info: [id number] - LIPID Order Info: 277- - PHOS Order Info: [id number] - MG Performed By: #### L 501.5200, L501.2300, L500.4100, L500.4050, L509.1000, L506.1000, L100.0100 #### [facility] [address] [place], [address] CA,Total 9.5 mg/dL Normal 8.5-10.1 [facility] Comment on above: Order Comment: Order Date: 08/24/24 Order Info: 07- - CMP Order Info: [id number] - LIPID Order Info: [id number] - PHOS Order Info: [id number] - MG Performed By: #### L 501.5200, L501.2300, L500.4100, L500.4050, L509.1000, L506.1000, L100.0100 #### [facility] [address] [place], [address] Chloride [Moles/Vol] 105 mmol/L Normal 98-107 [facility] Comment on above: Order Comment: Order Date: 08/24/24 Order Info: 0786- - CMP Order Info: [id number] - LIPID Order Info: [id number] - PHOS Order Info: [id number] - MG Performed By: #### L 501.5200, L501.2300, L500.4100, L500.4050, L509.1000, L506.1000, L100.0100 #### [facility] [address] [place], [address] CO2 [Moles/Vol] 27.0 mmol/L Normal 21.0-32.0 [facility] Comment on above: Order Comment: Order Date: 08/24/24 Order Info: [id number] - CMP Order Info: [id number] - LIPID Order Info: 7- - PHOS Order Info: [id number] - MG Performed By: #### L 501.5200, L501.2300, L500.4100, L500.4050, L509.1000, L506.1000, L100.0100 #### [facility] [address] [place], [place], [address] Creatinine [Mass/Vol] 1.41 mg/dL High 0.70-1.30 [facility] Comment on above: Order Comment: Order Date: 08/24/24 Order Info: 785- - CMP Order Info: - LIPID Order Info: 7- - PHOS Order Info: [id number] - MG Result Comment: The validity of the calculated GFR GFRAA in patients over 70 years has not been determined. Clinical correlation is essential. Performed By: #### L 501.5200, L501.2300, L500.4100, L500.4050, L509.1000, L506.1000, L100.0100 #### [facility] [address] [place], [place], [id number] EST GFR - AA 63 mL/min Normal >60 [facility] Comment on above: Order Comment: Order Date: 08/24/24 Order Info: [id number] - CMP Order Info: [id number] - LIPID Order Info: 7- - PHOS Order Info: [id number] - MG Result Comment: Afri can Citizen [place] GFR Calc Performed By: #### L 501.5200, L501.2300, L500.4100, L500.4050, L509.1000, L506.1000, L100.0100 #### [facility] [address] [place], [address] GAP 6 Normal 5-15 [facility] Comment on above: Order Comment: Order Date: 08/24/24 Order Info: [id number]- - CMP Order Info: [id number] - LIPID Order Info: [id number]- - PHOS Order Info: [id number] - MG Performed By: #### L 501.5200, L501.2300, L500.4100, L500.4050, L509.1000, L506.1000, L100.0100 #### [facility] [address] [place], [address] GFR/1.73 sq M.predicted among non-blacks MDRD (S/P/Bld) [Vol rate/Area] 52 mL/min/{1.73_m2} Low >60 [facility] Comment on above: Order Comment: Order Date: 08/24/24 Order Info: 07- - CMP Order Info: [id number] - LIPID Order Info: [id number] - PHOS Order Info: [id number] - MG Result Comment: Non- GFR Calc Performed By: #### L 501.5200, L501.2300, L500.4100, L500.4050, L509.1000, L506.1000, L100.0100 #### [facility] [address] [place], [address] Globulin (S) [Mass/Vol] 3.3 g/dL Normal 2.2-4.2 [facility] Comment on above: Order Comment: Order Date: 08/24/24 Order Info: [id number]- - CMP Order Info: [id number] - LIPID Order Info: [id number]- - PHOS Order Info: [id number] - MG Performed By: #### L 501.5200, L501.2300, L500.4100, L500.4050, L509.1000, L506.1000, L100.0100 #### [facility] [address] [place], [address] Glucose [Mass/Vol] 85 mg/dL Normal 74-106 [facility] Comment on above: Order Comment: Order Date: 08/24/24 Order Info: [id number] - CMP Order Info: [id number] - LIPID Order Info: [id number] - PHOS Order Info: [id number] - MG Performed By: #### L 501.5200, L501.2300, L500.4100, L500.4050, L509.1000, L506.1000, L100.0100 #### [facility] [address] [place], [address] Potassium [Moles/Vol] 4.3 mmol/L Normal 3.5-5.1 [facility] Comment on above: Order Comment: Order Date: 08/24/24 Order Info: [id number] - CMP Order Info: [id number] - LIPID Order Info: [id number] - PHOS Order Info: [id number] - MG Performed By: #### L 501.5200, L501.2300, L500.4100, L500.4050, L509.1000, L506.1000, L100.0100 #### [facility] [address] [place], [place], [id number] Sodium [Moles/Vol] 138 mmol/L Normal 136-145 [facility] Comment on above: Order Comment: Order Date: 08/24/24 Order Info: [id number] - CMP Order Info: - LIPID Order Info: [id number] - PHOS Order Info: [id number] - MG Performed By: #### L 501.5200, L501.2300, L500.4100, L500.4050, L509.1000, L506.1000, L100.0100 #### [facility] [address] [place], [place], [id number] T PROT 7.0 g/dL Normal 6.4-8.2 [facility] Comment on above: Order Comment: Order Date: 08/24/24 Order Info: [id number]- - CMP Order Info: [id number] - LIPID Order Info: [id number] - PHOS Order Info: [id number] - MG Performed By: #### L 501.5200, L501.2300, L500.4100, L500.4050, L509.1000, L506.1000, L100.0100 #### [facility] [address] [place], [place], [address] Urea nitrogen [Mass/Vol] 17 mg/dL Normal 7-18 [facility] Comment on above: Order Comment: Order Date: 08/24/24 Order Info: [id number] - CMP Order Info: [id number] - LIPID Order Info: [id number] - PHOS Order Info: [id number] - MG Performed By: #### L 501.5200, L501.2300, L500.4100, L500.4050, L509.1000, L506.1000, L100.0100 #### [facility] [address] [place], [place], [id number] Lipid Profileon 08-24-2024 Cholesterol [Mass/Vol] 168 mg/dL Normal 200 [facility] Comment on above: Order Comment: Order Date: 08/24/24 Order Info: [id number] - CMP Order Info: [id number] - LIPID Order Info: 7 - PHOS Order Info: [id number] - MG Result Comment: <200 mg/dL Desirable 200-240 mg/dL Borderline >240 mg/dL High Risk Performed By: #### L 501.5200, L501.2300, L500.4100, L500.4050, L509.1000, L506.1000, L100.0100 #### [facility] [address] [place], [place], [id number] Cholesterol in HDL [Mass/Vol] 58 mg/dL Normal [facility] Comment on above: Order Comment: Order Date: 08/24/24 Order Info: [id number]- - CMP Order Info: [id number] - LIPID Order Info: [id number] - PHOS Order Info: [id number] - MG Result Comment: The drugs N-Acetylcysteine and Metamizole may falsely depress this assay. Reference Range HDL <40 mg/dL Low HDL Cholesterol HDL >or= 60 mg/dL High HDL Cholesterol Performed By: #### L 501.5200, L501.2300, L500.4100, L500.4050, L509.1000, L506.1000, L100.0100 #### [facility] [address] [place], [address] Cholesterol in LDL [Mass/Vol] 85 mg/dL Normal 0-130 [facility] Comment on above: Order Comment: Order Date: 08/24/24 Order Info: [id number] - CMP Order Info: [id number] - LIPID Order Info: [id number]- - PHOS Order Info: [id number] - MG Performed By: #### L 501.5200, L501.2300, L500.4100, L500.4050, L509.1000, L506.1000, L100.0100 #### [facility] [address] [place], [address] Cholesterol in VLDL [Mass/Vol] 25 mg/dL Normal 5-40 [facility] Comment on above: Order Comment: Order Date: 08/24/24 Order Info: 07- - CMP Order Info: - LIPID Order Info: [id number] - PHOS Order Info: [id number] - MG Performed By: #### L 501.5200, L501.2300, L500.4100, L500.4050, L509.1000, L506.1000, L100.0100 #### [facility] [address] [place], [address] Triglyceride [Mass/Vol] 126 mg/dL Normal [facility] Comment on above: Order Comment: Order Date: 08/24/24 Order Info: [id number]- - CMP Order Info: [id number] - LIPID Order Info: [id number]- - PHOS Order Info: [id number] - MG Result Comment: The drugs N-Acetylcysteine and Metamizole may falsely depress this assay. Serum Triglycerides Reference Interval Normal <150 mg/dL Borderline high 150 - 199 mg/dL High 200 - 499 mg/dL Very High > or = 500 mg/dL Performed By: #### L 501.5200, L501.2300, L500.4100, L500.4050, L509.1000, L506.1000, L100.0100 #### [facility] [address] [place], [address] Magnesiumon 08-24-2024 Magnesium [Mass/Vol] 2.3 mg/dL Normal 1.6-2.6 [facility] Comment on above: Order Comment: Order Date: 08/24/24 Order Info: [id number] - CMP Order Info: [id number] - LIPID Order Info: [id number] - PHOS Order Info: [id number] - MG Performed By: #### L 501.5200, L501.2300, L500.4100, L500.4050, L509.1000, L506.1000, L100.0100 #### [facility] [address] [place], [address] PTHINon 08-24-2024 PTH 54.9 pg/mL Normal 18.4-80.1 [facility] Comment on above: Order Comment: Order Date: 08/24/24 Order Info: [id number] - PTHIN Performed By: #### L 501.5200, L501.2300, L500.4100, L500.4050, L509.1000, L506.1000, L100.0100 #### [facility] [address] [place], [address] Phosphoruson 08-24-2024 Phosphate [Mass/Vol] 2.9 mg/dL Normal 2.5-4.9 [facility] Comment on above: Order Comment: Order Date: 08/24/24 Order Info: [id number]- - CMP Order Info: [id number] - LIPID Order Info: [id number] - PHOS Order Info: [id number] - MG Performed By: #### L 501.5200, L501.2300, L500.4100, L500.4050, L509.1000, L506.1000, L100.0100 #### [facility] [address] [place], [address] Protein+Creatinine Ratio,Uri neon 08-24-2024 PROT:CRE RATIO 146 mg/g CRE Normal 0-200 [facility] Comment on above: Performed By: #### L 501.0900, L400.0001 #### [facility] [address] [place], [address] Protein (U) [Mass/Vol] 6.8 mg/dL Normal <11.9 [facility] Comment on above: Performed By: #### L 501.0900, L400.0001 #### [facility] [address] [place], [address] UR CREAT 46.70 mg/dL Normal NO RANGE EST. [facility] Comment on above: Performed By: #### L 501.0900, L400.0001 #### [facility] [address] [place], [address] Urinalysis, Completeon 08-24 RBC 0-5 SEEN Normal 0-5 [facility] Comment on above: Order Comment: CLEAN CATCH Performed By: #### L 501.0900, L400.0001 #### [facility] [address] [place], [address] EPI,SQUAMOUS 0-5 SEEN Normal 0-5 [facility] Comment on above: Order Comment: CLEAN CATCH Performed By: #### L 501.0900, L400.0001 #### [facility] [address] [place], [address] BACTERIA 0 SEEN Normal None Seen [facility] Comment on above: Order Comment: CLEAN CATCH Performed By: #### L 501.0900, L400.0001 #### [facility] [address] [place], [address] Mucus Ql (Urine sed) 0 SEEN Normal [facility] Comment on above: Order Comment: CLEAN CATCH Performed By: #### L 501.0900, L400.0001 #### [facility] [address] [place], [address] WBC 0 SEEN Normal 0-5 [facility] Comment on above: Order Comment: CLEAN CATCH Performed By: #### L 501.0900, L400.0001 #### [facility] [address] [place], [address] Vitamin D,25 Hydroxyon 08-24 Vitamin D 25-OH 52.0 ng/mL Normal [facility] Comment on above: Order Comment: Order Date: 08/24/24 Order Info: [id number] - [id number] Result Comment: Linda min D 25(OH) Status Range Deficiency <20 ng/mL (50nmol/L) Insufficiency 20 - 30 ng/mL (50 - 75 nmol/L) Sufficiency 30 - 100 ng/mL (75 - 250 nmol/L) Toxicity >100 ng/mL (>250 nmol/L) Performed By: #### L 501.5200, L501.2300, L500.4100, L500.4050, L509.1000, L506.1000, L100.0100 #### [facility] [address] [place], [address] Basophil percentageOrdered B y: Lane Lowery on 01-29-2024 Chloride [Moles/Vol] 106 mmol/L 98-107 [facility] Glucose [Mass/Vol] 89 mg/dL 74-106 [facility] Potassium [Moles/Vol] 4.2 mmol/L 3.5-5.1 [facility] Sodium [Moles/Vol] 140 mmol/L 136-145 [facility] - Chemistry and C hemistry - challengeOrdered By: Lane Lowery on 01-29-2024 CO2 [Moles/Vol] 28.0 mmol/L 21.0-32.0 [facility] Urea nitrogen/Creatinine [Mass ratio] 11.6 mg/mg 10- [facility] No Panel InformationOrdered By: Lane Lowery on 01-29-2024 Estimated GFR (MDRD) Amer 65 mL/min >60 [facility] Comment on above: GFR Calc Estimated GFR (MDRD) Non-Af Amer 54 mL/min >60 [facility] Comment on above: Non- GFR Calc Serum or plasma calcium deepa urement (mass/volume)Ordered By: Lane Lowery on 01-29-2024 Calcium [Mass/Vol] 9.5 mg/dL 8.5-10.1 [facility] Serum or plasma creatinine m easurement (mass/volume)Ordered By: Lane Lowery on 01-29-2024 Creatinine [Mass/Vol] 1.38 mg/dL 0.70-1.30 [facility] Comment on above: The validity of the calculated GFR & GFRAA in patients over 70 years has not been determined. Clinical correlation is essential. Serum or plasma urea nitroge n measurement (mass/volume)Ordered By: Lane Lowery on 01-29-2024 Urea nitrogen [Mass/Vol] 16 mg/dL 7-18 [facility] Thin prep Papanicolaou smear with manual screeningOrdered By: Lane Lowery on 01-29-2024 Thin prep Papanicolaou smear with manual screening 6 5-15 [facility] Absolute lymphocyte countOrd ered By: Lane Lowery on 01-22-2024 Lymphocytes Auto (Unsp spec) [#/Vol] 2.13 10*3/uL 0.83-4.51 [facility] Automated lymphocyte count a s percentage of total leukocytesOrdered By: Lane Lowery on 01-22-2024 Lymphocytes/100 WBC Auto (Unsp spec) 26.2 % 19-41 [facility] Basophil percentageOrdered B y: Lane Lowery on 01-22-2024 Basophil percentage 0 SEEN /hpf 0-5 [facility] Basophils/100 WBC (Bld) 0.9 % 0-1 [facility] Bilirubin [Mass/Vol] 0.70 mg/dL 0.20-1.00 [facility] Comment on above: For patients on eltr ombopag therapy, use of Dimension [place] TBIL is not recommended. Chloride [Moles/Vol] 102 mmol/L 98-107 [facility] Cholesterol [Mass/Vol] 175 mg/dL <200 [facility] Comment on above: <200 mg/dL Desirable 200-240 mg/dL Borderline >240 mg/dL High Risk Eosinophils/100 WBC (Bld) 1.2 % 0-5 [facility] Glucose [Mass/Vol] 76 mg/dL 74-106 [facility] Hemoglobin (Bld) [Mass/Vol] 14.4 g/dL 13.0-16.5 [facility] Monocytes/100 WBC (Bld) 8.5 % 0-10 [facility] Neutrophils (Bld) [#/Vol] 5.1 10*3/uL 2.0-7.7 [facility] Neutrophils/100 WBC (Bld) 62.8 % 47-70 [facility] Potassium [Moles/Vol] 4.2 mmol/L 3.5-5.1 [facility] Protein [Mass/Vol] 7.2 g/dL 6.4-8.2 [facility] Sodium [Moles/Vol] 138 mmol/L 136-145 [facility] Triglyceride [Mass/Vol] 190 mg/dL <199 [facility] Comment on above: The drugs N-Acetylcy steine and Metamizole may falsely depress this assay.Serum Triglycerides Reference Interval Normal <150 mg/dL Borderline high 150 - 199 mg/dL High 200 - 499 mg/dL Very High > or = 500 mg/dL WBC (Bld) [#/Vol] 8.1 10*3/uL 4.4-11.0 [facility] Bilirubin Test strip Ql (U)O rdered By: Lane Lowery on 01-22-2024 Bilirubin Ql (U) Negative Negative [facility] Determination of erythrocyte mean corpuscular volume (MCV)Ordered By: Lane Lowery on 01-22-2024 MCV (RBC) [Entitic vol] 95.3 fL 80-94 [facility] Erythrocyte distribution wid th ratioOrdered By: Lane Lowery on 01-22-2024 Erythrocyte distribution width (RBC) [Ratio] 12.8 % 11.6-14.6 [facility] Erythrocyte distribution wid th standard deviationOrdered By: Lane Lowery on 01-22-2024 Erythrocyte distribution width (RBC) [Entitic vol] 45.3 fL 35.1-43.9 [facility] Hematocrit Auto (Bld) [Volum e fraction]Ordered By: Lane Lowery on 01-22-2024 Hematocrit (Bld) [Volume fraction] 44.4 % 40-54 [facility] Immature granulocytes/100 WB C Auto (Bld)Ordered By: Lane Lowery on 01-22-2024 Immature granulocytes/100 WBC (Bld) 0.400 % 0.0-0.9 [facility] Comment on above: IG% - Immature Granu locytes (promyelocytes, myelocytes and metamyelocytes) > 1% indicates that a LEFT SHIFT is Present. Ketones Test strip Ql (U)Ord ered By: Lane Lowery on 01-22-2024 Ketones Ql (U) Negative Negative [facility] - Chemistry and C hemistry - challengeOrdered By: Lane Lowery on 01-22-2024 Albumin/Globulin [Mass ratio] 1.1 {ratio} 0.9-2.4 [facility] ALP [Catalytic activity/Vol] 63 U/L 45-117 [facility] ALT [Catalytic activity/Vol] 25 U/L 16-61 [facility] Cholesterol in HDL [Mass/Vol] 52 mg/dL >40 [facility] Comment on above: The drugs N-Acetylcy steine and Metamizole may falsely depress this assay. Reference Range HDL <40 mg/dL Low HDL Cholesterol HDL >or= 60 mg/dL High HDL Cholesterol Cholesterol in LDL [Mass/Vol] 85 mg/dL 0-130 [facility] CO2 [Moles/Vol] 28.0 mmol/L 21.0-32.0 [facility] Globulin (S) [Mass/Vol] 3.5 g/dL 2.2-4.2 [facility] Magnesium [Mass/Vol] 2.1 mg/dL 1.6-2.6 [facility] Urea nitrogen/Creatinine [Mass ratio] 13.8 mg/mg 10-20 [facility] - Hematology and Cell countsOrdered By: Lane Lowery on 01-22-2024 MCH (RBC) [Entitic mass] 30.9 pg 27.0-32.0 [facility] MCHC (RBC) [Mass/Vol] 32.4 g/dL 32-36 [facility] Nucleated RBC/100 WBC (Bld) [Ratio] 0 % 0-5 [facility] Platelet mean volume (Bld) [Entitic vol] 10.0 fL 6.2-12.0 [facility] Platelets (Bld) [#/Vol] 275 10*3/uL 150-450 [facility] Mucus LM Ql (Urine sed)Order ed By: Lane Lowery on 01-22-2024 Mucus Ql (Urine sed) 1+ /hpf [facility] Nitrite Test strip Ql (U)Ord ered By: Lane Lowery on 01-22-2024 Nitrite Ql (U) Negative Negative [facility] No Panel InformationOrdered By: Lane Lowery on 01-22-2024 Urine RBC 0 SEEN /hpf 0-5 [facility] Estimated GFR (MDRD) Amer 43 mL/min >60 [facility] Comment on above: GFR Calc Estimated GFR (MDRD) Non-Af Amer 36 mL/min >60 [facility] Comment on above: Non- GFR Calc VLDL Cholesterol 38 mg/dL 5-40 [facility] Protein Test strip Ql (U)Ord ered By: Lane Lowery on 01-22-2024 Protein Ql (U) Negative Negative [facility] RBC Auto (Bld) [#/Vol]Ordere d By: Lane Lowery on 01-22-2024 RBC (Bld) [#/Vol] 4.66 10*6/uL 4.6-6.2 [facility] Serum or plasma calcium deepa urement (mass/volume)Ordered By: Lane Lowery on 01-22-2024 Calcium [Mass/Vol] 9.2 mg/dL 8.5-10.1 [facility] Serum or plasma creatinine m easurement (mass/volume)Ordered By: Lane Lowery on 01-22-2024 Creatinine [Mass/Vol] 1.96 mg/dL 0.70-1.30 [facility] Comment on above: The validity of the calculated GFR & GFRAA in patients over 70 years has not been determined. Clinical correlation is essential. Serum or plasma thyroid stim ulating hormone (TSH) measurement (units/volume)Ordered By: Lane Lowery on 01-22-2024 TSH Qn 1.45 uIU/mL 0.358-3.74 [facility] Serum or plasma urea nitroge n measurement (mass/volume)Ordered By: Lane Lowery on 01-22-2024 Urea nitrogen [Mass/Vol] 27 mg/dL 7-18 [facility] Squamous epithelial cells de tection in urine sediment by light microscopyOrdered By: Lane Lowery on 01-22-2024 Epithelial cells.squamous LM Ql (Urine sed) 0 SEEN /hpf 0-5 [facility] Thin prep Papanicolaou smear with manual screeningOrdered By: Lane Lowery on 01-22-2024 Thin prep Papanicolaou smear with manual screening 3.7 g/dL 3.2-5.0 [facility] Thin prep Papanicolaou smear with manual screening 17 U/L 15-37 [facility] Thin prep Papanicolaou smear with manual screening 8 5-15 [facility] Urine blood detectionOrdered By: Lane Lowery on 01-22-2024 RBC Ql (U) Negative Negative [facility] Urine clarityOrdered By: Alexx Lowery on 01-22-2024 Clarity (U) Clear Clear [facility] Urine color determinationOrd ered By: Lane Lowery on 01-22-2024 Color (U) Yellow Yellow [facility] Urine glucose detectionOrder ed By: Lane Lowery on 01-22-2024 Glucose Ql (U) Normal mg/dl Normal [facility] Urine leukocyte esterase det ection by dipstickOrdered By: Lane Lowery on 01-22-2024 Leukocyte esterase Test strip Ql (U) Negative Negative [facility] Urine pHOrdered By: Lane grimm on 01-22-2024 pH (U) 6.0 [pH] 5.0 - 8.0 [facility] Urine sediment bacteria coun t by microscopy (number/high power field)Ordered By: Lane Lowery on 01-22-2024 Bacteria LM.HPF (Urine sed) [#/Area] 0 /[HPF] None Seen [facility] Urine specific gravity measu rementOrdered By: Lane Lowery on 01-22-2024 Specific gravity (U) [Rel density] 1.015 1.002-1.030 [facility] Urine urobilinogen measureme ntOrdered By: Lane Lowery on 01-22-2024 Urobilinogen Ql (U) Normal mg/dl Normal [facility] Basophil percentageOrdered B y: Lane Lowery on 10-23-2023 Chloride [Moles/Vol] 105 mmol/L 98-107 [facility] Glucose [Mass/Vol] 65 mg/dL 74-106 [facility] Potassium [Moles/Vol] 4.5 mmol/L 3.5-5.1 [facility] Sodium [Moles/Vol] 138 mmol/L 136-145 [facility] Laboratory - Chemistry and C hemistry - challengeOrdered By: Lane Lowery on 10-23-2023 CO2 [Moles/Vol] 29.0 mmol/L 21.0-32.0 [facility] Cobalamin (Vitamin B12) [Mass/Vol] 260 pg/mL 211-911 [facility] Free T4 [Mass/Vol] 1.17 ng/dL 0.76-1.46 [facility] Urea nitrogen/Creatinine [Mass ratio] 16.0 mg/mg 10-20 [facility] No Panel InformationOrdered By: Lane Lowery on 10-23-2023 Estimated GFR (MDRD) Amer 69 mL/min >60 [facility] Comment on above: GFR Calc Estimated GFR (MDRD) Non-Af Amer 57 mL/min >60 [facility] Comment on above: Non- GFR Calc Vitamin D 25-Hydroxy 36.0 ng/mL [facility] Comment on above: Vitamin D 25(OH) Sta tus Range Deficiency <20 ng/mL (50nmol/L) Insufficiency 20 - 30 ng/mL (50 - 75 nmol/L) Sufficiency 30 - 100 ng/mL (75 - 250 nmol/L) Toxicity >100 ng/mL (>250 nmol/L) Serum or plasma calcium deepa urement (mass/volume)Ordered By: Lane Lowery on 10-23-2023 Calcium [Mass/Vol] 8.7 mg/dL 8.5-10.1 [facility] Serum or plasma creatinine m easurement (mass/volume)Ordered By: Lane Lowery on 10-23-2023 Creatinine [Mass/Vol] 1.31 mg/dL 0.70-1.30 [facility] Comment on above: The validity of the calculated GFR & GFRAA in patients over 70 years has not been determined. Clinical correlation is essential. Serum or plasma urea nitroge n measurement (mass/volume)Ordered By: Lane Lowery on 10-23-2023 Urea nitrogen [Mass/Vol] 21 mg/dL 7-18 [facility] Thin prep Papanicolaou smear with manual screeningOrdered By: Lane Lowery on 10-23-2023 Thin prep Papanicolaou smear with manual screening 4 5-15 [facility] Absolute lymphocyte countOrd ered By: Lane Lowery on 10-03-2023 Lymphocytes Auto (Unsp spec) [#/Vol] 3.02 10*3/uL 0.83-4.51 [facility] Basophil percentageOrdered B y: Lane Lowery on 10-03-2023 Basophil percentage 0 SEEN /hpf 0-5 [facility] Basophils/100 WBC (Bld) 0.9 % 0-1 [facility] Bilirubin [Mass/Vol] 0.90 mg/dL 0.20-1.00 [facility] Comment on above: For patients on eltr ombopag therapy, use of Dimension [place] TBIL is not recommended. Chloride [Moles/Vol] 105 mmol/L 98-107 [facility] Cholesterol [Mass/Vol] 190 mg/dL <200 [facility] Comment on above: <200 mg/dL Desirable 200-240 mg/dL Borderline >240 mg/dL High Risk Eosinophils/100 WBC (Bld) 0.8 % 0-5 [facility] Glucose [Mass/Vol] 81 mg/dL 74-106 [facility] Neutrophils (Bld) [#/Vol] 5.1 10*3/uL 2.0-7.7 [facility] Neutrophils/100 WBC (Bld) 57.0 % 47-70 [facility] Potassium [Moles/Vol] 4.2 mmol/L 3.5-5.1 [facility] Protein [Mass/Vol] 7.3 g/dL 6.4-8.2 [facility] Sodium [Moles/Vol] 137 mmol/L 136-145 [facility] Triglyceride [Mass/Vol] 276 mg/dL <199 [facility] Comment on above: The drugs N-Acetylcy steine and Metamizole may falsely depress this assay.Serum Triglycerides Reference Interval Normal <150 mg/dL Borderline high 150 - 199 mg/dL High 200 - 499 mg/dL Very High > or = 500 mg/dL WBC (Bld) [#/Vol] 8.9 10*3/uL 4.4-11.0 [facility] Bilirubin Test strip Ql (U)O rdered By: Lane Lowery on 10-03-2023 Bilirubin Ql (U) Negative Negative [facility] Blood erythrocytes count (nu mber/volume)Ordered By: Lane Lowery on 10-03-2023 RBC (Bld) [#/Vol] 5.08 10*6/uL 4.6-6.2 [facility] Blood hemoglobin measurement (mass/volume)Ordered By: Lane Lowery on 10-03-2023 Hemoglobin (Bld) [Mass/Vol] 15.0 g/dL 13.0-16.5 [facility] Blood lymphocytes/100 leukoc ytesOrdered By: Lane Lowery on 10-03-2023 Lymphocytes/100 WBC (Bld) 34.0 % 19-41 [facility] Blood monocytes/100 leukocyt esOrdered By: Lane Lowery on 10-03-2023 Monocytes/100 WBC (Bld) 6.8 % 0-10 [facility] Blood platelet mean volumeOr dered By: Lane Lowery on 10-03-2023 Platelet mean volume (Bld) [Entitic vol] 10.0 fL 6.2-12.0 [facility] Determination of erythrocyte mean corpuscular volume (MCV)Ordered By: Lane Lowery on 10-03-2023 MCV (RBC) [Entitic vol] 94.1 fL 80-94 [facility] Hematocrit Auto (Bld) [Volum e fraction]Ordered By: Lane Lowery on 10-03-2023 Hematocrit (Bld) [Volume fraction] 47.8 % 40-54 [facility] Hyaline casts LM.LPF (Urine sed) [#/Area]Ordered By: Lane Lowery on 10-03-2023 Hyaline casts (Urine sed) [#/Area] 5 /[LPF] 0-5 [facility] Ketones Test strip Ql (U)Ord ered By: Lane Lowery on 10-03-2023 Ketones Ql (U) 5 mg/dl Negative [facility] - Chemistry and C hemistry - challengeOrdered By: Lane Lowery on 10-03-2023 ALP [Catalytic activity/Vol] 63 U/L 45-117 [facility] ALT [Catalytic activity/Vol] 25 U/L 16-61 [facility] CO2 [Moles/Vol] 24.0 mmol/L 21.0-32.0 [facility] Globulin (S) [Mass/Vol] 3.7 g/dL 2.2-4.2 [facility] Urea nitrogen/Creatinine [Mass ratio] 17.5 mg/mg 10-20 [facility] - Hematology and Cell countsOrdered By: Lane Lowery on 10-03-2023 Erythrocyte distribution width (RBC) [Entitic vol] 46.3 fL 35.1-43.9 [facility] Erythrocyte distribution width (RBC) [Ratio] 13.3 % 11.6-14.6 [facility] Immature granulocytes/100 WBC (Bld) 0.500 % 0.0-0.9 [facility] Comment on above: IG% - Immature Granu locytes (promyelocytes, myelocytes and metamyelocytes) > 1% indicates that a LEFT SHIFT is Present. MCH (RBC) [Entitic mass] 29.5 pg 27.0-32.0 [facility] Nucleated RBC/100 WBC (Bld) [Ratio] 0 % 0-5 [facility] MCHC Auto (RBC) [Mass/Vol]Or dered By: Lane Lowery on 10-03-2023 MCHC (RBC) [Mass/Vol] 31.4 g/dL 32-36 [facility] Mucus LM Ql (Urine sed)Order ed By: Lane Lowery on 10-03-2023 Mucus Ql (Urine sed) 0 SEEN /hpf [facility] Nitrite Test strip Ql (U)Ord ered By: Lane Lowery on 10-03-2023 Nitrite Ql (U) Negative Negative [facility] No Panel InformationOrdered By: Lane Lowery on 10-03-2023 Estimated GFR (MDRD) Amer 53 mL/min >60 [facility] Comment on above: GFR Calc Estimated GFR (MDRD) Non-Af Amer 43 mL/min >60 [facility] Comment on above: Non- GFR Calc Thyroid Stimulating Hormone (TSH) 1.08 uIU/mL 0.358-3.74 [facility] Platelets bldOrdered By: Alexx Lowery on 10-03-2023 Platelets (Bld) [#/Vol] 278 10*3/uL 150-450 [facility] Protein Test strip Ql (U)Ord ered By: Lane Lowery on 10-03-2023 Protein Ql (U) Negative Negative [facility] Serum or plasma albumin deepa urement (mass/volume)Ordered By: Lane Lowery on 10-03-2023 Albumin [Mass/Vol] 3.6 g/dL 3.2-5.0 [facility] Serum or plasma albumin/glob ulin mass ratioOrdered By: Lane Lowery on 10-03-2023 Albumin/Globulin [Mass ratio] 1.0 {ratio} 0.9-2.4 [facility] Serum or plasma calcium deepa urement (mass/volume)Ordered By: Lane Lowery on 10-03-2023 Calcium [Mass/Vol] 8.7 mg/dL 8.5-10.1 [facility] Serum or plasma cholesterol in HDL measurement (mass/volume)Ordered By: Lane Lowery on 10-03-2023 Cholesterol in HDL [Mass/Vol] 47 mg/dL >40 [facility] Comment on above: The drugs N-Acetylcy steine and Metamizole may falsely depress this assay. Reference Range HDL <40 mg/dL Low HDL Cholesterol HDL >or= 60 mg/dL High HDL Cholesterol Serum or plasma cholesterol in VLDL measurement (mass/volume)Ordered By: Lane Lowery on 10-03-2023 Cholesterol in VLDL [Mass/Vol] 55 mg/dL 5-40 [facility] Serum or plasma creatinine m easurement (mass/volume)Ordered By: Lane Lowery on 10-03-2023 Creatinine [Mass/Vol] 1.66 mg/dL 0.70-1.30 [facility] Comment on above: The validity of the calculated GFR & GFRAA in patients over 70 years has not been determined. Clinical correlation is essential. Serum or plasma low density lipoprotein (LDL) cholesterol measurement (mass/volume)Ordered By: Lane Lowery on 10-03-2023 Cholesterol in LDL [Mass/Vol] 88 mg/dL 0-130 [facility] Serum or plasma urea nitroge n measurement (mass/volume)Ordered By: Lane Lowery on 10-03-2023 Urea nitrogen [Mass/Vol] 29 mg/dL 7-18 [facility] Squamous epithelial cells de tection in urine sediment by light microscopyOrdered By: Lane Lowery on 10-03-2023 Epithelial cells.squamous LM Ql (Urine sed) 0 SEEN /hpf 0-5 [facility] Thin prep Papanicolaou smear with manual screeningOrdered By: Lane Lowery on 10-03-2023 Thin prep Papanicolaou smear with manual screening 12 U/L 15-37 [facility] Thin prep Papanicolaou smear with manual screening 8 5-15 [facility] Urine blood detectionOrdered By: Lane Lowery on 10-03-2023 RBC Ql (U) Negative Negative [facility] RBC Ql (U) 0 SEEN /hpf 0-5 [facility] Urine clarityOrdered By: Alexx Lowery on 10-03-2023 Clarity (U) Clear Clear [facility] Urine color determinationOrd ered By: Lane Lowery on 10-03-2023 Color (U) Yellow Yellow [facility] Urine glucose detectionOrder ed By: Lane Lowery on 10-03-2023 Glucose Ql (U) Normal mg/dl Normal [facility] Urine leukocyte esterase det ection by dipstickOrdered By: Lane Lowery on 10-03-2023 Leukocyte esterase Test strip Ql (U) Negative Negative [facility] Urine pHOrdered By: Lane grimm on 10-03-2023 pH (U) 5.0 [pH] 5.0 - 8.0 [facility] Urine sediment bacteria coun t by microscopy (number/high power field)Ordered By: Lane Lowery on 10-03-2023 Bacteria LM.HPF (Urine sed) [#/Area] 0 /[HPF] None Seen [facility] Urine specific gravity measu rementOrdered By: Lane Lowery on 10-03-2023 Specific gravity (U) [Rel density] 1.020 1.002-1.030 [facility] Urobilinogen Auto test strip Ql (U)Ordered By: Lane Lowery on 10-03-2023 Urobilinogen Ql (U) Normal mg/dl Normal [facility] No Panel InformationOrdered By: Clark Stewart on 09-02-2023 Prostate Specific Antigen Screen 0.74 ng/mL 0.00-4.00 [facility] Comment on above: This test was perfor med using the TPSA assay method for the[employer] chemistry system. Values obtained with differentassay methods cannot be used interchangably.When changing PSA assays in the course of monitoring apatient, additional sequential testing should be carriedout to confirm baseline values. Basophil percentageOrdered B y: Lynsey Monryo on 01-31-2023 Bilirubin [Mass/Vol] 0.70 mg/dL 0.20-1.00 [facility] Comment on above: For patients on eltr ombopag therapy, use of Dimension [place] TBIL is not recommended. Chloride [Moles/Vol] 111 mmol/L 98-107 [facility] Glucose [Mass/Vol] 69 mg/dL 74-106 [facility] Potassium [Moles/Vol] 4.2 mmol/L 3.5-5.1 [facility] Protein [Mass/Vol] 6.7 g/dL 6.4-8.2 [facility] Sodium [Moles/Vol] 142 mmol/L 136-145 [facility] WBC (Bld) [#/Vol] 7.6 10*3/uL 4.4-11.0 [facility] Blood erythrocytes count (nu mber/volume)Ordered By: Lynsey Monroy on 01-31-2023 RBC (Bld) [#/Vol] 5.12 10*6/uL 4.6-6.2 [facility] Blood hemoglobin measurement (mass/volume)Ordered By: Lynsey Monroy on 01-31-2023 Hemoglobin (Bld) [Mass/Vol] 15.5 g/dL 13.0-16.5 [facility] Blood platelet mean volumeOr dered By: Lynsey Monroy on 01-31-2023 Platelet mean volume (Bld) [Entitic vol] 9.9 fL 6.2-12.0 [facility] Determination of erythrocyte mean corpuscular volume (MCV)Ordered By: Lynsey Monroy on 01-31-2023 MCV (RBC) [Entitic vol] 92.6 fL 80-94 [facility] Hematocrit Auto (Bld) [Volum e fraction]Ordered By: Lynsey Monroy on 01-31-2023 Hematocrit (Bld) [Volume fraction] 47.4 % 40-54 [facility] Laboratory - Chemistry and C hemistry - challengeOrdered By: Lynsey Monroy on 01-31-2023 ALP [Catalytic activity/Vol] 57 U/L 45-117 [facility] ALT [Catalytic activity/Vol] 20 U/L 16-61 [facility] CO2 [Moles/Vol] 26.0 mmol/L 21.0-32.0 [facility] Globulin (S) [Mass/Vol] 3.3 g/dL 2.2-4.2 [facility] Urea nitrogen/Creatinine [Mass ratio] 17.0 mg/mg 10-20 [facility] Laboratory - Hematology and Cell countsOrdered By: Lynseyleland Monroy on 01-31-2023 Erythrocyte distribution width (RBC) [Entitic vol] 46.4 fL 35.1-43.9 [facility] Erythrocyte distribution width (RBC) [Ratio] 13.6 % 11.6-14.6 [facility] MCH (RBC) [Entitic mass] 30.3 pg 27.0-32.0 [facility] MCHC Auto (RBC) [Mass/Vol]Or dered By: Lynsey Monroy on 01-31-2023 MCHC (RBC) [Mass/Vol] 32.7 g/dL 32-36 [facility] No Panel InformationOrdered By: Lynsey Monroy on 01-31-2023 Estimated GFR (MDRD) Amer 88 mL/min >60 [facility] Comment on above: GFR Calc Estimated GFR (MDRD) Non-Af Amer 73 mL/min >60 [facility] Comment on above: Non- GFR Calc Platelets bldOrdered By: Emanuel Monroy on 01-31-2023 Platelets (Bld) [#/Vol] 224 10*3/uL 150-450 [facility] Serum or plasma albumin deepa urement (mass/volume)Ordered By: Lynsey Monroy on 01-31-2023 Albumin [Mass/Vol] 3.4 g/dL 3.2-5.0 [facility] Serum or plasma albumin/glob ulin mass ratioOrdered By: Lynsey Monroy on 01-31-2023 Albumin/Globulin [Mass ratio] 1.0 {ratio} 0.9-2.4 [facility] Serum or plasma calcium deepa urement (mass/volume)Ordered By: Lynsey Monroy on 01-31-2023 Calcium [Mass/Vol] 9.1 mg/dL 8.5-10.1 [facility] Serum or plasma creatinine m easurement (mass/volume)Ordered By: Lynsey Monroy on 01-31-2023 Creatinine [Mass/Vol] 1.06 mg/dL 0.70-1.30 [facility] Comment on above: The validity of the calculated GFR & GFRAA in patients over 70 years has not been determined. Clinical correlation is essential. Serum or plasma urea nitroge n measurement (mass/volume)Ordered By: Lynsey Monroy on 01-31-2023 Urea nitrogen [Mass/Vol] 18 mg/dL 7-18 [facility] Thin prep Papanicolaou smear with manual screeningOrdered By: Lynsey Monroy on 01-31-2023 Thin prep Papanicolaou smear with manual screening 12 U/L 15-37 [facility] Thin prep Papanicolaou smear with manual screening 5 5-15 [facility] Thin prep Papanicolaou smear with manual screening 7.1 mg/L NO RANGE EST. [facility] Whole blood hemoglobin A1c/t otal hemoglobin ratio (mass fraction)Ordered By: Lynsey Monroy on 01-31-2023 HbA1c (Bld) [Mass fraction] 5.4 % 3.8-5.6 [facility] Comment on above: Normal < 5.7 % Predi abetic 5.7 - 6.4 % Diabetic >or= 6.5 % Please note range changes. CNOVon 09-04-2022 CNOV Office Visit (UCWSTR) SIVANEMI WALKER ([id number]) 1950 M Date Time Provider Department 09/04/22 9:00 AM MACHELLE BRANNON [facility] During your visit today, we recorded the [...] for an US of the leg at [place]. He again is denying any cp or [...] - US DVT LOWER LT Machelle Brannon APRN.LEARNING DISABLED TEACHER Referring Provider: SELF [200] Allergies As of Date: 09/04/2022 Noted Allergy Reaction CODEINE 12/15/2011 2 - Rash 8 - GI Upset Date Reviewed: 09/04/2022 Reviewed by: Deann Lui (more content not included)... Normal [facility] Anjelica 09-04-2022 CNPN Telephone (UCWSTR) EMI SUN ([id number]) 1950 M Date Time Provider Department 09/04/22 MACHELLE BRANNON [facility] During your visit today, we recorded the [...] by LAVERN HENAO LPN on 09/05/[address] [facility] No Panel Informationon 09-04 [facility] US DVT LOWER LTon 09-04-2022 US [...] imaged segments of the left lower extremity. Chief Lock Operator: [facility] Transcribe Date/Time: Sep 04 2022 9:11P Dictated by : MELANIA MERCADO MD This examination was interpreted and the report reviewed and electronically signed by: MELANIA MRECADO MD on Sep 04 2022 9:13PM EST [id number] CN Normal [facility] XR KNEE 4V AP/PA BOTH+LAT/ME R LTon [...] knee hemiarthroplasty. Degenerative changes as described above. Chief Lock Operator: [facility] Transcribe Date/Time: Sep 04 2022 9:57A Dictated by : ALIREZA FLORES MD This examination was interpreted and the report reviewed and electronically signed by: ALIREZA FLORES MD on Sep 04 2022 10:00AM EST [id number] Normal [facility] XR KNEE GENERAL 4V AP BOTH/P A BOTH/LAT/MERC LEFTon 09-04-2022 [facility] XR Knee - left 4 Viewson IMPRESSION: Status post left knee hemiarthroplasty. Degenerative changes as described above. Chief Lock Operator: [facility] Transcribe Date/Time: Sep 04 2022 9:57A Dictated [...] soft tissue swelling. DIVISION OF RADIOLOGY Provider, [facility] [place] - 09/04/2022 * * *Final Report* * [...] knee hemiarthroplasty. Degenerative changes as described above. Chief Lock Operator: CELESTINE Transcribe Date/Time: Sep 04 2022 9:57A Dictated by : ALIREZA FLORES MD This examination was interpreted and the report reviewed and electronically signed by: ALIREZA FLORES MD on Sep 04 2022 10:00AM [facility] Radiology Study [facility]narrative[facility] Knee - left 4 ViewsOrdere d By: Cc Provider on 09-04-2022 [facility] No Panel Informationon 09-02 Prostate Specific Antigen Total 1.25 ng/mL 0.0-4.0 [facility] Work Phone: Comment on above: This test was perfor med using the TPSA assay method for the[employer] chemistry system. Values obtained with differentassay methods cannot be used interchangably.When changing PSA assays in the course of monitoring apatient, additional sequential testing should be carriedout to confirm baseline values. CNOVon 07-05-2022 CNOV Office Visit (UCWSTR) SIVANEMI WALKER ([id number]) 1950 M Date Time Provider Department 07/05/22 10:30 AM CHLOE MARSHALL [facility] During your visit today, we recorded the following information about you: Temperature Pulse Respiration Blood pressure 96.2 degrees 55/minute 21/minute 182/90 Weight 86.6 kg Chloe Marshall APRN.CNP 07/05/2022 10:42 AM Signed Subjective HPI HPI Emi Uriastroy is a 72 year old male who presents today for CC of itchy rash. This started 2 weeks ago. Has tried otc medication without relief. Symptoms are worsened by nothing. Risk factors hx of PI rash, has been working with [employer]. .Patient presents with: Rash: Poison greg on [...] CREAM Agrees to plan Chloe Marshall APRN.PETER Referring Provider: SELF [200] Allergies As of Date: 07/05/2022 Noted Allergy Reaction CODEINE 12/15/2011 2 - Rash 8 - GI Upset Date Reviewed: 07/05/2022 Reviewed by: Chloe Marshall APRN.LEARNING DISABLED TEACHER - Fully Assessed Reason for Visit: Rash [...] - Lev (more content not included)... Normal [facility] CR Hand Complete 3+ Views fton 04-10-2019 CR Hand Complete 3+ Views Left Patient Name: TESHA SUN Diagnostic Radiology Exam Date/Time 04/10/2019 17:14:07 EDT Exam CR Hand Complete 3+ Views Left Ordering Physician [id number] ZULY BRYANT Accession Number [id number] CPT4 Codes 25505 () Reason For Exam fracture Report LEFT [...] Transcribed Date and Time: 04/10/2019 6:44 Normal [facility] Vital Signs Date Time Vital Sign Value Performing Clinician Facility 09-09-2023 08:00-0400 Body temperature 97 [degF] Dr. Dunia Barnes Work Phone: 0(828)233-980660 [place] [address] 09-09-2023 08:00-0400 Diastolic blood pressure 68 mm[Hg] Dr. Dunia Barnes Work Phone: 2(270)593-700106 [place] [address] 09-09-2023 08:00-0400 Heart rate 54 /min Dr. Dunia Barnes Work Phone: 2(962)964-675006 [place] [address] 09-09-2023 08:00-0400 Respiratory rate 16 /min Dr. Dunia Barnes Work Phone: 7(273)075-159406 [place] [address] 09-09-2023 08:00-0400 SaO2% (BldA) [Mass fraction] 95 % Dr. Dunia Barnes Work Phone: 9(126)015-660560 [place] [address] 09-09-2023 08:00-0400 Systolic blood pressure 150 mm[Hg] Dr. Dunia Barnes Work Phone: 7(182)660-247206 [place] [address] 09-09-2023 06:14-0400 Body height 175.[address] Dunia Barnes Work Phone: 8(671)523-511560 [place] [address] 09-09-2023 06:14-0400 Body mass index (BMI) [Ratio] 27.6 kg/m2 Dr. Dunia Barnes Work Phone: 4(761)368-374060 [place] [address] 09-09-2023 06:14-0400 Body weight 84.[address] Dunia Barnes Work Phone: [facility] 08-13-2023 08:54-0400 Body temperature 97.3 [degF] Dr. Dunia Barnes Work Phone: [facility] 08-13-2023 08:54-0400 Diastolic blood pressure 85 mm[Hg] Dr. Dunia Barnes Work Phone: [facility] 08-13-2023 08:54-0400 Heart rate 58 /min Dr. Dunia Barnes Work Phone: [facility] 08-13-2023 08:54-0400 Respiratory rate 17 /min Dr. Dunia Barnes Work Phone: [facility] 08-13-2023 08:54-0400 SaO2% (BldA) [Mass fraction] 97 % Dr. Dunia Barnes Work Phone: [facility] 08-13-2023 08:54-0400 Systolic blood pressure 209 mm[Hg] Dr. Dunia Barnes Work Phone: [facility] 08-11-2023 14:22-0400 Body temperature 98 [degF] Dr. Dunia Barnes Work Phone: [facility] 08-11-2023 14:22-0400 Diastolic blood pressure 76 mm[Hg] Dr. Dunia Barnes Work Phone: [facility] 08-11-2023 14:22-0400 Heart rate 60 /min Dr. Dunia Barnes Work Phone: [facility] 08-11-2023 14:22-0400 Respiratory rate 17 /min Dr. Duina Barnes Work Phone: [facility] 08-11-2023 14:22-0400 SaO2% (BldA) [Mass fraction] 97 % Dr. Dunia Barnes Work Phone: [facility] 08-11-2023 14:22-0400 Systolic blood pressure 187 mm[Hg] Dr. Dunia Barnes Work Phone: [facility] 08-06-2023 13:00-0400 Body temperature 97.5 [degF] Dr. Dunia Barnes Work Phone: 1(792)146-806306 [place] [address] 08-06-2023 13:00-0400 Diastolic blood pressure 80 mm[Hg] Dr. Dunia Barnes Work Phone: 0(148)651-745006 [place] [address] 08-06-2023 13:00-0400 Heart rate 47 /min Dr. Dunia Barnes Work Phone: 9(906)660-498206 [place] [address] 08-06-2023 13:00-0400 Respiratory rate 18 /min Dr. Dunia Barnes Work Phone: 3(785)940-743306 [place] [address] 08-06-2023 13:00-0400 SaO2% (BldA) [Mass fraction] 100 % Dr. Dunia Barnes Work Phone: 0(819)986-961094 [address] 08-06-2023 13:00-0400 Systolic blood pressure 172 mm[Hg] Dr. Dunia Barnes Work Phone: 1(116)330-029506 [place] [address] 08-06-2023 10:47-0400 Body height 175.[address] Dunia Barnes Work Phone: 5(448)331-499806 [place] [address] 08-06-2023 10:47-0400 Body mass index (BMI) [Ratio] 27.3 kg/m2 Dr. Dunia Barnes Work Phone: 9(362)057-987294 [address] 08-06-2023 10:47-0400 Body weight [address] Dunia Barnes Work Phone: 9(057)863-396160 [place] [address] 07-22-2023 08:17-0400 Body mass index (BMI) [Ratio] 27.6 kg/m2 Dr. Dunia Barnes Work Phone: 5(029)646-576806 [place] [address] 07-22-2023 08:17-0400 Body temperature 96.8 [degF] Dr. Dunia Barnes Work Phone: 0(467)007-324694 [address] 07-22-2023 08:17-0400 Body weight 84.[address] Dunia Barnes Work Phone: [facility] 07-22-2023 08:17-0400 Diastolic blood pressure 99 mm[Hg] Dr. Dunia Barnes Work Phone: [facility] 07-22-2023 08:17-0400 Heart rate 56 /min Dr. Dunia Barnes Work Phone: 9(947)511-723460 [place] [address] 07-22-2023 08:17-0400 Respiratory rate 16 /min Dr. Dunia Barnes Work Phone: 6(037)287-437160 [place] [address] 07-22-2023 08:17-0400 Systolic blood pressure 189 mm[Hg] Dr. Dunia Barnes Work Phone: 7(169)378-400694 [address] 07-11-2023 13:35-0400 Body mass index (BMI) [Ratio] 27.2 kg/m2 Dr. Dunia Barnes Work Phone: 0(591)543-708560 [place] [address] 07-11-2023 13:35-0400 Body temperature 97.4 [degF] Dr. Dunia Barnes Work Phone: 6(114)404-385194 [address] 07-11-2023 13:35-0400 Body weight 84.[address] Dunia Barnes Work Phone: 3(522)075-375994 [address] 07-11-2023 13:35-0400 Diastolic blood pressure 84 mm[Hg] Dr. Dunia Barnes Work Phone: 3(603)189-695860 [place] [address] 07-11-2023 13:35-0400 Heart rate 64 /min Dr. Dunia Barnes Work Phone: 5(264)337-528760 [place] [address] 07-11-2023 13:35-0400 Respiratory rate 14 /min Dr. Dunia Barnes Work Phone: 6(262)626-314294 [address] 07-11-2023 13:35-0400 SaO2% (BldA) [Mass fraction] 96 % Dr. Dunia Barnes Work Phone: 6(592)238-312360 [place] [address] 07-11-2023 13:35-0400 Systolic blood pressure 173 mm[Hg] Dr. Dunia Barnes Work Phone: [facility] 09-04-2022 09:06-0400 Body temperature 97.59 [degF] Machelle Brannon FABRICATOR FOAM RUBBER.LEARNING DISABLED TEACHER Work Phone: [facility] 09-04-2022 09:06-0400 Body weight 86.91 kg Machelle Brannon FABRICATOR FOAM RUBBER.LEARNING DISABLED TEACHER Work Phone: [facility] 09-04-2022 09:06-0400 Diastolic blood pressure 84 mm[Hg] Machelle Brannon FABRICATOR FOAM RUBBER.LEARNING DISABLED TEACHER Work Phone: [facility] 09-04-2022 09:06-0400 Heart rate 68 /min Machelle Brannon FABRICATOR FOAM RUBBER.LEARNING DISABLED TEACHER Work Phone: [facility] 09-04-2022 09:06-0400 Respiratory rate 16 /min Machelle Anander FABRICATOR FOAM RUBBER.LEARNING DISABLED TEACHER Work Phone: [facility] 09-04-2022 09:06-0400 SaO2% (BldA) [Mass fraction] 98 % Machelle Brannon FABRICATOR FOAM RUBBER.LEARNING DISABLED TEACHER Work Phone: [facility] 09-04-2022 09:06-0400 Systolic blood pressure 142 mm[Hg] Machelle Brannon FABRICATOR FOAM RUBBER.LEARNING DISABLED TEACHER Work Phone: [facility] 07-05-2022 10:19-0400 Body temperature 96.21 [degF] Chloe Marshall FABRICATOR FOAM RUBBER.LEARNING DISABLED TEACHER Work Phone: [facility] 07-05-2022 10:19-0400 Body weight 86.64 kg Chloe Marshall FABRICATOR FOAM RUBBER.LEARNING DISABLED TEACHER Work Phone: [facility] 07-05-2022 10:19-0400 Diastolic blood pressure 90 mm[Hg] Chloe Marshall FABRICATOR FOAM RUBBER.LEARNING DISABLED TEACHER Work Phone: [facility] 07-05-2022 10:19-0400 Heart rate 55 /min Chloe Marshall FABRICATOR FOAM RUBBER.LEARNING DISABLED TEACHER Work Phone: [facility] 07-05-2022 10:19-0400 Respiratory rate 21 /min Chloe Marshall FABRICATOR FOAM RUBBER.LEARNING DISABLED TEACHER Work Phone: [facility] 07-05-2022 10:19-0400 SaO2% (BldA) [Mass fraction] 98 % Chloe Marshall MELIZA.LEARNING DISABLED TEACHER Work Phone: [facility] 07-05-2022 10:19-0400 Systolic blood pressure 182 mm[Hg] Chloe Marshall MELIZA.LEARNING DISABLED TEACHER Work Phone: [facility] Encounters Encounter Date Encounter Type Care Provider Facility Start: 05-12-2025 End: 05-12-[address] Lowery MD Work Phone: -Pulmonary Services/Neurology Start: 05-12-2025 End: 05-12-[address] Lowery MD -Pulmonary Services/Neurology Work Phone: Start: 05-12-2025 End: 05-12-[address] Lowery Facility:[facility] Start: 04-26-2025 End: 04-26-[address] Lowery MD Work Phone: [facility] Work Phone: Start: 04-26-2025 End: 04-26-[address] Lowery MD -Laboratory Tanika Ohara Start: 04-26-2025 End: 04-26-[address] Lowery Facility:[facility] Start: 01-05-2025 End: 01-05-[address] Lowery MD -Laboratory Eitzenyuriy Ohara Start: 01-05-2025 End: 01-05-[address] Lowery Facility:[facility] Start: 12-28-2024 End: 12-28-[address] Lowery Facility:[facility] Start: 09-14-2024 End: 09-14-[address] Lowery Facility:[facility] Start: 08-24-2024 End: 08-24-[address] Lowery Facility:[facility] Start: 01-29-2024 End: 01-29-[address] Dunia Barnes Work Phone: [facility] Work Phone: Start: 01-29-2024 End: 01-29-[address] Dunia Barnes Work Phone: [facility] Work Phone: Start: 01-22-2024 End: 01-22-[address] Dunia Barnes Work Phone: [facility] Work Phone: Start: 01-22-2024 End: 01-22-[address] Dunia Barnes Work Phone: [facility] Start: 01-12-2024 End: 01-12-2024 Non-patient / Non-visit Dr. Dunia Barnes Work Phone: [facility] Work Phone: Start: 01-12-2024 End: 01-12-[address] Dunia Barnes Work Phone: [facility] Work Phone: Start: 01-12-2024 End: 01-12-[address] Dunia Barnes Work Phone: [facility] Work Phone: Start: 11-27-2023 End: 11-27-[address] Dunia Barnes Work Phone: [facility] Work Phone: Start: 11-27-2023 End: 11-27-[address] Dunia Barnes Work Phone: [facility]-Physical Therapy Work Phone: Start: 10-23-2023 End: 10-23-[address] Dunia Barnes Work Phone: [facility] Work Phone: Start: 10-23-2023 End: 10-23-[address] Dunia Barnes Work Phone: [facility] Start: 10-20-2023 End: 10-20-[address] Dunia Barnes Work Phone: [facility] Work Phone: Start: 10-20-2023 End: 10-20-2023 Patient encounter procedure Dr. Dunia Barnes Work Phone: [facility] Work Phone: Start: 10-03-2023 End: 10-03-[address] Dunia Barnes Work Phone: [facility] Work Phone: Start: 10-03-2023 End: 10-03-[address] Dunia Barnes Work Phone: [facility] Start: 09-23-2023 End: 09-23-[address] Dunia Barnes Work Phone: [facility] Work Phone: Start: 09-09-2023 Non-patient / Non-visit Dr. Yvan Barnes Work Phone: [facility] Start: 09-09-2023 End: 09-09-2023 Admission to same day surgery center Dr. Dunia Barnes Work Phone: [facility] Start: 09-09-2023 End: 09-09-[address] Dunia Barnes Work Phone: [facility] Work Phone: Start: 09-02-2023 End: 09-02-[address] Dunia Barnes Work Phone: [facility] Work Phone: Start: 09-02-2023 End: 09-02-[address] [facility]: Start: 08-13-2023 End: 08-13-[address] Dunia Barnes Work Phone: [facility] Work Phone: Start: 08-11-2023 End: 08-11-[address] Dunia Barnes Work Phone: [facility] Work Phone: Start: 08-06-2023 Non-patient / Non-visit Dr. Yvan Barnes Work Phone: [facility] Start: 08-06-2023 End: 08-06-2023 Admission to same day surgery center Dr[facility] Dunia [facility] Start: 08-06-2023 End: 08-06-[address] Dunia Barnes Work Phone: [facility] Work Phone: Start: 07-22-2023 End: 07-22-[address] Dunia Barnes Work Phone: [facility] Work Phone: Start: 07-11-2023 End: 07-11-[address] Dunia Barnes Work Phone: [facility] Work Phone: Start: 01-31-2023 End: 01-31-2023 ambulatory [facility] Work Phone: Start: 01-31-2023 End: 01-31-2023 Patient encounter procedure [facility] Start: 09-30-2022 End: 09-30-2022 ambulatory [facility] Work Phone: Start: 09-30-2022 End: 09-30-2022 Patient encounter procedure [facility] Start: 09-04-2022 Telephone encounter Machelle castañeda APRN.CNP Work Phone: [place] Comment on above: Results Start: 09-04-2022 End: 09-04-2022 ambulatory [facility] Facility:[facility] Start: 09-04-2022 End: 09-04-2022 Subsequent hospital visit by physician [facility] Comment on above: Calf swelling [M79.8 9] Pain of left lower e xtremity [M79.605] Start: 09-04-2022 End: 09-04-2022 Patient encounter procedure Machelle Brannon APRN.LEARNING DISABLED TEACHER Work Phone: [place] Comment on above: Pain of left lower e xtremity (Primary Dx); Calf swelling Start: 09-02-2022 End: 09-02-2022 [facility] Work Phone: Start: 09-02-2022 End: 09-02-2022 [facility] Start: 07-05-2022 End: 07-05-2022 ambulatory [facility] Facility:[facility] Start: 07-05-2022 End: 07-05-2022 Patient encounter procedure Chloe Marshall APRN.CNP Work Phone: [facility] Comment on above: Rhus dermatitis [...] Dup-scan xtr veins unilateral/limited study Machelle Brannon APRN.LEARNING DISABLED TEACHER Work Phone: Start: 09-04-2022 Radiologic exam knee complete 4/more views Machelle Brannon APRN.LEARNING DISABLED TEACHER Work Phone: H/O: surgery History of excis ion of mass Dr. Dunia Barnes Work Phone: H/O: surgery S/P excision of skin lesion, follow-up exam Dr. Dunia Barnes Work Phone: Plan of Treatment Date Care Activity Detail Author Start: 04-10-2029 Urine microalbumin profile DTaP,Tdap,Td Vaccine (2 - Td or Tdap) [facility] Start: 2026 RSV Vaccine (1 - 1-d ose 75+ series) RSV Vaccine (1 - 1-dose 75+ series) [facility] Start: 07-18-2024 Covid-19 Vaccine ( season) Covid-19 Vaccine ( season) [facility] Start: 07-18-2024 Influenza vaccination Influenza Vacc ine (#1) [facility] Start: 11-17-2023 Advance Directive Discussion Advance Directive Discussion [facility] Start: 09-09-2023 Anes integ musc & nr v head neck&posterior trunk ANESTH HEAD/NECK/PTRUNK [facility] Start: 09-09-2023 Excision mal lesion trunk/arm/leg 3.1-4.0 cm EXC TR-EXT MAL+JOSH 3.1-4 CM [facility] Start: 09-09-2023 [facility] Start: 08-06-2023 Anes integ musc & nr v head neck&posterior trunk ANESTH HEAD/NECK/PTRUNK [facility] Start: 08-06-2023 Exc b9 lesion mrgn x cp sk tg t/a/l 2.1-3.0 cm EXC TR-EXT B9+JOSH 2.1-3CM [facility] Start: 08-06-2023 [facility] Start: 07-18-2022 Influenza vaccination INFLUENZA (#1) [facility] Start: 11-17-2021 ADVANCE DIRECTIVE DISCUSSION ADVANCE DIRECTIVE DISCUSSION [facility] Start: 11-17-2021 DEPRESSION ASSESSMENT DEPRESSION ASS ESSMENT [facility] Start: 02-12-2016 PNEUMOCOCCAL: 65+ (1 - PCV) PNEUMOCOCCAL: 65+ (1 - PCV) [facility] Start: 2001 SHINGRIX VACCINE (1 of 2) SHINGRIX VACCINE (1 of 2) [facility] Start: 02-12-1996 COLOGUARD (FIT-DNA) COLOGUARD (FIT-D NA) [facility] Start: 02-12-1996 Colonoscopy COLONOSCOPY [facility] Start: 02-12-1996 COLORECTAL CANCER SCREENING COLORECTAL CANCER SCREENING [facility] Start: 02-12-[address] COLONOGRAPHY [facility] Start: 02-12-1996 DIABETES SCREEN DIABETES SCREEN [facility] Start: 02-12-1996 Diabetes Screening Diabetes Screenin g [facility] Start: 02-12-1996 FECAL OCCULT BLOOD FECAL OCCULT BLOO D [facility] Start: 02-12-1996 Screening for malign ant neoplasm of colon [facility] Start: 02-12-1996 SIGMOIDOSCOPY SIGMOIDOSCOPY [facility] Start: 1986 Lipid panel Lipid Screening [facility] Start: 1986 LIPID SCREEN LIPID SCREEN [facility] Start: 1970 Urine microalbumin profile DTAP,TDAP,TD (1 - Tdap) [facility] Start: 1969 Anxiety Screening Anxiety Screening [facility] Start: 1969 Depression Screening Depression Scre ening [facility] Start: 1969 HEPATITIS C SCREENING HEPATITIS C [facility] Start: 1969 Hepatitis C screening Hepatitis C [facility] Start: 1963 Adult depression screening assessment DEPRESSION SCREENING [facility] Start: 1950 ABDOMINAL AORTIC ANEURYSM SCREENING ABDOMINAL AORTIC ANEURYSM SCREENING [facility] Start: 1950 Abdominal aortic aneurysm screening Abdominal Aortic Aneurysm Screening [facility] Anion gap measurement [facility] BUN/Creatinine ratio [facility] Calcium [Mass/volume ] in Serum or Plasma [facility] Carbon dioxide, tota l [Moles/volume] in Serum or Plasma [facility] Chloride [Moles/volu me] in Serum or Plasma [facility] Creatinine [Moles/volume] in Serum or Plasma [facility] Glucose [Mass/volume ] in Serum or Plasma [facility] Measurement of renal function [facility] Patient referral [facility] Work Phone: Potassium [Moles/vol ume] in Serum or Plasma [facility] Sodium [Moles/volume ] in Serum or Plasma [facility] T4 free measurement [facility] Urea nitrogen [Mass/volume] in Serum or Plasma [facility] End: 09-04-2023 US LEG VEIN DVT [facility] US LEG VEIN DVT [facility] Vascular Lab STAT Calf swelling 1 Occurrences starting 09/04/2022 until 09/04/2023 [facility] Work Phone: Comment on above: 1 Occurrences starti ng 09/04/2022 until 09/04/2023 Vitamin B12 measurement [facility] Vitamin D, 25-hydrox y measurement [facility] Immunizations Immunization Date Immunization Notes Care Provider Cece guerrero 08-09-2020 influenza virus vaccine, unspecified formulation [facility] [place] Work Phone: [facility] 04-10-2019 tetanus toxoid, redu chaz diphtheria toxoid, and acellular pertussis vaccine, adsorbed [facility] Payers Date Payer Category Payer Self-pay [id number] 2021 Private Health Insurance [facility] AARP SUPPLEMENT [id number] 2021-Present [phone] [address] [place] [address] Indemnity [id number] 2021 Unknown [id number] 2016 Medicare MEDICARE MEDICAR E A AND B [id number] 2016-Present [phone] [address] [address] [place] [address] Medicare [id number] 2016 Medicare [id number] 2015 Private Health Insurance [id number] Unknown [id number] Unknown [id number] Unknown [id number] Unknown [id number] Unknown [id number] Unknown [id number] Social History Date Type Detail Facility Start: 07-05-2022 End: 08-27-2023 Tobacco smoking status NHIS Ex-smoker [facility] History of tobacco use Current smoker [facility] History of tobacco use Cigarette Smoker [facility] History of tobacco use Passive smoker [facility] Start: 07-05-2022 Tobacco use and exposure Smokeless tobacco non-user [facility] Start: 07-05-2022 End: 10-19-2022 Alcohol intake Not Asked [facility] Start: 07-05-2022 Tobacco Comment Smoked for 17 years, quit for 18, then smoked for about 7 years. 1 PPD. [facility] Start: 1950 Sex Assigned At Not on file [facility] Start: 06-25-2022 End: 09-04-2022 Exposure to SARS-CoV-2 (event) Not sure [facility] Start: 04-08-2021 End: 08-27-2023 Tobacco smoking status NHIS Unknown if ever smoked [facility] Start: 04-10-2019 None [facility] Start: 04-10-2019 Spouse/ Signif icant Other [facility] Start: 04-08-2021 Non-smoker [facility] Start: 1950 Sex Assigned At Male [facility] Start: 09-04-2022 History of Social function [facility] Start: 09-04-2022 Tobacco use panel [facility] Goals Date Patient Goal Desired Activity /State Mental Status Date Assessment Result Facility 09-09-2023 Cognitive function Voice/Name [facility] Work Phone: 08-06-2023 Cognitive function Voice/Name [facility] Work Phone: Clinical Notes 07-05-2022 to 11-27-2023 Note Date & Type Note Facility 11-27-2023 Discharge summary Note Date/Time November 27, 2023 10:23am [facility] [address] [place] [address] [address] [place] [address] / REHABILITATION SERVICES DISCHARGE SUMMARY MR#: [id number] Acct: [id number] Name: TESHA SUN Rep #: [id number] : 1950 73 From: Jurgen Valladares DPT, OCS, CSCS Referring Dr.: Dr. Lane Lowery MD Status: REG RCR Insurance: MEDICARE PART A B AARP Discharge Summary D/C summary: It has been [...] please feel free to call me at [phone]. Thank you for the referral of thispatient. Sincerely, Jurgen Valladares DPT, FATMATA, CSCS Balance/Gait/Functional tests Balance/Special Test Scores Functional Gait Assessment Score: 27 % Disability: 10.0000 Dizziness Score: 24 <Electronically signed by Jurgen Valladares DPT, FATMATA, CSCS> 11/27/23 1023 CC: Dr. Dunia Barnes MD; Dr. Lane Lowery MD ~ EBG Signed [facility] Work Phone: 1(390) 647-623610-24-2023 History and physical note Author Jose Jacobo [facility] September 09, 2023 6:54am Note Date/Time September 09, 2023 6 :53am [facility] Medical Records Department [address] [place] [address] H&P Exam - Surgical 09/09/23 0652 MR#: [id number] Acct: [id number] Name: TESHA SUN Rep #:[id number] : 1950 73 From: Jose hernandez MD PCP: Dr. Dunia Barnes MD Status:[facility] Location: [place] [address] HPI - General HPI Narrative TESHA SUN, is a 73 M who presents for [...] had no issues since his last surgery. [facility] Medical History Abscess of left thigh Alcohol [...] willing to proceed. Jose Jacobo MD Pager: [facility] [address] [place] [address] [facility] [address] [place] [address] Office: 09/09/23 8810 <Electronically signed by Jose Jacobo MD> Cosigner Signature (if applicable): CC: Dr. Dunia Barnes MD; Dr. Jose Jacobo MD~ Signed [facility] Work Phone: 1(116) 473-746110-24-2023 Procedure [facility] 08-06-2023 Procedure [facility]09-20-2023 History and physical note Author Jose Jacobo [facility] August 06, 2023 10:31am Note Date/Time August 06, 2023 10:31am [facility] Medical Records Department [address] [place] [address] History & Physical Exam 08/06/23 1031 MR#: [id number] Acct: [id number] Name: TESHA SUN Rep #:[id number] : 1950 73 From: Jose hernandez MD PCP: Dr. Dunia Barnes MD Status:[facility] Location: [place] [address] History and Physical Date of Admission: 08/06/23 [...] General: cooperative Orientation: alert and oriented x3 HENMT Head: normal to inspection Neck Neck: normal [...] near the area. Jose Jacobo MD Pager: [facility] [address] [place] [address], [address] [place] [address] Office: I have examined the patient and the H&P has been reviewed. There are no clinicalchanges since date of exam. 08/06/23 1031 <Electronically signed by Jose Jacobo MD> Cosigner Signature (if applicable): CC: Dr. Dunia Barnes MD; Dr. Jose Jacobo MD~ Signed [facility] Work Phone: 1(583) 537-465810-20-2022 Miscellaneous Notes* Telephone Encounter - Lavern Henao [...] the results were in. [facility]22 NoteHNO ID: [id number] Author: LIDA Joseph) Service: ? Author Type: [...] BY: RT Opal(Khushboo) September 04, 2022 1:43 [facility]10-19-2022 History of Present illness Narrative* LIDA Joseph) [...] BY: RT Opal(Khushboo) September 04, 2022 1:43 PM documented in this encounterC[facility]-2022 NoteHNO ID: [id number] Author: LIDA Kaiser) Service: Nuclear Medicine Author [...] IV DATA: Not applicable SIGNED BY: RT Awilda(Khushboo) September 04, 2022 9:37 [facility]10-19-2022 NoteHNO ID: [id number] Author: Machelle Brannon APRN.LEARNING DISABLED TEACHER Service: ? Author Type: Nurse Practitioner Type: [...] for an [place] of the leg [place]. He again is denying any cp or [...] - US DVT LOWER LT Machelle Brannon APRN.CN[facility] History of Present illness Narrative* Lauqita Fernandez RT(R) - 09/04/2022 9:30 AM EDT [...] 04, 2022 9:37 AM documented in this encounterC[facility]-2022 History of Present illness Narrative* Machelle Brannon APRN.LEARNING DISABLED TEACHER - 09/04/2022 9:11 AM EDT SUBJECTIVE: Emi [...] for an US of the leg at [place]. He again is denying any cp or [...] - US DVT LOWER LT Machelle Brannon APRN.PETER documented in this encounterC[facility]08-19-2022 NoteHNO ID: [id number] Author: Chloe Marshall APRN.LEARNING DISABLED TEACHER Service: ? Author Type: Nurse Practitioner Type: [...] TOPICAL CREAM Agrees to plan Chloe Marshall APRN.[facility]08-19-2022 History of Present illness Narrative* Chloe Marshall APRN.LEARNING DISABLED TEACHER - 07/05/2022 10:40 AM EDT Images from [...] TOPICAL CREAM Agrees to plan Chloe Marshall APRN.LEARNING DISABLED TEACHER documented in this encounterWest [facility] ClinicDischarge summary Author Jose Jacobo [facility] August 06, 2023 12:59pm Note Date/Time August 06, 2023 12:58pm [facility] Medical Records Department [address] [facility] [place] [address] Instructions for Home/Discharge Instructions 08/06/23 1257 MR#: [id number] Acct: [id number] Name: TESHA SUN Rep #:[id number] : 1950 73 From: Jose hernandez MD PCP: Dr. Dunia Barnes MD Status:REG [facility] Discharge Instructions Diet Discharge Diet: No restrictions [...] call to schedule 10-day follow up appointment. [phone] Test Results: Test results from this visit will be discussed in further detail at your follow- up appointment, if applicable. Discharge Plan Admission Attending Provider: Jose Jacobo Primary Care Provider: Dunia Barnes Additional Instructions / Restrictions: I Profen and [...] can be placed): Home, Self Care 08/06/23 1259<Electronically signed by Jose Jacobo MD>Jose Jacobo MD CC: Dr. Dunia Barnes MD ~ Signed [facility] Work Phone: Discharge summary Author Jose [facility] September 09, 2023 8:17am Note Date/Time September 09, 2023 8 :12am [facility] Medical Records Department [address] [place] [address] Instructions for Home/Discharge Instructions 09/09/23 0810 MR#: [id number] Acct: [id number] Name: TESHA SUN Rep #:[id number] : 1950 73 From: Jose hernandez MD PCP: Dr. Dunia Barnes MD Status:REG [facility] Discharge Instructions Diet Discharge Diet: No restrictions [...] to schedule 2 week follow up appointment. [phone] Test Results: Test results from this visit [...] Order can be placed): Home, Self Care 09/09/23816<Electronically signed by Jose Jacobo MD>Jose Jacobo MD CC: Dr. 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) documented [facility] this encounter [facility]* Diagnosis Pain of left lower extremity- Primary Calf swelling Swelling of limb documented in this encounter [facility] Hospital[facility] noteNo assessment information availableWDayton Children's [facility] Work Phone: Evaluation note* Diagnosis Onset Date Resolution Status Abscess of left thigh acute Abscess of left thigh [facility] Work Phone: Evaluation note* Diagnosis Onset Date Resolution Status Testicular swelling acute 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 [facility] Work Phone: Evaluation note* Diagnosis Onset Date Resolution Status Testicular swelling acute 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 [facility] Work Phone: Evaluation note* Diagnosis Onset Date Resolution Status Testicular swelling acute 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 [facility] Work Phone: Evaluation note* Diagnosis Onset Date Resolution Status 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 [facility] Work Phone: Evaluation note* Diagnosis Pain of left lower extremity documented in this encounter [facility] for referral (narrative)* Diagnostic Procedure Only (Urgent) - Closed Specialty Diagnoses / Procedures Referred By Contac t Referred To Contact US IMAGING Diagnoses Calf swelling Procedures US DVT LOWER LT DUP-SCAN XTR VEINS UNILATERAL/LIMITED STUDY Machelle Brannon APRN.CNP [address] [place] [address] Us Imaging Referral ID Status Reason Start Date Expiration Date V isits Requested Visits Authorized [id number] Closed Auto-Generate d Referral 09/04/2022 11/16/2022 1 1 * Outpatient Procedure (Urgent) - Authorized Specialty Diagnoses / Procedures Referred By Contac t Referred To Contact [facility] Diagnoses Calf swelling Procedures US LEG VEIN DVT [facility] DUP-SCAN XTR VEINS UNILATERAL/LIMITED STUDY Machelle Brannon APRN.LEARNING DISABLED TEACHER [address] [place] [address] [facility] [place] [address] [place] [address] Referral ID Status Reason Start Date Expiration Date Visits Requested Visits Authorized [id number] Authorized Auto-Generat ed Referral 09/04/2023 1 1 * Diagnostic Procedure Only (Urgent) - Closed Specialty Diagnoses / Procedures Referred By Contac t Referred To Contact XR IMAGING Diagnoses Pain of left lower extremity Procedures XR KNEE GENERAL 4V AP BOTH/PA BOTH/LAT/MERC LEFT RADIOLOGIC EXAM KNEE COMPLETE 4/MORE VIEWS Machelle Brannon APRN.LEARNING DISABLED TEACHER [address] [place] [address] Xr Imaging Referral ID Status Reason Start Date Expiration Date V isits Requested Visits Authorized [id number] Closed Auto-Generate d Referral 09/04/2022 10/04/2023 1 1 [facility] for referral (narrative)* Diagnostic Procedure Only (Urgent) - Closed Specialty Diagnoses / Procedures Referred By Contac t Referred To Contact XR IMAGING Diagnoses Pain of left lower extremity Procedures XR KNEE GENERAL 4V AP BOTH/PA BOTH/LAT/MERC LEFT RADIOLOGIC EXAM KNEE COMPLETE 4/MORE VIEWS Machelle Brannon APRN.LEARNING DISABLED TEACHER [address] [place] [address] [place] [address] Referral ID Status Reason Start Date Expiration Date V isits Requested Visits Authorized [id number] Closed Auto-Generate d Referral 09/04/2022 10/04/2023 1 1 [facility] for referral (narrative)No reason for referral information availableWDayton Children's Hospital Work Phone: Reason for visit Narrative* Diagnostic Procedure Only (Urgent) - Closed Specialty Diagnoses / Procedures Referred By Contac t Referred To Contact US IMAGING Diagnoses Calf swelling Procedures US DVT LOWER LT DUP-SCAN XTR VEINS UNILATERAL/LIMITED STUDY Machelle Brannon APRN.LEARNING DISABLED TEACHER [address] [place] [address] Us Imaging Referral ID Status Reason Start Date Expiration Date V isits Requested Visits Authorized [id number] Closed Auto-Generate d Referral 09/04/2022 11/16/2022 1 1 [facility] for visit Narrative* Diagnostic Procedure Only (Urgent) - Closed Specialty Diagnoses / Procedures Referred By Contac t Referred To Contact XR IMAGING Diagnoses Pain of left lower extremity Procedures XR KNEE GENERAL 4V AP BOTH/PA BOTH/LAT/MERC LEFT RADIOLOGIC EXAM KNEE COMPLETE 4/MORE VIEWS Machelle Brannon, MELIZA.LEARNING DISABLED TEACHER [address] [place] [address] [place] [address] Referral ID Status Reason Start Date Expiration Date V isits Requested Visits Authorized [id number] Closed Auto-Generate d Referral 09/04/2022 10/04/2023 1 1 [facility] Summary Purpose Family History No Family History Records FoundNo Family History Records FoundNo Family History Records FoundNo Family History Records Found Advance Directives No Advanced Directives Records Found Advance Directive Response Recorded Date/ Time Living Will Yes April 08, 2021 9 :00am Power of Inpatient Coder Yes April 08, 2021 9:00am Advance Directive Response Recorded Date/ Time Living Will Yes April 08, 2021 8 :00am Power of Inpatient Coder Yes April 08, 2021 8:00am Advance Directive Response Recorded Date/ Time Name of Medical Power of Inpatient Coder July 30, 2023 9:09am Living Will Yes July 30, 2023 9:09am Power of Inpatient Coder Yes July 9:09am Advance Directive Response Recorded Date/ Time Name of Medical Power of Inpatient Coder July 30, 2023 9:09am Living Will Yes August 27 12:33pm Power of Inpatient Coder Yes August 27, 2023 12:33pm Advance Directive Response Recorded Date/ Time Name of Medical Power of Inpatient Coder July 30, 2023 9:09am Name of Medical Power of Inpatient Coder ON FILE August 27, 2023 12:33pm Living Will Yes August 27 12:33pm Power of Inpatient Coder Yes August 27, 2023 12:33pm Advance Directive Response Recorded Date/ Time Name of Medical Power of Inpatient Coder July 30, 2023 8:09am Name of Medical Power of Inpatient Coder ON FILE August 27, 2023 11:33am Living Will Yes August 27 11:33am Power of Inpatient Coder Yes August 27, 2023 11:33am Advance Directive Response Recorded Date/ Time Living Will Yes August 27 11:33am Power of Inpatient Coder Yes August 27, 2023 11:33am Advance Directive Response Recorded Date/ Time Living Will Yes August 27 12:33pm Power of Inpatient Coder Yes August 27, 2023 12:33pm Chief Complaint [...] RT KNEE, PREOP *SHANNON PROTOCOL* PREOP EORDER Chief Complaint Admit Date SOB May 12, 2025 9:46 am Additional Source Comments (unrecognized sect ion and content) No Status Records FoundNo Status Records FoundNo Status Records FoundNo Status Records Found INFORMATION SOURCE (unrecogn ized section and content) DATE CREATED AUTHOR 04/25/2019 [facility] DATE CREATED AUTHOR AUTHOR'S ORGANIZ ATION 09/09/[address] [facility] DATE CREATED AUTHOR AUTHOR'S ORGANIZ ATION 09/09/2022 [facility] DATE CREATED AUTHOR AUTHOR'S ORGANIZ ATION 05/18/2025 [facility] Source Comments (unrecognize d section and content) In the event this informatio n is protected by the Federal Confidentiality of Alcohol and Drug Abuse Patient Records regulations: The Federal rules restrict any use of the information to criminally investigate or prosecute any alcohol or drug abuse patient.[facility] the event this information is protected by the Federal Confidentiality of Alcohol and Drug Abuse Patient Records regulations: The Federal rules restrict any use of the information to criminally investigate or prosecute any alcohol or drug abuse patient.[facility] the event this information is protected by the Federal Confidentiality of Alcohol and Drug Abuse Patient Records regulations: The Federal rules restrict any use of the information to criminally investigate or prosecute any alcohol or drug abuse patient.[facility] the event this information is protected by the Federal Confidentiality of Alcohol and Drug Abuse Patient Records regulations: The Federal rules restrict any use of the information to criminally investigate or prosecute any alcohol or drug abuse patient.[facility] the event this information is protected by the Federal Confidentiality of Alcohol and Drug Abuse Patient Records regulations: The Federal rules restrict any use of the information to criminally investigate or prosecute any alcohol or drug abuse patient.[facility] Reason for Visit (unrecogniz ed section and content) Reason Comments Rash Poison greg on hands, ankles, and private area x 2 weeks Reason Comments Left Knee Pain X 1 month-cannot rec all an injury but has had some work done on knees in the past Reason Comments Results Care Teams (unrecognized sec tion and content) [employer] Counselor Relationship Specialty Start Date End Date Dunia Barnes [address] [place] [address] PCP - General Family Practice 07/05/22 [employer] Counselor Relationship Specialty Start Date End Date Dunia Barnes [address] [place], [place] [id number] PCP - General Family Medicine 07/05/22 [employer] Counselor Relationship Specialty Start Date End Date Dunia Barnes [address] [place], [place] [id number] PCP - General Family Medicine 07/05/22 [employer] Head Counselor Relationship Specialty Start Date End Date Dunia Barnes [address] [place] [address] PCP - General Family Medicine 07/05/22 Team Status: Active Member Role Status Dates Dr. Dunia Barnes MD Family Provider Active Dr. Dunia Barnes MD Primary Care Provider Active Team Status: Inactive Member Role Status Dates Dr. Dunia Barnes MD Primary Care Provider Active Lynsey Monroy NP-C Attending Provider Active Team Status: Inactive Member Role Status Dates Dr. Dunia Barnes MD Primary Care Provider, Referrin g Provider Active Vladimir Shine PA, PA Attending Provider Active Team Status: Inactive [...] Provider, Referrin g Provider Active Saqib Longoria PA, PA Attending Provider Active Team Status: Inactive Member Role Status Dates Dr. Dunia Barnes MD Primary Care Provider, Referrin g Provider Active Machelle MCKEON, PA-C Attending Provider Active Team Status: Inactive [...] Dr. Saqib Aguero MD Attending Provider, Referring Vincent thapa Active Team Status: Active Member Role Status Dates Dr. Dunia Barnes MD Primary Care Provider Active Dr. Kim Montano MD Attending Provider Activ e Dr. Saqib Aguero MD Referring Provider Active [employer] Counselor Relationship Specialty Start Date End Date Dunia Barnes [facility] [address] [place] [address] PCP - General Family Medicine 07/05/22 Team Status: Active Member Role Status Dates Dr. Lane Lowery MD Primary Care Provider Active Team Status: Inactive Member Role Status Dates Dr. Lane Lowery MD Primary Care Provider Active Start: January 05, 2025 End: January 05, 20[address] Loewry MD Attending Provider Active Start: January 05, [...] April 26, 2025 End: April 26, 2025 Team Status: Active Member Role/Relationship Status Dates Dr. Lane Lowery MD Primary Care Provider Active Team Status: Inactive Member Role/Relationship Status Dates Dr. Lane Lowery MD Primary Care Provider Active Start: April 26, 2025 End: April 26, 20[address]. [address] Lowery MD Attending Provider Active Start: April 26, 2025 End: April 26, 20[address]. [address] Lowery MD Referring Provider Active Start: April 26, 2025 End: April 26, 2025 Team Status: Inactive Member Role/Relationship Status Dates Dr. Lane Lowery MD Primary Care Provider Active Start: May 12, 2025 End: May 12, 20[address]. [address] Lowery MD Attending Provider Active Start: May 12, 2025 End: May 12, 20[address]. [address] Lowery MD Referring Provider Active Start: May 12, 2025 End: May 12, 2025 Goals (unrecognized section and content) Goals [...] BE BASED ON THE PRIMARY CLINICAL RECORDS. [facility]. provides no warranty or guarantee of the accuracy or completeness of information in this document.
== END | disposition home or self-care (01) ==
LOC: CVS 09:49
PROVIDERS: PCP Family Medicine; Referring Provider Family Medicine; Visit Provider Family Medicine
DX: R06.02 Shortness of breath (principal); I10 Essential (primary) hypertension
CPT/HCPCS: 36415; 80053; 80061; 81001; 82570; 83735; 84156; 85025; 93306

== ENCOUNTER 2025-08-26 10:14 | Outpatient (CLI) | payer MEDICARE, OTHER, SELFPAY ==
[2025-08-26 10:19] LABS: Mucous, Urine 0 SEEN /hpf (<or=2+); Red Blood Cells-Urine 0 SEEN /hpf (0-5); Squamous Epithelial Cells - UA 0 SEEN /hpf (0-5)
[2025-08-26 12:07] LABS: Color, Urine Yellow (Yellow); Glucose, Dipstick Normal (Normal); Ketone-Dipstick Negative (Negative); Leukocyte Esterase-Dipstick Negative /ul (Negative); Nitrite-Dipstick Negative (Negative); Occult Blood-Urine 10 /ul (Negative); Protein-Dipstick 15 mg/dl (Negative); Specific Gravity, Urine 1.010 (1.002-1.030); Urine Bilirubin Dipstick Negative (Negative)
[2025-08-26 12:31] LABS: Hematocrit 41.9 % (40-54); Hemoglobin 13.7 g/dL (13.0-16.5); Immature Granulocytes Count 0.020 X10^3/uL (0.0-0.0); Mean Corp Hgb Conc 32.7 g/dL (32-36); Mean Corpuscular Volume 91.1 fL (80-94); Mean Platelet Vol. 10.5 fl (6.2-12.0); NRBC Flagged by Analyzer 0 % (0-5); Platelet Count 207 K/mm3 (150-450); RBC Distribution Width CV 13.3 % (11.6-14.6); RBC Distribution Width SD 45.0 fl (35.1-43.9); Red Blood Count 4.60 M/mm3 (4.6-6.2); White Blood Count 5.7 K/mm3 (4.4-11.0)
[2025-08-26 12:40] LABS: AST(SGOT) 17 U/L (<=37); Alanine Aminotransfer ALT/SGPT 13 U/L (<=46); Albumin, Serum 4.0 g/dL (3.4-4.8); Alkaline Phosphatase 51 U/L (40-129); Anion Gap 10 (5-15); BUN 15 mg/dL (4-19); BUN/Creat Ratio 11.9 RATIO (10-20); Calcium,Total 9.3 mg/dL (7.6-11.0); Carbon Dioxide 25.6 mmol/L (21.0-32.0); Chloride 105 mmol/L (98-108); Cholesterol 168 mg/dL (<=200); Globulin 2.8 g/dL (2.2-4.2); Glucose 96 mg/dL (70-99); Low Density Lipoprotein Calc. 94 mg/dL; Magnesium 2.1 mg/dL (1.5-2.2); Potassium 4.1 mmol/L (3.3-5.1); Triglycerides 98 mg/dL; Very Low Density Lipoprotein 20 mg/dL (5-40); cholesterol:hdl ratio screen 3.11
== END 2025-08-26 23:59 | disposition home or self-care (01) ==
LOC: MFPLAB 10:17
PROVIDERS: PCP Family Medicine; Visit Provider Family Medicine
DX: I10 Essential (primary) hypertension (principal)
CPT/HCPCS: 36415; 80053; 80061; 81001; 83735; 85025

== ENCOUNTER → 2025-09-05 | Outpatient (CLI) | payer MEDICARE, OTHER, SELFPAY ==
--- OUTSIDE RECORDS SUMMARY | 2025-09-05 07:06 | XMS RPT_ITS | CCD ---
Author Organization [facility] Care Team Providers Care Terrazzo Finisher Name Role Phone Dunia Barnes Primary Care [...] Care Provider Dr. Jose Jacobo Attending Provider [phone] Dr. Dunia Barnes Referring Provider Dr. Dunia Barnes Primary Care Provider Dr. Dunia Barnes Referring Provider Dr. Jose Jacobo Attending Provider [phone] Dr. Dunia Barnes Primary Care Provider Dr. Kim Montano Attending Provider Dr. Saqib Aguero Referring Provider Dunia Barnes Primary Care Provider [phone] Beverley CARRERA, Dr. Lane Boswell Primary Care Provider Beverley CARRERA, Dr. Lane Boswell Attending Provider Beverley CARRERA, Dr. Lane Boswell Referring Provider Beverley CARRERA, Dr. Lane Boswell Primary Care Provider Beverley CARRERA, Dr. Lnae Boswell Attending Provider Beverley CARRERA, Dr. Lane Boswell Referring Provider Karthikeyan CARRERA, Dr. Payan Attending Provider Lane Lowery Attending Unavailable Lane Lowery Primary Care Unavailable Lane Lowery Referring Unavailable SchLane grimm Referring Unavailable SchLane grimm Attending Unavailable Lane Lowery Primary Care Unavailable SchLane grimm Referring Unavailable SchLane grimm Attending Unavailable Lane Lowery Primary Care Unavailable Lane Lowery Referring Unavailable SchLane grimm Attending Unavailable Beverley, Lane Boswell Primary Care Unavailable SchLane grimm Referring Unavailable Schalfa, Lane Boswell Primary Care Unavailable Lane Lowery Attending Unavailable Lane Lowery Primary Care Unavailable Clark Stewart Attending Unavailable Clark Stewart Referring Unavailable Schalfa, Lane Boswell Primary Care Unavailable Lane Lowery Attending Unavailable Steve Purdy Attending Unavailable Schuyler Napier Attending Unavailable Lane Lowery Primary Care Unavailable Lane Lowery Primary Care Unavailable Lane Lowery Attending Unavailable Allergies Allergy Classification Reported Allergen(s) Allergy Type Date of Onset Reaction(s) Facility (20 sources) Codeine; Translations: [CODEINE] Drug Allergy 2 Rash, GI Upset [facility] Work Phone: (1 source) Codeine Drug Allergy 3 [facility] Repository Medications Current Medications Medication Drug [...] on above: Take [facility] capsule [facility] before breakfast. 1/2 hr before meal. finasteride 5 mg oral tablet (13 sources) 5-alpha Reductase Inhibitor Start: 07-30-2023 take [...] by mouth. lisinopril 10 mg oral tablet (13 sources) Angiotensin Converting Enzyme Inhibitor Start: 07-30-2023 [...] 12:00am oxyCODONE hydrochloride 5 mg oral tablet (11 sources) Opioid Agonist Start: 09-09-20 take 5-10 mg by mouth every six hours as needed for pain Oxycodone 5 mg tablet Active 5 - 10 mg PO EVERY 6 HOURS as needed for pain 10 5 0 September 09, 2023 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in Squamous cell carcinoma of skin, unspecified Povidone (Pf) (Ivizia (Pf)) 0.5 % drops (13 sources) Start: 07-30-20 Povidone (Pf) (Ivizia (Pf)) [...] (Original) doxycycline hyclate 100 mg oral capsule (13 sources) Tetracycline-cla ss Drug Start: 07-11-2023 End: [...] initial encounter for open fracture] 04-11-2019 Episodic Open wounds of extremities (20 sources) Laceration [...] of breath; Translations: [Shortness of breath] Onset: 07-14-2025 Episodic Other male genital disorders (12 sources) Swelling of testicle; Translations: [Other specified disorders of the male genital organs] 08-11-2023 Episodic Other male genital disorders (6 sources) Other specified disorders of the male genital organs; Translations: [Edema of male genital organs] 08-11-2023 Episodic Other non-epithelial cancer of skin (20 sources) Squamous cell carcinoma of skin; Translations: [Squamous cell carcinoma of skin, unspecified] 08-13-2023 Episodic Other non-traumatic joint disorders (16 sources) Effusion of joint of left knee; Translations: [Effusion, left knee] 04-08-2021 Episodic Other non-traumatic joint disorders (16 sources) Pain in left knee; Translations: [Acute pain of left knee] 04-08-2021 Episodic Other upper respiratory disease (5 sources) Chronic rhinitis; Translations: [Chronic rhinitis] Onset: 09-12-2014 09-12-2014 Chronic Skin and subcutaneous tissue infections (15 sources) Abscess of left thigh; Translations: [Cutaneous [...] Test Name Value Interpretation Reference Range Facility CBC W/Diff, Automatedon 08-17 Absolute Lymph 1.97 X10 3/uL Normal 0.83-4.51 [facility] Comment on above: Performed By: #### L 500.4050 #### [facility] [address] [place], [place], [id number] Absolute Neut 3.2 X10 3/uL Normal 2.0-7.7 [facility] Comment on above: Performed By: #### L [id number] #### [facility] [address] [place], [place], [address] Basophils/100 WBC (Bld) 0.5 % Normal 0-1 [facility] Comment on above: Performed By: #### L [id number] #### [facility] [address] [place], [address] Eosinophils/100 WBC (Bld) 1.8 % Normal 0-5 [facility] Comment on above: Performed By: #### L 500.4050 #### [facility] [address] [place], [address] Erythrocyte distribution width (RBC) [Ratio] 13.3 % Normal 11.6-14.6 [facility] Comment on above: Performed By: #### L 500.4050 #### [facility] [address] [place], [address] Hematocrit (Bld) [Volume fraction] 41.9 % Normal 40-54 [facility] Comment on above: Performed By: #### L 500.4050 #### [facility] [address] [place], [address] Hemoglobin (Bld) [Mass/Vol] 13.7 g/dL Normal 13.0-16.5 [facility] Comment on above: Performed By: #### L 500.4050 #### [facility] [address], [address] IG% 0.400 Normal 0.0-0.9 [facility] Comment on above: Result Comment: IG% - Immature Granulocytes (promyelocytes, myelocytes and metamyelocytes) > 1% indicates that a LEFT SHIFT is Present. Performed By: #### L 500.4050 #### [facility] [address] [place], [address] Lymphocytes/100 WBC (Bld) 34.6 % Normal 19-41 [facility] Comment on above: Performed By: #### L 500.4050 #### [facility] [address] [place], [address] MCH (RBC) [Entitic mass] 29.8 pg Normal 27.0-32.0 [facility] Comment on above: Performed By: #### L 500.4050 #### [facility] [address] [place], [address] MCHC (RBC) [Mass/Vol] 32.7 g/dL Normal 32-36 [facility] Comment on above: Performed By: #### L [id number] #### [facility] [address] [place], [address] MCV (RBC) [Entitic vol] 91.1 fL Normal 80-94 [facility] Comment on above: Performed By: #### L [id number] #### [facility] [address] [place], [address] Monocytes/100 WBC (Bld) 7.0 % Normal 0-10 [facility] Comment on above: Performed By: #### L 500.4050 #### [facility] [address] [place], [address] Neutrophils/100 WBC (Bld) 55.7 % Normal 47-70 [facility] Comment on above: Performed By: #### L 500.4050 #### [facility] [address] [place], [address] Nucleated RBC (Bld) [#/Vol] 0 10*3/uL Normal 0-5 [facility] Comment on above: Performed By: #### L 500.4050 #### [facility] [address] [place], [address] Platelet mean volume (Bld) [Entitic vol] 10.5 fL Normal 6.2-12.0 [facility] Comment on above: Performed By: #### L 500.4050 #### [facility] [address] [place], [address] Platelets (Bld) [#/Vol] 207 10*3/uL Normal 150-450 [facility] Comment on above: Performed By: #### L 500.4050 #### [facility] [address] [place], [address] RBC (Bld) [#/Vol] 4.60 10*6/uL Normal 4.6-6.2 [facility] Comment on above: Performed By: #### L 500.4050 #### [facility] [address] [place], [address] RDW SD 45.0 fl High 35.1-43.9 [facility] Comment on above: Performed By: #### L 500.4050 #### [facility] [address] [place], [address] WBC (Bld) [#/Vol] 5.7 10*3/uL Normal 4.4-11.0 [facility] Comment on above: Performed By: #### L 500.4050 #### [facility] [address] [place], [address] Comprehensive Metabolic Prof [facility] 08-26-2025 Albumin [Mass/Vol] 4.0 g/dL Normal 3.4-4.8 [facility] Comment on above: Performed By: #### L 500.4050 #### [facility] [address] [place], [address] Albumin/Globulin [Mass ratio] 1.4 {ratio} Normal 0.9-2.4 [facility] Comment on above: Performed By: #### L 500.4050 #### [facility] [address] [place], [address] ALK PHOS 51 U/L Normal 40-129 [facility] Comment on above: Performed By: #### L 500.4050 #### [facility] [address] [place], [address] ALT [Catalytic activity/Vol] 13 U/L Normal <=46 [facility] Comment on above: Performed By: #### L 500.4050 #### [facility] [address] [place], [address] AST [Catalytic activity/Vol] 17 U/L Normal <=37 [facility] Comment on above: Performed By: #### L 500.4050 #### [facility] [address] [place], [address] Bilirubin [Mass/Vol] 0.90 mg/dL Normal 0.00-1.30 [facility] Comment on above: Performed By: #### L 500.4050 #### [facility] [address] [place], [address] BUN/CRE 11.9 RATIO Normal 10-20 [facility] Comment on above: Performed By: #### L 500.4050 #### [facility] [address] [place], [address] Calcium [Mass/Vol] 9.3 mg/dL Normal 7.6-11.0 [facility] Comment on above: Performed By: #### L 500.4050 #### [facility] [address] [place], [address] Chloride [Moles/Vol] 105 mmol/L Normal 98-108 [facility] Comment on above: Performed By: #### L [id number] #### [facility] [address] [place], [address] CO2 [Moles/Vol] 25.6 mmol/L Normal 21.0-32.0 [facility] Comment on above: Performed By: #### L 500.4050 #### [facility] [address] [place], [address] Creatinine [Mass/Vol] 1.28 mg/dL High 0.70-1.20 [facility] Comment on above: Performed By: #### L [id number] #### [facility] [address] [place], [address] GAP 10 Normal 5-15 [facility] Comment on above: Performed By: #### L 500.4050 #### [facility] [address] [place], [address] GFR/1.73 sq M.predicted among non-blacks MDRD (S/P/Bld) [Vol rate/Area] 59 mL/min/{1.73_m2} Low >60 [facility] Comment on above: Result Comment: mL/m in/1.73m2 CKD-EPI Creatinine Equation (2020) Performed By: #### L 500.4050 #### [facility] [address] [place], [address] Globulin (S) [Mass/Vol] 2.8 g/dL Normal 2.2-4.2 [facility] Comment on above: Performed By: #### L [id number] #### [facility] [address] [place], [address] Glucose [Mass/Vol] 96 mg/dL Normal 70-99 [facility] Comment on above: Performed By: #### L 500.4050 #### [facility] [address] [place], [address] Potassium [Moles/Vol] 4.1 mmol/L Normal 3.3-5.1 [facility] Comment on above: Performed By: #### L 500.4050 #### [facility] [address] [place], [address] Sodium [Moles/Vol] 140 mmol/L Normal 133-145 [facility] Comment on above: Performed By: #### L 500.4050 #### [facility] [address] [place], [address] T PROT 6.8 g/dL Normal 5.9-8.4 [facility] Comment on above: Performed By: #### L 500.4050 #### [facility] [address] [place], [address] Urea nitrogen [Mass/Vol] 15 mg/dL Normal 4-19 [facility] Comment on above: Performed By: #### L 500.4050 #### [facility] [address] [place], [address] Lipid Profileon 08-26-2025 CHOL:HDL 3.11 Normal [facility] Comment on above: Performed By: #### L 500.4050 #### [facility] [address] [place], [address] Cholesterol [Mass/Vol] 168 mg/dL Normal <=200 [facility] Comment on above: Result Comment: Chol esterol level, Desirable <200 mg/dL Borderline high cholesterol 200-239 mg/dL High cholesterol >=240 mg/dL Recommendations of the NCEP Adult Treatment Panel for the following risk-cutoff thresholds for the [place] population. Performed By: #### L 500.4050 #### [facility] [address] [place], [address] Cholesterol in HDL [Mass/Vol] 54 mg/dL Normal [facility] Comment on above: Result Comment: Maria C onal Cholesterol Education Program (NCEP) guidelines: <40 mg/dL: Low HDL-cholesterol (major risk factor for CHD) >= 60 mg/dL: High HDL-cholesterol (negative risk factor for CHD) HDL-cholesterol is affected by a number of factors, e.g. smoking, exercise, hormones, sex and age. Performed By: #### L 500.4050 #### [facility] [address] [place], [address] Cholesterol in LDL [Mass/Vol] 94 mg/dL Normal [facility] Comment on above: Result Comment: Bord dsdnjm=668-447 mg/dL Higher Ppef=156 mg/dL or greater Friedwald Equation for LDL-C Performed By: #### L 500.4050 #### [facility] [address] [place], [address] Cholesterol in VLDL [Mass/Vol] 20 mg/dL Normal 5-40 [facility] Comment on above: Performed By: #### L 500.4050 #### [facility] [address] [place], [address] Triglyceride [Mass/Vol] 98 mg/dL Normal [facility] Comment on above: Result Comment: The drugs N-Acetylcysteine and Metamizole may falsely depress this assay. Normal range: <150 mg/dL Borderline High: 150-199 mg/dL High: 200-499 mg/dL Very High: >500 mg/dL Performed By: #### L 500.4050 #### [facility] [address] [place], [address] Magnesiumon 08-26-2025 Magnesium [Mass/Vol] 2.1 mg/dL Normal 1.5-2.2 [facility] Comment on above: Performed By: #### L 500.4050 #### [facility] [address] [place], [address] Urinalysis, Completeon 08-26 BACTERIA 0 SEEN Normal None Seen [facility] Comment on above: Order Comment: Order Date: 12/28/24 Order Info: 0786-1 - CMP Performed By: #### L 500.4050 #### [facility] [address] [place], [address] EPI,SQUAMOUS 0 SEEN Normal 0-5 [facility] Comment on above: Order Comment: Order Date: 12/28/24 Order Info: 0786-1 - CMP Performed By: #### L 500.4050 #### [facility] [address] [place], [address] Mucus Ql (Urine sed) 0 SEEN Normal [facility] Comment on above: Order Comment: Order Date: 12/28/24 Order Info: 0786-1 - CMP Performed By: #### L 500.4050 #### [facility] [address] [place], [address] RBC 0 SEEN Normal 0-5 [facility] Comment on above: Order Comment: Order Date: 12/28/24 Order Info: 0786-1 - CMP Performed By: #### L 500.4050 #### [facility] [address] [place], [address] WBC 0 SEEN Normal 0-5 [facility] Comment on above: Order Comment: Order Date: 12/28/24 Order Info: 0786-1 - CMP Performed By: #### L 500.4050 #### [facility] [address] [place], [address] Absolute lymphocyte countOrd ered By: Lane Lowery on 06-06-2025 Lymphocytes Auto (Unsp spec) [#/Vol] 2.37 10*3/uL 0.83-4.51 [facility] Absolute neutrophil countOrd ered By: Lane Lowery on 06-06-2025 Neutrophils (Bld) [#/Vol] 3.3 10*3/uL 2.0-7.7 [facility] Anion gap in Serum or Plasma Ordered By: Lane Lowery on 06-06-2025 Anion gap [Moles/Vol] 11 mmol/L 5-15 [facility] Automated lymphocyte count a s percentage of total leukocytesOrdered By: Lane Lowery on 06-06-2025 Lymphocytes/100 WBC Auto (Unsp spec) 37.2 % 19-41 [facility] BUN/creatinine ratioOrdered By: Lane Lowery on 06-06-2025 Urea nitrogen/Creatinine [Mass ratio] 17.6 mg/mg 10-20 [facility] Basophil percentageOrdered B y: Lane Lowery on 06-06-2025 Basophils/100 WBC (Bld) 0.8 % 0-1 [facility] Bilirubin Test strip Ql (U)O rdered By: Lane Lowery on 06-06-2025 Bilirubin Ql (U) Negative Negative [facility] Bilirubin, totalOrdered By: Lane Lowery on 06-06-2025 Bilirubin [Mass/Vol] 0.69 mg/dL 0.00-1.30 [facility] CBC W/Diff, Automatedon 05-18 Absolute Lymph 2.37 X10 3/uL Normal 0.83-4.51 [facility] Comment on above: Order Comment: Order Date: 04/26/25 Order Info: 0184-1 - CBCD Performed By: #### L 100.0100, L500.4050, L500.4100, L501.5200 #### [facility] [address] [place], [address] Absolute Neut 3.3 X10 3/uL Normal 2.0-7.7 [facility] Comment on above: Order Comment: Order Date: 04/26/25 Order Info: 018- - CBCD Performed By: #### L 100.0100, L500.4050, L500.4100, L501.5200 #### [facility] [address] [place], [address] Basophils/100 WBC (Bld) 0.8 % Normal 0-1 [facility] Comment on above: Order Comment: Order Date: 04/26/25 Order Info: 0184-1 - CBCD Performed By: #### L 100.0100, L500.4050, L500.4100, L501.5200 #### [facility] [address] [place], [address] Eosinophils/100 WBC (Bld) 2.2 % Normal 0-5 [facility] Comment on above: Order Comment: Order Date: 04/26/25 Order Info: 0184-1 - CBCD Performed By: #### L 100.0100, L500.4050, L500.4100, L501.5200 #### [facility] [address] [place], [address] Erythrocyte distribution width (RBC) [Ratio] 13.3 % Normal 11.6-14.6 [facility] Comment on above: Order Comment: Order Date: 04/26/25 Order Info: 0184-1 - CBCD Performed By: #### L 100.0100, L500.4050, L500.4100, L501.5200 #### [facility] [address] [place], [address] Hematocrit (Bld) [Volume fraction] 40.5 % Normal 40-54 [facility] Comment on above: Order Comment: Order Date: 04/26/25 Order Info: 0184-1 - CBCD Performed By: #### L 100.0100, L500.4050, L500.4100, L501.5200 #### [facility] [address] [place], [address] Hemoglobin (Bld) [Mass/Vol] 13.5 g/dL Normal 13.0-16.5 [facility] Comment on above: Order Comment: Order Date: 04/26/25 Order Info: 0184- - CBCD Performed By: #### L 100.0100, L500.4050, L500.4100, L501.5200 #### [facility] [address], [address] IG% 0.300 Normal 0.0-0.9 [facility] Comment on above: Order Comment: Order Date: 04/26/25 Order Info: 0184- - CBCD Result Comment: IG% - Immature Granulocytes (promyelocytes, myelocytes and metamyelocytes) > 1% indicates that a LEFT SHIFT is Present. Performed By: #### L 100.0100, L500.4050, L500.4100, L501.5200 #### [facility] [address] [place], [address] Lymphocytes/100 WBC (Bld) 37.2 % Normal 19-41 [facility] Comment on above: Order Comment: Order Date: 04/26/25 Order Info: 0184-1 - CBCD Performed By: #### L 100.0100, L500.4050, L500.4100, L501.5200 #### [facility] [address] [place], [address] MCH (RBC) [Entitic mass] 30.0 pg Normal 27.0-32.0 [facility] Comment on above: Order Comment: Order Date: 04/26/25 Order Info: 0184-1 - CBCD Performed By: #### L 100.0100, L500.4050, L500.4100, L501.5200 #### [facility] [address] [place], [address] MCHC (RBC) [Mass/Vol] 33.3 g/dL Normal 32-36 [facility] Comment on above: Order Comment: Order Date: 04/26/25 Order Info: 0184- - CBCD Performed By: #### L 100.0100, L500.4050, L500.4100, L501.5200 #### [facility] [address] [place], [address] MCV (RBC) [Entitic vol] 90.0 fL Normal 80-94 [facility] Comment on above: Order Comment: Order Date: 04/26/25 Order Info: 0184- - CBCD Performed By: #### L 100.0100, L500.4050, L500.4100, L501.5200 #### [facility] [address] [place], [address] Monocytes/100 WBC (Bld) 7.4 % Normal 0-10 [facility] Comment on above: Order Comment: Order Date: 04/26/25 Order Info: 0184-1 - CBCD Performed By: #### L 100.0100, L500.4050, L500.4100, L501.5200 #### [facility] [address] [place], [address] Neutrophils/100 WBC (Bld) 52.1 % Normal 47-70 [facility] Comment on above: Order Comment: Order Date: 04/26/25 Order Info: 0184-1 - CBCD Performed By: #### L 100.0100, L500.4050, L500.4100, L501.5200 #### [facility] [address] [place], [address] Nucleated RBC (Bld) [#/Vol] 0 10*3/uL Normal 0-5 [facility] Comment on above: Order Comment: Order Date: 04/26/25 Order Info: 0184-1 - CBCD Performed By: #### L 100.0100, L500.4050, L500.4100, L501.5200 #### [facility] [address] [place], [address] Platelet mean volume (Bld) [Entitic vol] 10.1 fL Normal 6.2-12.0 [facility] Comment on above: Order Comment: Order Date: 04/26/25 Order Info: 0184-1 - CBCD Performed By: #### L 100.0100, L500.4050, L500.4100, L501.5200 #### [facility] [address] [place], [address] Platelets (Bld) [#/Vol] 202 10*3/uL Normal 150-450 [facility] Comment on above: Order Comment: Order Date: 04/26/25 Order Info: 0184-1 - CBCD Performed By: #### L 100.0100, L500.4050, L500.4100, L501.5200 #### [facility] [address] [place], [address] RBC (Bld) [#/Vol] 4.50 10*6/uL Low 4.6-6.2 [facility] Comment on above: Order Comment: Order Date: 04/26/25 Order Info: 0184-1 - CBCD Performed By: #### L 100.0100, L500.4050, L500.4100, L501.5200 #### [facility] [address] [place], [address] RDW SD 43.8 fl Normal 35.1-43.9 [facility] Comment on above: Order Comment: Order Date: 04/26/25 Order Info: 0184-1 - CBCD Performed By: #### L 100.0100, L500.4050, L500.4100, L501.5200 #### [facility] [address] [place], [address] WBC (Bld) [#/Vol] 6.4 10*3/uL Normal 4.4-11.0 [facility] Comment on above: Order Comment: Order Date: 04/26/25 Order Info: 0184-1 - CBCD Performed By: #### L 100.0100, L500.4050, L500.4100, L501.5200 #### [facility] [address] [place], [address] Calculated very low density lipoprotein (VLDL) cholesterol measurementOrdered By: Lane Lowery on 06-06-2025 Calculated very low density lipoprotein (VLDL) cholesterol measurement 20 mg/dL 5-40 [facility] Carbon dioxide, total [Moles /volume] in Central venous bloodOrdered By: Lane Lowery on 06-06-2025 CO2 [Moles/Vol] 22.4 mmol/L 21.0-32.0 [facility] Chloride assayOrdered By: Claudia Lowery on 06-06-2025 Chloride [Moles/Vol] 105 mmol/L 98-108 [facility] Comprehensive Metabolic Prof ilon 06-06-2025 Albumin [Mass/Vol] 4.0 g/dL Normal 3.4-4.8 [facility] Comment on above: Order Comment: Order Date: 12/28/24 Order Info: 0786-1 - CMP Performed By: #### L 500.4050 #### [facility] [address] [place], [address] Albumin/Globulin [Mass ratio] 1.5 {ratio} Normal 0.9-2.4 [facility] Comment on above: Order Comment: Order Date: 12/28/24 Order Info: 0786-1 - CMP Performed By: #### L 500.4050 #### [facility] [address] [place], [address] ALK PHOS 59 U/L Normal 40-129 [facility] Comment on above: Order Comment: Order Date: 12/28/24 Order Info: 0786-1 - CMP Performed By: #### L 500.4050 #### [facility] [address] [place], [address] ALT [Catalytic activity/Vol] 14 U/L Normal <=46 [facility] Comment on above: Order Comment: Order Date: 12/28/24 Order Info: 0786-1 - CMP Performed By: #### L 500.4050 #### [facility] [address] [place], [address] AST [Catalytic activity/Vol] 19 U/L Normal <=37 [facility] Comment on above: Order Comment: Order Date: 12/28/24 Order Info: 0786-1 - CMP Performed By: #### L 500.4050 #### [facility] [address] [place], [address] Bilirubin [Mass/Vol] 0.69 mg/dL Normal 0.00-1.30 [facility] Comment on above: Order Comment: Order Date: 12/28/24 Order Info: 0786-1 - CMP Performed By: #### L 500.4050 #### [facility] [address] [place], [address] BUN/CRE 17.6 RATIO Normal 10-20 [facility] Comment on above: Order Comment: Order Date: 12/28/24 Order Info: 0786-1 - CMP Performed By: #### L 500.4050 #### [facility] [address] [place], [address] Calcium [Mass/Vol] 9.4 mg/dL Normal 7.6-11.0 [facility] Comment on above: Order Comment: Order Date: 12/28/24 Order Info: 0786-1 - CMP Performed By: #### L 500.4050 #### [facility] [address] [place], [address] Chloride [Moles/Vol] 105 mmol/L Normal 98-108 [facility] Comment on above: Order Comment: Order Date: 12/28/24 Order Info: 0786-1 - CMP Performed By: #### L 500.4050 #### [facility] [address] [place], [address] CO2 [Moles/Vol] 22.4 mmol/L Normal 21.0-32.0 [facility] Comment on above: Order Comment: Order Date: 12/28/24 Order Info: 0786-1 - CMP Performed By: #### L 500.4050 #### [facility] [address] [place], [address] Creatinine [Mass/Vol] 1.37 mg/dL High 0.70-1.20 [facility] Comment on above: Order Comment: Order Date: 12/28/24 Order Info: 0786-1 - CMP Performed By: #### L 500.4050 #### [facility] [address] [place], [address] GAP 11 Normal 5-15 [facility] Comment on above: Order Comment: Order Date: 12/28/24 Order Info: 0786-1 - CMP Performed By: #### L 500.4050 #### [facility] [address] [place], [address] GFR/1.73 sq M.predicted among non-blacks MDRD (S/P/Bld) [Vol rate/Area] 54 mL/min/{1.73_m2} Low >60 [facility] Comment on above: Order Comment: Order Date: 12/28/24 Order Info: 0786-1 - CMP Result Comment: mL/m in/1.73m2 CKD-EPI Creatinine Equation (2020) Performed By: #### L 500.4050 #### [facility] [address] [place], [address] Globulin (S) [Mass/Vol] 2.6 g/dL Normal 2.2-4.2 [facility] Comment on above: Order Comment: Order Date: 12/28/24 Order Info: 0786-1 - CMP Performed By: #### L 500.4050 #### [facility] [address] [place], [address] Glucose [Mass/Vol] 94 mg/dL Normal 70-99 [facility] Comment on above: Order Comment: Order Date: 12/28/24 Order Info: 0786-1 - CMP Performed By: #### L 500.4050 #### [facility] [address] [place], [address] Potassium [Moles/Vol] 4.2 mmol/L Normal 3.3-5.1 [facility] Comment on above: Order Comment: Order Date: 12/28/24 Order Info: 0786-1 - CMP Performed By: #### L 500.4050 #### [facility] [address] [place], [address] Sodium [Moles/Vol] 138 mmol/L Normal 133-145 [facility] Comment on above: Order Comment: Order Date: 12/28/24 Order Info: 0786-1 - CMP Performed By: #### L 500.4050 #### [facility] [address] [place], [address] T PROT 6.7 g/dL Normal 5.9-8.4 [facility] Comment on above: Order Comment: Order Date: 12/28/24 Order Info: 0786-1 - CMP Performed By: #### L 500.4050 #### [facility] [address] [place] [place], [address] Urea nitrogen [Mass/Vol] 24 mg/dL High 4-19 [facility] Comment on above: Order Comment: Order Date: 12/28/24 Order Info: 0786-1 - CMP Performed By: #### L 500.4050 #### [facility] [address] [place], [address] Echo Completeon 06-06-2025 Echo Complete [facility] [address] [place] [address] Echo Complete 06/06/25 1021 MR#: [id number] Acct: [id number] Name: TESHA SUN Rep #: [id number] : 1950 [id number] From: Schuyler Napier MD Attending Dr: Dr. Lane Lowery MD Status: R CARLINE I Ordering Dr: Lane Lowery MD Date: 06/06/25 Location: [facility] Sex: M C Admitted: Reason For Study Reason For Study: SHORTNESS OF BREATH Procedure This was a 2D Doppler, Color Flow transthoracic echocardiogram. Exam performed in department. Left Ventricle Normal LV size. The left ventricular ejection fraction is 65 %. No regional wall motion abnormalities noted. Right Ventricle Normal RV size. Normal systolic function. Atria Normal left atrium. Normal right atrium. Mitral Valve Normal mitral valve. Tricuspid Valve Normal tricuspid valve. Mild tricuspid valve insufficiency. Pulmonary artery systolic pressure is 24 mmHg. Aortic Valve Trisinus/trileaflet aortic valve. Pulmonic Valve Normal pulmonic valve. Great Vessels Normal aortic root. The pulmonary artery is normal size. Inferior vena cava collapse with respiration. Pericardium/Pleural No pericardial effusion. MMode/2D Measurements Calculations LVIDd: 5.2 cm IVSd: 1.1 cm LVOT diam: 2.1 cm LVIDs: 3.3 cm LVPWd: 0.95 cm LVOT area: 3.6 cm2 RVDd: 4.0 cm FS: 35.2 % asc Aorta Diam: 3.4 cm LAV(MOD-bp): 36.5 ml LVAd ap4: 21.4 cm2 LAV(MOD-bp) Indexed: 18.1 ml/m2 LVLd ap4: 6.8 cm LAV(MOD-sp2): 37.7 ml EDV(MOD-sp4): 57.1 ml LAV(MOD-sp4): 33.9 ml EDV(sp4-el): 57.5 ml LVAs ap4: 11.2 cm2 LVLs ap4: 5.7 cm ESV(MOD-sp4): 18.9 ml ESV(sp4-el): 18.7 ml EF(MOD-sp4): 66.8 % EF(sp4-el): 67.6 % LVAd ap2: 17.6 cm2 SV(MOD-sp4): 38.1 ml SV(MOD-sp2): 22.3 ml LVLd ap2: 6.8 cm SI(MOD-sp4): 18.9 ml/m2 SI(MOD-sp2): 11.0 ml/m2 EDV(MOD-sp2): 38.7 ml EDV(sp2-el): 38.5 ml LVAs ap2: 10.7 cm2 LVLs ap2: 5.8 cm ESV(MOD-sp2): 16.4 ml ESV(sp2-el): 16.9 ml EF(MOD-sp2): 57.6 % SV(sp4-el): 38.8 ml Ao sinus diam: 3.[address] Junction: 2.7 cm LA dimension(2D): 4.0 cm LA A4 area: 14.6 cm2 RA A4 area: 11.3 cm2 TAPSE: 2.1 cm Time Measurements MV dec time: 0.20 sec Doppler Measurements Calculations MV E max mary: 61.1 cm/sec Lat Peak E' Mary: 11.1 cm/sec Med Peak E' Mary: 8.6 cm/sec MV A max mary: 53.8 cm/sec E/E' lat: 5.5 E/E' med: 7.1 MV E/A: 1.1 MV dec slope: 301.0 cm/sec2 Ao V2 max: 102.9 cm/sec LV V1 max: 90.3 cm/sec Ao max P.2 mmHg LV V1 max P.3 mmHg Ao V2 mean: 74.3 cm/sec LV V1 mean P.8 mmHg Ao mean P.4 mmHg LV V1 mean: 63.2 cm/sec Ao V2 VTI: 24.0 cm LV V1 VTI: 20.6 cm AV (velocity ratio): 0.86 UZAIR(I,D): 3.1 cm2 UZAIR(V,D): 3.2 cm2 SV(LVOT): 74.3 ml PA V2 max: 88.2 cm/sec TR max mary: 227.2 cm/sec TR max P.6 mmHg ECHO/Echo Complete Interpretation Summary Normal LV size. The left ventricular ejection fraction is 65 %. Pulmonary artery systolic pressure is 24 mmHg. Mild tricuspid valve insufficiency. Ordering Physician: Lane Lowery Referring Physician: Lane Lowery Performed By: Carie Mcnulty RDCS 06/06/25 1432 Date Schuyler Napier MD CC: Dr. Lane Lowery MD Date Dictated: 06/06/25 1021 Date Transcribed: 06/06/25 1432 Personnel Research Scientist: Signed Normal [facility] Echocardiogram study reportO rdered By: Schuyler Napier on 06-06-2025 Study report [facility] [address] [place] [address] Echo Complete 06/06/25 1021 MR#: [id number] Acct: [id number] Name: TESHA SUN Rep #:[id number] : 1950 75 From: Schuyler Bennett Attending Dr: Dr. Lane Lowery MD Status: REG CLI Ordering Dr: Lane Lowery MD Date: 06/06/25 Location: [facility] Sex: M C Admitted: Reason For Study Reason For Study: SHORTNESS OF BREATH Procedure This was a 2D Doppler, Color Flow transthoracic echocardiogram. Exam performed in department. Left Ventricle Normal LV size. The left ventricular ejection fraction is 65 %. No regional wallmotion abnormalities noted. Right Ventricle Normal RV size. Normal systolic function. Atria Normal left atrium. Normal right atrium. Mitral Valve Normal mitral valve. Tricuspid Valve Normal tricuspid valve. Mild tricuspid valve insufficiency. Pulmonary artery systolic pressure is 24 mmHg. Aortic Valve Trisinus/trileaflet aortic valve. Pulmonic Valve Normal pulmonic valve. Great Vessels Normal aortic root. The pulmonary artery is normal size. Inferior vena cava collapse with respiration. Pericardium/Pleural No pericardial effusion. MMode/2D Measurements & Calculations LVIDd: 5.2 cm IVSd: 1.1 cm LVOT diam: 2.1 cm LVIDs: 3.3 cm LVPWd: 0.95 cm LVOT area: 3.6 cm2 RVDd: 4.0 cm FS: 35.2 % asc Aorta Diam: 3.4 cm LAV(MOD-bp): 36.5 ml LVAd ap4: 21.4 cm2 LAV(MOD-bp) Indexed: 18.1 ml/m2 LVLd ap4: 6.8 cm LAV(MOD-sp2): 37.7 ml EDV(MOD-sp4): 57.1 ml LAV(MOD-sp4): 33.9 ml EDV(sp4-el): 57.5 ml LVAs ap4: 11.2 cm2 LVLs ap4: 5.7 cm ESV(MOD-sp4): 18.9 ml ESV(sp4-el): 18.7 ml EF(MOD-sp4): 66.8 % EF(sp4-el): 67.6 % LVAd ap2: 17.6 cm2 SV(MOD-sp4): 38.1 ml SV(MOD-sp2): 22.3 ml LVLd ap2: 6.8 cm SI(MOD-sp4): 18.9 ml/m2 SI(MOD-sp2): 11.0 ml/m2 EDV(MOD-sp2): 38.7 ml EDV(sp2-el): 38.5 ml LVAs ap2: 10.7 cm2 LVLs ap2: 5.8 cm ESV(MOD-sp2): 16.4 ml ESV(sp2-el): 16.9 ml EF(MOD-sp2): 57.6 % SV(sp4-el): 38.8 ml Ao sinus diam: 3.[address] Junction: 2.7 cm LA dimension(2D): 4.0 cm LA A4 area: 14.6 cm2 RA A4 area: 11.3 cm2 TAPSE: 2.1 cm Time Measurements MV dec time: 0.20 sec Doppler Measurements & Calculations MV E max mary: 61.1 cm/sec Lat Peak E' Mary: 11.1 cm/sec Med Peak E' Mray: 8.6 cm/sec MV A max mary: 53.8 cm/sec E/E' lat: 5.5 E/E' med: 7.1 MV E/A: 1.1 MV dec slope: 301.0 cm/sec2 Ao V2 max: 102.9 cm/sec LV V1 max: 90.3 cm/sec Ao max P.2 mmHg LV V1 max P.3 mmHg Ao V2 mean: 74.3 cm/sec LV V1 mean P.8 mmHg Ao mean P.4 mmHg LV V1 mean: 63.2 cm/sec Ao V2 VTI: 24.0 cm LV V1 VTI: 20.6 cm AV (velocity ratio): 0.86 UZAIR(I,D): 3.1 cm2 UZAIR(V,D): 3.2 cm2 SV(LVOT): 74.3 ml PA V2 max: 88.2 cm/sec TR max mary: 227.2 cm/sec TR max P.6 mmHg ECHO/Echo Complete Interpretation Summary Normal LV size. The left ventricular ejection fraction is 65 %. Pulmonary artery systolic pressure is 24 mmHg. Mild tricuspid valve insufficiency. Ordering Physician: Lane Lowery Referring Physician: Lane Lowery Performed By: Carie Mcnulty RDCS 06/06/25 1432 Date _ Schuyler Napier MD CC: Dr. Lane Lowery MD ~ Date Dictated: 06/06/25 1021 Date Transcribed: 06/06/25 1432 Personnel Research Scientist: Signed [facility] Work Phone: Eosinophil percentageOrdered By: Lane Lowery on 06-06-2025 Eosinophils/100 WBC (Bld) 2.2 % 0-5 [facility] Erythrocyte distribution wid th ratioOrdered By: Lane Lowery on 06-06-2025 Erythrocyte distribution width (RBC) [Ratio] 13.3 % 11.6-14.6 [facility] Erythrocyte distribution wid th standard deviationOrdered By: Lane Lowery on 06-06-2025 Erythrocyte distribution width (RBC) [Ratio] 43.8 fl 35.1-43.9 [facility] Glomerular filtration rate ( GFR) estimation/1.73 sq m using serum, plasma, or whole bOrdered By: Lane Lowery on 06-06-2025 GFR/1.73 sq M.predicted among non-blacks MDRD (S/P/Bld) [Vol rate/Area] 54 mL/min/{1.73_m2} Low >60 [facility] Comment on above: mL/min/1.73m2 CKD-EP I Creatinine Equation (2020) Hematocrit Auto (Bld) [Volum e fraction]Ordered By: Lane Lowery on 06-06-2025 Hematocrit (Bld) [Volume fraction] 40.5 % 40-54 [facility] Hemoglobin measurementOrdere d By: Lane Lowery on 06-06-2025 Hemoglobin (Bld) [Mass/Vol] 13.5 g/dL 13.0-16.5 [facility] Immature granulocytes/100 WB C Auto (Bld)Ordered By: Lane Lowery on 06-06-2025 Immature granulocytes/100 WBC (Bld) 0.300 % 0.0-0.9 [facility] Comment on above: IG% - Immature Granu locytes (promyelocytes, myelocytes and metamyelocytes) > 1% indicates that a LEFT SHIFT is Present. Ketones Test strip Ql (U)Ord ered By: Lane Lowery on 06-06-2025 Ketones Ql (U) Negative Negative [facility] LDL calc ser/plasOrdered By: Lane Lowery on 06-06-2025 Cholesterol in LDL [Mass/Vol] 85 mg/dL [facility] Comment on above: Eswxbeqsyh=961-700 m g/dL & Higher Avkv=635 mg/dL or greater Laboratory - Chemistry and C hemistry - challengeOrdered By: Lane Lowery on 06-06-2025 AST [Catalytic activity/Vol] 19 U/L <38 [facility] Lipid Profileon 06-06-2025 CHOL:HDL 2.79 Normal [facility] Comment on above: Order Comment: Order Date: 12/28/24 Order Info: 0786-1 - CMP Performed By: #### L 500.4050 #### [facility] [address] [place], [place], [address] Cholesterol [Mass/Vol] 164 mg/dL Normal <=200 [facility] Comment on above: Order Comment: Order Date: 12/28/24 Order Info: 0786-1 - CMP Result Comment: Chol esterol level, Desirable <200 mg/dL Borderline high cholesterol 200-239 mg/dL High cholesterol >=240 mg/dL Recommendations of the NCEP Adult Treatment Panel for the following risk-cutoff thresholds for the [place] population. Performed By: #### L 500.4050 #### [facility] [address] [place], [address] Cholesterol in HDL [Mass/Vol] 59 mg/dL Normal [facility] Comment on above: Order Comment: Order Date: 12/28/24 Order Info: 0786-1 - CMP Result Comment: Maria C onal Cholesterol Education Program (NCEP) guidelines: <40 mg/dL: Low HDL-cholesterol (major risk factor for CHD) >= 60 mg/dL: High HDL-cholesterol (negative risk factor for CHD) HDL-cholesterol is affected by a number of factors, e.g. smoking, exercise, hormones, sex and age. Performed By: #### L 500.4050 #### [facility] [address] [place], [place], [address] Cholesterol in LDL [Mass/Vol] 85 mg/dL Normal [facility] Comment on above: Order Comment: Order Date: 12/28/24 Order Info: 0786-1 - CMP Result Comment: Bord ovxrvk=802-057 mg/dL Higher Mvft=841 mg/dL or greater Performed By: #### L 500.4050 #### [facility] [address] [place], [place], [address] Cholesterol in VLDL [Mass/Vol] 20 mg/dL Normal 5-40 [facility] Comment on above: Order Comment: Order Date: 12/28/24 Order Info: 0786- - CMP Performed By: #### L 500.4050 #### [facility] [address] [place], [place], [address] Triglyceride [Mass/Vol] 99 mg/dL Normal [facility] Comment on above: Order Comment: Order Date: 12/28/24 Order Info: 07 - CMP Result Comment: The drugs N-Acetylcysteine and Metamizole may falsely depress this assay. Normal range: <150 mg/dL Borderline High: 150-199 mg/dL High: 200-499 mg/dL Very High: >500 mg/dL Performed By: #### L 500.4050 #### [facility] [address] [place], [place], [address] MCV (mean corpuscular volume ) determinationOrdered By: Lane Lowery on 06-06-2025 MCV (RBC) [Entitic vol] 90.0 fL 80-94 [facility] Magnesiumon 06-06-2025 Magnesium [Mass/Vol] 2.1 mg/dL Normal 1.5-2.2 [facility] Comment on above: Order Comment: Order Date: 12/28/24 Order Info: 0786 - CMP Performed By: #### L 500.4050 #### [facility] [address] [place], [place], [id number] Magnesium measurement (mass/ volume)Ordered By: Lane Lowery on 06-06-2025 Magnesium (Unsp spec) [Mass/Vol] 2.1 mg/dL 1.5-2.2 [facility] Mean corpuscular hemoglobin (MCH) determinationOrdered By: Lane Lowery on 06-06-2025 MCH (RBC) [Entitic mass] 30.0 pg 27.0-32.0 [facility] Mean corpuscular hemoglobin concentration (MCHC) determinationOrdered By: Lane Lowery on 06-06-2025 MCHC (RBC) [Mass/Vol] 33.3 g/dL 32-36 [facility] Mean platelet volume determi nationOrdered By: Lane Lowery on 06-06-2025 Platelet mean volume (Bld) [Entitic vol] 10.1 fL 6.2-12.0 [facility] Microscopic analysis of urin e for red blood cells (RBC)Ordered By: Lane Lowery on 06-06-2025 Microscopic analysis of urine for red blood cells (RBC) 0 SEEN /hpf 0-5 [facility] Monocyte percentageOrdered B y: aLne Lowery on 06-06-2025 Monocytes/100 WBC (Bld) 7.4 % 0-10 [facility] Mucus LM Ql (Urine sed)Order ed By: Lane Lowery on 06-06-2025 Mucus Ql (Urine sed) 0 SEEN /hpf [facility] Neutrophil percentageOrdered By: Lane Lowery on 06-06-2025 Neutrophils/100 WBC (Bld) 52.1 % 47-70 [facility] Nitrite Test strip Ql (U)Ord ered By: Lane Lowery on 06-06-2025 Nitrite Ql (U) Negative Negative [facility] Nucleated red blood cell per centageOrdered By: Lane Lowery on 06-06-2025 Nucleated RBC/100 WBC (Bld) [Ratio] 0 % 0-5 [facility] Platelet countOrdered By: Claudia Lowery on 06-06-2025 Platelets (Bld) [#/Vol] 202 10*3/uL 150-450 [facility] Potassium measurement (mass/ volume)Ordered By: Lane Lowery on 06-06-2025 Potassium (Unsp spec) [Mass/Vol] 4.2 mmol/L 3.3-5.1 [facility] Protein Test strip Ql (U)Ord ered By: Lane Lowery on 06-06-2025 Protein Ql (U) Negative Negative [facility] Protein+Creatinine Ratio,Uri neon 06-06-2025 PROT:CRE RATIO UNABLE TO CALCULATE Normal 0-200 [facility] Comment on above: Performed By: #### L 500.4050 #### [facility] [address] [place], [address] PROTEIN,UR.RAN. < 6.0 Normal 0.0-12.0 [facility] Comment on above: Performed By: #### L 500.4050 #### [facility] [address] [place], [address] UR CREAT 57.40 mg/dL Normal 39.00-259.00 [facility] Comment on above: Performed By: #### L 500.4050 #### [facility] [address] [place], [place], [address] RBC Auto (Bld) [#/Vol]Ordere d By: Lane Lowery on 06-06-2025 RBC (Bld) [#/Vol] 4.50 10*6/uL Low 4.6-6.2 [facility] Random urine creatinine deepa urement (mass/volume)Ordered By: Lane Lowery on 06-06-2025 Creatinine Unsp time (U) [Mass/Vol] 57.40 mg/dL 39.00-259.00 [facility] Screening total cholesterol/ high density lipoprotein (HDL) cholesterol ratioOrdered By: Lane Lowery on 06-06-2025 Cholesterol.total/Choles terol in HDL [Mass ratio] 2.79 {ratio} [facility] Serum creatinine measurement (mass/volume)Ordered By: Lane Lowery on 06-06-2025 Creatinine [Mass/Vol] 1.37 mg/dL High 0.70-1.20 [facility] Serum globulin measurementOr dered By: Lane Lowery on 06-06-2025 Globulin (S) [Mass/Vol] 2.6 g/dL 2.2-4.2 [facility] Serum glucose measurement (m ass/volume)Ordered By: Lane Lowery on 06-06-2025 Glucose [Mass/Vol] 94 mg/dL 70-99 [facility] Serum or plasma alanine mi otransferase (ALT) measurementOrdered By: Lane Lowery on 06-06-2025 ALT [Catalytic activity/Vol] 14 U/L <47 [facility] Serum or plasma albumin deepa urement (mass/volume)Ordered By: Lane Lowery on 06-06-2025 Albumin [Mass/Vol] 4.0 g/dL 3.4-4.8 [facility] Serum or plasma albumin/glob ulin mass ratioOrdered By: Lane Lowery on 06-06-2025 Albumin/Globulin [Mass ratio] 1.5 {ratio} 0.9-2.4 [facility] Serum or plasma alkaline kip sphatase measurementOrdered By: Lane Lowery on 06-06-2025 ALP [Catalytic activity/Vol] 59 U/L 40-129 [facility] Serum or plasma calcium deepa urement (mass/volume)Ordered By: Lane Lowery on 06-06-2025 Calcium [Mass/Vol] 9.4 mg/dL 7.6-11.0 [facility] Serum or plasma cholesterol in HDL measurement (mass/volume)Ordered By: Lane Lowery on 06-06-2025 Cholesterol in HDL [Mass/Vol] 59 mg/dL >40 [facility] Comment on above: National Cholesterol Education Program (NCEP) guidelines:<40 mg/dL: Low HDL-cholesterol (major risk factor for CHD)>= 60 mg/dL: High HDL-cholesterol (negative risk factor for CHD)HDL-cholesterol is affected by a number of factors, e.g. smoking, exercise, hormones, sex and age. Serum or plasma cholesterol measurement (mass/volume)Ordered By: Lane Lowery on 06-06-2025 Cholesterol [Mass/Vol] 164 mg/dL <201 [facility] Comment on above: Cholesterol level, D esirable <200 mg/dLBorderline high cholesterol 200-239 mg/dLHigh cholesterol >=240 mg/dLRecommendations of the NCEP Adult Treatment Panel for the following risk-cutoff thresholds for the [place] population. Serum or plasma urea nitroge n measurement (mass/volume)Ordered By: Lane Lowery on 06-06-2025 Urea nitrogen [Mass/Vol] 24 mg/dL High 4-19 [facility] Sodium levelOrdered By: Lane Lowery on 06-06-2025 Sodium [Moles/Vol] 138 mmol/L 133-145 [facility] Squamous epithelial cells de tection in urine sediment by light microscopyOrdered By: Lane Lowery on 06-06-2025 Epithelial cells.squamous LM Ql (Urine sed) 0-5 SEEN /hpf 0-5 [facility] Total proteinOrdered By: Alexx Lowery on 06-06-2025 Protein [Mass/Vol] 6.7 g/dL 5.9-8.4 [facility] Triglycerides measurementOrd ered By: Lane Lowery on 06-06-2025 Triglyceride [Mass/Vol] 99 mg/dL <199 [facility] Comment on above: The drugs N-Acetylcy steine and Metamizole may falsely depress this assay. Normal range: <150 mg/dLBorderline High: 150-199 mg/dLHigh: 200-499 mg/dLVery High: >500 mg/dL Urinalysis, Completeon 06-06 EPI,SQUAMOUS 0-5 SEEN Normal 0-5 [facility] Comment on above: Order Comment: Order Date: 12/28/24 Order Info: 0786-1 - CMP Performed By: #### L 500.4050 #### [facility] [address] [place], [address] WBC 0-5 SEEN Normal 0-5 [facility] Comment on above: Order Comment: Order Date: 12/28/24 Order Info: 0786-1 - CMP Performed By: #### L 500.4050 #### [facility] [address] [place], [address] BACTERIA 0 SEEN Normal None Seen [facility] Comment on above: Order Comment: Order Date: 12/28/24 Order Info: 0786-1 - CMP Performed By: #### L 500.4050 #### [facility] [address] [place], [address] Mucus Ql (Urine sed) 0 SEEN Normal [facility] Comment on above: Order Comment: Order Date: 12/28/24 Order Info: 0786-1 - CMP Performed By: #### L 500.4050 #### [facility] [address] [place], [address] RBC 0 SEEN Normal 0-5 [facility] Comment on above: Order Comment: Order Date: 12/28/24 Order Info: 0786-1 - CMP Performed By: #### L 500.4050 #### [facility] [address] [place], [address] Urine clarityOrdered By: Alexx Lowery on 06-06-2025 Clarity (U) Clear Clear [facility] Urine color determinationOrd ered By: Lane Lowery on 06-06-2025 Color (U) Yellow Yellow [facility] Urine glucose detectionOrder ed By: Lane Lowery on 06-06-2025 Glucose Ql (U) Normal mg/dl Normal [facility] Urine leukocyte esterase det ection by dipstickOrdered By: Lane Lowery on 06-06-2025 Leukocyte esterase Test strip Ql (U) Negative Negative [facility] Urine pHOrdered By: Lane rgimm on 06-06-2025 pH (U) 6.0 [pH] 5.0 - 8.0 [facility] Urine protein measurement (m ass/volume)Ordered By: Lane Lowery on 06-06-2025 Protein (U) [Mass/Vol] mg/dL 0.0-12.0 [facility] Urine protein/creatinine mas s ratioOrdered By: Lane Lowery on 06-06-2025 Protein/Creatinine (U) [Mass ratio] UNABLE TO CALCULATE mg/g CRE 0-200 [facility] Urine sediment bacteria coun t by microscopy (number/high power field)Ordered By: Lane Lowery on 06-06-2025 Bacteria LM.HPF (Urine sed) [#/Area] 0 /[HPF] None Seen [facility] Urine specific gravity measu rementOrdered By: Lane Lowery on 06-06-2025 Specific gravity (U) [Rel density] 1.010 1.002-1.030 [facility] Urine urobilinogen measureme ntOrdered By: Lane Lowery on 06-06-2025 Urobilinogen Ql (U) Normal mg/dl Normal [facility] White blood cell (WBC) count Ordered By: Lane Lowery on 06-06-2025 WBC (Bld) [#/Vol] 6.4 10*3/uL 4.4-11.0 [facility] White blood cell countOrdere d By: Lane Lowery on 06-06-2025 White blood cell count 0-5 SEEN /hpf 0-5 [facility] Absolute lymphocyte countOrd ered By: Lane Lowery on 04-26-2025 Lymphocytes Auto (Unsp spec) [#/Vol] 2.45 10*3/uL 0.83-4.51 [facility] Absolute neutrophil countOrd ered By: Lane Lowery on 04-26-2025 Neutrophils (Bld) [#/Vol] 2.6 10*3/uL 2.0-7.7 [facility] Anion gap in Serum or Plasma Ordered By: Lane Lowery on 04-26-2025 Anion gap [Moles/Vol] 10 mmol/L 5-15 [facility] Automated lymphocyte count a s percentage of total leukocytesOrdered By: Lane Lowery on 04-26-2025 Lymphocytes/100 WBC Auto (Unsp spec) 43.4 % High 19- [facility] BUN/creatinine ratioOrdered By: Lane Lowery on 04-26-2025 Urea nitrogen/Creatinine [Mass ratio] 12.7 mg/mg 10- [facility] Basophil percentageOrdered B y: Lane Lowery on 04-26-2025 Basophils/100 WBC (Bld) 0.9 % 0-1 [facility] Bilirubin, totalOrdered By: Lane Lowery on 04-26-2025 Bilirubin [Mass/Vol] 0.91 mg/dL 0.00-1.30 [facility] CBC W/Diff, Automatedon 04-17 Absolute Lymph 2.45 X10 3/uL Normal 0.83-4.51 [facility] Comment on above: Order Comment: Order Date: 04/26/25 Order Info: 0184-1 - CBCD Performed By: #### L 500.4050, L500.4100, L509.1000, L100.0100 #### [facility] [address] [place], [address] Absolute Neut 2.6 X10 3/uL Normal 2.0-7.7 [facility] Comment on above: Order Comment: Order Date: 04/26/25 Order Info: 0184-1 - CBCD Performed By: #### L 500.4050, L500.4100, L509.1000, L100.0100 #### [facility] [address] [place], [address] Basophils/100 WBC (Bld) 0.9 % Normal 0-1 [facility] Comment on above: Order Comment: Order Date: 04/26/25 Order Info: 0184-1 - CBCD Performed By: #### L 500.4050, L500.4100, L509.1000, L100.0100 #### [facility] [address] [place], [address] Eosinophils/100 WBC (Bld) 1.9 % Normal 0-5 [facility] Comment on above: Order Comment: Order Date: 04/26/25 Order Info: 0184-1 - CBCD Performed By: #### L 500.4050, L500.4100, L509.1000, L100.0100 #### [facility] [address] [place], [address] Erythrocyte distribution width (RBC) [Ratio] 13.6 % Normal 11.6-14.6 [facility] Comment on above: Order Comment: Order Date: 04/26/25 Order Info: 0184-1 - CBCD Performed By: #### L 500.4050, L500.4100, L509.1000, L100.0100 #### [facility] [address] [place], [address] Hematocrit (Bld) [Volume fraction] 44.9 % Normal 40-54 [facility] Comment on above: Order Comment: Order Date: 04/26/25 Order Info: 0184-1 - CBCD Performed By: #### L 500.4050, L500.4100, L509.1000, L100.0100 #### [facility] [address] [place], [address] Hemoglobin (Bld) [Mass/Vol] 14.8 g/dL Normal 13.0-16.5 [facility] Comment on above: Order Comment: Order Date: 04/26/25 Order Info: [id number] - CBCD Performed By: #### L 500.4050, L500.4100, L509.1000, L100.0100 #### [facility] [address] [place], [address] IG% 0.200 Normal 0.0-0.9 [facility] Comment on above: Order Comment: Order Date: 04/26/25 Order Info: [id number] - CBCD Result Comment: IG% - Immature Granulocytes (promyelocytes, myelocytes and metamyelocytes) > 1% indicates that a LEFT SHIFT is Present. Performed By: #### L 500.4050, L500.4100, L509.1000, L100.0100 #### [facility] [address] [place], [address] Lymphocytes/100 WBC (Bld) 43.4 % High 19-41 [facility] Comment on above: Order Comment: Order Date: 04/26/25 Order Info: [id number] - CBCD Performed By: #### L 500.4050, L500.4100, L509.1000, L100.0100 #### [facility] [address] [place], [address] MCH (RBC) [Entitic mass] 30.0 pg Normal 27.0-32.0 [facility] Comment on above: Order Comment: Order Date: 04/26/25 Order Info: [id number] - CBCD Performed By: #### L 500.4050, L500.4100, L509.1000, L100.0100 #### [facility] [address] [place], [address] MCHC (RBC) [Mass/Vol] 33.0 g/dL Normal 32-36 [facility] Comment on above: Order Comment: Order Date: 04/26/25 Order Info: 0184-1 - CBCD Performed By: #### L 500.4050, L500.4100, L509.1000, L100.0100 #### [facility] [address] [place], [address] MCV (RBC) [Entitic vol] 90.9 fL Normal 80-94 [facility] Comment on above: Order Comment: Order Date: 04/26/25 Order Info: 0184-1 - CBCD Performed By: #### L 500.4050, L500.4100, L509.1000, L100.0100 #### [facility] [address] [place], [address] Monocytes/100 WBC (Bld) 7.4 % Normal 0-10 [facility] Comment on above: Order Comment: Order Date: 04/26/25 Order Info: 0184-1 - CBCD Performed By: #### L 500.4050, L500.4100, L509.1000, L100.0100 #### [facility] [address] [place], [address] Neutrophils/100 WBC (Bld) 46.2 % Low 47-70 [facility] Comment on above: Order Comment: Order Date: 04/26/25 Order Info: 0184-1 - CBCD Performed By: #### L 500.4050, L500.4100, L509.1000, L100.0100 #### [facility] [address] [place], [address] Nucleated RBC (Bld) [#/Vol] 0 10*3/uL Normal 0-5 [facility] Comment on above: Order Comment: Order Date: 04/26/25 Order Info: 0184-1 - CBCD Performed By: #### L 500.4050, L500.4100, L509.1000, L100.0100 #### [facility] [address] [place], [address] Platelet mean volume (Bld) [Entitic vol] 10.1 fL Normal 6.2-12.0 [facility] Comment on above: Order Comment: Order Date: 04/26/25 Order Info: 0184-1 - CBCD Performed By: #### L 500.4050, L500.4100, L509.1000, L100.0100 #### [facility] [address] [place], [address] Platelets (Bld) [#/Vol] 217 10*3/uL Normal 150-450 [facility] Comment on above: Order Comment: Order Date: 04/26/25 Order Info: 0184- - CBCD Performed By: #### L 500.4050, L500.4100, L509.1000, L100.0100 #### [facility] [address] [place], [address] RBC (Bld) [#/Vol] 4.94 10*6/uL Normal 4.6-6.2 [facility] Comment on above: Order Comment: Order Date: 04/26/25 Order Info: 0184- - CBCD Performed By: #### L 500.4050, L500.4100, L509.1000, L100.0100 #### [facility] [address] [place], [address] RDW SD 45.4 fl High 35.1-43.9 [facility] Comment on above: Order Comment: Order Date: 04/26/25 Order Info: 0184-1 - CBCD Performed By: #### L 500.4050, L500.4100, L509.1000, L100.0100 #### [facility] [address] [place], [address] WBC (Bld) [#/Vol] 5.7 10*3/uL Normal 4.4-11.0 [facility] Comment on above: Order Comment: Order Date: 04/26/25 Order Info: 0184-1 - CBCD Performed By: #### L 500.4050, L500.4100, L509.1000, L100.0100 #### [facility] [address] [place], [place], [address] Calculated very low density lipoprotein (VLDL) cholesterol measurementOrdered By: Lane Lowery on 04-26-2025 Calculated very low density lipoprotein (VLDL) cholesterol measurement 30 mg/dL 5-40 [facility] Carbon dioxide, total [Moles /volume] in Central venous bloodOrdered By: Lane Lowery on 04-26-2025 CO2 [Moles/Vol] 23.6 mmol/L 21.0-32.0 [facility] Chloride assayOrdered By: Claudia Lowery on 04-26-2025 Chloride [Moles/Vol] 106 mmol/L 98-108 [facility] Comprehensive Metabolic Prof ilon 04-26-2025 Albumin [Mass/Vol] 4.2 g/dL Normal 3.4-4.8 [facility] Comment on above: Order Comment: Order Date: 04/26/25 Order Info: 0786-1 - CMP Order Info: [id number] - LIPID Performed By: #### L 500.4050, L500.4100, L509.1000, L100.0100 #### [facility] [address] [place], [place], [id number] Albumin/Globulin [Mass ratio] 1.4 {ratio} Normal 0.9-2.4 [facility] Comment on above: Order Comment: Order Date: 04/26/25 Order Info: 0786-1 - CMP Order Info: [id number] - LIPID Performed By: #### L 500.4050, L500.4100, L509.1000, L100.0100 #### [facility] [address] [place], [address] ALK PHOS 57 U/L Normal 40-129 [facility] Comment on above: Order Comment: Order Date: 04/26/25 Order Info: 0786-1 - CMP Order Info: [id number] - LIPID Performed By: #### L 500.4050, L500.4100, L509.1000, L100.0100 #### [facility] [address] [place], [address] ALT [Catalytic activity/Vol] 17 U/L Normal <=46 [facility] Comment on above: Order Comment: Order Date: 04/26/25 Order Info: 0786-1 - CMP Order Info: [id number] - LIPID Performed By: #### L 500.4050, L500.4100, L509.1000, L100.0100 #### [facility] [address] [place], [address] AST [Catalytic activity/Vol] 24 U/L Normal <=37 [facility] Comment on above: Order Comment: Order Date: 04/26/25 Order Info: 0786-1 - CMP Order Info: [id number] - LIPID Performed By: #### L 500.4050, L500.4100, L509.1000, L100.0100 #### [facility] [address] [place], [address] Bilirubin [Mass/Vol] 0.91 mg/dL Normal 0.00-1.30 [facility] Comment on above: Order Comment: Order Date: 04/26/25 Order Info: 0786-1 - CMP Order Info: [id number] - LIPID Performed By: #### L 500.4050, L500.4100, L509.1000, L100.0100 #### [facility] [address] [place], [address] BUN/CRE 12.7 RATIO Normal 10-20 [facility] Comment on above: Order Comment: Order Date: 04/26/25 Order Info: 0786-1 - CMP Order Info: [id number] - LIPID Performed By: #### L 500.4050, L500.4100, L509.1000, L100.0100 #### [facility] [address] [place], [address] Calcium [Mass/Vol] 9.7 mg/dL Normal 7.6-11.0 [facility] Comment on above: Order Comment: Order Date: 04/26/25 Order Info: 0786- - CMP Order Info: [id number] - LIPID Performed By: #### L 500.4050, L500.4100, L509.1000, L100.0100 #### [facility] [address] [place], [address] Chloride [Moles/Vol] 106 mmol/L Normal 98-108 [facility] Comment on above: Order Comment: Order Date: 04/26/25 Order Info: 07 - CMP Order Info: [id number] - LIPID Performed By: #### L 500.4050, L500.4100, L509.1000, L100.0100 #### [facility] [address] [place], [address] CO2 [Moles/Vol] 23.6 mmol/L Normal 21.0-32.0 [facility] Comment on above: Order Comment: Order Date: 04/26/25 Order Info: 0786- - CMP Order Info: [id number] - LIPID Performed By: #### L 500.4050, L500.4100, L509.1000, L100.0100 #### [facility] [address] [place], [address] Creatinine [Mass/Vol] 1.42 mg/dL High 0.70-1.20 [facility] Comment on above: Order Comment: Order Date: 04/26/25 Order Info: 0786- - CMP Order Info: [id number] - LIPID Performed By: #### L 500.4050, L500.4100, L509.1000, L100.0100 #### [facility] [address] [place], [address] GAP 10 Normal 5-15 [facility] Comment on above: Order Comment: Order Date: 04/26/25 Order Info: 0786-1 - CMP Order Info: [id number] - LIPID Performed By: #### L 500.4050, L500.4100, L509.1000, L100.0100 #### [facility] [address] [place], [address] GFR/1.73 sq M.predicted among non-blacks MDRD (S/P/Bld) [Vol rate/Area] 52 mL/min/{1.73_m2} Low >60 [facility] Comment on above: Order Comment: Order Date: 04/26/25 Order Info: 0786 - CMP Order Info: [id number] - LIPID Result Comment: mL/m in/1.73m2 CKD-EPI Creatinine Equation (2020) Performed By: #### L 500.4050, L500.4100, L509.1000, L100.0100 #### [facility] [address] [place], [address] Globulin (S) [Mass/Vol] 3.0 g/dL Normal 2.2-4.2 [facility] Comment on above: Order Comment: Order Date: 04/26/25 Order Info: 0786- - CMP Order Info: [id number] - LIPID Performed By: #### L 500.4050, L500.4100, L509.1000, L100.0100 #### [facility] [address] [place], [address] Glucose [Mass/Vol] 105 mg/dL High 70-99 [facility] Comment on above: Order Comment: Order Date: 04/26/25 Order Info: 0786-1 - CMP Order Info: [id number] - LIPID Performed By: #### L 500.4050, L500.4100, L509.1000, L100.0100 #### [facility] [address] [place], [address] Potassium [Moles/Vol] 4.2 mmol/L Normal 3.3-5.1 [facility] Comment on above: Order Comment: Order Date: 04/26/25 Order Info: 0786-1 - CMP Order Info: [id number] - LIPID Performed By: #### L 500.4050, L500.4100, L509.1000, L100.0100 #### [facility] [address] [place], [address] Sodium [Moles/Vol] 140 mmol/L Normal 133-145 [facility] Comment on above: Order Comment: Order Date: 04/26/25 Order Info: 0786- - CMP Order Info: [id number] - LIPID Performed By: #### L 500.4050, L500.4100, L509.1000, L100.0100 #### [facility] [address] [place], [address] T PROT 7.2 g/dL Normal 5.9-8.4 [facility] Comment on above: Order Comment: Order Date: 04/26/25 Order Info: 0786- - CMP Order Info: [id number] - LIPID Performed By: #### L 500.4050, L500.4100, L509.1000, L100.0100 #### [facility] [address] [place], [address] Urea nitrogen [Mass/Vol] 18 mg/dL Normal 4-19 [facility] Comment on above: Order Comment: Order Date: 04/26/25 Order Info: 0786-1 - CMP Order Info: [id number] - LIPID Performed By: #### L 500.4050, L500.4100, L509.1000, L100.0100 #### [facility] [address] [place], [address] Eosinophil percentageOrdered By: Lane Lowery on 04-26-2025 Eosinophils/100 WBC (Bld) 1.9 % 0-5 [facility] Erythrocyte distribution wid th ratioOrdered By: Lane Lowery on 04-26-2025 Erythrocyte distribution width (RBC) [Ratio] 13.6 % 11.6-14.6 [facility] Erythrocyte distribution wid th standard deviationOrdered By: Lane Lowery on 04-26-2025 Erythrocyte distribution width (RBC) [Ratio] 45.4 fl High 35.1-43.9 [facility] Glomerular filtration rate ( GFR) estimation/1.73 sq m using serum, plasma, or whole bOrdered By: Lane Lowery on 04-26-2025 GFR/1.73 sq M.predicted among non-blacks MDRD (S/P/Bld) [Vol rate/Area] 52 mL/min/{1.73_m2} Low >60 [facility] Comment on above: mL/min/1.73m2 CKD-EP I Creatinine Equation (2020) Hematocrit Auto (Bld) [Volum e fraction]Ordered By: Lane Lowery on 04-26-2025 Hematocrit (Bld) [Volume fraction] 44.9 % 40-54 [facility] Hemoglobin measurementOrdere d By: Lane Lowery on 04-26-2025 Hemoglobin (Bld) [Mass/Vol] 14.8 g/dL 13.0-16.5 [facility] Immature granulocytes/100 WB C Auto (Bld)Ordered By: Lane Lowery on 04-26-2025 Immature granulocytes/100 WBC (Bld) 0.200 % 0.0-0.9 [facility] Comment on above: IG% - Immature Granu locytes (promyelocytes, myelocytes and metamyelocytes) > 1% indicates that a LEFT SHIFT is Present. LDL calc ser/plasOrdered By: Lane Lowery on 04-26-2025 Cholesterol in LDL [Mass/Vol] 97 mg/dL [facility] Comment on above: Hrummryroi=688-625 m g/dL & Higher Ixvn=593 mg/dL or greater Laboratory - Chemistry and C hemistry - challengeOrdered By: Lane Lowery on 04-26-2025 AST [Catalytic activity/Vol] 24 U/L <38 [facility] Lipid Profileon 04-26-2025 CHOL:HDL 3.71 Normal [facility] Comment on above: Order Comment: Order Date: 04/26/25 Order Info: 0786- - CMP Order Info: [id number] - LIPID Performed By: #### L 500.4050, L500.4100, L509.1000, L100.0100 #### [facility] [address] [place], [address] Cholesterol [Mass/Vol] 174 mg/dL Normal <=200 [facility] Comment on above: Order Comment: Order Date: 04/26/25 Order Info: 07 - CMP Order Info: [id number] - LIPID Result Comment: Chol esterol level, Desirable <200 mg/dL Borderline high cholesterol 200-239 mg/dL High cholesterol >=240 mg/dL Recommendations of the NCEP Adult Treatment Panel for the following risk-cutoff thresholds for the [place] population. Performed By: #### L 500.4050, L500.4100, L509.1000, L100.0100 #### [facility] [address] [place], [address] Cholesterol in HDL [Mass/Vol] 47 mg/dL Normal [facility] Comment on above: Order Comment: Order Date: 04/26/25 Order Info: 0786 - [facility] Order Info: [id number] - LIPID Result Comment: Maria C onal Cholesterol Education Program (NCEP) guidelines: <40 mg/dL: Low HDL-cholesterol (major risk factor for CHD) >= 60 mg/dL: High HDL-cholesterol (negative risk factor for CHD) HDL-cholesterol is affected by a number of factors, e.g. smoking, exercise, hormones, sex and age. Performed By: #### L 500.4050, L500.4100, L509.1000, L100.0100 #### [facility] [address] [place], [address] Cholesterol in LDL [Mass/Vol] 97 mg/dL Normal [facility] Comment on above: Order Comment: Order Date: 04/26/25 Order Info: 0786- - CMP Order Info: [id number] - LIPID Result Comment: Bord mrggjb=647-572 mg/dL Higher Oyyd=348 mg/dL or greater Performed By: #### L 500.4050, L500.4100, L509.1000, L100.0100 #### [facility] [address] [place], [address] Cholesterol in VLDL [Mass/Vol] 30 mg/dL Normal 5-40 [facility] Comment on above: Order Comment: Order Date: 04/26/25 Order Info: 0786-1 - CMP Order Info: [id number] - LIPID Performed By: #### L 500.4050, L500.4100, L509.1000, L100.0100 #### [facility] [address] [place], [address] Triglyceride [Mass/Vol] 151 mg/dL Normal [facility] Comment on above: Order Comment: Order Date: 04/26/25 Order Info: [id number] - CMP Order Info: [id number] - LIPID Result Comment: The drugs N-Acetylcysteine and Metamizole may falsely depress this assay. Normal range: <150 mg/dL Borderline High: 150-199 mg/dL High: 200-499 mg/dL Very High: >500 mg/dL Performed By: #### L 500.4050, L500.4100, L509.1000, L100.0100 #### [facility] [address] [place], [address] MCV (mean corpuscular volume ) determinationOrdered By: Lane Lowery on 04-26-2025 MCV (RBC) [Entitic vol] 90.9 fL 80-94 [facility] Mean corpuscular hemoglobin (MCH) determinationOrdered By: Lane Lowery on 04-26-2025 MCH (RBC) [Entitic mass] 30.0 pg 27.0-32.0 [facility] Mean corpuscular hemoglobin concentration (MCHC) determinationOrdered By: Lane Lowery on 04-26-2025 MCHC (RBC) [Mass/Vol] 33.0 g/dL 32-36 [facility] Mean platelet volume determi nationOrdered By: Lane Lowery on 04-26-2025 Platelet mean volume (Bld) [Entitic vol] 10.1 fL 6.2-12.0 [facility] Monocyte percentageOrdered B y: Lane Lowery on 04-26-2025 Monocytes/100 WBC (Bld) 7.4 % 0-10 [facility] Neutrophil percentageOrdered By: Lane Lowery on 04-26-2025 Neutrophils/100 WBC (Bld) 46.2 % Low 47-70 [facility] Nucleated red blood cell per centageOrdered By: Lane Lowery on 04-26-2025 Nucleated RBC/100 WBC (Bld) [Ratio] 0 % 0-5 [facility] PTHINon 04-26-2025 PTH 18 pg/mL Normal 11-61 [facility] Comment on above: Order Comment: Order Date: 04/26/25 Order Info: [id number] - PTHIN Performed By: #### L 500.4050, L500.4100, L509.1000, L100.0100 #### [facility] [place], [address] Platelet countOrdered By: Claudia Lowery on 04-26-2025 Platelets (Bld) [#/Vol] 217 10*3/uL 150-450 [facility] Potassium measurement (mass/ volume)Ordered By: Lane Lowery on 04-26-2025 Potassium (Unsp spec) [Mass/Vol] 4.2 mmol/L 3.3-5.1 [facility] RBC Auto (Bld) [#/Vol]Ordere d By: Lane Lowery on 04-26-2025 RBC (Bld) [#/Vol] 4.94 10*6/uL 4.6-6.2 [facility] Screening total cholesterol/ high density lipoprotein (HDL) cholesterol ratioOrdered By: Lane Lowery on 04-26-2025 Cholesterol.total/Choles terol in HDL [Mass ratio] 3.71 {ratio} [facility] Serum creatinine measurement (mass/volume)Ordered By: Lane Lowery on 04-26-2025 Creatinine [Mass/Vol] 1.42 mg/dL High 0.70-1.20 [facility] Serum globulin measurementOr dered By: Lane Lowery on 04-26-2025 Globulin (S) [Mass/Vol] 3.0 g/dL 2.2-4.2 [facility] Serum glucose measurement (m ass/volume)Ordered By: Lane Lowery on 04-26-2025 Glucose [Mass/Vol] 105 mg/dL High 70-99 [facility] Serum or plasma alanine mi otransferase (ALT) measurementOrdered By: Lane Lowery on 04-26-2025 ALT [Catalytic activity/Vol] 17 U/L <47 [facility] Serum or plasma albumin deepa urement (mass/volume)Ordered By: Lane Lowery on 04-26-2025 Albumin [Mass/Vol] 4.2 g/dL 3.4-4.8 [facility] Serum or plasma albumin/glob ulin mass ratioOrdered By: Lane Lowery on 04-26-2025 Albumin/Globulin [Mass ratio] 1.4 {ratio} 0.9-2.4 [facility] Serum or plasma alkaline kip sphatase measurementOrdered By: Lane Lowery on 04-26-2025 ALP [Catalytic activity/Vol] 57 U/L 40-129 [facility] Serum or plasma calcium deepa urement (mass/volume)Ordered By: Lane Lowery on 04-26-2025 Calcium [Mass/Vol] 9.7 mg/dL 7.6-11.0 [facility] Serum or plasma cholesterol in HDL measurement (mass/volume)Ordered By: Lane Lowery on 04-26-2025 Cholesterol in HDL [Mass/Vol] 47 mg/dL >40 [facility] Comment on above: National Cholesterol Education Program (NCEP) guidelines:<40 mg/dL: Low HDL-cholesterol (major risk factor for CHD)>= 60 mg/dL: High HDL-cholesterol (negative risk factor for CHD)HDL-cholesterol is affected by a number of factors, e.g. smoking, exercise, hormones, sex and age. Serum or plasma cholesterol measurement (mass/volume)Ordered By: Lane Lowery on 04-26-2025 Cholesterol [Mass/Vol] 174 mg/dL <201 [facility] Comment on above: Cholesterol level, D esirable <200 mg/dLBorderline high cholesterol 200-239 mg/dLHigh cholesterol >=240 mg/dLRecommendations of the NCEP Adult Treatment Panel for the following risk-cutoff thresholds for the [place] population. Serum or plasma urea nitroge n measurement (mass/volume)Ordered By: Lane Lowery on 04-26-2025 Urea nitrogen [Mass/Vol] 18 mg/dL 4-19 [facility] Sodium levelOrdered By: Lane Lowery on 04-26-2025 Sodium [Moles/Vol] 140 mmol/L 133-145 [facility] Total proteinOrdered By: Alexx Lowery on 04-26-2025 Protein [Mass/Vol] 7.2 g/dL 5.9-8.4 [facility] Triglycerides measurementOrd ered By: Lane Lowery on 04-26-2025 Triglyceride [Mass/Vol] 151 mg/dL <199 [facility] Comment on above: The drugs N-Acetylcy steine and Metamizole may falsely depress this assay. Normal range: <150 mg/dLBorderline High: 150-199 mg/dLHigh: 200-499 mg/dLVery High: >500 mg/dL Vitamin D,25 Hydroxyon 04-26 Vitamin D 25-OH 39.2 ng/mL Normal 30-100 [facility] Comment on above: Order Comment: Order Date: 04/26/25 Order Info: 0786-1 - CMP Order Info: [id number] - LIPID Result Comment: Linda min D Status Deficiency: <20 ng/mL (50nmol/L) Insufficiency: 20-30 ng/mL (50-75 nmol/L) Sufficiency: 30-100 ng/mL (75-250 nmol/L) Toxicity: >100 ng/mL (>250 nmol/L) Performed By: #### L 506.1001 #### [facility] [address] [place], [address] White blood cell (WBC) count Ordered By: Lane Lowery on 04-26-2025 WBC (Bld) [#/Vol] 5.7 10*3/uL 4.4-11.0 [facility] Basic Metabolic Profile (BMP )on 01-05-2025 BUN/CRE 11.3 RATIO Normal 10-20 [facility] Comment on above: Order Comment: Order Date: 01/05/25 Order Info: 0667-1 - BMP Performed By: #### L [id number] #### [facility] [address] [place], [address] CA,Total 9.2 mg/dL Normal 8.5-10.1 [facility] Comment on above: Order Comment: Order Date: 01/05/25 Order Info: 0667 - BMP Performed By: #### L [id number] #### [facility] [address] [place], [address] Chloride [Moles/Vol] 104 mmol/L Normal 98-107 [facility] Comment on above: Order Comment: Order Date: 01/05/25 Order Info: 0667 - BMP Performed By: #### L [id number] #### [facility] [address] [place], [address] CO2 [Moles/Vol] 28.0 mmol/L Normal 21.0-32.0 [facility] Comment on above: Order Comment: Order Date: 01/05/25 Order Info: 0667- - BMP Performed By: #### L [id number] #### [facility] [address] [place], [address] Creatinine [Mass/Vol] 1.42 mg/dL High 0.70-1.30 [facility] Comment on above: Order Comment: Order Date: 01/05/25 Order Info: 0667- - BMP Result Comment: The validity of the calculated GFR GFRAA in patients over 70 years has not been determined. Clinical correlation is essential. Performed By: #### L [id number] #### [facility] [address] [place], [address] EST GFR - AA 63 mL/min Normal >60 [facility] Comment on above: Order Comment: Order Date: 01/05/25 Order Info: 0667- - BMP Result Comment: Afri can [place] GFR Calc Performed By: #### L [id number] #### [facility] [address] [place], [address] GAP 6 Normal 5-15 [facility] Comment on above: Order Comment: Order Date: 01/05/25 Order Info: 666-11 - BMP Performed By: #### L [id number] #### [facility] [address] [place], [address] GFR/1.73 sq M.predicted among non-blacks MDRD (S/P/Bld) [Vol rate/Area] 52 mL/min/{1.73_m2} Low >60 [facility] Comment on above: Order Comment: Order Date: 01/05/25 Order Info: 06 - BMP Result Comment: Non- GFR Calc Performed By: #### L [id number] #### [facility] [address] [place], [address] Glucose [Mass/Vol] 89 mg/dL Normal 74-106 [facility] Comment on above: Order Comment: Order Date: 01/05/25 Order Info: 666-11 - BMP Performed By: #### L [id number] #### [facility] [address] [place], [address] Potassium [Moles/Vol] 4.0 mmol/L Normal 3.5-5.1 [facility] Comment on above: Order Comment: Order Date: 01/05/25 Order Info: 06 - BMP Performed By: #### L [id number] #### [facility] [address] [place], [address] Sodium [Moles/Vol] 138 mmol/L Normal 136-145 [facility] Comment on above: Order Comment: Order Date: 01/05/25 Order Info: 0667 - BMP Performed By: #### L [id number] #### [facility] [address] [place], [address] Urea nitrogen [Mass/Vol] 16 mg/dL Normal 7-18 [facility] Comment on above: Order Comment: Order Date: 01/05/25 Order Info: 0667-1 - BMP Performed By: #### L [id number] #### [facility] [address] [place], [address] Blood urea nitrogen (BUN)/cr eatinine ratioOrdered By: Lane Lowery on 01-05-2025 Urea nitrogen/Creatinine [Mass ratio] 11.3 mg/mg 10-20 [facility] Carbon dioxide measurementOr dered By: Lane Lowery on 01-05-2025 CO2 [Moles/Vol] 28.0 mmol/L 21.0-32.0 [facility] Chloride measurementOrdered By: Lane Lowery on 01-05-2025 Chloride [Moles/Vol] 104 mmol/L 98-107 [facility] Glomerular filtration rate ( GFR) estimationOrdered By: Lane Lowery on 01-05-2025 GFR/1.73 sq M.predicted among non-blacks MDRD (S/P/Bld) [Vol rate/Area] 52 mL/min/{1.73_m2} Low >60 [facility] Comment on above: Non- GFR Calc Glucose measurementOrdered B y: Lane Lowery on 01-05-2025 Glucose [Mass/Vol] 89 mg/dL 74-106 [facility] Potassium measurementOrdered By: Lane Lowery on 01-05-2025 Potassium [Moles/Vol] 4.0 mmol/L 3.5-5.1 [facility] Serum anion gap measurementO rdered By: Lane Lowery on 01-05-2025 Anion gap [Moles/Vol] 6 mmol/L 5-15 [facility] Serum or plasma calcium deepa urement (mass/volume)Ordered By: Lane Lowery on 01-05-2025 Calcium [Mass/Vol] 9.2 mg/dL 8.5-10.1 [facility] Serum or plasma creatinine m easurement (mass/volume)Ordered By: Lane Lowery on 01-05-2025 Creatinine [Mass/Vol] 1.42 mg/dL High 0.70-1.30 [facility] Comment on above: The validity of the calculated GFR & GFRAA in patients over 70 years has not been determined. Clinical correlation is essential. Serum or plasma urea nitroge n measurement (mass/volume)Ordered By: Lane Lowery on 01-05-2025 Urea nitrogen [Mass/Vol] 16 mg/dL 7-18 [facility] Sodium levelOrdered By: Lane Lowery on 01-05-2025 Sodium [Moles/Vol] 138 mmol/L 136-145 [facility] Comprehensive Metabolic Prof ilon 12-28-2024 Albumin [Mass/Vol] 3.6 g/dL Normal 3.2-5.0 [facility] Comment on above: Order Comment: Order Date: 12/28/24 Order Info: 0786-1 - CMP Performed By: #### L [id number] #### [facility] [address] [place], [address] Albumin/Globulin [Mass ratio] 1.0 {ratio} Normal 0.9-2.4 [facility] Comment on above: Order Comment: Order Date: 12/28/24 Order Info: 0786-1 - CMP Performed By: #### L [id number] #### [facility] [address] [place], [address] ALK P 58 U/L Normal 45-117 [facility] Comment on above: Order Comment: Order Date: 12/28/24 Order Info: 0786-1 - CMP Performed By: #### L [id number] #### [facility] [address] [place], [address] ALT [Catalytic activity/Vol] 18 U/L Normal 16-61 [facility] Comment on above: Order Comment: Order Date: 12/28/24 Order Info: 0786-1 - CMP Performed By: #### L [id number] #### [facility] [address] [place], [address] AST [Catalytic activity/Vol] 16 U/L Normal 15-37 [facility] Comment on above: Order Comment: Order Date: 12/28/24 Order Info: 0786-1 - CMP Performed By: #### L [id number] #### [facility] [address] [place], [id number] Bilirubin [Mass/Vol] 0.90 mg/dL Normal 0.20-1.00 [facility] Comment on above: Order Comment: Order Date: 12/28/24 Order Info: 0786-1 - CMP Result Comment: For patients on eltrombopag therapy, use of Dimension [place] TBIL is not recommended. Performed By: #### L [id number] #### [facility] [address] [place], [address] BUN/CRE 14.2 RATIO Normal 10-20 [facility] Comment on above: Order Comment: Order Date: 12/28/24 Order Info: 0786-1 - CMP Performed By: #### L [id number] #### [facility] [address] [place], [address] CA,Total 9.6 mg/dL Normal 8.5-10.1 [facility] Comment on above: Order Comment: Order Date: 12/28/24 Order Info: 0786-1 - CMP Performed By: #### L [id number] #### [facility] [address] [place], [address] Chloride [Moles/Vol] 105 mmol/L Normal 98-107 [facility] Comment on above: Order Comment: Order Date: 12/28/24 Order Info: 0786-1 - CMP Performed By: #### L [id number] #### [facility] [address] [place], [address] CO2 [Moles/Vol] 27.0 mmol/L Normal 21.0-32.0 [facility] Comment on above: Order Comment: Order Date: 12/28/24 Order Info: 0786-1 - CMP Performed By: #### L [id number] #### [facility] [address] [place], [address] Creatinine [Mass/Vol] 1.48 mg/dL High 0.70-1.30 [facility] Comment on above: Order Comment: Order Date: 12/28/24 Order Info: 0786-1 - CMP Result Comment: The validity of the calculated GFR GFRAA in patients over 70 years has not been determined. Clinical correlation is essential. Performed By: #### L [id number] #### [facility] [address] [place], [address] EST GFR - AA 60 mL/min Normal >60 [facility] Comment on above: Order Comment: Order Date: 12/28/24 Order Info: 0786-1 - CMP Result Comment: Afri can [place] GFR Calc Performed By: #### L [id number] #### [facility] [address] [place], [address] GAP 7 Normal 5-15 [facility] Comment on above: Order Comment: Order Date: 12/28/24 Order Info: 0786- - CMP Performed By: #### L [id number] #### [facility] [address] [place], [address] GFR/1.73 sq M.predicted among non-blacks MDRD (S/P/Bld) [Vol rate/Area] 49 mL/min/{1.73_m2} Low >60 [facility] Comment on above: Order Comment: Order Date: 12/28/24 Order Info: 0786-1 - CMP Result Comment: Non- GFR Calc Performed By: #### L [id number] #### [facility] [address] [place], [address] Globulin (S) [Mass/Vol] 3.6 g/dL Normal 2.2-4.2 [facility] Comment on above: Order Comment: Order Date: 12/28/24 Order Info: 0786-1 - CMP Performed By: #### L [id number] #### [facility] [address] [place], [address] Glucose [Mass/Vol] 57 mg/dL Low 74-106 [facility] Comment on above: Order Comment: Order Date: 12/28/24 Order Info: 0786-1 - CMP Performed By: #### L [id number] #### [facility] [address] [place], [address] Potassium [Moles/Vol] 4.2 mmol/L Normal 3.5-5.1 [facility] Comment on above: Order Comment: Order Date: 12/28/24 Order Info: 0786-1 - CMP Performed By: #### L [id number] #### [facility] [address] [place], [address] Sodium [Moles/Vol] 139 mmol/L Normal 136-145 [facility] Comment on above: Order Comment: Order Date: 12/28/24 Order Info: 0786-1 - CMP Performed By: #### L [id number] #### [facility] [address] [place], [address] T PROT 7.2 g/dL Normal 6.4-8.2 [facility] Comment on above: Order Comment: Order Date: 12/28/24 Order Info: 0786-1 - CMP Performed By: #### L [id number] #### [facility] [address] [place], [address] Urea nitrogen [Mass/Vol] 21 mg/dL High 7-18 [facility] Comment on above: Order Comment: Order Date: 12/28/24 Order Info: 0786-1 - CMP Performed By: #### L [id number] #### [facility] [address] [place], [address] PSA,Total - Annual Screenon 09-14-2024 PSA,TOT SCREEN 0.75 ng/mL Normal 0.00-4.00 [facility] Comment on above: Result Comment: This test was performed using the TPSA assay method for the [employer] chemistry system. Values obtained with different assay methods cannot be used interchangably. When changing PSA assays in the course of monitoring a patient, additional sequential testing should be carried out to confirm baseline values. Performed By: #### L 501.9910 #### [facility] [address] [place], [address] Basophil percentageOrdered B y: Lane Lowery on 01-29-2024 Chloride [Moles/Vol] 106 mmol/L 98-107 [facility] Glucose [Mass/Vol] 89 mg/dL 74-106 [facility] Potassium [Moles/Vol] 4.2 mmol/L 3.5-5.1 [facility] Sodium [Moles/Vol] 140 mmol/L 136-145 [facility] - Chemistry and C hemistry - challengeOrdered By: Lane Lowery on 01-29-2024 CO2 [Moles/Vol] 28.0 mmol/L 21.0-32.0 [facility] Urea nitrogen/Creatinine [Mass ratio] 11.6 mg/mg 10- [facility] No Panel InformationOrdered By: Lane Lowery on 01-29-2024 Estimated GFR (MDRD) Amer 65 mL/min >60 [facility] Comment on above: GFR Calc Estimated GFR (MDRD) Non-Af Amer 54 mL/min >60 [facility] Comment on above: Non- GFR Calc Serum or plasma calcium deepa urement (mass/volume)Ordered By: Lane Lowery on 01-29-2024 Calcium [Mass/Vol] 9.5 mg/dL 8.5-10.1 [facility] Serum or plasma creatinine m easurement (mass/volume)Ordered By: Lane Lowery on 01-29-2024 Creatinine [Mass/Vol] 1.38 mg/dL 0.70-1.30 [facility] Comment on above: The validity of the calculated GFR & GFRAA in patients over 70 years has not been determined. Clinical correlation is essential. Serum or plasma urea nitroge n measurement (mass/volume)Ordered By: Lane Lowery on 01-29-2024 Urea nitrogen [Mass/Vol] 16 mg/dL 7-18 [facility] Thin prep Papanicolaou smear with manual screeningOrdered By: Lane Lowery on 01-29-2024 Thin prep Papanicolaou smear with manual screening 6 5-15 [facility] Absolute lymphocyte countOrd ered By: Lane Lowery on 01-22-2024 Lymphocytes Auto (Unsp spec) [#/Vol] 2.13 10*3/uL 0.83-4.51 [facility] Automated lymphocyte count a s percentage of total leukocytesOrdered By: Lane Lowery on 01-22-2024 Lymphocytes/100 WBC Auto (Unsp spec) 26.2 % 19-41 [facility] Basophil percentageOrdered B y: Lane Lowery on 01-22-2024 Basophil percentage 0 SEEN /hpf 0-5 [facility] Basophils/100 WBC (Bld) 0.9 % 0-1 [facility] Bilirubin [Mass/Vol] 0.70 mg/dL 0.20-1.00 [facility] Comment on above: For patients on eltr ombopag therapy, use of Dimension [place] TBIL is not recommended. Chloride [Moles/Vol] 102 mmol/L 98-107 [facility] Cholesterol [Mass/Vol] 175 mg/dL <200 [facility] Comment on above: <200 mg/dL Desirable 200-240 mg/dL Borderline >240 mg/dL High Risk Eosinophils/100 WBC (Bld) 1.2 % 0-5 [facility] Glucose [Mass/Vol] 76 mg/dL 74-106 [facility] Hemoglobin (Bld) [Mass/Vol] 14.4 g/dL 13.0-16.5 [facility] Monocytes/100 WBC (Bld) 8.5 % 0-10 [facility] Neutrophils (Bld) [#/Vol] 5.1 10*3/uL 2.0-7.7 [facility] Neutrophils/100 WBC (Bld) 62.8 % 47-70 [facility] Potassium [Moles/Vol] 4.2 mmol/L 3.5-5.1 [facility] Protein [Mass/Vol] 7.2 g/dL 6.4-8.2 [facility] Sodium [Moles/Vol] 138 mmol/L 136-145 [facility] Triglyceride [Mass/Vol] 190 mg/dL <199 [facility] Comment on above: The drugs N-Acetylcy steine and Metamizole may falsely depress this assay.Serum Triglycerides Reference Interval Normal <150 mg/dL Borderline high 150 - 199 mg/dL High 200 - 499 mg/dL Very High > or = 500 mg/dL WBC (Bld) [#/Vol] 8.1 10*3/uL 4.4-11.0 [facility] Bilirubin Test strip Ql (U)O rdered By: Lane Lowery on 01-22-2024 Bilirubin Ql (U) Negative Negative [facility] Determination of erythrocyte mean corpuscular volume (MCV)Ordered By: Lane Lowery on 01-22-2024 MCV (RBC) [Entitic vol] 95.3 fL 80-94 [facility] Erythrocyte distribution wid th ratioOrdered By: Lane Lowery on 01-22-2024 Erythrocyte distribution width (RBC) [Ratio] 12.8 % 11.6-14.6 [facility] Erythrocyte distribution wid th standard deviationOrdered By: Lane Lowery on 01-22-2024 Erythrocyte distribution width (RBC) [Entitic vol] 45.3 fL 35.1-43.9 [facility] Hematocrit Auto (Bld) [Volum e fraction]Ordered By: Lane Lowery on 01-22-2024 Hematocrit (Bld) [Volume fraction] 44.4 % 40-54 [facility] Immature granulocytes/100 WB C Auto (Bld)Ordered By: Lane Lowery on 01-22-2024 Immature granulocytes/100 WBC (Bld) 0.400 % 0.0-0.9 [facility] Comment on above: IG% - Immature Granu locytes (promyelocytes, myelocytes and metamyelocytes) > 1% indicates that a LEFT SHIFT is Present. Ketones Test strip Ql (U)Ord ered By: Lane Lowery on 01-22-2024 Ketones Ql (U) Negative Negative [facility] - Chemistry and C hemistry - challengeOrdered By: Lane Lowery on 01-22-2024 Albumin/Globulin [Mass ratio] 1.1 {ratio} 0.9-2.4 [facility] ALP [Catalytic activity/Vol] 63 U/L 45-117 [facility] ALT [Catalytic activity/Vol] 25 U/L 16-61 [facility] Cholesterol in HDL [Mass/Vol] 52 mg/dL >40 [facility] Comment on above: The drugs N-Acetylcy steine and Metamizole may falsely depress this assay. Reference Range HDL <40 mg/dL Low HDL Cholesterol HDL >or= 60 mg/dL High HDL Cholesterol Cholesterol in LDL [Mass/Vol] 85 mg/dL 0-130 [facility] CO2 [Moles/Vol] 28.0 mmol/L 21.0-32.0 [facility] Globulin (S) [Mass/Vol] 3.5 g/dL 2.2-4.2 [facility] Magnesium [Mass/Vol] 2.1 mg/dL 1.6-2.6 [facility] Urea nitrogen/Creatinine [Mass ratio] 13.8 mg/mg 10-20 [facility] - Hematology and Cell countsOrdered By: Lane Lowery on 01-22-2024 MCH (RBC) [Entitic mass] 30.9 pg 27.0-32.0 [facility] MCHC (RBC) [Mass/Vol] 32.4 g/dL 32-36 [facility] Nucleated RBC/100 WBC (Bld) [Ratio] 0 % 0-5 [facility] Platelet mean volume (Bld) [Entitic vol] 10.0 fL 6.2-12.0 [facility] Platelets (Bld) [#/Vol] 275 10*3/uL 150-450 [facility] Mucus LM Ql (Urine sed)Order ed By: Lane Lowery on 01-22-2024 Mucus Ql (Urine sed) 1+ /hpf [facility] Nitrite Test strip Ql (U)Ord ered By: Lane Lowery on 01-22-2024 Nitrite Ql (U) Negative Negative [facility] No Panel InformationOrdered By: Lane Lowery on 01-22-2024 Urine RBC 0 SEEN /hpf 0-5 [facility] Estimated GFR (MDRD) Amer 43 mL/min >60 [facility] Comment on above: GFR Calc Estimated GFR (MDRD) Non-Af Amer 36 mL/min >60 [facility] Comment on above: Non- GFR Calc VLDL Cholesterol 38 mg/dL 5-40 [facility] Protein Test strip Ql (U)Ord ered By: Lane Lowery on 01-22-2024 Protein Ql (U) Negative Negative [facility] RBC Auto (Bld) [#/Vol]Ordere d By: Lane Lowery on 01-22-2024 RBC (Bld) [#/Vol] 4.66 10*6/uL 4.6-6.2 [facility] Serum or plasma calcium deepa urement (mass/volume)Ordered By: Lane Lowery on 01-22-2024 Calcium [Mass/Vol] 9.2 mg/dL 8.5-10.1 [facility] Serum or plasma creatinine m easurement (mass/volume)Ordered By: Lane Lowery on 01-22-2024 Creatinine [Mass/Vol] 1.96 mg/dL 0.70-1.30 [facility] Comment on above: The validity of the calculated GFR & GFRAA in patients over 70 years has not been determined. Clinical correlation is essential. Serum or plasma thyroid stim ulating hormone (TSH) measurement (units/volume)Ordered By: Lane Lowery on 01-22-2024 TSH Qn 1.45 uIU/mL 0.358-3.74 [facility] Serum or plasma urea nitroge n measurement (mass/volume)Ordered By: Laen Lowery on 01-22-2024 Urea nitrogen [Mass/Vol] 27 mg/dL 7-18 [facility] Squamous epithelial cells de tection in urine sediment by light microscopyOrdered By: Lane Lowery on 01-22-2024 Epithelial cells.squamous LM Ql (Urine sed) 0 SEEN /hpf 0-5 [facility] Thin prep Papanicolaou smear with manual screeningOrdered By: Lane Lowery on 01-22-2024 Thin prep Papanicolaou smear with manual screening 3.7 g/dL 3.2-5.0 [facility] Thin prep Papanicolaou smear with manual screening 17 U/L 15-37 [facility] Thin prep Papanicolaou smear with manual screening 8 5-15 [facility] Urine blood detectionOrdered By: Lane Lowery on 01-22-2024 RBC Ql (U) Negative Negative [facility] Urine clarityOrdered By: Alexx Lowery on 01-22-2024 Clarity (U) Clear Clear [facility] Urine color determinationOrd ered By: Lane Lowery on 01-22-2024 Color (U) Yellow Yellow [facility] Urine glucose detectionOrder ed By: Lane Lowery on 01-22-2024 Glucose Ql (U) Normal mg/dl Normal [facility] Urine leukocyte esterase det ection by dipstickOrdered By: Lane Lowery on 01-22-2024 Leukocyte esterase Test strip Ql (U) Negative Negative [facility] Urine pHOrdered By: Lane grimm on 01-22-2024 pH (U) 6.0 [pH] 5.0 - 8.0 [facility] Urine sediment bacteria coun t by microscopy (number/high power field)Ordered By: Lane Lowery on 01-22-2024 Bacteria LM.HPF (Urine sed) [#/Area] 0 /[HPF] None Seen [facility] Urine specific gravity measu rementOrdered By: Lane Lowery on 01-22-2024 Specific gravity (U) [Rel density] 1.015 1.002-1.030 [facility] Urine urobilinogen measureme ntOrdered By: Lane Lowery on 01-22-2024 Urobilinogen Ql (U) Normal mg/dl Normal [facility] Basophil percentageOrdered B y: Lane Lowery on 10-23-2023 Chloride [Moles/Vol] 105 mmol/L 98-107 [facility] Glucose [Mass/Vol] 65 mg/dL 74-106 [facility] Potassium [Moles/Vol] 4.5 mmol/L 3.5-5.1 [facility] Sodium [Moles/Vol] 138 mmol/L 136-145 [facility] Laboratory - Chemistry and C hemistry - challengeOrdered By: Lane Lowery on 10-23-2023 CO2 [Moles/Vol] 29.0 mmol/L 21.0-32.0 [facility] Cobalamin (Vitamin B12) [Mass/Vol] 260 pg/mL 211-911 [facility] Free T4 [Mass/Vol] 1.17 ng/dL 0.76-1.46 [facility] Urea nitrogen/Creatinine [Mass ratio] 16.0 mg/mg 10-20 [facility] No Panel InformationOrdered By: Lane Lowery on 10-23-2023 Estimated GFR (MDRD) Amer 69 mL/min >60 [facility] Comment on above: GFR Calc Estimated GFR (MDRD) Non-Af Amer 57 mL/min >60 [facility] Comment on above: Non- GFR Calc Vitamin D 25-Hydroxy 36.0 ng/mL [facility] Comment on above: Vitamin D 25(OH) Sta tus Range Deficiency <20 ng/mL (50nmol/L) Insufficiency 20 - 30 ng/mL (50 - 75 nmol/L) Sufficiency 30 - 100 ng/mL (75 - 250 nmol/L) Toxicity >100 ng/mL (>250 nmol/L) Serum or plasma calcium deepa urement (mass/volume)Ordered By: Lane Lowery on 10-23-2023 Calcium [Mass/Vol] 8.7 mg/dL 8.5-10.1 [facility] Serum or plasma creatinine m easurement (mass/volume)Ordered By: Lane Lowery on 10-23-2023 Creatinine [Mass/Vol] 1.31 mg/dL 0.70-1.30 [facility] Comment on above: The validity of the calculated GFR & GFRAA in patients over 70 years has not been determined. Clinical correlation is essential. Serum or plasma urea nitroge n measurement (mass/volume)Ordered By: Lane Lowery on 10-23-2023 Urea nitrogen [Mass/Vol] 21 mg/dL 7-18 [facility] Thin prep Papanicolaou smear with manual screeningOrdered By: Lane Lowery on 10-23-2023 Thin prep Papanicolaou smear with manual screening 4 5-15 [facility] Absolute lymphocyte countOrd ered By: Lane Lowery on 10-03-2023 Lymphocytes Auto (Unsp spec) [#/Vol] 3.02 10*3/uL 0.83-4.51 [facility] Basophil percentageOrdered B y: Lane Lowery on 10-03-2023 Basophil percentage 0 SEEN /hpf 0-5 [facility] Basophils/100 WBC (Bld) 0.9 % 0-1 [facility] Bilirubin [Mass/Vol] 0.90 mg/dL 0.20-1.00 [facility] Comment on above: For patients on eltr ombopag therapy, use of Dimension [place] TBIL is not recommended. Chloride [Moles/Vol] 105 mmol/L 98-107 [facility] Cholesterol [Mass/Vol] 190 mg/dL <200 [facility] Comment on above: <200 mg/dL Desirable 200-240 mg/dL Borderline >240 mg/dL High Risk Eosinophils/100 WBC (Bld) 0.8 % 0-5 [facility] Glucose [Mass/Vol] 81 mg/dL 74-106 [facility] Neutrophils (Bld) [#/Vol] 5.1 10*3/uL 2.0-7.7 [facility] Neutrophils/100 WBC (Bld) 57.0 % 47-70 [facility] Potassium [Moles/Vol] 4.2 mmol/L 3.5-5.1 [facility] Protein [Mass/Vol] 7.3 g/dL 6.4-8.2 [facility] Sodium [Moles/Vol] 137 mmol/L 136-145 [facility] Triglyceride [Mass/Vol] 276 mg/dL <199 [facility] Comment on above: The drugs N-Acetylcy steine and Metamizole may falsely depress this assay.Serum Triglycerides Reference Interval Normal <150 mg/dL Borderline high 150 - 199 mg/dL High 200 - 499 mg/dL Very High > or = 500 mg/dL WBC (Bld) [#/Vol] 8.9 10*3/uL 4.4-11.0 [facility] Bilirubin Test strip Ql (U)O rdered By: Lane Lowery on 10-03-2023 Bilirubin Ql (U) Negative Negative [facility] Blood erythrocytes count (nu mber/volume)Ordered By: Lane Lowery on 10-03-2023 RBC (Bld) [#/Vol] 5.08 10*6/uL 4.6-6.2 [facility] Blood hemoglobin measurement (mass/volume)Ordered By: Lane Lowery on 10-03-2023 Hemoglobin (Bld) [Mass/Vol] 15.0 g/dL 13.0-16.5 [facility] Blood lymphocytes/[address]tesOrdered By: [address] Lowery on 10-03-2023 Lymphocytes/100 WBC (Bld) 34.0 % 19-41 [facility] Blood monocytes/[address]ocyt esOrdered By: [address] Lowery on 10-03-2023 Monocytes/100 WBC (Bld) 6.8 % 0-10 [facility] Blood platelet mean volumeOr dered By: Lane Lowery on 10-03-2023 Platelet mean volume (Bld) [Entitic vol] 10.0 fL 6.2-12.0 [facility] Determination of erythrocyte mean corpuscular volume (MCV)Ordered By: Lane Lowery on 10-03-2023 MCV (RBC) [Entitic vol] 94.1 fL 80-94 [facility] Hematocrit Auto (Bld) [Volum e fraction]Ordered By: Lane Lowery on 10-03-2023 Hematocrit (Bld) [Volume fraction] 47.8 % 40-54 [facility] Hyaline casts LM.LPF (Urine sed) [#/Area]Ordered By: Lane Lowery on 10-03-2023 Hyaline casts (Urine sed) [#/Area] 5 /[LPF] 0-5 [facility] Ketones Test strip Ql (U)Ord ered By: Lane Lowery on 10-03-2023 Ketones Ql (U) 5 mg/dl Negative [facility] Laboratory - Chemistry and C hemistry - challengeOrdered By: Lane Lowery on 10-03-2023 ALP [Catalytic activity/Vol] 63 U/L 45-117 [facility] ALT [Catalytic activity/Vol] 25 U/L 16-61 [facility] CO2 [Moles/Vol] 24.0 mmol/L 21.0-32.0 [facility] Globulin (S) [Mass/Vol] 3.7 g/dL 2.2-4.2 [facility] Urea nitrogen/Creatinine [Mass ratio] 17.5 mg/mg 10-20 [facility] Laboratory - Hematology and Cell countsOrdered By: Lane Lowery on 10-03-2023 Erythrocyte distribution width (RBC) [Entitic vol] 46.3 fL 35.1-43.9 [facility] Erythrocyte distribution width (RBC) [Ratio] 13.3 % 11.6-14.6 [facility] Immature granulocytes/100 WBC (Bld) 0.500 % 0.0-0.9 [facility] Comment on above: IG% - Immature Granu locytes (promyelocytes, myelocytes and metamyelocytes) > 1% indicates that a LEFT SHIFT is Present. MCH (RBC) [Entitic mass] 29.5 pg 27.0-32.0 [facility] Nucleated RBC/100 WBC (Bld) [Ratio] 0 % 0-5 [facility] MCHC Auto (RBC) [Mass/Vol]Or dered By: Lane Lowery on 10-03-2023 MCHC (RBC) [Mass/Vol] 31.4 g/dL 32-36 [facility] Mucus LM Ql (Urine sed)Order ed By: Lane Lowery on 10-03-2023 Mucus Ql (Urine sed) 0 SEEN /hpf [facility] Nitrite Test strip Ql (U)Ord ered By: Lane Lowery on 10-03-2023 Nitrite Ql (U) Negative Negative [facility] No Panel InformationOrdered By: Lane Lowery on 10-03-2023 Estimated GFR (MDRD) Amer 53 mL/min >60 [facility] Comment on above: GFR Calc Estimated GFR (MDRD) Non-Af Amer 43 mL/min >60 [facility] Comment on above: Non- GFR Calc Thyroid Stimulating Hormone (TSH) 1.08 uIU/mL 0.358-3.74 [facility] Platelets bldOrdered By: Alexx Lowery on 10-03-2023 Platelets (Bld) [#/Vol] 278 10*3/uL 150-450 [facility] Protein Test strip Ql (U)Ord ered By: Lane Lowery on 10-03-2023 Protein Ql (U) Negative Negative [facility] Serum or plasma albumin deepa urement (mass/volume)Ordered By: Lane Lowery on 10-03-2023 Albumin [Mass/Vol] 3.6 g/dL 3.2-5.0 [facility] Serum or plasma albumin/glob ulin mass ratioOrdered By: Lane Lowery on 10-03-2023 Albumin/Globulin [Mass ratio] 1.0 {ratio} 0.9-2.4 [facility] Serum or plasma calcium deepa urement (mass/volume)Ordered By: Lane Lowery on 10-03-2023 Calcium [Mass/Vol] 8.7 mg/dL 8.5-10.1 [facility] Serum or plasma cholesterol in HDL measurement (mass/volume)Ordered By: Lane Lowery on 10-03-2023 Cholesterol in HDL [Mass/Vol] 47 mg/dL >40 [facility] Comment on above: The drugs N-Acetylcy steine and Metamizole may falsely depress this assay. Reference Range HDL <40 mg/dL Low HDL Cholesterol HDL >or= 60 mg/dL High HDL Cholesterol Serum or plasma cholesterol in VLDL measurement (mass/volume)Ordered By: Lane Lowery on 10-03-2023 Cholesterol in VLDL [Mass/Vol] 55 mg/dL 5-40 [facility] Serum or plasma creatinine m easurement (mass/volume)Ordered By: Lane Lowery on 10-03-2023 Creatinine [Mass/Vol] 1.66 mg/dL 0.70-1.30 [facility] Comment on above: The validity of the calculated GFR & GFRAA in patients over 70 years has not been determined. Clinical correlation is essential. Serum or plasma low density lipoprotein (LDL) cholesterol measurement (mass/volume)Ordered By: Lane Lowery on 10-03-2023 Cholesterol in LDL [Mass/Vol] 88 mg/dL 0-130 [facility] Serum or plasma urea nitroge n measurement (mass/volume)Ordered By: Lane Lowery on 10-03-2023 Urea nitrogen [Mass/Vol] 29 mg/dL 7-18 [facility] Squamous epithelial cells de tection in urine sediment by light microscopyOrdered By: Lane Lowery on 10-03-2023 Epithelial cells.squamous LM Ql (Urine sed) 0 SEEN /hpf 0-5 [facility] Thin prep Papanicolaou smear with manual screeningOrdered By: Lane Lowery on 10-03-2023 Thin prep Papanicolaou smear with manual screening 12 U/L 15-37 [facility] Thin prep Papanicolaou smear with manual screening 8 5-15 [facility] Urine blood detectionOrdered By: Lane Lowery on 10-03-2023 RBC Ql (U) Negative Negative [facility] RBC Ql (U) 0 SEEN /hpf 0-5 [facility] Urine clarityOrdered By: Alexx Lowery on 10-03-2023 Clarity (U) Clear Clear [facility] Urine color determinationOrd ered By: Lane Lowery on 10-03-2023 Color (U) Yellow Yellow [facility] Urine glucose detectionOrder ed By: Lane Lowery on 10-03-2023 Glucose Ql (U) Normal mg/dl Normal [facility] Urine leukocyte esterase det ection by dipstickOrdered By: Lane Lowery on 10-03-2023 Leukocyte esterase Test strip Ql (U) Negative Negative [facility] Urine pHOrdered By: Lane grimm on 10-03-2023 pH (U) 5.0 [pH] 5.0 - 8.0 [facility] Urine sediment bacteria coun t by microscopy (number/high power field)Ordered By: Lane Lowery on 10-03-2023 Bacteria LM.HPF (Urine sed) [#/Area] 0 /[HPF] None Seen [facility] Urine specific gravity measu rementOrdered By: Lane Lowery on 10-03-2023 Specific gravity (U) [Rel density] 1.020 1.002-1.030 [facility] Urobilinogen Auto test strip Ql (U)Ordered By: Lane Lowery on 10-03-2023 Urobilinogen Ql (U) Normal mg/dl Normal [facility] No Panel InformationOrdered By: Clark Stewart on 09-02-2023 Prostate Specific Antigen Screen 0.74 ng/mL 0.00-4.00 [facility] Comment on above: This test was perfor med using the TPSA assay method for the[employer] chemistry system. Values obtained with differentassay methods cannot be used interchangably.When changing PSA assays in the course of monitoring apatient, additional sequential testing should be carriedout to confirm baseline values. Basophil percentageOrdered B y: Lynsey Monroy on 01-31-2023 Bilirubin [Mass/Vol] 0.70 mg/dL 0.20-1.00 [facility] Comment on above: For patients on eltr ombopag therapy, use of [place] TBIL is not recommended. Chloride [Moles/Vol] 111 mmol/L 98-107 [facility] Glucose [Mass/Vol] 69 mg/dL 74-106 [facility] Potassium [Moles/Vol] 4.2 mmol/L 3.5-5.1 [facility] Protein [Mass/Vol] 6.7 g/dL 6.4-8.2 [facility] Sodium [Moles/Vol] 142 mmol/L 136-145 [facility] WBC (Bld) [#/Vol] 7.6 10*3/uL 4.4-11.0 [facility] Blood erythrocytes count (nu mber/volume)Ordered By: Lynsey Monroy on 01-31-2023 RBC (Bld) [#/Vol] 5.12 10*6/uL 4.6-6.2 [facility] Blood hemoglobin measurement (mass/volume)Ordered By: Lynsey Monroy on 01-31-2023 Hemoglobin (Bld) [Mass/Vol] 15.5 g/dL 13.0-16.5 [facility] Blood platelet mean volumeOr dered By: Lynseyleland Monroy on 01-31-2023 Platelet mean volume (Bld) [Entitic vol] 9.9 fL 6.2-12.0 [facility] Determination of erythrocyte mean corpuscular volume (MCV)Ordered By: Lynsey Monroy on 01-31-2023 MCV (RBC) [Entitic vol] 92.6 fL 80-94 [facility] Hematocrit Auto (Bld) [Volum e fraction]Ordered By: Lynsey Monroy on 01-31-2023 Hematocrit (Bld) [Volume fraction] 47.4 % 40-54 [facility] Laboratory - Chemistry and C hemistry - challengeOrdered By: Lynsey Monroy on 01-31-2023 ALP [Catalytic activity/Vol] 57 U/L 45-117 [facility] ALT [Catalytic activity/Vol] 20 U/L 16-61 [facility] CO2 [Moles/Vol] 26.0 mmol/L 21.0-32.0 [facility] Globulin (S) [Mass/Vol] 3.3 g/dL 2.2-4.2 [facility] Urea nitrogen/Creatinine [Mass ratio] 17.0 mg/mg 10-20 [facility] Laboratory - Hematology and Cell countsOrdered By: Lynsey Statrikki on 01-31-2023 Erythrocyte distribution width (RBC) [Entitic vol] 46.4 fL 35.1-43.9 [facility] Erythrocyte distribution width (RBC) [Ratio] 13.6 % 11.6-14.6 [facility] MCH (RBC) [Entitic mass] 30.3 pg 27.0-32.0 [facility] MCHC Auto (RBC) [Mass/Vol]Or dered By: Lynsey Statrikki on 01-31-2023 MCHC (RBC) [Mass/Vol] 32.7 g/dL 32-36 [facility] No Panel InformationOrdered By: Lynsey Statrikki on 01-31-2023 Estimated GFR (MDRD) Amer 88 mL/min >60 [facility] Comment on above: GFR Calc Estimated GFR (MDRD) Non-Af Amer 73 mL/min >60 [facility] Comment on above: Non- GFR Calc Platelets bldOrdered By: Emanuel ha Statquianaouligor on 01-31-2023 Platelets (Bld) [#/Vol] 224 10*3/uL 150-450 [facility] Serum or plasma albumin deepa urement (mass/volume)Ordered By: Lynsey Stathopouligor on 01-31-2023 Albumin [Mass/Vol] 3.4 g/dL 3.2-5.0 [facility] Serum or plasma albumin/glob ulin mass ratioOrdered By: Lynsey Stathopoulos on 01-31-2023 Albumin/Globulin [Mass ratio] 1.0 {ratio} 0.9-2.4 [facility] Serum or plasma calcium deepa urement (mass/volume)Ordered By: Lynsey Monroy on 01-31-2023 Calcium [Mass/Vol] 9.1 mg/dL 8.5-10.1 [facility] Serum or plasma creatinine m easurement (mass/volume)Ordered By: Lynsey Monroy on 01-31-2023 Creatinine [Mass/Vol] 1.06 mg/dL 0.70-1.30 [facility] Comment on above: The validity of the calculated GFR & GFRAA in patients over 70 years has not been determined. Clinical correlation is essential. Serum or plasma urea nitroge n measurement (mass/volume)Ordered By: [facility] Eliana on 01-31-2023 Urea nitrogen [Mass/Vol] 18 mg/dL 7-18 [facility] Thin prep Papanicolaou smear with manual screeningOrdered By: [facility] Eliana on 01-31-2023 Thin prep Papanicolaou smear with manual screening 12 U/L 15-37 [facility] Thin prep Papanicolaou smear with manual screening 5 5-15 [facility] Thin prep Papanicolaou smear with manual screening 7.1 mg/L NO RANGE EST. [facility] Whole blood hemoglobin A1c/t otal hemoglobin ratio (mass fraction)Ordered By: Lynsey Monroy on 01-31-2023 HbA1c (Bld) [Mass fraction] 5.4 % 3.8-5.6 [facility] Comment on above: Normal < 5.7 % Predi abetic 5.7 - 6.4 % Diabetic >or= 6.5 % Please note range changes. JOAQUINAOVon 09-04-2022 CNOV Office Visit ([facility]) EMI SUN ([id number]) 1950 M Date Time Provider Department 09/04/22 9:00 AM [facility] During your visit today, we recorded the [...] a pleasure to take care of Emi Cuello Hostettler today. An xray will be ordered of the knee. Due to swelling of the calf an ultra sound rule out dvt has been ordered. Xray results are negative. He is scheduled for an US of the leg at [facility]. He again is denying any cp or [...] - US DVT LOWER LT Machelle Brannon APRN.CATALYST OPERATOR GASOLINE Referring Provider: SELF [[id number]] Allergies As of Date: 09/04/2022 Noted Allergy Reaction CODEINE 12/15/2011 2 - Rash 8 - GI Upset Date Reviewed: 09/04/2022 Reviewed by: Deann Lui (more content not included)... Normal [facility] CNPNon 09-04-2022 CNPN Telephone ([facility]) EMI SUN ([id number]) 1950 Date Time Provider Department 09/04/22 MACHELLE BRANNON During your visit today, we recorded the [...] by LAVERN HENAO LPN on 09/05/22 Normal [facility] No Panel Informationon 09-04 [facility] US DVT LOWER LTon 09-04-2022 US [...] imaged segments of the left lower extremity. Personnel Research Scientist: [facility] Transcribe Date/Time: Sep 04 2022 9:11P Dictated by : MELANIA MERCADO MD This examination was interpreted and the report reviewed and electronically signed by: MELANIA MERCADO MD on Sep 04 2022 9:13PM EST [id number] Normal [facility] XR KNEE 4V AP/PA BOTH+LAT/ME R [...] knee hemiarthroplasty. Degenerative changes as described above. Personnel Research Scientist: [facility] Transcribe Date/Time: Sep 04 2022 9:57A Dictated by : ALIREZA FLORES MD This examination was interpreted and the report reviewed and electronically signed by: ALIREZA FLORES MD on Sep 04 2022 10:00AM EST [id number] Normal [facility] XR KNEE GENERAL 4V AP BOTH/P A BOTH/LAT/MERC LEFTon 09-04-2022 [facility] XR Knee - left 4 Viewson IMPRESSION: Status post left knee hemiarthroplasty. Degenerative changes as described above. Personnel Research Scientist: [facility] Transcribe Date/Time: Sep 04 2022 9:57A [...] soft tissue swelling. DIVISION OF RADIOLOGY Provider, [facility] - 09/04/2022 * * *Final Report* * [...] knee hemiarthroplasty. Degenerative changes as described above. Personnel Research Scientist: [facility] Transcribe Date/Time: Sep 04 2022 9:57A Dictated by : ALIREZA FLORES MD This examination was interpreted and the report reviewed and electronically signed by: ALIREZA FLORES MD on Sep 04 2022 10:00AM EST [facility] Radiology Study observation (narrative) Puneet bennett [facility] XR Knee - left 4 ViewsOrdere d By: [facility] Provider on 09-04-2022 [facility] No Panel Informationon 09-02 Prostate Specific Antigen Total 1.25 ng/mL 0.0-4.0 [facility] Work Phone: Comment on above: This test was perfor med using the TPSA assay method for the[employer] chemistry system. Values obtained with differentassay methods cannot be used interchangably.When changing PSA assays in the course of monitoring apatient, additional sequential testing should be carriedout to confirm baseline values. CNOVon 07-05-2022 CNOV Office Visit ([facility]) EMI SUN ([id number]) 1950 Date Time Provider Department 07/05/22 10:30 AM CHLOE MARSHALL [facility] During your visit today, we recorded the following information about you: Temperature Pulse Respiration Blood pressure 96.2 degrees 55/minute 21/minute 182/90 Weight 86.6 kg Chloe Marshall APRN.CNP 07/05/2022 10:42 AM Signed Subjective HPI HPI Emi Snu is a 72 year old male who presents today for CC of itchy rash. This started 2 weeks ago. Has tried otc medication without relief. Symptoms are worsened by nothing. Risk factors hx of PI rash, has been working with [employer]. .Patient presents with: Rash: Poison greg on [...] TOPICAL CREAM Agrees to plan Chloe Marshall APRN.CATALYST OPERATOR GASOLINE Referring Provider: SELF [[id number]] Allergies As of Date: 07/05/2022 Noted Allergy Reaction CODEINE 12/15/2011 2 - Rash 8 - GI Upset Date Reviewed: 07/05/2022 Reviewed by: Chloe Marshall APRN.CATALYST OPERATOR GASOLINE - Fully Assessed Reason for Visit: Rash [...] - Lev (more content not included)... Normal [facility] CR Hand Complete 3+ Views fton 04-10-2019 CR Hand Complete 3+ Views Left Patient Name: TESHA SUN Diagnostic Radiology Exam Date/Time 04/10/2019 17:14:07 EDT Exam CR Hand Complete 3+ Views Left Ordering Physician [id number] ANNETTE ZULY Accession Number [id number] CPT4 Codes 76269 () Reason For Exam fracture Report LEFT [...] Transcribed Date and Time: 04/10/2019 6:44 Normal [facility] Vital Signs Date Time Vital Sign Value Performing Clinician Facility 09-09-2023 08:00-0400 Body temperature 97 [degF] Dr. Dunia Barnes Work Phone: [facility] 09-09-2023 08:00-0400 Diastolic blood pressure 68 mm[Hg] Dr. Dunia Barnes Work Phone: [phone] [place] [address] 09-09-2023 08:00-0400 Heart rate 54 /min Dr. Dunia Barnes Work Phone: [phone] [place] [address] 09-09-2023 08:00-0400 Respiratory rate 16 /min Dr. Dunia Barnes Work Phone: [phone] [place] [address] 09-09-2023 08:00-0400 SaO2% (BldA) [Mass fraction] 95 % Dr. Dunia Barnes Work Phone: [phone] [place] [address] 09-09-2023 08:00-0400 Systolic blood pressure 150 mm[Hg] Dr. Dunia Barnes Work Phone: [phone] [place] [address] 09-09-2023 06:14-0400 Body height 175.[address] Dunia Barnes Work Phone: [phone] [place] [address] 09-09-2023 06:14-0400 Body mass index (BMI) [Ratio] 27.6 kg/m2 Dr. Dunia Barnes Work Phone: [phone] [address] [place] [address] 09-09-2023 06:14-0400 Body weight 84.[address] Dunia Barnes Work Phone: 0(855)[phone] [place] [address] 08-13-2023 08:54-0400 Body temperature 97.3 [degF] Dr. Dunia Barnes Work Phone: 3(678)026-286618 [place] [address] 08-13-2023 08:54-0400 Diastolic blood pressure 85 mm[Hg] Dr. Dunia Barnes Work Phone: 8(621)486-349053 [address] 08-13-2023 08:54-0400 Heart rate 58 /min Dr. Dunia Barnes Work Phone: [facility] 08-13-2023 08:54-0400 Respiratory rate 17 /min Dr. Dunia Barnes Work Phone: [facility] 08-13-2023 08:54-0400 SaO2% (BldA) [Mass fraction] 97 % Dr. Dunia Barnes Work Phone: [facility] 08-13-2023 08:54-0400 Systolic blood pressure 209 mm[Hg] Dr. Dunia Barnes Work Phone: [facility] 08-11-2023 14:22-0400 Body temperature 98 [degF] Dr. Dunia Barnes Work Phone: [facility] 08-11-2023 14:22-0400 Diastolic blood pressure 76 mm[Hg] Dr. Dunia Barnes Work Phone: [facility] 08-11-2023 14:22-0400 Heart rate 60 /min Dr. Dunia Barnes Work Phone: [facility] 08-11-2023 14:22-0400 Respiratory rate 17 /min Dr. Dunia Barnes Work Phone: [facility] 08-11-2023 14:22-0400 SaO2% (BldA) [Mass fraction] 97 % Dr. Dunia Barnes Work Phone: [facility] 08-11-2023 14:22-0400 Systolic blood pressure 187 mm[Hg] Dr. Dunia Barnes Work Phone: [facility] 08-06-2023 13:00-0400 Body temperature 97.5 [degF] Dr. Dunia Barnes Work Phone: [facility] 08-06-2023 13:00-0400 Diastolic blood pressure 80 mm[Hg] Dr. Dunia Barnes Work Phone: [facility] 08-06-2023 13:00-0400 Heart rate 47 /min Dr. Dunia Barnes Work Phone: [facility] 08-06-2023 13:00-0400 Respiratory rate 18 /min Dr. Dunia Barnes Work Phone: [facility] 08-06-2023 13:00-0400 SaO2% (BldA) [Mass fraction] 100 % Dr. Dunia Barnes Work Phone: [facility] 08-06-2023 13:00-0400 Systolic blood pressure 172 mm[Hg] Dr. Dunia Barnes Work Phone: 0(928)659-207153 [address] 08-06-2023 10:47-0400 Body height 175.[address] Dunia Barnes Work Phone: 3(630)684-773218 [place] [address] 08-06-2023 10:47-0400 Body mass index (BMI) [Ratio] 27.3 kg/m2 Dr. Dunia Barnes Work Phone: 2(854)340-267818 [place] [address] 08-06-2023 10:47-0400 Body weight [address] Dunia Barnes Work Phone: 4(041)025-002753 [address] 07-22-2023 08:17-0400 Body mass index (BMI) [Ratio] 27.6 kg/m2 Dr. Dunia Barnes Work Phone: 7(790)023-606253 [address] 07-22-2023 08:17-0400 Body temperature 96.8 [degF] Dr. Dunia Barnes Work Phone: 9(922)102-708753 [address] 07-22-2023 08:17-0400 Body weight 84.[address] Dunia Barnes Work Phone: 0(373)932-952553 [address] 07-22-2023 08:17-0400 Diastolic blood pressure 99 mm[Hg] Dr. Dunia Barnes Work Phone: 1(965)979-277653 [address] 07-22-2023 08:17-0400 Heart rate 56 /min Dr. Dunia Barnes Work Phone: 6(557)430-125282 [place] [address] 07-22-2023 08:17-0400 Respiratory rate 16 /min Dr. Dunia Barnes Work Phone: 3(893)786-852482 [place] [address] 07-22-2023 08:17-0400 Systolic blood pressure 189 mm[Hg] Dr. Dunia Barnes Work Phone: [facility] 07-11-2023 13:35-0400 Body mass index (BMI) [Ratio] 27.2 kg/m2 Dr. Dunia Barnes Work Phone: [facility] 07-11-2023 13:35-0400 Body temperature 97.4 [degF] Dr. Dunia Barnes Work Phone: [facility] 07-11-2023 13:35-0400 Body weight 84.[address] Dunia Barnes Work Phone: [facility] 07-11-2023 13:35-0400 Diastolic blood pressure 84 mm[Hg] Dr. Dunia Barnes Work Phone: [facility] 07-11-2023 13:35-0400 Heart rate 64 /min Dr. Dunia Barnes Work Phone: [facility] 07-11-2023 13:35-0400 Respiratory rate 14 /min Dr. Dunia Barnes Work Phone: [facility] 07-11-2023 13:35-0400 SaO2% (BldA) [Mass fraction] 96 % Dr. Dunia Barnes Work Phone: [facility] 07-11-2023 13:35-0400 Systolic blood pressure 173 mm[Hg] Dr. Dunia Barnes Work Phone: [facility] 09-04-2022 09:06-0400 Body temperature 97.59 [degF] Machelle Brannon APRN.CATALYST OPERATOR GASOLINE Work Phone: [facility] 09-04-2022 09:06-0400 Body weight 86.91 kg Machelle Brannon APRN.CATALYST OPERATOR GASOLINE Work Phone: [facility] 09-04-2022 09:06-0400 Diastolic blood pressure 84 mm[Hg] Machelle Brannon APRN.CATALYST OPERATOR GASOLINE Work Phone: [facility] 09-04-2022 09:06-0400 Heart rate 68 /min Machelle Brannon BUSINESS ANALYTICS INTERN.CATALYST OPERATOR GASOLINE Work Phone: [facility] 09-04-2022 09:06-0400 Respiratory rate 16 /min Machelle Brannon BUSINESS ANALYTICS INTERN.CATALYST OPERATOR GASOLINE Work Phone: [facility] 09-04-2022 09:06-0400 SaO2% (BldA) [Mass fraction] 98 % Machelle Brannon BUSINESS ANALYTICS INTERN.CATALYST OPERATOR GASOLINE Work Phone: [facility] 09-04-2022 09:06-0400 Systolic blood pressure 142 mm[Hg] Machelle Brannon BUSINESS ANALYTICS INTERN.CATALYST OPERATOR GASOLINE Work Phone: [facility] 07-05-2022 10:19-0400 Body temperature 96.21 [degF] Chloe Rolando BUSINESS ANALYTICS INTERN.CATALYST OPERATOR GASOLINE Work Phone: [facility] 07-05-2022 10:19-0400 Body weight 86.64 kg Chloe Marshall BUSINESS ANALYTICS INTERN.CATALYST OPERATOR GASOLINE Work Phone: [facility] 07-05-2022 10:19-0400 Diastolic blood pressure 90 mm[Hg] Chloe Rolando BUSINESS ANALYTICS INTERN.CATALYST OPERATOR GASOLINE Work Phone: [facility] 07-05-2022 10:19-0400 Heart rate 55 /min Chloe Rolando BUSINESS ANALYTICS INTERN.CATALYST OPERATOR GASOLINE Work Phone: [facility] 07-05-2022 10:19-0400 Respiratory rate 21 /min Chloe Rolando BUSINESS ANALYTICS INTERN.CATALYST OPERATOR GASOLINE Work Phone: [facility] 07-05-2022 10:19-0400 SaO2% (BldA) [Mass fraction] 98 % Chloe Rolando BUSINESS ANALYTICS INTERN.CATALYST OPERATOR GASOLINE Work Phone: [facility] 07-05-2022 10:19-0400 Systolic blood pressure 182 mm[Hg] Chloe Rloando BUSINESS ANALYTICS INTERN.CATALYST OPERATOR GASOLINE Work Phone: [facility] Encounters Encounter Date Encounter Type Care Provider Facility Start: 09-05-[address] Padilla y:[facility] Start: 08-26-[address] Lowery Facilit y:[facility] Start: 06-06-2025 Non-patient / Non-visit Dr. Charly CARRERA -[facility] Start: 06-06-2025 End: 06-06-[address] Lowery MD Work Phone: -Cardiovascular Services Start: 06-06-2025 End: 06-06-[address] Lowery MD -Cardiovascular Services Work Phone: Start: 06-06-2025 End: 06-06-[address] Lowery Facility:[facility] Start: 05-12-2025 End: 05-12-[address] Lowery MD Work Phone: -Pulmonary Services/Neurology Start: 05-12-2025 End: 05-12-[address] Lowery MD -Pulmonary Services/Neurology Work Phone: Start: 05-12-2025 End: 05-12-[address] Lowery Facility:[facility] Start: 04-26-2025 End: 04-26-[address] Lowery MD Work Phone: [facility] Work Phone: Start: 04-26-2025 End: 04-26-[address] Lowery MD -Laboratory [facility] Start: 04-26-2025 End: 04-26-[address] Lowery Facility:[facility] Start: 01-05-2025 End: 01-05-[address] [facility] Start: 01-05-2025 End: 01-05-[address] Lowery Facility:[facility] Start: 12-28-2024 End: 12-28-[address] Lowery Facility:[facility] Start: 09-14-2024 End: 09-14-[address] Lowery Facility:[facility] Start: 01-29-2024 End: 01-29-[address] Dunia Barnes Work Phone: [facility] Work Phone: Start: 01-29-2024 End: 01-29-[address] Dunia Barnes Work Phone: [facility] Work Phone: Start: 01-22-2024 End: 01-22-[address] Dunia Barnes Work Phone: [facility] Work Phone: Start: 01-22-2024 End: 01-22-[address] Dunia Barnes Work Phone: [facility] Start: 01-12-2024 End: 01-12-2024 Non-patient / Non-visit Dr. Dunia Barnes Work Phone: [facility] Work Phone: Start: 01-12-2024 End: 01-12-[address] Dunia Barnes Work Phone: [facility] Work Phone: Start: 01-12-2024 End: 01-12-[address] Dunia Barnes Work Phone: [facility] Work Phone: Start: 11-27-2023 End: 11-27-[address] Dunia Barnes Work Phone: [facility] Work Phone: Start: 11-27-2023 End: 11-27-[address] Dunia Barnes Work Phone: [facility]-Physical Therapy Work Phone: Start: 10-23-2023 End: 10-23-[address] Dunia Barnes Work Phone: [facility] Work Phone: Start: 10-23-2023 End: 10-23-[address] Dunia Barnes Work Phone: [facility] Start: 10-20-2023 End: 10-20-[address] Dunia Barnes Work Phone: [facility] Work Phone: Start: 10-20-2023 End: 10-20-[address] Dunia Barnes Work Phone: [facility] Work Phone: Start: 10-03-2023 End: 10-03-[address] Dunia Barnes Work Phone: [facility] Work Phone: Start: 10-03-2023 End: 10-03-[address] Dunia Barnes Work Phone: [facility] Start: 09-23-2023 End: 09-23-[address] Dunia Barnes Work Phone: [facility] Work Phone: Start: 09-09-2023 Non-patient / Non-visit Dr. Yvan Barnes Work Phone: [facility] Start: 09-09-2023 End: 09-09-2023 Admission to same day surgery center Dr. Dunia Barnes Work Phone: [facility] Start: 09-09-2023 End: 09-09-[address] Dunia Barnes Work Phone: [facility] Work Phone: Start: 09-02-2023 End: 09-02-[address] Dunia Barnes Work Phone: [facility] Work Phone: Start: 09-02-2023 End: 09-02-[address] Dunia Barnes Work Phone: [facility]-Laboratory Work Phone: Start: 08-13-2023 End: 08-13-[address] Dunia Barnes Work Phone: [facility] Work Phone: Start: 08-11-2023 End: 08-11-[address] [facility] Work Phone: Start: 08-06-2023 Non-patient / Non-visit Dr. Yvan Barnes Work Phone: [facility] Start: 08-06-2023 End: 08-06-2023 Admission to same day surgery center [facility]ia [facility] Start: 08-06-2023 End: 08-06-[address] Dunia Barnes Work Phone: [facility] Work Phone: Start: 07-22-2023 End: 07-22-[address] Dunia Barnes Work Phone: [facility] Work Phone: Start: 07-11-2023 End: 07-11-[address] Dunia Barnes Work Phone: [facility] Work Phone: Start: 01-31-2023 End: 01-31-2023 ambulatory [facility] Work Phone: Start: 01-31-2023 End: 01-31-2023 Patient encounter procedure [facility]-Laboratory, [facility] Start: 09-30-2022 End: 09-30-2022 ambulatory [facility] Work Phone: Start: 09-30-2022 End: 09-30-2022 Patient encounter procedure [facility] Start: 09-04-2022 Telephone encounter Machelle castañeda APRN.CATALYST OPERATOR GASOLINE Work Phone: [facility] Comment on above: Results Start: 09-04-2022 End: 09-04-2022 ambulatory [facility] Facility:[facility] Start: 09-04-2022 End: 09-04-2022 Subsequent hospital visit by physician [facility] Comment on above: Calf swelling [M79.8 9] Pain of left lower e xtremity [M79.605] Start: 09-04-2022 End: 09-04-2022 Patient encounter procedure Machelle Brannon APRN.CATALYST OPERATOR GASOLINE Work Phone: [facility] Comment on above: Pain of left lower e xtremity (Primary Dx); Calf swelling Start: 09-02-2022 End: 09-02-2022 ambulatory [facility] Work Phone: Start: 09-02-2022 End: 09-02-2022 Patient encounter procedure [facility] Start: 07-05-2022 End: 07-05-2022 ambulatory [facility] Facility:[facility] Start: 07-05-2022 End: 07-05-2022 Patient encounter procedure Chloe Marshall APRN.CATALYST OPERATOR GASOLINE Work Phone: [facility] Comment on above: Rhus dermatitis (Latrice aury Dx) Procedures Date Procedure Procedure Detail Performing Clinician Start: 06-06-2025 Urnls dip stick/tabl et reagent auto microscopy Dr. Lane Lowery MD Work Phone: Start: 04-26-[address] [...] Dup-scan xtr veins unilateral/limited study Machelle Brannon APRN.CATALYST OPERATOR GASOLINE Work Phone: Start: 09-04-2022 Radiologic exam knee complete 4/more views Machelle Brannon APRN.CATALYST OPERATOR GASOLINE Work Phone: H/O: surgery History of excis ion of mass Dr. Dunia Barnes Work Phone: H/O: surgery S/P excision of skin lesion, follow-up exam Dr. Dunia Barnes Work Phone: Plan of Treatment Date Care Activity Detail Author Start: 04-10-2029 Urine microalbumin profile DTaP,Tdap,Td Vaccine (2 - Td or Tdap) [facility] Start: 2026 RSV Vaccine (1 - 1-d ose 75+ series) RSV Vaccine (1 - 1-dose 75+ series) [facility] Start: 07-18-2024 Covid-19 Vaccine ( season) Covid-19 Vaccine ( season) [facility] Start: 07-18-2024 Influenza vaccination Influenza Vacc ine (#1) [facility] Start: 11-17-2023 Advance Directive Discussion Advance Directive Discussion [facility] Start: 09-09-2023 Anes integ musc & nr v head neck&posterior trunk ANESTH HEAD/NECK/PTRUNK [facility] Start: 09-09-2023 Excision mal lesion trunk/arm/leg 3.1-4.0 cm EXC TR-EXT MAL+JOSH 3.1-4 CM [facility] Start: 09-09-2023 Patient discharge [facility] Start: 08-06-2023 Anes integ musc & nr v head neck&posterior trunk ANESTH HEAD/NECK/PTRUNK [facility] Start: 08-06-2023 Exc b9 lesion mrgn x cp sk tg t/a/l 2.1-3.0 cm EXC TR-EXT B9+JOSH 2.1-3CM [facility] Start: 08-06-2023 Patient discharge [facility] Start: 07-18-2022 Influenza vaccination INFLUENZA (#1) [facility] Start: 11-17-2021 ADVANCE DIRECTIVE DISCUSSION ADVANCE DIRECTIVE DISCUSSION [facility] Start: 11-17-2021 DEPRESSION ASSESSMENT DEPRESSION ASS ESSMENT [facility] Start: 02-12-2016 PNEUMOCOCCAL: 65+ (1 - PCV) PNEUMOCOCCAL: 65+ (1 - PCV) [facility] Start: 2001 SHINGRIX VACCINE (1 of 2) SHINGRIX VACCINE (1 of 2) [facility] Start: 02-12-1996 COLOGUARD (FIT-DNA) COLOGUARD (FIT-D NA) [facility] Start: 02-12-1996 Colonoscopy COLONOSCOPY [facility] Start: 02-12-1996 COLORECTAL CANCER SCREENING COLORECTAL CANCER SCREENING [facility] Start: 02-12-[address] COLONOGRAPHY [facility] Start: 02-12-1996 DIABETES SCREEN DIABETES SCREEN [facility] Start: 02-12-1996 Diabetes Screening Diabetes Screenin g [facility] Start: 02-12-1996 FECAL OCCULT BLOOD FECAL OCCULT BLOO D [facility] Start: 02-12-1996 Screening for malign ant neoplasm of colon [facility] Start: 02-12-1996 SIGMOIDOSCOPY SIGMOIDOSCOPY [facility] Start: 1986 Lipid panel Lipid Screening [facility] Start: 1986 LIPID SCREEN LIPID SCREEN [facility] Start: 1970 Urine microalbumin profile DTAP,TDAP,TD (1 - Tdap) [facility] Start: 1969 Anxiety Screening Anxiety Screening [facility] Start: 1969 Depression Screening Depression Scre ening [facility] Start: 1969 HEPATITIS C SCREENING HEPATITIS C [facility] Start: 1969 Hepatitis C screening Hepatitis C [facility] Start: 1963 Adult depression screening assessment DEPRESSION SCREENING [facility] Start: 1950 ABDOMINAL AORTIC ANEURYSM SCREENING ABDOMINAL AORTIC ANEURYSM SCREENING [facility] Start: 1950 Abdominal aortic aneurysm screening Abdominal Aortic Aneurysm Screening [facility] Anion gap measurement [facility] BUN/Creatinine ratio [facility] Calcium [Mass/volume ] in Serum or Plasma [facility] Carbon dioxide, tota l [Moles/volume] in Serum or Plasma [facility] Chloride [Moles/volu me] in Serum or Plasma [facility] Creatinine [Moles/volume] in Serum or Plasma [facility] Glucose [Mass/volume ] in Serum or Plasma [facility] Measurement of renal function [facility] Patient referral [facility] Work Phone: Potassium [Moles/vol ume] in Serum or Plasma [facility] Sodium [Moles/volume ] in Serum or Plasma [facility] T4 free measurement [facility] Urea nitrogen [Mass/volume] in Serum or Plasma [facility] End: 09-04-2023 US LEG VEIN DVT [facility] US LEG VEIN DVT [facility] Vascular Lab STAT Calf swelling 1 Occurrences starting 09/04/2022 until 09/04/2023 [facility] Work Phone: Comment on above: 1 Occurrences starti ng 09/04/2022 until 09/04/2023 Vitamin B12 measurement [facility] Vitamin D, 25-hydrox y measurement [facility] Immunizations Immunization Date Immunization Notes Care Provider Cece guerrero 08-09-2020 influenza virus vaccine, unspecified formulation [facility] [place] Work Phone: [facility] 04-10-2019 tetanus toxoid, redu chaz diphtheria toxoid, and acellular pertussis vaccine, adsorbed [facility] Payers Date Payer Category Payer Self-pay [id number] 2021 Private Health Insurance [facility] AAR SUPPLEMENT [id number] 2021-Present [phone] [address] [place] [address] Indemnity [id number] 2021 Unknown [id number] 2016 Medicare MEDICARE MEDICAR E A AND B [id number] 2016-Present [phone] [place] [address] Medicare [id number] 2016 Medicare [id number] 2015 Private Health Insurance [id number] Unknown [id number] Unknown [id number] Unknown [id number] Unknown [id number] Unknown [id number] Unknown [id number] Unknown [id number] Unknown [id number] Unknown [id number] Unknown [id number] Social History Date Type Detail Facility Start: 07-05-2022 End: 08-27-2023 Tobacco smoking status NHIS Ex-smoker [facility] History of tobacco use Current smoker [facility] History of tobacco use Cigarette Smoker [facility] History of tobacco use Passive smoker [facility] Start: 07-05-2022 Tobacco use and exposure Smokeless tobacco non-user [facility] Start: 07-05-2022 End: 09-04-2022 Alcohol intake Not Asked [facility] Start: 07-05-2022 Tobacco Comment Smoked for 17 years, quit for 18, then smoked for about 7 years. 1 PPD. [facility] Start: 1950 Sex Assigned At Not on file [facility] Start: 06-25-2022 End: 09-04-2022 Exposure to SARS-CoV-2 (event) Not sure [facility] Start: 04-08-2021 End: 08-27-2023 Tobacco smoking status NHIS Unknown if ever smoked [facility] Start: 04-10-[address] [facility] Start: 04-10-2019 Spouse/ Signif icant Other [facility] Start: 04-08-2021 Non-smoker [facility] Start: 1950 Sex Assigned At Male W [facility] Start: 09-04-2022 History of Social function [facility] Start: 09-04-2022 Tobacco use panel [facility] Goals Date Patient Goal Desired Activity /State Mental Status Date Assessment Result Facility 09-09-2023 Cognitive function Voice/Name [facility] Work Phone: 08-06-2023 Cognitive function Voice/Name [facility] Work Phone: Clinical Notes 07-05-2022 to 11-27-2023 Note Date & Type Note Facility 11-27-2023 Discharge summary Note Date/Time November 27, 2023 10:23am [facility] Physical Therapy Health[address] [place] [address] / REHABILITATION SERVICES DISCHARGE SUMMARY MR#: [id number] Acct: [id number] Name: TESHA SUN Rep #: [id number] : 1950 73 From: Jurgen Valladares DPT, OCS, CSCS Referring Dr.: Dr. Lane Lowery MD Status: REG RCR Insurance: MEDICARE PART A B [facility] Discharge Summary D/C summary: It has been [...] please feel free to call me at [phone]. Thank you for the referral of thispatient. Sincerely, Jurgen Valladares, DPT, OCS, CSCS Balance/Gait/Functional tests Balance/Special Test Scores Functional Gait Assessment Score: 27 % Disability: 10.0000 Dizziness Score: 24 <Electronically signed by Jurgen Valladares DPT, OCS, CSCS> 11/27/23 1023 CC: Dr. Dunia Barnes MD; Dr. Lane Lowery MD ~ EBG Signed [facility] Work Phone: 1(349) 830-108510-24-2023 History and physical note Author Jose Jacobo [facility] September 09, 2023 6:54am Note Date/Time September 09, 2023 6 :53am [facility] Medical Records Department [address] [place] [address] H&P Exam - Surgical 09/09/23 0652 MR#: [id number] Acct: [id number] Name: TESHA SUN Rep #:[id number] : 1950 73 From: Jose hernandez MD PCP: Dr. Dunia Barnes MD Status:[facility] Location: [place] [address] HPI - General HPI Narrative TESHA SUN, [...] had no issues since his last surgery. [facility] Medical History Abscess of left thigh [...] willing to proceed. Jose Jacobo MD Pager: [facility] [address] [place] [address], [address] [place] [address] Office: 09/09/23 0654 <Electronically signed by Jose Jacobo MD> Cosigner Signature (if applicable): CC: Dr. Dunia Barnes MD; Dr. Jose Jacobo MD~ Signed [facility] Work Phone: 1(743) 681-375610-24-2023 Procedure [facility] 08-06-2023 [facility]23 History and physical note Author Jose Jacobo [facility] August 06, 2023 10:31am Note Date/Time August 06, 2023 10:31am [facility] Medical Records Department [address] [place] [address] History & Physical Exam 08/06/23 1031 MR#: [id number] Acct: [id number] Name: TESHA SUN Rep #:[id number] : 1950 73 From: Jose hernandez MD PCP: Dr. Dunia Barnes MD Status:[facility] Location: [place] [id number] History and Physical Date of Admission: 08/06/23 [...] near the area. Jose Jacobo MD Pager: [facility] [address] [place] [address], [address] [place] [address] Office: I have examined the patient and the H&P has been reviewed. There are no clinicalchanges since date of exam. 08/06/23 1031 <Electronically signed by Jose Jacobo MD> Cosigner Signature (if applicable): CC: Dr. Dunia Barnes MD; Dr. Jose Jacobo MD~ Signed [facility] Work Phone: [phone] 444-526210-20-2022 Miscellaneous Notes* Telephone Encounter - Lavern Henao LPN - 09/05/2022 8:34 AM EDT Phone call placed patient advised (see prior provider encounter) Patient verbalized understanding, agreed with plan of care reported follow up scheduled with Mike Antonio 09/12/22. Lavern Heano LPN * Telephone Encounter - Adrian Jones [...] the results were in. [facility] NoteHNO ID: [id number] Author: RT Opal(R) Service: ? Author Type: Technologist Type: Progress [...] BY: RT Opal(Khushboo) September 04, 2022 1:43 [facility]10-19-2022 History of Present illness Narrative* LIDA [...] 04, 2022 1:43 PM documented in [facility]22 NoteHNO ID: [id number] Author: LIDA Kaiser) Service: Nuclear Medicine Author [...] BY: RT Awilda(Khushboo) September 04, 2022 9:37 [facility]10-19-2022 NoteHNO ID: [id number] Author: Machelle Brannon APRN.CATALYST OPERATOR GASOLINE Service: ? Author Type: Nurse Practitioner Type: Progress Notes Filed: 09/04/2022 8:05 PM Note Text: SUBJECTIVE: mEi Sun is a 72 year old male. [...] for an US of the leg at [facility]. He again is denying any cp or [...] - US DVT LOWER LT Machelle Brannon APRN.[facility] History of Present illness Narrative* Laquita Fernandez RT(R) - 09/04/2022 9:30 AM EDT Radiology Service Progress Note PATIENT NAME: Eim Sun DATE OF SERVICE: September 04, 2022 [...] 04, 2022 9:37 AM documented in [facility] History of Present illness Narrative* Machelle Brannon APRN.CATALYST OPERATOR GASOLINE - 09/04/2022 9:11 AM EDT SUBJECTIVE: Emi [...] a pleasure to take care of Emi Cuello Hostettler today. An xray will be ordered of the knee. Due to swelling of the calf an ultra sound rule out dvt has been ordered. Xray results are negative. He is scheduled for an US of the leg at [facility]. He again is denying any cp or [...] - US DVT LOWER LT Machelle Brannon APRN.CATALYST OPERATOR GASOLINE documented in this encounterT[facility]08-[facility]-2022 NoteHNO ID: [id number] Author: Chloe Marshall APRN.CATALYST OPERATOR GASOLINE Service: ? Author Type: Nurse Practitioner Type: [...] TOPICAL CREAM Agrees to plan Chloe Marshall APRN.[facility]08-19-2022 History of Present illness Narrative* Chloe Marshall APRN.CATALYST OPERATOR GASOLINE - 07/05/2022 10:40 AM EDT Images from [...] TOPICAL CREAM Agrees to plan Chloe Marshall APRN.CNP documented in this encounterAngel[facility] Oaks ClinicDischar summary Author Jose Jacobo [facility] August 06, 2023 12:59pm Note Date/Time August 06, 2023 12:58pm [facility] Medical Records Department [address] [place] [address] Instructions for Home/Discharge Instructions 08/06/23 1257 MR#: [id number] Acct: [id number] Name: TESHA SUN Rep #:[id number] : 1950 73 From: Jose hernandez MD PCP: Dr. Dunia Barnes MD Status:REG [facility] Discharge Instructions Diet Discharge Diet: No restrictions [...] call to schedule 10-day follow up appointment. [phone] Test Results: Test results from this visit [...] CC: Dr. Dunia Barnes MD ~ Signed [facility] Work Phone: Discharge summary Author Jose Jacobo [facility] September 09, 2023 8:17am Note Date/Time September 09, 2023 8 :12am [facility] Medical Records Department [address] [place] [address] Instructions for Home/Discharge Instructions 09/09/23 0810 MR#: [id number] Acct: [id number] Name: TESHA SUN Rep #:[id number] : 1950 73 From: Jose hernandez MD PCP: Dr. Dunia Barnes MD Status:REG [facility] Discharge Instructions Diet Discharge Diet: No restrictions [...] to schedule 2 week follow up appointment. [phone] Test Results: Test results from this visit [...] Order can be placed): Home, Self Care 09/09/23 0817<Electronically signed by Jose Jacobo MD>Jose Jacobo MD CC: Dr. 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 (except food) documented in this encounter [facility] note* Diagnosis Pain of left lower extremity- Primary Calf swelling Swelling of limb documented in this encounter [facility] noteNo assessment information availableWKindred Hospital [facility] Work Phone: Evaluation note* Diagnosis Onset Date Resolution Status Abscess of left thigh acute Abscess of left thigh acute [facility] Work Phone: Evaluation note* Diagnosis Onset Date Resolution Status Testicular swelling acute 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 [facility] Work Phone: Evaluation note* Diagnosis Onset Date Resolution Status Testicular swelling acute 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 [facility] Work Phone: Evaluation note* Diagnosis Onset Date Resolution Status Testicular swelling acute 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 [facility] Work Phone: Evaluation note* Diagnosis Onset Date Resolution Status 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 [facility] Work Phone: Evaluation note* Diagnosis Pain of left lower extremity documented in this encounter [facility] for referral (narrative)* Diagnostic Procedure Only (Urgent) - Closed Specialty Diagnoses / Procedures Referred By Sofiac t Referred To Contact US IMAGING Diagnoses Calf swelling Procedures US DVT LOWER LT DUP-SCAN XTR VEINS UNILATERAL/LIMITED STUDY Machelle Brannon APRN.CATALYST OPERATOR GASOLINE [address] [place] [address] Us Imaging Referral ID Status Reason Start Date Expiration Date V isits Requested Visits Authorized [id number] Closed Auto-Generate d Referral 09/04/2022 11/16/2022 1 1 * Outpatient Procedure (Urgent) - Authorized Specialty Diagnoses / Procedures Referred By Alex t Referred To Contact [facility] Diagnoses Calf swelling Procedures US LEG VEIN DVT UNL VAS LAB DUP-SCAN XTR VEINS UNILATERAL/LIMITED STUDY Machelle Brannon APRN.CATALYST OPERATOR GASOLINE [address] [place] [address] [facility] [address] [place] [address] Referral ID Status Reason Start Date Expiration Date Visits Requested Visits Authorized [id number] Authorized Auto-Generat ed Referral 2 09/04/2023 1 1 * Diagnostic Procedure Only (Urgent) - Closed Specialty Diagnoses / Procedures Referred By Contac t Referred To Contact XR IMAGING Diagnoses Pain of left lower extremity Procedures XR KNEE GENERAL 4V AP BOTH/PA BOTH/LAT/MERC LEFT RADIOLOGIC EXAM KNEE COMPLETE 4/MORE VIEWS Machelle Brannon APRN.CATALYST OPERATOR GASOLINE [address] [place] [address] Xr Imaging Referral ID Status Reason Start Date Expiration Date V isits Requested Visits Authorized [id number] Closed Auto-Generate d Referral 09/04/2022 10/04/2023 1 1 [facility] for referral (narrative)* Diagnostic Procedure Only (Urgent) - Closed Specialty Diagnoses / Procedures Referred By Contac t Referred To Contact XR IMAGING Diagnoses Pain of left lower extremity Procedures XR KNEE GENERAL 4V AP BOTH/PA BOTH/LAT/MERC LEFT RADIOLOGIC EXAM KNEE COMPLETE 4/MORE VIEWS Machelle Brannon APRN.CATALYST OPERATOR GASOLINE [address] [place] [address] [place] [address] Referral ID Status Reason Start Date Expiration Date V isits Requested Visits Authorized [id number] Closed Auto-Generate d Referral 09/04/2022 10/04/2023 1 1 [facility] for referral (narrative)No reason for referral information availableWKindred Hospital [facility] Work Phone: [facility] for visit Narrative* Diagnostic Procedure Only (Urgent) - Closed Specialty Diagnoses / Procedures Referred By Contac t Referred To Contact US IMAGING Diagnoses Calf swelling Procedures US DVT LOWER LT DUP-SCAN XTR VEINS UNILATERAL/LIMITED STUDY Machelle Brannon APRN.CATALYST OPERATOR GASOLINE [address] [place] [address] Us Imaging Referral ID Status Reason Start Date Expiration Date V isits Requested Visits Authorized [id number] Closed Auto-Generate d Referral 09/04/2022 11/16/2022 1 1 [facility] for visit Narrative* Diagnostic Procedure Only (Urgent) - Closed Specialty Diagnoses / Procedures Referred By Contac t Referred To Contact XR IMAGING Diagnoses Pain of left lower extremity Procedures XR KNEE GENERAL 4V AP BOTH/PA BOTH/LAT/MERC LEFT RADIOLOGIC EXAM KNEE COMPLETE 4/MORE VIEWS Machelle Brannon, MELIZA.CATALYST OPERATOR GASOLINE [address] [place] [address] [place] [address] Referral ID Status Reason Start Date Expiration Date V isits Requested Visits Authorized [id number] Closed Auto-Generate d Referral 09/04/2022 10/04/2023 1 1 [facility] Summary Purpose Family History No Family History Records FoundNo Family History Records FoundNo Family History Records FoundNo Family History Records Found Advance Directives No Advanced Directives Records Found Advance Directive Response Recorded Date/ Time Living Will Yes April 08, 2021 9 :00am Power of Regional Transportation Manager Yes April 08, 2021 9:00am Advance Directive Response Recorded Date/ Time Living Will Yes April 08, 2021 8 :00am Power of Regional Transportation Manager Yes April 08, 2021 8:00am Advance Directive Response Recorded Date/ Time Name of Medical Power of Regional Transportation Manager July 30, 2023 9:09am Living Will Yes July 30, 2023 9:09am Power of Regional Transportation Manager Yes July 9:09am Advance Directive Response Recorded Date/ Time Name of Medical Power of Regional Transportation Manager July 30, 2023 9:09am Living Will Yes August 27 12:33pm Power of Regional Transportation Manager Yes August 27, 2023 12:33pm Advance Directive Response Recorded Date/ Time Name of Medical Power of Regional Transportation Manager July 30, 2023 9:09am Name of Medical Power of Regional Transportation Manager ON FILE August 27, 2023 12:33pm Living Will Yes August 27 12:33pm Power of Regional Transportation Manager Yes August 27, 2023 12:33pm Advance Directive Response Recorded Date/ Time Name of Medical Power of Regional Transportation Manager July 30, 2023 8:09am Name of Medical Power of Regional Transportation Manager ON FILE August 27, 2023 11:33am Living Will Yes August 27 11:33am Power of Regional Transportation Manager Yes August 27, 2023 11:33am Advance Directive Response Recorded Date/ Time Living Will Yes August 27 11:33am Power of Regional Transportation Manager Yes August 27, 2023 11:33am Advance Directive Response Recorded Date/ Time Living Will Yes August 27 12:33pm Power of Regional Transportation Manager Yes August 27, 2023 12:33pm Chief Complaint [...] sites of skin Chief Complaint SKIN CANCER 10-24 Personal history of nicotine dependence BPPV RX [...] Date SOB May 12, 2025 9:46 am Chief Complaint Admit Date SOB May 12, 2025 9:46 am SOB June 06, 2025 9:48 am Additional Source Comments (unrecognized sect ion and content) No Status Records FoundNo Status Records FoundNo Status Records FoundNo Status Records Found INFORMATION SOURCE (unrecogn ized section and content) DATE CREATED AUTHOR 04/25/2019 [facility] DATE CREATED AUTHOR AUTHOR'S ORGANIZ ATION 09/09/2022 [facility] DATE CREATED AUTHOR AUTHOR'S ORGANIZ ATION 09/09/2022 [facility] DATE CREATED AUTHOR AUTHOR'S ORGANIZ ATION 08/30/2025 [facility] Source Comments (unrecognize d section and content) In the event this informatio n is protected by the Federal Confidentiality of Alcohol and Drug Abuse Patient Records regulations: The Federal rules restrict any use of the information to criminally investigate or prosecute any alcohol or drug abuse patient.[facility] HospitalIn the event this information is protected by the Federal Confidentiality of Alcohol and Drug Abuse Patient Records regulations: The Federal rules restrict any use of the information to criminally investigate or prosecute any alcohol or drug abuse patient.[facility] HospitalIn the event this information is protected by the Federal Confidentiality of Alcohol and Drug Abuse Patient Records regulations: The Federal rules restrict any use of the information to criminally investigate or prosecute any alcohol or drug abuse patient.[facility] HospitalIn the event this information is protected by the Federal Confidentiality of Alcohol and Drug Abuse Patient Records regulations: The Federal rules restrict any use of the information to criminally investigate or prosecute any alcohol or drug abuse patient.[facility] HospitalIn the event this information is protected by the Federal Confidentiality of Alcohol and Drug Abuse Patient Records regulations: The Federal rules restrict any use of the information to criminally investigate or prosecute any alcohol or drug abuse patient.[facility] Reason for Visit (unrecogniz ed section and content) Reason Comments Rash Poison greg on hands, ankles, and private area x 2 weeks Reason Comments Left Knee Pain X 1 month-cannot rec all an injury but has had some work done on knees in the past Reason Comments Results Care Teams (unrecognized sec tion and content) Terrazzo Finisher Relationship Specialty Start Date End Date Dunia Barnes [address] [place] [address] PCP - General Family Practice 07/05/22 Terrazzo Finisher Relationship Specialty Start Date End Date Dunia Barnes [address] [place] [address] PCP - General Family Medicine 07/05/22 Terrazzo Finisher Relationship Specialty Start Date End Date Cameron Dunia Paola [address] [place] [address] PCP - General Family Medicine 07/05/22 Terrazzo Finisher Relationship Specialty Start Date End Date CameronDunia [address] [place] [address] PCP - General Family Medicine 07/05/22 Team [...] Care Provider, Referrin g Provider Active Vladimir MCKEON, PA Attending Provider [...] MD Primary Care Provider Active Dr. Jose Jacoob MD Attending Provider, Referr ing Provider Active Team Status: Inactive Member Role Status Dates Dr. Dunia Barnes MD Primary Care Provider, Referrin g Provider Active Saqib Longoria PA, PA Attending Provider Active Team Status: Inactive Member Role Status Dates Dr. Dunia Barnes MD Primary Care Provider, Referrin g Provider Active LINDA Talbot-C Attending Provider Active Team Status: Inactive Member [...] Dr. Saqib Aguero MD Referring Provider Active Terrazzo Finisher Relationship Specialty Start Date End Date ClaudiaDunia stevens Paola [address] [place] [address] PCP - General Family Medicine 07/05/22 Team [...] May 12, 2025 End: May 12, 2025 Team Status: Inactive Member Role/Relationship Status Dates Dr. Lane Lowery MD Primary Care Provider Active Start: June 06, 2025 End: June 06, [address] Lowery MD Attending Provider Active Start: June 06, 2025 End: June 06, [address] Lowery MD Referring Provider Active Start: June 06, 2025 End: June 06, 2025 Team Status: Active Member Role/Relationship Status Dates Dr. Lane Lowery MD Primary Care Provider Active Start: June 06, 2025 Dr. Schuyler Napier MD Attending Provider Active S tart: June 06, 2025 Goals (unrecognized section and content) Goals [...] BE BASED ON THE PRIMARY CLINICAL RECORDS. [email or web address]. provides no warranty or guarantee of the accuracy or completeness of information in this document.
[2025-09-05 10:49] LABS: AST(SGOT) 18 U/L (<=37); Alanine Aminotransfer ALT/SGPT 17 U/L (<=46); Albumin, Serum 4.0 g/dL (3.4-4.8); Alkaline Phosphatase 56 U/L (40-129); Anion Gap 10 (5-15); BUN 18 mg/dL (4-19); BUN/Creat Ratio 13.8 RATIO (10-20); Calcium,Total 9.2 mg/dL (7.6-11.0); Carbon Dioxide 27.3 mmol/L (21.0-32.0); Chloride 104 mmol/L (98-108); Globulin 2.7 g/dL (2.2-4.2); Glucose 101 mg/dL (70-99); Potassium 4.0 mmol/L (3.3-5.1)
== END | disposition home or self-care (01) ==
LOC: MTLAB 07:03
PROVIDERS: PCP Family Medicine; Referring Provider Family Medicine; Visit Provider Family Medicine
DX: I10 Essential (primary) hypertension (principal)
CPT/HCPCS: 36415; 80053